=== PATIENT | male | born 1960 | race Caucasian/White ===

== ENCOUNTER 2024-12-17 08:08 | Emergency (ER) | payer BC, SELFPAY ==
--- OUTSIDE RECORDS SUMMARY | 2024-12-17 08:11 | XMS_ITS | Encounter Summary ---
Author Organization [place] Address [address] [place] [address]. [place] [address] Care Team Providers Care Employee Relations Consultant Name Role Phone Gamal Vásquez MD Primary Care Provider [phone] Isabelle Gleason MD Unavailable Unavailable Gamal Vásquez MD Unavailable [phone] Richa Carmona MD Unavailable + Juve Portillo MD Unavailable Gamal Vásquez MD Unavailable [phone] Guilherme Sprague MD Unavailable Parish Hammer MD Unavailable Un available Shay Dunlap PA-C Unavailable [phone] Guilherme Sprague MD Unavailable [phone] Shay Dunlap PA-C Unavailable [phone] Soco Magana PA-C Unavailable [phone] Gamal Vásquez MD Unavailable [facility] Unavailable Encounter Details Date Type Department Care Team (Late st Contact Info) Description 01/21/[address] 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 Not on file Not on file Not on fi le documented as of this encounter Plan of Treatment Not on file documented as of this encounter Visit Diagnoses Not on filedocumented in this encounter Care Teams Employee Relations Consultant Relationship Specialty Start Date End Date Gamal Vásquez MD [address] [place] [address] PCP - General Internal Medicine 04/14/15 Isabelle Gleason MD [address] [place] [address] BMT Physician Hematology 03/21/18 Gamal Vásquez MD [address] [place] [address] Assigned PCP 04/06/15 08/23/20 Richa Carmona MD [address] [facility] [address] [place] [address] Assigned Heart and Vascular Provider 07/18/20 09/27/20 Juve Portillo MD [address] [place] [address] Assigned PCP 08/24/20 09/20/20 Gamal Vásquez MD [address] [place] [address] Assigned PCP 09/21/20 09/10/22 Guilherme Sprague MD [address] [place] [address] Urology 09/22/20 Parish Hammer MD Assigned Heart and Vascular Provider 10/05/20 11/14/21 Shay Dunlap PA-C [address] [place], [place] [address] Assigned Surgical Provider 12/10/20 12/27/20 Guilherme Sprague MD [address] [place] [address] Assigned Surgical Provider 12/28/20 Shay Dunlap PA-C [address] [place] [address] Assigned Musculoskeletal Provider 03/15/21 04/16/22 Soco Magana PA-C [address] [place] [address] Assigned Heart and Vascular Provider 11/15/21 06/17/24 Gamal Vásquez MD [address] [facility] 160 [place] [address] Assigned PCP 11/20/22 09/16/23 [facility] 303 [place] [address] Assigned PCP 10/20/23 documented as of this encounter
--- OUTSIDE RECORDS SUMMARY | 2024-12-17 08:11 | XMS_ITS | Encounter Summary ---
Author Organization [place] Address [address] [place] [address]. [place] [address] Care Team Providers Care Cellular Biologist Name Role Phone Gamal Vásquez MD Primary Care Provider Isabelle Gleason MD Unavailable Unavailable Gamal Vásquez MD Unavailable [phone] Gamal Vásquez MD Unavailable [phone] Richa Carmona MD Unavailable + Juve Portillo MD Unavailable [phone] Gamal Vásquez MD Unavailable [phone] Guilherme Sprague MD Unavailable [phone] Parish Hammer MD Unavailable Un available Shay Dunlap PA-C Unavailable [phone] Guilherme Sprague MD Unavailable [phone] Shay Dunlap PA-C Unavailable [phone] Soco Magana PA-C Unavailable [phone] Gamal Vásquez MD Unavailable [phone] [facility] Unavailable Encounter Details Date Type Department Care Team (Late st Contact Info) Description 11/19/2018 [facility] [address] [place] [address] Gamal Vásquez MD [address] [place] [address] Social History Tobacco Use Types Packs/Day Years Used Date Smoking Tobacco: Never Smokeless Tobacco: Never Alcohol Use Standard Drinks/Week Comments Yes 0 (1 standard drink = 0.6 oz pur e alcohol) 2 drinks week PHQ-2 Answer Date Recorded PHQ-2 Score 0 10/04/2018 Sex and Gender Information Value Date Recorded Sex Assigned at Not on file Legal Sex Male 4:23 AM VP INFORMATICS Gender Identity Not on file Sexual Orientation Not on file 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 file Not on file Not on fi le documented as of this encounter Plan of Treatment Not on file documented as of this encounter Visit Diagnoses Not on filedocumented in this encounter Care Teams Cellular Biologist Relationship Specialty Start Date End Date Gamal Vásquez MD [address] [place] [address] PCP - General Internal Medicine 04/14/15 Gamal Vásquez MD [address] [place] [address] PCP - Assigned PCP 04/06/15 11/28/18 Isabelle Gleason MD [address] [place] [address] BMT Physician Hematology 03/21/18 Gamal Vásquez MD [address] [place] [address] Assigned PCP 04/06/15 08/23/20 Richa Carmona MD [address] [facility] [address] [place] [address] Assigned Heart and Vascular Provider 07/18/20 09/27/20 Juve Portillo MD [address] [place] [address] Assigned PCP 08/24/20 09/20/20 Gamal Vásquez MD [address] [place] [address] Assigned PCP 09/21/20 09/10/22 Guilherme Sprague MD [address] [place] [address] Urology 09/22/20 Parish Hammer MD Assigned Heart and Vascular Provider 10/05/20 11/14/21 Shay Dunlap PA-C [address] [place] [address] Assigned Surgical Provider 12/10/20 12/27/20 Guilherme Sprague MD [address] [place] [address] Assigned Surgical Provider 12/28/20 Shay Dunlap PA-C [address] [place] [address] Assigned Musculoskeletal Provider 03/15/21 04/16/22 Soco Magana PA-C [address] [place] [address] Assigned Heart and Vascular Provider 11/15/21 06/17/24 Gamal Vásquez MD [address] [place] [address] Assigned PCP 11/20/22 09/16/[address] [address] Assigned PCP 10/20/23 documented as of this encounter
--- OUTSIDE RECORDS SUMMARY | 2024-12-17 08:12 | XMS_ITS | Encounter Summary ---
Author Organization [place] Address [address] [place] [address]. [place] [address] Care Team Providers Care Air Deodorizer Servicer Name Role Phone Gamal Vásquez MD Primary Care Provider [phone] Isabelle Gleason MD Unavailable Unavailable Gamal Vásquez MD Unavailable [phone] Guilherme Sprague MD Unavailable [phone] Guilherme Sprague MD Unavailable [phone] Soco Magana PA-C Unavailable [phone] Gamal Vásquez MD Unavailable [phone] [facility] Unavailable Reason for Visit * Reason Comments Medication Refill Encounter Details Date Type Department Care Team (Late st Contact Info) Description 08/04/2022 [facility] [address] [place] [address] Gamal Vásquez MD [address] [place] [address] Medication Refill Social History Tobacco Use Types Packs/Day Years Used Date Smoking Tobacco: Former Smokeless Tobacco: Never Comments:SMOKED IN HIGH SCHO OL Alcohol Use Standard Drinks/Week Comments Yes 0 (1 standard drink = 0.6 oz pur e alcohol) 2 drinks week Humiliation, Afraid, Rape, and Kick questionnair e Answer Date Recorded Within the last year, have y ou been afraid of your partner or ex-partner? No 09/10/2020 Within the last year, have y ou been humiliated or emotionally abused in other ways by your partner or ex-partner? No Within the last year, have y ou been kicked, hit, slapped, or otherwise physically hurt by your partner or ex-partner? No 09/10/2020 Within the last year, have y ou been raped or forced to have any kind of sexual activity by your partner or ex-partner? No 09/10/2020 Social Connection and Isolation Panel [NHANES] A nswer Date Recorded In a typical week, how many times do you talk on the phone with family, friends, or neighbors? Not asked 09/10/2020 How often do you get together with friends or re latives? Not asked 09/10/2020 How often do you attend confucianist or sabianism serv ices? Not asked 09/10/2020 Do you belong to any clubs o r organizations such as confucianist groups, unions, fraternal or athletic groups, or school groups? Not asked 09/10/2020 How often do you attend meet ings of the clubs or organizations you belong to? Not asked 09/10/2020 Are you , , di vorced, , never , or living with a partner? 09/10/2020 AUDIT-C Answer Date Recorded Q1: How often do you have a drink containing alc ohol? 2-3 times a week 09/10/2020 Q2: How many drinks containi ng alcohol do you have on a typical day when you are drinking? 1 or 2 09/10/2020 Q3: How often do you have si x or more drinks on one occasion? Not asked 09/10/2020 Overall Financial Resource Strain (CARDIA) Answe r Date Recorded How hard is it for you to pa y for the very basics like food, housing, medical care, and heating? Not hard at all 09/10/2020 PHQ-2 Answer Date Recorded PHQ-2 Score 0 03/13/2021 Exercise Vital Sign Answer Date Recorde d On average, how many days pe r week do you engage in moderate to strenuous exercise (like a brisk walk)? 0 days 09/10/2020 On average, how many minutes do you engage in exercise at this level? Not asked 09/10/2020 Hunger Vital Sign Answer Date Recorded Within the past 12 months, y ou worried that your food would run out before you got the money to buy more. Never true 09/10/20 20 Within the past 12 months, t he food you bought just didn't last and you didn't have money to get more. Never true 09/10/2020 PRAPARE - Transportation Answer Date Re corded In the past 12 months, has l ack of transportation kept you from medical appointments or from getting medications? No 08/26 In the past 12 months, has l ack of transportation kept you from meetings, work, or from getting things needed for daily living? No 09/10/2020 Education Answer Date Recorded What is the highest level of school you have completed or the highest degree you have received? 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 No / Unsure 07/05/2022 9:33 AM CDT documented as of this encounter Miscellaneous Notes * Telephone Encounter - Samia eWbber RN - 08/05/2022 5:26 PM HEATER MECHANIC Sildenafil 100 mg Routing refill request to provider for review/approval because: A break in medication Patient needs to be seen because it has been more than 1 year since last office visit. Patient seen by Dr. Eller for Pre-op 01/2022 ASHLEY with PCP- 08/2020 ER MECHANIC documented in this encounter Plan of Treatment Not on file documented as of this encounter Visit Diagnoses Diagnosis Other male erectile dysfunction documented in this encounter Care Teams Air Deodorizer Servicer Relationship Specialty Start Date End Date Gamal Vásquez MD [address] [address] PCP - General Internal Medicine 04/14/15 Isabelle Gleason MD [address] [place] [address] BMT Physician Hematology 03/21/18 Gamal Vásquez MD [address] [address] Assigned PCP 09/21/20 09/10/22 Guilherme Sprague MD [address] [place] [address] Urology 09/22/20 Guilherme Sprague MD [address] [place] [address] Assigned Surgical Provider 12/28/20 Soco Magana PA-C [address] [place] [address] Assigned Heart and Vascular Provider 11/15/21 06/17/24 Gamal Vásquez MD [address] [address] Assigned PCP 11/20/22 09/16/23 [facility] [address] [place] [address] Assigned PCP 10/20/23 documented as of this encounter
--- OUTSIDE RECORDS SUMMARY | 2024-12-17 08:12 | XMS_ITS | Encounter Summary ---
Author Organization [facility] Address [address] [place] [address]. [place] [address] Care Team Providers Care Food Service Lead Name Role Phone Gamal Vásquez MD Primary Care Provider [phone] Isabelle Gleason MD Unavailable Unavailable Gamal Vásquez MD Unavailable [phone] Guilherme Sprague MD Unavailable [phone] Guilherme Sprague MD Unavailable [phone] Shay Dunlap PA-C Unavailable [phone] Soco Magana PA-C Unavailable [phone] Gamal Vásquez MD Unavailable [phone] [facility] Unavailable Encounter Details Date Type Department Care Team (Late st Contact Info) Description 01/22/2022 [facility] Centralized Scheduling [facility] [place] [address] [place] Social History Tobacco Use Types Packs/Day Years [...] asked 09/10/2020 How often do you attend zoroastrian or buddhism serv ices? 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 No / Unsure 12/24/2021 9:10 AM CDT documented as of this encounter Plan of Treatment Not on file documented as of this encounter Visit Diagnoses Not on filedocumented in this encounter Care Teams Food Service Lead Relationship Specialty Start Date End Date Gamal Vásquez MD [address] [place] [address] PCP - General Internal Medicine 04/14/15 Isabelle Gleason MD [address] [place] [address] BMT Physician Hematology 03/21/18 Gamal Vásquez MD [address] [place] [address] Assigned PCP 09/21/20 09/10/22 Guilherme Sprague MD [address] [place] [address] Urology 09/22/20 Guilherme Sprague MD [address] [place], [place] [address] Assigned Surgical Provider 12/28/20 Shay Dunlap PA-C [address] [place], [place] [address] Assigned Musculoskeletal Provider 03/15/21 04/16/22 Soco Magana PA-C [address] [place], [place] [address] Assigned Heart and Vascular Provider 11/15/21 06/17/24 Gamal Vásquez MD [address] [facility] [address] [place] [address] Assigned PCP 11/20/22 09/16/23 [facility] [address] [place], [place] [address] Assigned PCP 10/20/23 documented as of this encounter
--- OUTSIDE RECORDS SUMMARY | 2024-12-17 08:12 | XMS_ITS | Clinical Summary ---
Author Organization [facility] Address [address] [place] [address] Phone Care Team Providers Care Automotive Assembler Name Role Phone Gamal Vásquez MD Primary Care Provider [phone] Medications Medication Sig Dispensed Refills Start Date End Date Status sildenafil (VIAGRA) 100 MG tablet Take as dir 06/03/2015 Active tadalafil (CIALIS) 5 MG tablet Take as dir 06/03/2015 Active Active Problems Problem Noted Date Diagnosed Date Other abnormal blood chemistry 06/05/2015 Overview (08/04/2019): Converted unresolved ICD9, potential mismatch. Other malignant lymphomas, u nspecified site, extranodal and solid organ sites 06/03/2015 Overview (08/04/2019): Converted unresolved ICD9, potential mismatch. Mixed hyperlipidemia 06/03/2015 Tachycardia 06/03/2015 Impotence of organic origin 06/03/2015 Overview (08/04/2019): Converted unresolved ICD9, potential mismatch. Social History Tobacco Use Types Packs/Day Years Used Date Smoking Tobacco: Never Assessed Sex and Gender Information Value Date Recorded Sex Assigned at Not on file Gender Identity Not on file Sexual Orientation Not on file Last Filed Vital Signs Vital Sign Reading Time Taken Comments Blood Pressure 132/80 06/05/2015 12:02 AM CDT Ri ght Pulse - - Temperature - - Respiratory Rate - - Oxygen Saturation - - Inhaled Oxygen Concentration - - Weight 109 kg (240 lb) 06/05/2015 12:01 AM CDT Height 180.3 cm (5' 11) 06/05/2015 12:01 AM CDT Body Mass Index 33.47 06/05/2015 12:01 AM CDT Plan of Treatment Not on file Care Teams Automotive Assembler Relationship Specialty Start Date End Date Gamal Vásquez MD [address] [facility] [address] [place] [address] PCP - General 08/06/19
--- OUTSIDE RECORDS SUMMARY | 2024-12-17 08:12 | XMS_ITS | Encounter Summary ---
Author Organization [facility] Address [address] [place] [address]. [place] [address] Care Team Providers Care Healthcare Administrator Name Role Phone Gamal Vásquez MD Primary Care Provider [phone] Isabelle Gleason MD Unavailable Unavailable Gamal Vásquez MD Unavailable [phone] Gamal Vásquez MD Unavailable [phone] Richa Carmona MD Unavailable + Juve Portillo MD Unavailable [phone] Gamal Vásquez MD Unavailable [phone] Guilherme Sprague MD Unavailable [phone] Parish Hammer MD Unavailable Un available Shay Dunlap PA-C Unavailable [phone] Guilherme Sprague MD Unavailable [phone] Shay Dunlap PA-C Unavailable [phone] Soco Magana PA-C Unavailable [phone] Gamal Vásquez MD Unavailable [phone] [facility] Unavailable Encounter Details Date Type Department Care Team (Late st Contact Info) Description 04/18/2017 [facility] [address] [place] [address] Gamal Vásquez MD [address] [place] [address] Social History Tobacco Use Types Packs/Day Years Used Date Smoking Tobacco: Never Smokeless Tobacco: Never Alcohol Use Standard Drinks/Week Comments Yes 0 (1 standard drink = 0.6 oz pur e alcohol) 2 drinks week Sex and Gender Information Value Date Recorded Sex Assigned at Not on file 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 Gender Identity Not on file Sexual Orientation Not on file 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 Not on file Not on fi le documented as of this encounter Plan of Treatment Not on file documented as of this encounter Visit Diagnoses Not on filedocumented in this encounter Care Teams Healthcare Administrator Relationship Specialty Start Date End Date Gamal Vásquez MD [address] [place] [address] PCP - General Internal Medicine 04/14/15 Gamal Vásquez MD [address] [place] [address] PCP - Assigned PCP 04/06/15 11/28/18 Isabelle Gleason MD [address] [place] [address] BMT Physician Hematology 03/21/18 Gamal Vásquez MD [address] [place] [address] Assigned PCP 04/06/15 08/23/20 Richa Carmona MD [address] [place] [address] Assigned Heart and Vascular Provider 07/18/20 09/27/20 Juve Portillo MD [address] [place] [address] Assigned PCP 08/24/20 09/20/20 Gamal Vásquez MD [address] [address] Assigned PCP 09/21/20 09/10/22 Guilherme Sprague MD [address] [place] [address] Urology 09/22/20 Parish Hammer MD Assigned Heart and Vascular Provider 10/05/20 11/14/21 Shay Dunlap PA-C [address] [place] [address] Assigned Surgical Provider 12/10/20 12/27/20 Guilherme Sprague MD [address] [place], [place] [address] Assigned Surgical Provider 12/28/20 Shay Dunlap PA-C [address] [place] [address] Assigned Musculoskeletal Provider 03/15/21 04/16/22 Soco Magana PA-C [address] [place] [place], [place] [address] Assigned Heart and Vascular Provider 11/15/21 06/17/24 Gamal Vásquez MD [address] [address] Assigned PCP 11/20/22 09/16/[address] [address] Assigned PCP 10/20/23 documented as of this encounter
--- OUTSIDE RECORDS SUMMARY | 2024-12-17 08:12 | XMS_ITS | Encounter Summary ---
Author Organization [facility] Address [address] [place] [address]. [place] [address] Care Team Providers Care Air Defense Specialist Name Role Phone Gamal Vásquez MD Primary Care Provider [phone] Isabelle Gleason MD Unavailable Unavailable Guilherme Sprague MD Unavailable [phone] Guilherme Sprague MD Unavailable [phone] Soco Magana PA-C Unavailable [phone] Gamal Vásquez MD Unavailable [phone] [facility] Unavailable Reason for Visit * Reason Comments Medication Refill Encounter Details Date Type Department Care Team (Late st Contact Info) Description 08/28/2023 [facility] [address] [place] [address] Gamal Vásquez MD [address] [facility] [address] [place] [address] Medication Refill Social History Tobacco Use Types Packs/Day Years Used Date Smoking Tobacco: Former Smokeless Tobacco: Never Comments:SMOKED IN HIGH SCHO OL Alcohol Use Standard Drinks/Week Comments Yes 0 (1 standard drink = 0.6 oz pur e alcohol) 2 drinks monthly Humiliation, Afraid, Rape, and Kick questionnair e [...] asked 09/10/2020 How often do you attend mu-ism or lutheran serv ices? Not asked 09/10/2020 Do you belong to any clubs o r organizations such as mu-ism groups, unions, fraternal or athletic groups, or [...] things needed for daily living? No 09/10/2020 Adolescent Education Answer Date Record ed Getting School Help Needed Not on file 06/29 Education Answer Date Recorded What is the highest level of school you have completed or the highest degree you have received? 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 Not on file Not on file Not on fi le documented as of this encounter Plan of Treatment Not on file documented as of this encounter Visit Diagnoses Diagnosis Other male erectile dysfunction documented in this encounter Care Teams Air Defense Specialist Relationship Specialty Start Date End Date Gamal Vásquez MD [address] [place] [address] PCP - General Internal Medicine 04/14/15 Isabelle Gleason MD [address] [place] [address] BMT Physician Hematology 03/21/18 Guilherme Sprague MD [address] [place] [address] Urology 09/22/20 Guilherme Sprague MD [address] [place] [address] Assigned Surgical Provider 12/28/20 Soco Magana PA-C [address] [place] [address] Assigned Heart and Vascular Provider 11/15/21 06/17/24 Gamal Vásquez MD [address] [facility] [address] [place], [place] [address] Assigned PCP 11/20/22 09/16/23 [facility] [address] [place], [place] [address] Assigned PCP 10/20/23 documented as of this encounter
--- OUTSIDE RECORDS SUMMARY | 2024-12-17 08:12 | XMS_ITS | Clinical Summary ---
Author Organization [facility] Address [address] [place] [address] Care Team Providers Care Hat And Cap Sewer Name Role Phone Gamal Vásquez MD Primary Care Provider [phone] Allergies No known active allergies Medications acetaminophen (TYLENOL EXTRA STRGTH) 500 mg tablet Take 1,000 mg by mouth. Active anastrozole (ARIMIDEX) 1 mg tablet TAKE 1/2 TABLET BY MOUTH TWICE WEEKLY 4 Active cetirizine (ZYRTEC) 10 mg tablet Take 10 mg by mouth once daily. 3 Active cholecalciferol (VITAMIN D3) 2,000 unit capsule Take 50 mcg by mouth. Active fluticasone (50 mcg per actuation) nasal solution (FLONASE) SHAKE LIQUID AND USE 2 SPRAYS IN EACH NOSTRIL DAILY 4 Active ibuprofen (ADVIL; MOTRIN) 200 mg tablet Take 800 mg by mouth every 6 hours. Active lenalidomide (REVLIMID) 10 mg capsule Take 10 mg by mouth. Active LORazepam (ATIVAN) 0.5 mg tab Take 0.5 mg by mouth. Active naproxen (ALEVE) 220 mg tablet Take 440 mg by mouth. Active Doris Disp [place] 18Gx1 18 gauge x 1 ndle USE WITH INJECTIONS 4 Active ondansetron (ZOFRAN) 8 mg tablet Take 8 mg by mouth every 8 hours if needed. 4 03/26/20 25 Active prochlorperazin e (COMPAZINE) 10 mg tablet Take 10 mg by mouth every 6 hours if needed. 4 03/26/20 25 Active pregabalin (LYRICA) 50 mg capsuleIndicati ons:Lumbar pain Take 1 Capsule (50 mg) by mouth two times daily. 180 Capsule 1 Active Social History Tobacco Use Types Packs/Day Years Used Date Smoking Tobacco: Never Smokeless Tobacco: Never Tobacco Cessation:Counseling Given: Not Answered Sex and Gender Information Value Date Recorded Sex Assigned at Not on file Legal Sex Male 4:04 PM CDT Gender Identity Not on file Sexual Orientation Not on file Obstetrics History Last Filed Vital Signs Vital Sign Reading Time Taken Comments Blood Pressure - - Pulse - - Temperature - - Respiratory Rate - - Oxygen Saturation - - Inhaled Oxygen Concentration - - Weight 107 kg (236 lb) 04/05/2024 2:03 PM CDT Height 180.3 cm (5' 11) 04/05/2024 2:03 PM CDT Body Mass Index 32.92 04/05/2024 2:03 PM CDT Plan of Treatment Health Maintenance Due Date Last Done Comments COVID-19 vaccine series (#1) 1966 Tdap 1972 Depression screening for age 12+ 1973 HIV for age 15-65 1976 Zoster (shingles) series for age 50+ (1 of 2) 11/14/18 81 Tetanus booster 1981 Colonoscopy through age 75 2006 Lipids for age 45-75 2006 Pneumococcal series for age 50+ (1 of 1 - PCV) 012 RSV vaccine for adults or pr egnancy (1 - Risk 60-74 years 1-dose series) 2021 Influenza Vaccine (#1) 2024 BMI (ht and wt on same day) for age 18+ 04/05/2025 0 04/05/2024 Hepatitis C screening for age 18-79 Completed 07/18 Procedures Procedure Name Priority Date/Time Associated Diagnosis Comments ANTI HCV Routine 07/18/2018 2:13 PM CDT 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 Blood BLOOD SPECIMEN / Unknown 07/18/2018 2:13 PM CDT 07/18/2018 6:58 PM CDT us Gilberto Baker MD SEND OUTS Final Res ult [facility] [address] [place] [address], from Last 3 Months or Most Recently Relevant to Health Maintenance Insurance [facility] NON-VT-ITS Care Teams Hat And Cap Sewer Relationship Specialty Start Date End Date Gamal Vásquez MD [address] [facility] [address] [place] [address] PCP - General Internal Medicine 04/02/24
--- OUTSIDE RECORDS SUMMARY | 2024-12-17 08:12 | XMS_ITS | Encounter Summary ---
Author Organization [facility] Address [address] [place] [address]. [place] [address] Care Team Providers Care Supervisor Pipeline Maintenance Name Role Phone Gamal Vásquez MD Primary Care Provider Isabelle Gleaosn MD Unavailable Unavailable Gamal Vásquez MD Unavailable [phone] Richa Carmona MD Unavailable + Juve Portillo MD Unavailable Gamal Vásquez MD Unavailable [phone] Guilherme Sprague MD Unavailable [phone] Parish Hammer MD Unavailable Un available Shay Dunlap PA-C Unavailable [phone] Guilherme Sprague MD Unavailable Shay Dunlap PA-C Unavailable [phone] Soco Magana PA-C Unavailable [phone] Gamal Vásquez MD Unavailable [phone] [facility] Unavailable Reason for Visit * Reason Comments Medication Refill Encounter Details Date Type Department Care Team (Late st Contact Info) Description 03/10/2020 [facility] [address] [place] [address] Liya Ruiz MD [address] [place] [address] Medication Refill Social History Tobacco Use Types Packs/Day Years Used Date Smoking Tobacco: Never Smokeless Tobacco: Never Alcohol Use Standard Drinks/Week Comments Yes 0 (1 standard drink = 0.6 oz pur e alcohol) 2 drinks week PHQ-2 Answer Date Recorded PHQ-2 Score 0 10/04/2018 Sex and Gender Information Value Date Recorded Sex Assigned at Not on file Legal Sex Male 4:23 AM BUYERS' AGENT Gender Identity Not on file Sexual Orientation Not on file 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 TAKE 30 MINUTES TO 4 HOURS BEFORE INTERCOURSE Routing refill request to provider for review/approval because: Patient needs to be seen because it has been more than 1 year since last office visit. documented in this encounter Plan of Treatment Not on file documented as of this encounter Visit Diagnoses Diagnosis Other male erectile dysfunction documented in this encounter Care Teams Supervisor Pipeline Maintenance Relationship Specialty Start Date End Date Gamal Vásquez MD [address] [place] [address] PCP - General Internal Medicine 04/14/15 Isabelle Gleason MD [address] [place] [address] BMT Physician Hematology 03/21/18 Gamal Vásquez MD [address] [place] [address] Assigned PCP 04/06/15 08/23/20 Richa Carmona MD [address] [place] [address] Assigned Heart and Vascular Provider 07/18/20 09/27/20 Juve Portillo MD [address] [place] [address] Assigned PCP 08/24/20 09/20/20 Gamal Vásquez MD [address] [place], [place] [address] Assigned PCP 09/21/20 09/10/22 Guilherme Sprague MD [address] [place], [place] [address] Urology 09/22/20 Parish Hammer MD Assigned Heart and Vascular Provider 10/05/20 11/14/21 Shay Dunlap PA-C [address] [place] [address] Assigned Surgical Provider 12/10/20 12/27/20 Guilherme Sprague MD [address] [place] [address] Assigned Surgical Provider 12/28/20 Shay Dunlap PA-C [address] [place] [address] Assigned Musculoskeletal Provider 03/15/21 04/16/22 Soco Magana PA-C [address] [place] [address] Assigned Heart and Vascular Provider 11/15/21 06/17/24 Gamal Vásquez MD [address] [facility] [address] [place] [address] Assigned PCP 11/20/22 09/16/23 [facility] [address] [place] [address] Assigned PCP 10/20/23 documented as of this encounter
--- OUTSIDE RECORDS SUMMARY | 2024-12-17 08:12 | XMS_ITS | Encounter Summary ---
Author Organization [facility] Address [address] [place] [address] Care Team Providers Care Behavioral Sciences Department Chair Name Role Phone Gilberto Baker MD Primary Care Provider [phone] Gamal Vásquez MD Primary Care Provider [phone] Isabelle Gleason MD Unavailable Unavailable Gamal Vásquez MD Unavailable [phone] Gamal Vásquez MD Unavailable [phone] Richa Carmona MD Unavailable + Juve Portillo MD Unavailable [phone] Gamal Vásquez MD Unavailable [phone] Guilherme Sprague MD Unavailable [phone] Parish Hammer MD Unavailable Un available Shay Dunlap PA-C Unavailable [phone] Guilherme Sprague MD Unavailable [phone] Shay Dunlap PA-C Unavailable [phone] Soco Magana PA-C Unavailable [phone] Gamal Vásquez MD Unavailable [phone] [facility] Unavailable Encounter Details Date Type Department Care Team (Late st Contact Info) Description 04/11/2015 [facility] [place] [address] [facility] [address] [place] [id number] Gamal Vásquez MD [address] [place], [place] [address] Social History Tobacco Use Types Packs/Day Years Used Date Smoking Tobacco: Never Smokeless Tobacco: Never Alcohol Use Standard Drinks/Week Comments Yes 0 (1 standard drink = 0.6 oz pure alcohol) About one beer daily on average Sex and Gender Information Value Date Recorded Sex Assigned at Not on file Legal Sex Male 4:23 AM SENIOR APPLICATIONS 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 Gender Identity Not on file Sexual Orientation Not on file 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 on file Not on file Not on fi le documented as of this encounter Plan of Treatment Not on file documented as of this encounter Visit Diagnoses Not on filedocumented in this encounter Care Teams Behavioral Sciences Department Chair Relationship Specialty Start Date End Date Gilberto Baker MD [place] [facility] [address] [facility] [address] [place], [place] [address] PCP - General Oncology 01/16/14 04/13/15 Gamal Vásquez MD [address] [place] [address] PCP - General Internal Medicine 04/14/15 Gamal Vásquez MD [address] [place] [address] PCP - Assigned PCP 04/06/15 11/28/18 Isabelle Gleason MD [address] [place] [address] BMT Physician Hematology 03/21/18 Gamal Vásquez MD [address] [place] [address] Assigned PCP 04/06/15 08/23/20 IsRicha ku MD [address] [place] [address] Assigned Heart and Vascular Provider 07/18/20 09/27/20 Juve Portillo MD [address] [place] [address] Assigned PCP 08/24/20 09/20/20 Gamal Vásquez MD [address] [place], [place] [address] Assigned PCP 09/21/20 09/10/22 Guilherme Sprague MD [address] [place] [address] Urology 09/22/20 Parish Hammer MD Assigned Heart and Vascular Provider 10/05/20 11/14/21 Shay Dunlap PA-C [address] [place] [address] Assigned Surgical Provider 12/10/20 12/27/20 Guilherme Sprague MD [address] [place] [address] Assigned Surgical Provider 12/28/20 Shay Dunlap PA-C [address] [place] [address] Assigned Musculoskeletal Provider 03/15/21 04/16/22 Soco Magana PA-C [address] [place] [address] Assigned Heart and Vascular Provider 11/15/21 06/17/24 Gamal Vásquez MD [address] [facility] 160 [place] [address] Assigned PCP 11/20/22 09/16/23 [facility] 303 [place] [address] Assigned PCP 10/20/23 documented as of this encounter
--- OUTSIDE RECORDS SUMMARY | 2024-12-17 08:12 | XMS_ITS | Encounter Summary ---
Author Organization [facility] Address [address] [place] [address]. [place] [address] Care Team Providers Care Irrigation Flume Layer Name Role Phone Gamal Vásquez MD Primary Care Provider [phone] Isabelle Gleason MD Unavailable Unavailable Gamal Vásquez MD Unavailable [phone] Guilherme Sprague MD Unavailable [phone] Parish Hammer MD Unavailable Un available Guilherme Sprague MD Unavailable [phone] Shay Dunlap PA-C Unavailable + [phone] Soco Magana-Kavin Unavailable [phone] Gamal Vásquez MD Unavailable [phone] [facility] Unavailable Encounter Details Date Type Department Care Team (Late st Contact Info) Description 06/30/2021 [facility] [address] [place] [phone] Myranda Castillo, EXPEDITER CLERK Social History Tobacco Use Types Packs/Day Years [...] asked 09/10/2020 How often do you attend sikhism or synagogue serv ices? 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 Not on file Not on fi le documented as of this encounter Plan of Treatment Not on file documented as of this encounter Visit Diagnoses Not on filedocumented in this encounter Care Teams Irrigation Flume Layer Relationship Specialty Start Date End Date Gamal Vásquez MD [address] [place] [address] PCP - General Internal Medicine 04/14/15 Isabelle Gleason MD [address] [place] [address] BMT Physician Hematology 03/21/18 Gamal Vásquez MD [address] [place] [address] Assigned PCP 09/21/20 09/10/22 Guilherme Sprague MD [address] [address] Urology 09/22/20 Parish Hammer MD Assigned Heart and Vascular Provider 10/05/20 11/14/21 Guilherme Sprague MD [address] [place] [address] Assigned Surgical Provider 12/28/20 Shay Dunlap PA-C [address] [place] [address] Assigned Musculoskeletal Provider 03/15/21 04/16/22 Soco Magana PA-C [address] [place] [place], [place] [address] Assigned Heart and Vascular Provider 11/15/21 06/17/24 Gamal Vásquez MD [address] [facility] 160 [place], [place] [address] Assigned PCP 11/20/22 09/16/23 [facility] 303 [place], [place] [address] Assigned PCP 10/20/23 documented as of this encounter
--- OUTSIDE RECORDS SUMMARY | 2024-12-17 08:12 | XMS_ITS | Encounter Summary ---
Author Organization [facility] Address [address] [place] [address]. [place] [address] Care Team Providers Care Director Of Property Management Name Role Phone Gamal Vásquez MD Primary Care Provider [phone] Isabelle Gleason MD Unavailable Unavailable Gamal Vásquez MD Unavailable [phone] Guilherme Sprague MD Unavailable [phone] Guilherme Sprague MD Unavailable [phone] Shay Dunlap PA-C Unavailable [phone] Soco Magana PA-C Unavailable [phone] Gamal Vásquez MD Unavailable [phone] [facility] Unavailable Encounter Details Date Type Department Care Team (Late st Contact Info) Description 02/05/2022 [facility] [address] [place] [address] Tere Page Social History Tobacco Use Types Packs/Day Years [...] asked 09/10/2020 How often do you attend confucianism or gnosticism serv ices? 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 No / Unsure 02/04/2022 9:35 AM CDT documented as of this encounter Plan of Treatment Not on file documented as of this encounter Visit Diagnoses Not on filedocumented in this encounter Care Teams Director Of Property Management Relationship Specialty Start Date End Date Gamal Vásquez MD [address] [place] [address] PCP - General Internal Medicine 04/14/15 Isabelle Gleason MD [address] [place] [address] BMT Physician Hematology 03/21/18 Gamal Vásquez MD [address] [place] [address] Assigned PCP 09/21/20 09/10/22 Guilherme Sprague MD [address] [address] Urology 09/22/20 Guilherme Sprague MD [address] [place] [address] Assigned Surgical Provider 12/28/20 Shay Dunlap PA-C [address] [place] [address] Assigned Musculoskeletal Provider 03/15/21 04/16/22 Soco Magana PA-C [address] [facility] [place] [place] [address] Assigned Heart and Vascular Provider 11/15/21 06/17/24 Gamal Vásquez MD 303 [facility] 160 [place] [address] Assigned PCP 11/20/22 09/16/23 [facility] 303 [place] [address] Assigned PCP 10/20/23 documented as of this encounter
--- OUTSIDE RECORDS SUMMARY | 2024-12-17 08:12 | XMS_ITS | Clinical Summary ---
Author Organization [facility] Address [address] [place] [address] Care Team Providers Care Mounter Flutes And Piccolos Name Role Phone No Primary/Referring, Phy Primary Care Provider Unavailable Source Comments You are receiving this document as you are listed as the primary care provider,follow-up provider, or the patient has been referred to you for consultation.This is in compliance with the Medicare and[facility] EHR Incentive Program,which states Providers who transition their patient to another setting of careor provider of care or refers their patient to another provider of care shouldprovide summary care record for each transition of care or referral. [facility] Allergies No known active allergies Medications atorvastatin (AKA LIPITOR) 10 MG tablet Take by mouth daily (every 24 hours). LW Addl Instr:Indicated for: High Cholesterol 90 3 7 Active ibuprofen (MOTRIN) 600 MG tablet Take 1 Tablet by mouth every 6 hours as needed for Pain. 30 Tablet 0 Active oxyCODONE-aceta minophen (PERCOCET) 5-325 MG tablet Take 1 Tablet by mouth every 6 hours as needed for Pain. 6 Tablet 0 Active Immunizations Immunization Administration Dates Next Due Tdap 01/12/2020 Social History Tobacco Use Types Packs/Day Years Used Date Smoking Tobacco: Never Assessed Sex and Gender Information Value Date Recorded Sex Assigned at Not on file Legal Sex Male 11:01 PM CDT Gender Identity Not on file Sexual Orientation Not on file Last Filed Vital Signs Vital Sign Reading Time Taken Comments Blood Pressure 174/83 01/12/2020 12:50 PM CDT Pulse 86 01/12/2020 12:50 PM CDT Temperature 36.9 C (98.4 F) 01/12/2020 12:50 PM CDT Respiratory Rate 16 01/12/2020 12:50 PM CDT Oxygen Saturation 100% 01/12/2020 12:50 PM CDT Inhaled Oxygen Concentration - - Weight - - Height - - Body Mass Index - - Plan of Treatment Health Maintenance Due Date Last Done Comments Colon Cancer Screening Plan Due 1961 Hep C Screening (Preventive Services) 1961 PSA Screening Discussion 1961 HIV Screening (Preventive Services) 1977 Adult Preventive Visit 1979 Cholesterol 1996 Pneumococcal 50+ Yrs (1 of 1 - PCV) 2011 Zoster/Shingles (1 of 2) 2011 COVID-19 Vaccine (2023-2 5 season) 2024 Influenza (#1) 2024 09/10/2020, 07/17/2019, 07/25/2017 DTaP/Tdap/Td (3 - Tdap) 01/11/2030 01/12/20 20, 02/15/2007 RSV (1 - 1-dose 75+ series) 2036 HepA Aged Out No longer eligi ble based on patient's age to complete this topic HepB Aged Out No longer eligi ble based on patient's age to complete this topic Hib Aged Out No longer eligi ble based on patient's age to complete this topic IPV (Polio) Aged Out No longer eligi ble based on patient's age to complete this topic MCV4 Aged Out No longer eligi ble based on patient's age to complete this topic Meningococcal B Aged Out No longer el igible based on patient's age to complete this topic Insurance [facility] Care Teams Mounter Flutes And Piccolos Relationship Specialty Start Date End Date No Primary/Referring, y PCP - General 01/12/20
--- OUTSIDE RECORDS SUMMARY | 2024-12-17 08:12 | XMS_ITS | Encounter Summary ---
Author Organization [facility] Address [address] [place] [address]. [place] [address] Care Team Providers Care Plastic Fabricator Name Role Phone Gamal Vásquez MD Primary Care Provider [phone] Isabelle Gleason MD Unavailable Unavailable Gamal Vásquez MD Unavailable [phone] Guilherme Sprague MD Unavailable [phone] Guilherme Sprague MD Unavailable [phone] Soco Magana PA-C Unavailable [phone] Gamal Vásquez MD Unavailable [phone] [facility] Unavailable Encounter Details Date Type Department Care Team (Late st Contact Info) Description 05/07/2022 [facility] Advice [facility] [address] [place] [address] Guilherme Sprague MD [address] [address] Social History Tobacco Use Types Packs/Day Years [...] asked 09/10/2020 How often do you attend orthodoxy or methodist serv ices? 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 No / Unsure 05/07/2022 7:05 AM CDT documented as of this encounter Plan of Treatment Not on file documented as of this encounter Visit Diagnoses Not on filedocumented in this encounter Care Teams Plastic Fabricator Relationship Specialty Start Date End Date Gamal Vásquez MD [address] [place] [address] PCP - General Internal Medicine 04/14/15 Isabelle Gleason MD [address] [place] [address] BMT Physician Hematology 03/21/18 Gamal Vásquez MD [address] [place] [address] Assigned PCP 09/21/20 09/10/22 Guilherme Sprague MD [address] [place] [address] Urology 09/22/20 Guilherme Sprague MD [address] [place] [address] Assigned Surgical Provider 12/28/20 Soco Magana, PARadhaC [address] [place] [address] Assigned Heart and Vascular Provider 11/15/21 06/17/24 Gamal Vásquez MD 303 [facility] 160 [place] [address] Assigned PCP 11/20/22 09/16/23 [facility] [address] [place] [address] Assigned PCP 10/20/23 documented as of this encounter
--- OUTSIDE RECORDS SUMMARY | 2024-12-17 08:12 | XMS_ITS | Encounter Summary ---
Author Organization [place] Address [address] [place] [address] Care Team Providers Care Hadoop Application Developer Name Role Phone Maynor Barragan MD Primary Care Provider Unavailable [facility] Primary Care Provider Gilberto Baker MD Primary Care Provider [phone] Gamal Vásquez MD Primary Care Provider Isabelle Gleason MD Unavailable Unavailable Gamal Vásquez MD Unavailable [phone] Gamal Vásquez MD Unavailable [phone] Richa Carmona MD Unavailable + Juve Portillo MD Unavailable Gamal Vásquez MD Unavailable [phone] Guilherme Sprague MD Unavailable [phone] Parish Hammer MD Unavailable Un available Shay Dunlap PA-C Unavailable [phone] Guilherme Sprague MD Unavailable [phone] Shay Dunlap PA-C Unavailable [phone] Soco Magana PA-C Unavailable [phone] Gamal Vásquez MD Unavailable [phone] [facility] Unavailable Reason for Visit * Reason Onset Date Comments Pt. Information/instruction 02/28/2008 Encounter Details Date Type Department Care Team (Late st Contact Info) Description 02/28/2008 MyC Medical Advice [address] [phone] Maynor Barragan MD XXX HOSPITALIST/ED DOCTOR XXX Pt. 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 Not on file Not on file Not on fi le documented as of this encounter Plan of Treatment Not on file documented as of this encounter Visit Diagnoses Not on filedocumented in this encounter Care Teams Hadoop Application Developer Relationship Specialty Start Date End Date Maynor Barragan MD XXX HOSPITALIST/ED DOCTOR XXX PCP - General 04/07/02 07/26/10 [facility] XXX HOSPITALIST/ED DOCTOR XXX PCP - General 02/16/12 01/15/14 Gilberto Baker MD [place] [facility] [address] [facility] [address] [place] [address] PCP - General Oncology 01/16/14 04/13/15 Gamal Vásquez MD [address] [place] [address] PCP - General Internal Medicine 04/14/15 Gamal Vásquez MD [address] [place] [address] PCP - Assigned PCP 04/06/15 11/28/18 Isabelle Gleason MD [address] [place] [address] BMT Physician Hematology 03/21/18 Gamal Vásquez MD [address] [place] [address] Assigned PCP 04/06/15 08/23/20 Richa Carmona MD [address] [place] [address] Assigned Heart and Vascular Provider 07/18/20 09/27/20 Juve Portillo MD [address] [place] [address] Assigned PCP 08/24/20 09/20/20 Gamla Vásquez MD [address] [place] [address] Assigned PCP 09/21/20 09/10/22 Guilherme Sprague MD [address] [place] [address] Urology 09/22/20 Parish Hammer MD Assigned Heart and Vascular Provider 10/05/20 11/14/21 Shay Dunlap PA-C [address] [place] [address] Assigned Surgical Provider 12/10/20 12/27/20 Guilherme Sprague MD [address] [place] [address] Assigned Surgical Provider 12/28/20 Shay Dunlap PA-C [address] [address] Assigned Musculoskeletal Provider 03/15/21 04/16/22 Soco Magana PA-C [address] [facility] [place] [address] Assigned Heart and Vascular Provider 11/15/21 06/17/24 Gamal Vásquez MD [address] [place] [address] 160 [place] [address] Assigned PCP 11/20/22 09/16/23 [facility] [address] [place] [address] Assigned PCP 10/20/23 documented as of this encounter
--- OUTSIDE RECORDS SUMMARY | 2024-12-17 08:12 | XMS_ITS | Encounter Summary ---
Author Organization [place] Address [address] [place] [address]. [place] [address] Care Team Providers Care Form Grader Operator Name Role Phone Gamal Vásquez MD Primary Care Provider [phone] Isabelle Gleason MD Unavailable Unavailable Gamal Vásquez MD Unavailable [phone] Guilherme Sprague MD Unavailable [phone] Guilherme Sprague MD Unavailable [phone] Soco Magana PA-C Unavailable [phone] Gamal Vásquez MD Unavailable [phone] [facility] Unavailable Encounter Details Date Type Department Care Team (Late st Contact Info) Description 08/09/2022 MyC Medical Advice [facility] Insurance Verification Marion Das Social History Tobacco Use Types Packs/Day Years [...] asked 09/10/2020 How often do you attend nondenominational or yarsani serv ices? 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 Not on file Not on file Not on fi le documented as of this encounter Plan of Treatment Not on file documented as of this encounter Visit Diagnoses Not on filedocumented in this encounter Care Teams Form Grader Operator Relationship Specialty Start Date End Date Gamal Vásquez MD [address] [place] [address] PCP - General Internal Medicine 04/14/15 Isabelle Gleason MD [address] [place] [address] BMT Physician Hematology 03/21/18 Gamal Vásquez MD [address] [place] [address] Assigned PCP 09/21/20 09/10/22 Guilherme Sprague MD [address] [place] [address] Urology 09/22/20 Guilherme Sprague MD [address] [place] [address] Assigned Surgical Provider 12/28/20 Soco Magana PA-C [address] [place] [address] Assigned Heart and Vascular Provider 11/15/21 06/17/24 Gamal Vásquez MD [address] [facility] [address] [place] [address] Assigned PCP 11/20/22 09/16/23 [facility] [address] [place] [address] Assigned PCP 10/20/23 documented as of this encounter
--- OUTSIDE RECORDS SUMMARY | 2024-12-17 08:12 | XMS_ITS | Clinical Summary ---
Author Organization [place] Address [address] [place] [address]. [place] [address] Care Team Providers Care Radio Disc Jockey Name Role Phone Gamal Vásquez MD Primary Care Provider [phone] Isabelle Gleason MD Unavailable Unavailable Guilherme Sprague MD Unavailable [phone] Guilherme Sprague MD Unavailable [phone] [facility] Unavailable Allergies Active Allergy Reactions Criticality Noted Date Comments No Known Allergies 10/06/2004 Medications Multiple Vitamins-Mineral s (MULTIVITAMIN ADULT PO) Take by mouth daily Active Cholecalciferol (VITAMIN D3 PO) Take by mouth daily Active Multiple Vitamins-Mineral s (ZINC PO) Active aspirin (ASA) 81 MG chewable tabletIndication s:Coronary artery calcification,Dy slipidemia Take 1 tablet (81 mg) by mouth daily with food 2 Active tamsulosin (FLOMAX) 0.4 MG capsuleIndicatio ns:Calculus of kidney Take 1 capsule (0.4 mg) by mouth daily 7 capsule 1 2 Active Additional Information Patient not taking.Reported on 12/16/2022 allopurinol (ZYLOPRIM) 300 MG tablet Take 300 mg by mouth daily Active LENalidomide (REVLIMID) 10 MG CAPS capsule Take 10 mg by mouth daily Active LORazepam (ATIVAN) 0.5 MG tablet Take 0.5 mg by mouth every 6 hours as needed for nausea Active riTUXimab (RITUXAN IV) As directed Activ e rosuvastatin (CRESTOR) 10 MG tabletIndication s:Coronary artery calcification,Dy slipidemia Take 1 tablet (10 mg) by mouth daily 90 tablet 3 3 Active sildenafil (VIAGRA) 100 MG tabletIndication s:Other male erectile dysfunction TAKE ONE-HALF TO ONE TABLET BY MOUTH DAILY NEEDED 30 MINUTES TO 4 HOURS BEFORE INTERCOURSE 6 tablet 3 3 Active Active Problems Problem Noted Date Diagnosed Date Neuropathy, peripheral 11/27/2019 Anemia 07/04/2018 High aspartate aminotransferase level 07/04/2018 Bilateral hearing loss 04/20/2018 Malignant lymphoma, small cleaved cell, 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 Iabfc-Qbpgqqlua-Cvatp pattern 04/20/2018 Chest wall pain 12/03/2016 Chest pain, unspecified type 12/03/2016 Hyperlipidemia LDL goal <130 06/10/2011 Impotence of organic origin 12/08/2005 Mixed hyperlipidemia 12/08/2005 Non Hodgkin's lymphoma Overview (03/25/2014): in remission Heart palpitations Resolved Problems Problem Noted Date Diagnosed Date Resolved Date Cervicalgia 10/28/2020 02/12/2021 Health [facility] 05/04/2011 03/12/2024 Overview (01/01/2013): x DX V65.8 REPLACED WITH 41932 HEALTH [facility]PC (01/01/2013) Hyperlipidemia LDL goal <100 07/26/2010 06/10/2011 Tachycardia 02/02/2022 Overview (09/03/2014): SVT Immunizations Name Administration Dates Next Due DTaP, Unspecified 01/12/2020 Flu, Unspecified 07/25/2017 Influenza Vaccine 18-64 (Flublok) 09/10/2020 Influenza Vaccine >6 months,quad, PF 07/17/2019 TDAP Vaccine (Adacel) 02/15/2007 Family History Medical History Relation Comments Family History Negative Brother 4 brothe rs Cancer Father age 66, [place] Lipids Father Family History Negative Mother Born ~[birth year] Family History Negative Sister 3 sister s Relation Status Comments Brother Alive x4 Father (Age 66) Maternal Grandfather Maternal Grandmother Mother Alive Paternal Grandfather Paternal Grandmother Sister Alive x3 Son Alive Wallace Social History Tobacco Use Types Packs/Day Years Used Date Smoking Tobacco: Former Smokeless Tobacco: Never Tobacco Cessation:Counseling Given: Not Answered Comments:SMOKED IN HIGH SCHOOL Alcohol Use Standard Drinks/Week Comments Yes 0 [...] asked 09/10/2020 How often do you attend anabaptist or holiness serv ices? 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 Not on file Not on file Not on fi le Last Filed Vital Signs Vital Sign Reading Time Taken Comments Blood Pressure 149/92 06/08/2023 10:10 AM CDT Pulse 66 06/08/2023 10:10 AM CDT Temperature 35.9 C (96.7 F) 02/04/2022 2:15 PM CDT Respiratory Rate 16 02/04/2022 2:40 PM CDT Oxygen Saturation 95% 02/04/2022 2:40 PM CDT Inhaled Oxygen Concentration - - Weight 113.4 kg (250 lb) 06/08/2023 10:10 AM CDT Height 180.3 cm (5' 11) 06/08/2023 10:10 AM CDT Body Mass Index 34.87 06/08/2023 10:10 AM CDT Plan of Treatment Health Maintenance Due Date Last Done Comments ANNUAL REVIEW OF HM ORDERS 1961 CT COLONOGRAPHY 1961 FIT 1961 FLEX SIG 1961 URIC ACID 1961 sDNA (Cologuard) 1961 COVID-19 Vaccine (#1) 1966 HEPATITIS C SCREENING 1979 YEARLY PREVENTIVE VISIT 09/10/2021 09/10/20 20, 03/25/2017, 04/02/2015, Additional history exists RSV VACCINE (1 - Risk 60-74 years 1-dose series) 2021 LIPID 02/16/2024 02/15/2023, 11/24, 11/10/2021, Additional history exists PHQ-2 (once per calendar year) 2024 03/13/2021, 12/22/2020, 09/10/2020, Additional history exists ZOSTER IMMUNIZATION (2 of 2) 12/18/2024 10/23/2024 DIABETES SCREENING 02/02/2025 02/02/2022, 0 11/15/2018, 03/25/2017, Additional history exists LUNG CANCER SCREENING 10/23/2025 10/23/2024 , 04/12/2024, 08/24/2023, Additional history exists ADVANCE CARE PLANNING 02/02/2027 02/02/2022 , 09/09/2020 (Declined) COLONOSCOPY 07/21/2028 07/21/2023, 06/27, 06/23/2018, Additional history exists COLORECTAL CANCER SCREENING 07/21/2028 DTAP/TDAP/TD IMMUNIZATION (3 - Td or Tdap) 01/11/2030 01/12/2020, 01/12/2020, 02/15/2007 HIV SCREENING Completed 03/05/2024 INFLUENZA VACCINE Completed 07/20/2024, , 07/17/2019, Additional history exists Pneumococcal Vaccine: 50+ Years Completed 10/23/2024 HPV IMMUNIZATION Aged Out No longer e ligible based on patient's age to complete this topic MENINGITIS IMMUNIZATION Aged Out No l onger eligible based on patient's age to complete this topic Medical Devices Explanted Type Area Copyright Clerk Device Identifier Shelf Expiration Date Model / Serial / Lot Port Explanted:2016 by Lorenzo Brooks MD (Quantity not on file) Port Procedures Procedure Name Priority Date/Time Associated Diagnosis Comments CT CHEST/ABDOMEN/PELVIS W CONTRAST Routine 08/24/2023 10:25 AM BYPRODUCTS OPERATOR 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) COLONOSCOPY - HIM SCAN 07/21/2023 12:00 AM CDT LIPID REFLEX TO DIRECT LDL PANEL Routine 02/15/2023 8:19 AM CDT Coronary artery calcification Dyslipidemia Mild ascending aorta dilatation BASIC METABOLIC PANEL STAT 02/02/2022 10:32 AM CDT Pre-op exam from Last 3 Months or Most Recently Relevant to Health Maintenance Results * COLONOSCOPY - HIM SCAN (07/21/2023 12:00 AM CDT) 07/21/2023 us Provider Outside PROCEDURES Final Result * (ABNORMAL) Lipid panel reflex to direct LDL Fasting (02/15/2023 8:19 AM CDT) Cholesterol 119 <200 mg/dL 02/15/2023 11:42 AM CDT [facility] Triglycerides 103 <150 mg/dL 02/15/2023 11:42 AM CDT [facility] Direct Measure HDL 39(L) >=40 mg/dL 2022 11:42 AM CDT [facility] LDL Cholesterol Calculated 59 <=100 mg/dL 02/15/2023 11:42 AM CDT [facility] Non HDL Cholesterol 80 <130 mg/dL 02/15/2023 11:42 AM CDT [facility] Blood STRUCTURE OF LEFT UPPER LIMB / Unknown Venipuncture / Unknown 02/15/2023 8:19 AM CDT 02/15/2023 8:22 AM CDT Narrative [facility] - 02/15/2023 11:42 AM CDT Cholesterol Desirable: <200 mg/dL Triglycerides Normal: Less than 150 mg/dL Borderline High: 150-199 mg/dL High: 200-499 mg/dL Very High: Greater than or equal to 500 mg/dL Direct Measure HDL Female: Greater than or equal to 50 mg/dL Male: Greater than or equal to 40 mg/dL LDL Cholesterol Desirable: <100mg/dL Above Desirable: 100-129 mg/dL Borderline High: 130-159 mg/dL High: 160-189 mg/dL Very High: >= 190 mg/dL Non HDL Cholesterol Desirable: 130 mg/dL Above Desirable: 130-159 mg/dL Borderline High: 160-189 mg/dL High: 190-219 mg/dL Very High: Greater than or equal to 220 mg/dL us Soco Magana PA-C LAB - BLOOD ORDERABLES Final Result [facility] [place] [facility] [address] [facility], Room [address] [id number], [facility] [phone] * (ABNORMAL) Basic metabolic panel (Ca, Cl, CO2, Creat, Gluc, K, Na, BUN) (02/02/2022 10:32 AM CDT) Sodium 137 133 - 144 mmol/L 02/02/2022 11:51 AM CDT LABORATORY Potassium 4.1 3.4 - 5.3 mmol/L 02/02/2022 11:51 AM CDT LABORATORY Chloride 106 94 - 109 mmol/L 02/02/2022 11:51 AM CDT LABORATORY Carbon Dioxide (CO2) 25 20 - 32 mmol/L 02/02/2022 11:51 AM CDT LABORATORY Anion Gap 6 3 - 14 mmol/L 02/02/2022 11:51 AM CDT LABORATORY Urea Nitrogen 18 7 - 30 mg/dL 02/02/2022 11:51 AM CDT LABORATORY Creatinine 1.12 0.66 - 1.25 mg/dL 02/02/2022 11:51 AM CDT LABORATORY Calcium 9.5 8.5 - 10.1 mg/dL 02/02/2022 11:51 AM CDT LABORATORY Glucose 115(H) 70 - 99 mg/dL 02/02/2022 11:51 AM CDT [facility] GFR Estimate 75 >60 mL/min/1.7 3m2 02/02/2022 11:51 AM CDT LABORATORY Comment:Effective August 272020 eGFRcr in adults is calculated using the 2020 CKD-EPI creatinine equation which includes age and gender (Manuela et al., NEJ, DOI: 10.1056/ZNZBgm1406354) Blood STRUCTURE OF LEFT HAND / Unknown Venipuncture / Unknown 02/02/2022 10:32 AM CDT 02/02/2022 10:32 AM CDT us Bong Eller MD LAB - BLOOD ORDERABLES Final Result LABORATORY [facility] [address] Lab (1st floor, no room number) [place] [address], [facility] [phone] from Last 3 Months or Most Recently Relevant to Health Maintenance [place] [address] Care Teams Radio Disc Jockey Relationship Specialty Start Date End Date Gamal Vásquez MD [address] [address] PCP - General Internal Medicine 04/14/15 Isabelle Gleason MD [address] [address] BMT Physician Hematology 03/21/18 Guilherme Sprague MD [address] [place] [address] Urology 09/22/20 Guilherme Sprague MD [address] [place] [address] Assigned Surgical Provider 12/28/20 [facility] [address] [place] [address] Assigned PCP 10/20/23
[2024-12-17 08:16] VITALS: BP 174/78; PULSE 101; RESP 18; TEMP 36.7; O2SAT 95; BMI 31.8
--- NOTE | 2024-12-17 08:46 | ED.GENADULT ---
HPI - General Adult General Date Seen: 12/17/24 Chief complaint: Eye Problems Stated complaint: left eye infection Time Seen by Provider: 12/17/24 08:15 History of Present Illness HPI narrative: 64-year-old male with a history of non-Hodgkin's lymphoma. He had previously been on immunosuppressive therapy with Rituxan. Last year he went through car T therapy at [facility] and currently follows with Oncology through [facility]. 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 His doctors at [facility] are in the process of getting him approved for IgG infusion. He has been struggling with upper shins since last year. Last year apparently had a chronic URI and sinus infection but did not go better until his ENT doctor put him on a course of doxycycline. He is currently had symptoms for about 5 or 6 weeks. They started with sore throat several weeks ago after he had been exposed to strep by his granddaughter. He was able to get through that without any antibiotics. However he since then he has had chronic nasal congestion, cough, and sinus symptoms. A few weeks ago he also developed left eye redness, purulent drainage, and irritation. He was seen in urgent care and was put on Polytrim eyedrops and cephalexin pills. He says while taking those meds he did get somewhat better but did not completely resolved. He finished up the cephalexin pills few days ago and has had resultant recurrence of left eye itching and irritation, some pain on the upper inner eyelid, increased purulent mattering of his eyes. He is concerned that he has an ongoing infection so came here to the ER today. He is not having any retro-orbital pain. No pain with extraocular movements. His vision is blurry when the eye is clouded by discharge in matter but his vision is normal and symmetric after he rinses the material out of his left eye. Is no left eye trauma. He wears glasses but not contacts. He is on prophylactic Bactrim and acyclovir. Related Data Home Medications ?Medication ?Instructions ?Recorded ?Confirmed multivitamin 1 tab PO QAM 12/05/24 12/05/24 acyclovir 400 mg tablet 400 mg PO BID 12/17/24 12/17/24 sulfamethoxazole 400 1 tab PO DAILY 12/17/24 12/17/24 mg-trimethoprim 80 mg tablet Previous Rx's ?Medication ?Instructions ?Recorded amoxicillin 875 mg-potassium 1 tab PO BID 7 days #14 tabs 12/17/24 clavulanate 125 mg tablet ofloxacin 0.3 % eye drops 1 drp ophthalmic (eye-left) Q6H 5 12/17/24 days #5 mL Allergies Allergy/AdvReac Type Severity Reaction Status Date / Time No Known Drug Allergies Allergy Verified 12/17/24 08:25 [facility] Social History Smoking Status: Never smoker Do you use any of these nicotine containing products: None Second hand tobacco smoke exposure: No How often do you have a drink containing alcohol: monthly or less How many standard drinks containing alcohol do you have on a typical day: 1 or 2 How often do you have six or more drinks on one occasion: Never AUDIT-C Alcohol total score: 1 Non-prescribed substance use: denies use service: No Exam Narrative: Exam Narrative: Constitutional: Appears well-developed and well-nourished. Alert. Conversant. Non toxic. HENT: Head: Atraumatic. Nose: Nose normal. Small amount of nonpurulent rhinorrhea. Mouth/Throat: Oral mucosa is clear and moist. no trismus. Pharynx normal. Tonsils symmetric. No tonsillar enlargement, erythema, or exudate. Eyes: Right eye: Conjunctiva, lids, are normal. Left eye: There is injection of the bulbar and lid conjunctiva. Currently no purulent debris but the patient reports that he wash that out prior to coming in. Subtle erythema of the upper inner left eyelid. With slit-lamp exam I do not see any foreign body under the lids are in the cornea. No corneal abrasion. No fluorescein uptake to indicate herpetic dendrites. No cell or flare or hyphema noted in the anterior chamber. Visual acuity is symmetric and 20/25 bilaterally Neck: Normal range of motion. Neck supple. No tracheal deviation present. Cardiovascular: Normal rate, regular rhythm. No gallop. No friction rub. No murmur heard. Pulmonary/Chest: Effort normal. No stridor. No respiratory distress. No wheezes. No rales. No rhonchi . Musculoskeletal: RUE: Normal range of motion. No tenderness. No deformity LUE: Normal range of motion. No tenderness. No deformity RLE: Normal range of motion. No edema. No tenderness. No deformity LLE: Normal range of motion. No edema. No tenderness. No deformity Neurological: Alert and oriented to person, place, and time. Normal strength. CN II-VII intact. No sensory deficit. GCS eye subscore is 4. GCS verbal subscore is 5. GCS motor subscore is 6. Normal coordination Skin: Skin is warm and dry. No rash noted. No pallor. Normal capillary refill. Psychiatric: Normal mood. Normal affect. Const: Vital Signs, click to edit/add: Vital Signs - 24 hr 12/17/24 08:16 Temperature 98.0 F Pulse Rate [Right Pulse Oximeter] 101 H Respiratory Rate 18 Blood Pressure [Ri ght Upper Arm] 174/78 H Pulse Oximetry 95 Oxygen Delivery Me thod Room Air Course Vital Signs Vital signs: Initial Vital Signs Temperature 98.0 F 12/17/24 08:16 Temperature Source Temporal Artery Scan 12/17/24 08:16 Pulse Rate 101 H 12/17/24 08:16 Pulse Rhythm Regular 12/17/24 08:16 Pulse Strength 3+ Normal 12/17/24 08:16 Respiratory Rate 18 12/17/24 08:16 Blood Pressure 174/78 H 12/17/24 08:16 Blood Pressure Mean 110 H 12/17/24 08:16 Blood Pressure Position Sitting 12/17/24 08:16 Pulse Oximetry 95 12/17/24 08:16 Oxygen Delivery Method Room Air 12/17/24 08:16 Vital Signs Temperature 98.0 F 12/17/24 08:16 Pulse Rate 101 H 12/17/24 08:16 Respiratory Rate 18 12/17/24 08:16 Blood Pressure 174/78 H 12/17/24 08:16 Pulse Oximetry 95 12/17/24 08:16 Oxygen Delivery Method Room Air 12/17/24 08:16 Temperature 98.0 F 12/17/24 08:16 Pulse Rate 101 H 12/17/24 08:16 Respiratory Rate 18 12/17/24 08:16 Blood Pressure 174/78 H 12/17/24 08:16 Pulse Oximetry 95 12/17/24 08:16 Oxygen Delivery Method Room Air 12/17/24 08:16 Medical Decision Making MDM Narrative Medical decision making narrative: This patient presents for evaluation of redness, itching, pain and purulent discharge from his left eye. He does have a history of non-Hodgkin's lymphoma status post car T therapy and chronic immunodeficiency with low T4 and low IgG levels. He also suffers from chronic upper respiratory infections because of his immune deficiency. He has had about a 5 her 6 week history of URI symptoms and a few week history of left eye conjunctivitis. He has already been on outpatient topical drops and oral antibiotics (Polytrim and cephalexin) but is not really improving. In fact he got a little bit worse over the past few days after finishing his cephalexin.. A broad differential diagnosis was considered including bacterial conjunctivitis, viral conjunctivitis, foreign body, corneal abrasion, chemical vs allergic conjunctivitis, corneal ulcer, HSV, herpes zoster opthalmicus, endopthalmitis, orbital cellulitis, etc. Signs and symptoms consistent with a conjunctivitis, likely bacterial. Also consider possible preseptal cellulitis. At this point I do not see any evidence for orbital septal itis and I do not think he needs a CT scan or admission for IV antibiotics. Will start topical antibiotics (ofloxacin) for probable conjunctivitis and systemic or antibiotics (Augmentin) possible mild preseptal cellulitis and have close follow-up of eye physician. No red flag symptoms to suggest any of the above worrisome etiologies. Discharge Plan Discharge Clinical Impression: Conjunctivitis, Periorbital cellulitis of left eye Patient Disposition: Home, Self-Care Condition: Stable Instructions: Periorbital Cellulitis (ED), Conjunctivitis (ED) Additional Instructions: As we discussed, please start on the new antibiotic drops and oral antibiotic pills. This should help your eye infection start to get better within the next 48-72 hours. Please return to the ER or see your oncologist right away if you have increasing redness around your eye, high fever over 101, worsening vision, or increasing pain. If you are not improving within 72 hours, please recheck with your doctor, your oncologist, or come back to the ER for recheck. Prescriptions: New amoxicillin-pot clavulanate 875-125 mg tablet 1 tab PO BID 7 Days Qty: 14 0RF ofloxacin 0.3 % drops 1 drp ophthalmic (eye-left) Q6H 5 Days Qty: 5 0RF Rx Instructions: start on day 3 of therapy No Action multivitamin Tablet 1 tab PO QAM sulfamethoxazole-trimethoprim 400-80 mg tablet 1 tab PO DAILY acyclovir 400 mg tablet 400 mg PO BID Follow Up/Referrals: Lilian Tsang MD [Referring] - Stand Alone Forms: INCIDE Info Instructions
--- OUTSIDE RECORDS SUMMARY | 2024-12-17 09:41 | XMS_ITS | Encounter Summary ---
Author Organization [facility] Address [address] [place] [address]. [place] [address] Care Team Providers Care Freezer Worker Name Role Phone Gamal Vásquez MD Primary Care Provider Isabelle Gleason MD Unavailable Unavailable Gamal Vásquez MD Unavailable [phone] Gamal Vásquez MD Unavailable Richa Carmona MD Unavailable + Juve Portillo MD Unavailable [phone] Gamal Vásquez MD Unavailable [phone] Guilherme Sprague MD Unavailable [phone] Parish Hammer MD Unavailable Un available Shay Dunlap PA-C Unavailable [phone] Guilherme Sprague MD Unavailable [phone] Shay Dunlap PA-C Unavailable [phone] Soco Magana PA-C Unavailable [phone] Gamal Vásquez MD Unavailable [phone] [facility] Unavailable Encounter Details Date Type Department Care Team (Late st Contact Info) Description 04/18/2017 [facility] [address] [place] [address] Gamal Vásquez MD [address] [place] [address] Social History Tobacco Use Types Packs/Day Years Used Date Smoking Tobacco: Never Smokeless Tobacco: Never Alcohol Use Standard Drinks/Week Comments Yes 0 (1 standard drink = 0.6 oz pur e alcohol) 2 drinks week Sex and Gender Information Value Date Recorded Sex Assigned at Not on file Legal Sex Male 4:23 AM [employer] Gender Identity Not on file Sexual Orientation Not on file 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 Not on file Not on file Not on fi le documented as of this encounter Plan of Treatment Not on file documented as of this encounter Visit Diagnoses Not on filedocumented in this encounter Care Teams Freezer Worker Relationship Specialty Start Date End Date Gamal Vásquez MD [address] [place] [address] PCP - General Internal Medicine 04/14/15 Gamal Vásquez MD [address] [place] [address] PCP - Assigned PCP 04/06/15 11/28/18 Isabelle Gleason MD [address] [place] [address] BMT Physician Hematology 03/21/18 Gamal Vásquez MD [address] [place] [address] Assigned PCP 04/06/15 08/23/20 Richa Carmona MD [address] [place] [address] Assigned Heart and Vascular Provider 07/18/20 09/27/20 Juve Portillo MD [address] [place] [address] Assigned PCP 08/24/20 09/20/20 Gamal Vásquez MD [address] [address] Assigned PCP 09/21/20 09/10/22 Guilherme Sprague MD [address] [place] [address] Urology 09/22/20 Parish Hammer MD Assigned Heart and Vascular Provider 10/05/20 11/14/21 Shay Dunlap PA-C [address] [place] [address] Assigned Surgical Provider 12/10/20 12/27/20 Guilherme Sprague MD [address] [place], [place] [address] Assigned Surgical Provider 12/28/20 Shay Dunlap PA-C [address] [place] [address] Assigned Musculoskeletal Provider 03/15/21 04/16/22 Soco Magana PA-C [address] [place], [place] [address] Assigned Heart and Vascular Provider 11/15/21 06/17/24 Gamal Vásquez MD [address] [address] Assigned PCP 11/20/22 09/16/[address] [address] Assigned PCP 10/20/23 documented as of this encounter
--- OUTSIDE RECORDS SUMMARY | 2024-12-17 09:41 | XMS_ITS | Clinical Summary ---
Author Organization [facility] Address [address] [place] [address] Phone Care Team Providers Care Visualizer Name Role Phone Gamal Vásquez MD Primary Care Provider [phone] Medications Medication Sig Dispensed Refills Start Date [...] of Treatment Not on file Care Teams Visualizer Relationship Specialty Start Date End Date Gamal Vásquez MD [address] [facility] [address] [place] [address] PCP - General 08/06/19
--- OUTSIDE RECORDS SUMMARY | 2024-12-17 09:42 | XMS_ITS | Encounter Summary ---
Author Organization [facility] Address [address] [place] [address] Care Team Providers Care Dressing Room Attendant Name Role Phone Elsewhere, Pcp Primary Care Provider Unavailabl e Encounter Details Date Type Department Care Team (Latest Contact Info) Description 12/10/2024 2:14 PM CDT - 12/10/2024 11:59 PM CDT Hospital Encounter Department of Laboratory Medicine in [address] [phone] Ha Nolasco M.D. 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 No 10/26/2024 Humiliation, Afraid, Rape, and Kick questionnair e Answer Date Recorded Within the last year, have y ou been afraid of your partner or ex-partner? No 10/26/2024 Within the last year, have y ou been humiliated or emotionally abused in other ways by your partner or ex-partner? No Within the last year, have y ou been kicked, hit, slapped, or otherwise physically hurt by your partner or ex-partner? No 10/26/2024 Within the last year, have y ou been raped or forced to have any kind of sexual activity by your partner or ex-partner? No 10/26/2024 Social Connection and Isolat ion Panel [NHANES] Answer Date Recorded Frequency of Communication w ith Friends and Family More than three times a week 05/04/2019 Frequency of Social Gatherin gs with Friends and Family Once a week 05/04/2019 Attends Nondenominational Services 1 to 4 times per year 05/04/2019 Active Member of Clubs or Organizations No 05/04/2019 Attends Club or Organization Meetings Never 05/04/2019 Marital Status 05/04/2019 AUDIT-C Answer Date Recorded Frequency of Alcohol Consumption 2-4 times a mon 03/13/2019 Average Number of Drinks 1 or 2 019 Frequency of Binge Drinking Never 02/24 Overall Financial Resource Strain (CARDIA) Answe r Date Recorded How hard is it for you to pa y for the very basics like food, housing, medical care, and heating? Not hard at all 05/27/2023 PHQ-2 Answer Date Recorded PHQ-2 Score 0 04/12/2024 [facility] - Occupational Stress Questionnaire Answer Date Recorded Feeling of Stress Only a little 03/13/2019 Exercise Vital Sign Answer Date Recorde d On average, how many days pe r week do you engage in moderate to strenuous exercise (like a brisk walk)? 3 days 07/16/2024 On average, how many minutes do you engage in exercise at this level? 30 min 07/16/2024 Hunger Vital Sign Answer Date Recorded Within the past 12 months, y ou worried that your food would run out before you got the money to buy more. Never true 10/26/19 25 Within the past 12 months, t he food you bought just didn't last and you didn't have money to get more. Never true 10/26/2024 PRAPARE - Transportation Answer Date Re corded In the past 12 months, has l ack of transportation kept you from medical appointments or from getting medications? No 09/28 In the past 12 months, has l ack of transportation kept you from meetings, work, or from getting things needed for daily living? No 10/26/2024 Depression Answer Date Recor ded PHQ-9 Total Score (max 27) 1 04/12 Nutrition Answer Date Recorded On average, how many serving s of fruits and vegetables do you eat per day (serving size is equal to 1 cup or approximately the size of a tennis ball)? 3-5 07/16/2024 Dental Answer Date Recorded Dental: Regular Dentist Yes 05/27/20 23 Employment Answer Date Recorded Employment status Employed and actively working without restrictions 07/16/2024 Housing Stability Answer Date Recorded What is your living situation today? I have a [facility] place to live 10/26/2024 Education Answer Date Recorded What is the highest level of school you have completed or the highest degree you have received? 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 Continue until instructed by provider to stop 60 tablet 3 4 anastrozole (Arimidex) 1 mg tablet Take 0.5 mg by mouth 2 (two) times a week. Swallow whole with a drink of water. Takes 0.5 mg twice a week (on Tuesday and Tuesday) cholecalciferol (VITAMIN D3) 50 mcg (2,000 Unit) capsule Take 50 mcg by mouth every morning. lidocaine (Lidoderm) 5 % adhesive patch,medicatedIndi cations:Mass Spine Lumbar (HCC) Place 1 patch on the skin daily. Apply to area with pain. Remove patch after 12 h. Leave patch off for 12 h before applying a new one. 5 patch 5 methocarbamoL (Robaxin) 750 mg tablet Take 1 tablet (750 mg total) by mouth 4 (four) times a day as needed for muscle spasms. 50 tablet 5 multivitamin tablet Take 1 tablet by mouth daily. oxyCODONE (Roxicodone) 5 mg immediate release tabletIndications:A cute Pain Exception Take 1 tablet (5 mg total) by mouth every 3 (three) hours as needed for moderate pain or score 4-6 of 10 Indication: Acute Pain Exception. 30 tablet 5 polyethylene glycol (Miralax) 17 gram powder packetIndications:c onstipation Take 1 packet (17 g total) by mouth daily Indications: constipation. Dissolve each 17 g dose in 240 mLs (8 ounces) of beverage. 5 pregabalin (Lyrica) 100 mg capsuleIndications: Sciatica Right,Radiculopathy Lumbar Fourth Take 1 capsule (100 mg total) by mouth 4 (four) times a day. 360 capsule 3 5 sennosides-docusate sodium (Senokot-S) 8.6-50 mg per tablet Take 2 tablets by mouth 2 (two) times a day. 5 sodium chloride-sodium bicarbonate nasal rinse Administer 1 Application into each nostril daily. Use water that is either sterile, distilled, or previously boiled for preparations; do not use tap water. 4 sulfamethoxazole-tr imethoprim (Bactrim) 400-80 mg per tabletIndications:F ollicular Lymphoma Grade I Intra Abdominal Lymph Nodes (HCC),CAR-T Recipient Encounter For Antineoplastic Immunotherapy Take 1 tablet by mouth daily. Continue until instructed by provider to stop 30 tablet 3 4 testosterone cypionate (Depo-Testosterone) 200 mg/mL injection Inject 0.4 mL intramuscularly 2 (two) times a week. On Tuesday and Tuesday 4 UNABLE TO FIND Take 1 tablet by mouth daily as needed. Med Name: Rapid dissolve tablet compound of sildenafil 80 mg, tadalafil 22 mg, and apo 3 mg documented as of this encounter Plan of Treatment Upcoming Encounters Date Type Department Care Team (Late st Contact Info) Description 12/17/2024 5:45 PM CDT Appointment Department of Radiology, [facility] in [place], [place] [address] [place] [address] Tamiko Huffman M.D. [address] [place] [phone] 01/21/2025 8:00 AM CDT Nurse Only Section of Infectious Diseases in [place], [place] [address] [place] [phone] Ha Nolasco M.D. [address] [place] [phone] 01/21/2025 9:45 AM CDT Appointment Department of Radiology, [facility] in [place], [place] [address] [place] [address] Helga Raymundo APRN, C.N.P., D.N.P., M.S.N. [address] [place] [phone] 01/21/2025 2:30 PM CDT Office Visit Department of Neurologic Surgery in [place], [place] [address] [place] [phone] Gwendolyn Lombardo APRN, CORE SUCKER, D.N.P., M.S.N. [address] [place] [phone] 01/29/2025 8:20 AM CDT Appointment Department of Laboratory Medicine and Pathology, [facility], in [place], [place] [address] [place] [phone] Tamiko Huffman M.D. [address] [place] [phone] 01/29/2025 10:45 AM CDT Office Visit Division of Hematology in [place], [place] [address] [place] [address] Tamiko Huffman M.D. 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) IMMUNOGLOBULIN G (IGG), S Routine 12/10/2024 2:20 PM CDT CAR-T Recipient Encounter For Antineoplastic Immunotherapy 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) documented in this encounter Results * (ABNORMAL) Quantitative Lymphocyte Subsets: T, B, and Natural Killer (NK) (12/10/2024 2:20 PM CDT) CD45 Total Lymph Count 0.44(L) 0.82 - 2.84 thou/mcL 12/11/2024 3:22 PM CDT [facility] % CD3 (T Cells) 72 58 - 86 % 5 3:22 PM CDT [facility] CD3 (T Cells) 317(L) 550 - 2202 cells/mcL 12/11/2024 3:22 PM CDT [facility] % CD4 (T Cells) 36 32 - 64 % 5 3:22 PM CDT [facility] CD4 (T Cells) 157(L) 365 - 1437 cells/mcL 12/11/2024 3:22 PM CDT [facility] % CD8 (T Cells) 36 8 - 40 % 5 3:22 PM CDT [facility] CD8 T Cells 157 80 - 846 cells/mcL 12/11/2024 3:22 PM CDT [facility] % CD19 (B Cells) 0(L) 3 - 24 % 12/12/19 25 3:22 PM CDT [facility] CD19 (B Cells) 0(L) 45 - 409 cells/mcL 12/11/2024 3:22 PM CDT [facility] % CD16+CD56 (NK cells) 26 5 - 28 % 12/11/2024 3:22 PM CDT [facility] CD16+CD56 (NK cells) 115 59 - 513 cells/mcL 12/11/2024 3:22 PM CDT [facility] 4/8 Ratio 1.0 >=0.9 12/11/2024 3:22 PM CDT [facility] Comment: ----ADDITIONAL INFORMATION---- This test was developed using an analyte specific reagent. Its performance characteristics were determined by [facility] in a manner consistent with CLIA requirements. This test has not been cleared or approved by the U.S. Food and Drug Administration. Blood (Blood, Venous) 12/10/2024 2:20 PM CDT 12/11/2024 8:05 AM CDT us Ha Mars M.D. LAB BLOOD ADD-ON Final Result Performing Organization Address City/[facility] Co de Phone Number [facility] [address] [place] [address] [facility] [address] [place] [address] [place] [address] * CMV DNA Detect / Quant, Plasma (12/10/2024 2:20 PM CDT) [facility] CMV DNA Detect/Quant, P Undetected Undetected IU/mL 12/11/2024 11:16 AM CDT [facility] Comment: Result in log IU/mL is Undetected. ----ADDITIONAL INFORMATION---- The quantification range of this assay is 35 to 10,000,000 IU/mL (1.54 log to 7.00 log IU/mL). Testing was performed using the dirk CMV test ([employer] Blood (Blood, Venous) 12/10/2024 2:20 PM CDT 12/11/2024 7:10 AM CDT us Ha Mars M.D. LAB MICROBIOLOGY - BLOOD ORDERABLES Final Result Performing Organization Address City/[facility] Co de Phone Number [facility] [place] [address] [place] [address] [facility] [address] [place] [address] [place] [address] * (ABNORMAL) Immunoglobulin G (IgG) (12/10/2024 2:20 PM CDT) Immunoglobulin G (IgG), S 421(L) 767 - 1590 mg/dL 12/11/2024 8:21 AM CDT ECL[facility] Blood (Blood, Venous) 12/10/2024 2:20 PM CDT 12/10/2024 9:02 PM CDT Ha Mars M.D. 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
--- OUTSIDE RECORDS SUMMARY | 2024-12-17 09:42 | XMS_ITS | Encounter Summary ---
Author Organization [facility] Address [address] [place] [address]. [place] [address] Care Team Providers Care Incident Handler Name Role Phone Gamal Vásquez MD Primary Care Provider Isabelle Gleason MD Unavailable Unavailable Gamal Vásquez MD Unavailable [phone] Guilherme Sprague MD Unavailable [phone] Guilherme Sprague MD Unavailable [phone] Shay Dunlap PA-C Unavailable [phone] Soco Magana PA-C Unavailable [phone] Gamal Vásquez MD Unavailable [phone] [facility] Unavailable Encounter Details Date Type Department Care Team (Late st Contact Info) Description 01/22/2022 [facility] Advice [facility] Centralized Scheduling Formerly [facility] [place] [address] Nikia Dasview Social History Tobacco [...] How often do you attend orthodoxy or zoroastrian serv ices? 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 Not on file Not on file Not [...] on filedocumented in this encounter Care Teams Incident Handler Relationship Specialty Start Date End Date Gamal Vásquez MD [address] [place] [address] PCP - General Internal Medicine 04/14/15 Isabelle Gleason MD [address] [place] [address] BMT Physician Hematology 03/21/18 Gamal Vásquez MD [address] [place] [address] Assigned PCP 09/21/20 09/10/22 Guilherme Sprague MD [address] [place] [address] Urology 09/22/20 Guilherme Sprague MD [address] [place], [place] [address] Assigned Surgical Provider 12/28/20 Shay Dunlap PA-C [address] [place], [place] [address] Assigned Musculoskeletal Provider 03/15/21 04/16/22 Soco Magana PA-C [address] [place], [place] [address] Assigned Heart and Vascular Provider 11/15/21 06/17/24 Gamal Vásquez MD [address] [facility] [address] [place] [address] Assigned PCP 11/20/22 09/16/23 [facility] [address] [place], [place] [address] Assigned PCP 10/20/23 documented as of this encounter
--- OUTSIDE RECORDS SUMMARY | 2024-12-17 09:42 | XMS_ITS | Encounter Summary ---
Author Organization [facility] Address [address] [place] [address] Care Team Providers Care Geological Specialist Name Role Phone Elsewhere, Pcp Primary Care Provider Unavailabl e Encounter Details Date Type Department Care Team (Late st Contact Info) Description 12/14/[address] [facility], Ninth Floor [address] [place] [address] Tamiko Huffman M.D. [address] [place] [phone] Social History Tobacco Use Types Packs/Day Years Used Date Smoking Tobacco: Former Cigarettes Passive Smoke Exposure: Past Smokeless Tobacco: Never Comments:High School Quit 18 Alcohol Use Standard Drinks/Week Comments Not Currently 0 (1 standard drink = 0.6 oz pur e alcohol) [facility] Utilities Answer Date Recorded In the past 12 months has [facility] [employer], oil, or water [employer] threatened to shut off services in your [...] and Family Once a week 05/04/2019 Attends Mandaeism Services 1 to 4 times per year [...] Answer Date Recorded PHQ-2 Score 0 04/12/2024 [facility] Questionnaire Answer Date [...] Date Recorded Dental: Regular Dentist Yes 05/27/20 Employment Answer Date Recorded Employment status Employed and actively working without restrictions 07/16/2024 Housing Stability Answer Date Recorded What is your living situation today? I have a [facility] place to live 10/26/2024 Education Answer Date Recorded What is the highest level of school you have completed or the highest degree you have received? 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 [address] [place] [phone] 01/21/2025 8:00 AM CDT Nurse Only Section of Infectious Diseases in [place], [place] [address] [place] [phone] Ha Nolasco M.D. [address] [place] [phone] 01/21/2025 9:45 AM CDT [facility] [place] [place] [address] [place] [phone] Helga Raymundo APRN, C.N.P., D.N.P., M.S.N. [address] [place] [phone] 01/21/2025 2:30 PM CDT Office Visit Department of Neurologic Surgery in [place], [place] [address] [place] [phone] Gwendolyn Lombardo APRN, EYEGLASS ASSEMBLER, D.N.P., M.S.N. [address] [place] [phone] 01/29/2025 8:20 AM CDT Appointment Department of Laboratory Medicine and Pathology, [facility] in [place], [place] [address] [place] [phone] Tamiko Huffman M.D. [address] [place] [phone] 01/29/2025 10:45 AM CDT Office Visit Division of Hematology in [place], [place] [address] [place] [phone] Tamiko Huffman M.D. [address] [place] [phone] documented as of this encounter Visit Diagnoses Not on filedocumented in this encounter Additional Health Concerns Assessment Noted Time PHQ-9 Depression Total Score: 1 04/12/20 6:50 AM CDT documented as of this encounter Care Teams Geological Specialist Relationship Specialty Start Date End Date Elsewhere, Pcp PCP - General Internal Medicine 08/09/24 documented as of this encounter
--- OUTSIDE RECORDS SUMMARY | 2024-12-17 09:42 | XMS_ITS | Encounter Summary ---
Author Organization [facility] Address [address] [place] [address]. [place] [address] Care Team Providers Care Try On Baster Name Role Phone Gamal Vásquez MD Primary Care Provider [phone] Isabelle Gleason MD Unavailable Unavailable Guilherme Sprague MD Unavailable [phone] Guilherme Sprague MD Unavailable [phone] Soco Magana PA-C Unavailable [phone] Gamal Vásquez MD Unavailable [phone] [facility] Unavailable Reason for Visit * Reason Comments Medication Refill Encounter Details Date Type Department Care Team (Late st Contact Info) Description 08/28/2023 [facility] [address] [place] [address] Gamal Vásquez MD [address] [place] [address] Medication Refill Social History Tobacco Use Types [...] asked 09/10/2020 How often do you attend muslim or quaker serv ices? 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 Not on file Not on file Not on fi le documented as of this encounter Plan of Treatment Not on file documented as of this encounter Visit Diagnoses Diagnosis Other male erectile dysfunction documented in this encounter Care Teams Try On Baster Relationship Specialty Start Date End Date Gamal Vásquez MD [address] [place] [address] PCP - General Internal Medicine 04/14/15 Isabelle Gleason MD [address] [place] [address] BMT Physician Hematology 03/21/18 Guilherme Sprague MD [address] [place] [address] Urology 09/22/20 Guilherme Sprague MD [address] [place] [address] Assigned Surgical Provider 12/28/20 Soco Magana PA-C [address] [place] [address] Assigned Heart and Vascular Provider 11/15/21 06/17/24 Gamal Vásquez MD [address] [facility] [address] [place], [place] [address] Assigned PCP 11/20/22 09/16/23 [facility] [address] [place], [place] [address] Assigned PCP 10/20/23 documented as of this encounter
--- OUTSIDE RECORDS SUMMARY | 2024-12-17 09:42 | XMS_ITS | Clinical Summary ---
Author Organization [facility] Address [address] [place] [address] Care Team Providers Care Calender Operator Name Role Phone No Primary/Referring, Phy Primary Care Provider Unavailable Source Comments You are receiving this document as you are listed as the primary care provider,follow-up provider, or the patient has been referred to you for consultation.This is in compliance with the Medicare and[facility] Hospital[facility] EHR Incentive Program,which states Providers who transition their patient to another setting of careor provider of care or refers their patient to another provider of care shouldprovide summary care record for each transition of care or referral. [facility] Allergies No known active allergies Medications atorvastatin [...] patient's age to complete this topic Insurance [facility] Care Teams Calender Operator Relationship Specialty Start Date End Date No Primary/Referring, y PCP - General 01/12/20
--- OUTSIDE RECORDS SUMMARY | 2024-12-17 09:42 | XMS_ITS | Encounter Summary ---
Author Organization [facility] Address [address] [place] [address] Care Team Providers Care Graphite Disk Assembler Name Role Phone Gilberto Baker MD Primary Care Provider [phone] Gamal Vásquez MD Primary Care Provider [phone] Isabelle Gleason MD Unavailable Unavailable Gamal Vásquez MD Unavailable [phone] Gamal Vásquez MD Unavailable [phone] Richa Carmona MD Unavailable + Juve Portillo MD Unavailable [phone] Gamal Vásquez MD Unavailable [phone] Guilherme Sprague MD Unavailable [phone] Parish Hammer MD Unavailable Un available Shay Dunlap PA-C Unavailable [phone] Guilherme Sprague MD Unavailable [phone] Shay Dunlap PA-C Unavailable [phone] Soco Magana PA-C Unavailable [phone] Gamal Vásquez MD Unavailable [phone] [facility] Unavailable Encounter Details Date Type Department Care Team (Late st Contact Info) Description 04/11/2015 [facility] [address] [place] [phone] Gamal Vásquez MD [address] [place], [place] [phone] Social History Tobacco Use Types Packs/Day Years Used Date Smoking Tobacco: Never Smokeless Tobacco: Never Alcohol Use Standard Drinks/Week Comments Yes 0 (1 standard drink = 0.6 oz pure alcohol) About one beer daily on average Sex and Gender Information Value Date Recorded Sex Assigned at Not on file 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 Gender Identity Not on file Sexual Orientation Not on file 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 file Not on file Not on fi le documented as of this encounter Plan of Treatment Not on file documented as of this encounter Visit Diagnoses Not on filedocumented in this encounter Care Teams Graphite Disk Assembler Relationship Specialty Start Date End Date Gilberto Baker MD [facility] [address] [facility] [address] [place], [place] [address] PCP - General Oncology 01/16/14 04/13/15 Gamal Vásuqez MD [address] [place] [address] PCP - General Internal Medicine 04/14/15 Gamal Vásquez MD [address] [place] [address] PCP - Assigned PCP 04/06/15 11/28/18 Isabelle Gleason MD [address] [place] [address] BMT Physician Hematology 03/21/18 Gamal Vásquez MD [address] [place] [address] Assigned PCP 04/06/15 08/23/20 IsRicha ku MD [address] [place] [address] Assigned Heart and Vascular Provider 07/18/20 09/27/20 Juve Portillo MD [address] [place] [address] Assigned PCP 08/24/20 09/20/20 Gamal Vásquez MD [address] [place], [place] [address] Assigned PCP 09/21/20 09/10/22 Guilherme Sprague MD [address] [place] [address] Urology 09/22/20 Parish Hammer MD Assigned Heart and Vascular Provider 10/05/20 11/14/21 Shay Dunlap PA-C [address] [place] [address] Assigned Surgical Provider 12/10/20 12/27/20 Guilherme Sprague MD [address] [place] [address] Assigned Surgical Provider 12/28/20 Shay Dunlap PA-C [address] [place] [address] Assigned Musculoskeletal Provider 03/15/21 04/16/22 Soco Magana PA-C [address] [place] [address] Assigned Heart and Vascular Provider 11/15/21 06/17/24 Gamal Vásquez MD [address] [facility] 160 [place] [address] Assigned PCP 11/20/22 09/16/23 [facility] 303 [place] [address] Assigned PCP 10/20/23 documented as of this encounter
--- OUTSIDE RECORDS SUMMARY | 2024-12-17 09:42 | XMS_ITS | Encounter Summary ---
Author Organization [facility] Address [address] [place] [address] Care Team Providers Care Creative Arts Music Therapist Name Role Phone Elsewhere, Pcp Primary Care Provider Unavailabl e Reason for Visit * Reason Onset Date Comments Rx Prior Authorization 12/12/2024 BS does not have prior auth rqst for IVIG Encounter Details Date Type Department Care Team (Latest Contact Info) Description 12/12/2024 Clinical Communication Division of Hematology in [place], [place] [address] [place] [address] Tamiko Huffman M.D. [address] [place] [phone] Rx Prior Authorization ([facility] does not have prior auth rqst for IVIG) Social History Tobacco Use Types Packs/Day Years Used Date Smoking Tobacco: Former Cigarettes Passive Smoke Exposure: Past Smokeless Tobacco: Never Comments:High School Quit 18 Alcohol Use Standard Drinks/Week Comments Not Currently 0 (1 standard drink = 0.6 oz pur e alcohol) [facility] Utilities Answer Date Recorded In the past [...] and Family Once a week 05/04/2019 Attends [employer] 1 to 4 times per year [...] Answer Date Recorded PHQ-2 Score 0 04/12/2024 [facility] - Occupational Stress [...] your living situation today? I have a [facility] place to live 10/26/2024 Education Answer Date Recorded What is the highest level of school you have completed or the highest degree you have received? Associate degree: occupational, technical, or vocational program 05/13/2020 Sex and Gender Information Value Date Recorded Sex Assigned at Male 04/20/2018 9:42 AM CDT Legal Sex Male 6:56 AM SPACE PHYSICIST Gender Identity Male 04/20/2018 9:42 AM CDT Sexual Orientation Straight 04/20/2018 9: 42 AM CDT documented as of this encounter Plan of Treatment Upcoming Encounters Date Type Department Care Team (Late st Contact Info) Description 12/17/2024 5:45 PM CDT Appointment Department of Radiology, [facility] in [place], [place] [address] [place] [address] Tamiko Huffman M.D. [address] [place] [phone] 01/21/2025 8:00 AM CDT Nurse Only Section of Infectious Diseases in [place], [place] [address] [place] [address] Ha Nolasco M.D. [address] [place] [phone] 01/21/2025 9:45 AM CDT Appointment Department of Radiology, [facility] in [place], [place] [address] [place] [address] Helga Raymundo APRN, C.N.P., D.N.P., M.S.N. [address] [place] [phone] 01/21/2025 2:30 PM CDT Office Visit Department of Neurologic Surgery in [place], [place] [address] [place] [phone] Gwendolyn Lombardo APRN, STAMP REDEMPTION CLERK, D.N.P., M.S.N. [address] [place] [phone] 01/29/2025 8:20 AM CDT Appointment Department of Laboratory Medicine and Pathology, [facility] in [place], [place] [address] [place] [phone] Tamiko Huffman M.D. [address] [place] [phone] 01/29/2025 10:45 AM CDT Office Visit Division of Hematology in [address] [phone] Tamiko Huffman M.D. [address] [place] [phone] documented as of this encounter Visit Diagnoses Not on filedocumented in this encounter Additional Health Concerns Assessment Noted Time PHQ-9 Depression Total Score: 1 04/12/20 24 6:50 AM CDT documented as of this encounter Care Teams Creative Arts Music Therapist Relationship Specialty Start Date End Date Elsewhere, Pcp PCP - General Internal Medicine 08/09/24 documented as of this encounter
--- OUTSIDE RECORDS SUMMARY | 2024-12-17 09:42 | XMS_ITS | Clinical Summary ---
Author Organization [facility] Address [address] [place] [address]. 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 Zqlht-Uvljrfyxk-Pyadx pattern 04/20/2018 Chest wall pain 12/03/2016 Chest pain, unspecified type 12/03/2016 Hyperlipidemia LDL goal <130 06/10/2011 Impotence of organic origin 12/08/2005 Mixed hyperlipidemia 12/08/2005 Non Hodgkin's lymphoma Overview (03/25/2014): in remission Heart palpitations Resolved Problems Problem Noted Date Diagnosed Date Resolved Date Cervicalgia 10/28/2020 02/12/2021 Health Half-Way 05/04/2011 03/12/2024 Overview (01/01/2013): x DX V65.8 REPLACED WITH 00279 HEALTH SHELTER (01/01/2013) Hyperlipidemia LDL goal <100 07/26/2010 06/10/2011 [...] asked 09/10/2020 How often do you attend restoration or orthodoxy serv ices? 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 Not on file Not on [...] this topic Medical Devices Explanted Type Area Machine Feeder Floorperson Device Identifier Shelf Expiration Date Model / Serial / Lot Port Explanted:2016 by Lorenzo Brooks MD (Quantity not on file) Port Procedures Procedure Name Priority Date/Time Associated Diagnosis Comments CT CHEST/ABDOMEN/PELVIS W CONTRAST Routine 08/24/2023 10:25 AM OFFICE RN 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 [...] - BLOOD ORDERABLES Final Result [facility] [place] Core Lab [address] [facility], [address] [phone], [facility] [phone] * (ABNORMAL) Basic metabolic panel (Ca, Cl, [...] and gender (Manuela et al., NEJ, DOI: 10.1056/XHUMhi4453314) Blood STRUCTURE OF LEFT HAND / Unknown Venipuncture / Unknown 02/02/2022 10:32 AM CDT 02/02/2022 10:32 AM CDT us Bong Eller MD LAB - BLOOD ORDERABLES Final Result LABORATORY [facility] Acute Care Lab [address] Lab (1st floor, no room number) [place] [address], [facility] [phone] from Last 3 Months or Most Recently Relevant to Health Maintenance [place] [address] Care Teams Constitutional Law Professor Relationship Specialty Start Date End Date Gamal Vásquez MD [address] [address] PCP - General Internal Medicine 04/14/15 Isabelle Gleason MD [address] [address] BMT Physician Hematology 03/21/18 Guilherme Sprague MD [address] [place] [address] Urology 09/22/20 Guilherme Sprague MD [address] [place] [address] Assigned Surgical Provider 12/28/20 [facility] 303 [place] [address] Assigned PCP 10/20/23
--- OUTSIDE RECORDS SUMMARY | 2024-12-17 09:42 | XMS_ITS | Encounter Summary ---
Author Organization [facility] Address [address] [place] [address] Care Team Providers Care Electrician Marine Name Role Phone Elsewhere, Pcp Primary Care Provider Unavailabl e Encounter Details Date Type Department Care Team (Late st Contact Info) Description 10/29/2024 Clinical Communication Department of Neurologic Surgery in [place], [place] [address] [place] [phone] Brittany Mcdowell M.D. [address] [place] [phone] Social History Tobacco Use Types Packs/Day Years Used Date Smoking Tobacco: Former Cigarettes Passive Smoke Exposure: Past Smokeless Tobacco: Never Comments:High School Quit 18 Alcohol Use Standard Drinks/Week Comments Not Currently 0 (1 standard drink = 0.6 oz pur e alcohol) [facility] Utilities Answer Date Recorded In the past 12 months has [facility] [employer], [employer], oil, or water [employer] threatened to shut off services in your [...] and Family Once a week 05/04/2019 Attends [employer] 1 to 4 times per year [...] Answer Date Recorded PHQ-2 Score 0 04/12/2024 [facility] Questionnaire Answer Date Recorded [...] your living situation today? I have a [facility] place to live 10/26/2024 Education Answer Date Recorded What is the highest level of school you have completed or the highest degree you have received? 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 [address] [place] [phone] 01/21/2025 8:00 AM CDT Nurse Only Section of Infectious Diseases in [place], [place] [address] [place] [phone] Ha Nolasco M.D. [address] [place] [phone] 01/21/2025 9:45 AM CDT [facility] [place] [place] [address] [place] [phone] Helga Raymundo APRN, C.N.P., D.N.P., M.S.N. [address] [place] [phone] 01/21/2025 2:30 PM CDT Office Visit Department of Neurologic Surgery in [place], [place] [address] [place] [phone] Gwendolyn Lombardo APRN, FASHION SHOW DIRECTOR, D.N.P., M.S.N. [address] [place] [phone] 01/29/2025 8:20 AM CDT Appointment Department of Laboratory Medicine and Pathology, [facility] in [place], [place] [address] [place] [address] Tamiko Huffman M.D. [address] [place] [phone] 01/29/2025 10:45 AM CDT Office Visit Division of Hematology in [place], [place] [address] [place] [phone] Tamiko Huffman M.D. [address] [place] [phone] documented as of this encounter Visit Diagnoses Not on filedocumented in this encounter Additional Health Concerns Assessment Noted Time PHQ-9 Depression Total Score: 1 04/12/20 24 6:50 AM CDT documented as of this encounter Care Teams Electrician Marine Relationship Specialty Start Date End Date Elsewhere, Pcp PCP - General Internal Medicine 08/09/24 documented as of this encounter
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
--- OUTSIDE RECORDS SUMMARY | 2024-12-17 09:42 | XMS_ITS | Encounter Summary ---
Author Organization [facility] Address [address] [place] [address] Care Team Providers Care After School Program Director Name Role Phone Elsewhere, Pcp Primary Care Provider Unavailabl e Encounter Details Date Type Department Care Team (Late st Contact Info) Description 10/11/2024 Clinical Communication Department of Neurologic Surgery in [place], [place] [address] [place] [phone] Brittany Mcdowell M.D. [address] [place] [phone] Social History Tobacco Use Types Packs/Day Years Used Date Smoking Tobacco: Former Cigarettes Smokeless Tobacco: Never Comments:High School Quit 18 Alcohol Use Standard Drinks/Week Comments Yes 1 (1 standard drink = 0.6 oz pur e alcohol) [facility] Utilities Answer Date Recorded In the past 12 months has [facility] [employer], gas, oil, or water [employer] threatened to shut off services in your [...] and Family Once a week 05/04/2019 Attends Orthodox Services 1 to 4 times per year [...] Answer Date Recorded PHQ-2 Score 0 04/12/2024 [facility] - Occupational Stress Questionnaire Answer Date [...] your living situation today? I have a [facility] place to live 10/26/2024 Education Answer Date Recorded What is the highest level of school you have completed or the highest degree you have received? Associate degree: occupational, technical, or vocational program 05/13/2020 Sex and Gender Information Value Date Recorded Sex Assigned at Male 04/20/2018 9:42 AM CDT Legal Sex Male 6:56 AM SLEEP SCIENTIST Gender Identity Male 04/20/2018 9:42 AM CDT Sexual Orientation Straight 04/20/2018 9: 42 AM CDT documented as of this encounter Functional Status * Intimate Partner Violence Question Answer Date of Assessment Author Within the last year, have you been humiliated or emotionally abused in other ways by your partner or ex-partner? No 10/26/2024 10:19 PM SLEEP SCIENTIST Nico Stewart RSusanN. Within the last year, have you been afraid of your partner or ex-partner? No 10/26/2024 10:19 PM SLEEP SCIENTIST Phil Stewart R.N. Within the last year, have you been raped or forced to have any kind of sexual activity by your partner or ex-partner? No 10/26/2024 10:19 PM Nico Martinez RSusanN. Within the last year, have you been kicked, hit, slapped, or otherwise physically hurt by your partner or ex-partner? No 10/26/2024 10:19 PM Phil Martinez R.N. documented as of this encounter Miscellaneous Notes * Telephone Encounter - Amy Esparza R.N. - 10/11/2024 3:14 PM SLEEP SCIENTIST SUBJECTIVE CHIEF COMPLAINT / REASON FOR CALL Schedule Surgery Maynor Bruno Gini is a patient of Dr. Henderson. There was availability for a sooner surgical date. Mr. Rubalcava will move his surgery up to Saturday, October 26, 2024. Patient is requesting the following information: preoperative teaching PLAN The following information was provided: Pre-surgical information will be sent through the online portal No orders of the defined types were placed in this encounter. Recommendations were made for the patient to stop all Aspirin, Aspirin containing products, anti-inflammatories, and fish oil pills starting 1 week prior to surgery. Education: patient/caller able to teach back The following references were used: nursing clinical judgement, patient education resources: title Checklist for Surgical Patients, and previous plan of care: date 10/03/2024. P SCIENTIST documented in this encounter Plan of Treatment Upcoming Encounters Date Type Department Care Team (Late st Contact Info) Description 12/17/2024 5:45 PM CDT Appointment Department of Radiology, [place], [place] [address] [place] [phone] Tamiko Huffman M.D. [address] [place] [phone] 01/21/2025 8:00 AM CDT Nurse Only Section of Infectious Diseases in [address] [phone] Ha Nolasco M.D. [address] [place] [phone] 01/21/2025 9:45 AM CDT Appointment Department of Radiology, [facility] in [place], [place] [address] [place] [phone] Helga Raymundo APRN, C.N.P., D.N.P., M.S.N. [address] [place] [phone] 01/21/2025 2:30 PM CDT Office Visit Department of Neurologic Surgery in [place], [place] [address] [place] [address] Gwendolyn Lombardo APRN, RN PERITONEAL DIALYSIS, D.N.P., M.S.N. [address] [place] [phone] 01/29/2025 8:20 AM CDT Appointment Department of Laboratory Medicine and Pathology, [facility] in [place], [place] [address] [place] [address] Tamiko Huffman M.D. [address] [place] [phone] 01/29/2025 10:45 AM CDT Office Visit Division of Hematology in [place], [place] [address] [place] [phone] Tamiko Huffman M.D. [address] [place] [phone] documented as of this encounter Visit Diagnoses Not on filedocumented in this encounter Additional Health Concerns Infection Onset Date Last Indicated Resolved Time Protective Environment 08/04/2023 08/04/202310/26 8:35 PM SLEEP SCIENTIST Assessment Noted Time PHQ-9 Depression Total Score: 1 04/12/20 6:50 AM CDT documented as of this encounter Care Teams After School Program Director Relationship Specialty Start Date End Date Elsewhere, Pcp PCP - General Internal Medicine 08/09/24 documented as of this encounter
--- OUTSIDE RECORDS SUMMARY | 2024-12-17 09:42 | XMS_ITS | Clinical Summary ---
Author Organization [employer] [facility] Address [address] [place] [address] Care Team Providers Care Latex Dipper Name Role Phone Gamal Vásquez MD Primary Care Provider [phone] Allergies No known active allergies Medications acetaminophen [...] 440 mg by mouth. Active [employer] 18Gx1 18 gauge x 1 ndle USE [...] ben Non-React ben 07/18/2018 9:42 PM CDT [facility] Comment:Antibodies to HCV no t detected; does not exclude the possibility of exposure to HCV. Blood BLOOD SPECIMEN / Unknown 07/18/2018 2:13 PM CDT 07/18/2018 6:58 PM CDT us Gilberto Baker MD SEND OUTS Final Res ult [facility] [address] [place] [address], from Last 3 Months or Most Recently Relevant to Health Maintenance Insurance [facility] [place] [address] Care Teams Latex Dipper Relationship Specialty Start Date End Date Gamal Vásquez MD [address] [facility] [address] [place] [address] PCP - General Internal Medicine 04/02/24
--- OUTSIDE RECORDS SUMMARY | 2024-12-17 09:42 | XMS_ITS | Encounter Summary ---
Author Organization [facility] Address [address] [place] [address] Care Team Providers Care Marine Structural Welder Name Role Phone Elsewhere, Pcp Primary Care Provider Unavailabl e Encounter Details Date Type Department Care Team (Latest Contact Info) Description 11/12/2024 12:20 PM PLATE CUTTER - 11/12/2024 11:59 PM PLATE CUTTER Hospital Encounter Department of Laboratory Medicine in [address] [phone] Ha Nolasco M.D. 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) Discharge Disposition: Home or Self Care Social History Tobacco Use Types Packs/Day Years Used Date Smoking Tobacco: Former Cigarettes Passive Smoke Exposure: Past Smokeless Tobacco: Never Comments:High School Quit 18 Alcohol Use Standard Drinks/Week Comments Not Currently 0 (1 standard drink = 0.6 oz pur e alcohol) [facility] Utilities Answer Date Recorded In the past 12 months has e [employer], gas, oil, or water [employer] threatened to shut off services in your [...] and Family Once a week 05/04/2019 Attends Jain Services 1 to 4 times per year [...] Answer Date Recorded PHQ-2 Score 0 04/12/2024 [facility] - Occupational Stress [...] medical appointments or from getting medications? No 01/3 09/2024 In the past 12 months, has l [...] your living situation today? I have a [facility] place to live 10/26/2024 Education Answer Date Recorded What is the highest level of school you have completed or the highest degree you have received? Associate degree: occupational, technical, or vocational program 05/13/2020 Sex and Gender Information Value Date Recorded Sex Assigned at Male 04/20/2018 9:42 AM CDT Legal Sex Male 6:56 AM PLATE CUTTER Gender Identity Male 04/20/2018 9:42 AM CDT [...] 5:45 PM CDT Appointment Department of Radiology, [facility] in [place], [place] [address] [place] [address] Tamiko Huffman M.D. [address] [place] [phone] 01/21/2025 8:00 AM CDT Nurse Only Section of Infectious Diseases in [place], [place] [address] [place] [phone] Ha Nolasco M.D. [address] [place] [phone] 01/21/2025 9:45 AM CDT [facility] [place], [place] [address] [place] [address] Helga Raymundo APRN, C.N.P., D.N.P., M.S.N. [address] [place] [phone] 01/21/2025 2:30 PM CDT Office Visit Department of Neurologic Surgery in [place], [place] [address] [place] [phone] Gwendolyn Lombardo APRN, SCRAP CUTTER, D.N.P., M.S.N. [address] [place] [phone] 01/29/2025 8:20 AM CDT Appointment Department of Laboratory Medicine and Pathology, [facility] in [place], [place] [address] [place] [phone] Tamiko Huffman M.D. [address] [place] [phone] 01/29/2025 10:45 AM CDT Office Visit Division of Hematology in [place], [place] [address] [place] [phone] Tamiko Huffman M.D. 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) IMMUNOGLOBULIN G (IGG), S Routine 11/12/2024 1:07 PM PLATE CUTTER CAR-T Recipient Encounter For Antineoplastic Immunotherapy 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) documented in this encounter Results * (ABNORMAL) Quantitative Lymphocyte Subsets: T, B, and Natural Killer (NK) (11/12/2024 1:07 PM PLATE CUTTER) CD45 Total Lymph Count 0.56(L) 0.82 - 2.84 thou/mcL 11/13/2024 2:52 PM PLATE CUTTER SDSC % CD3 (T Cells) 74 58 - 86 % 2:52 PM PLATE CUTTER SDSC CD3 (T Cells) 414(L) 550 - 2202 cells/mcL 11/13/2024 2:52 PM PLATE CUTTER SDSC % CD4 (T Cells) 30(L) 32 - 64 % 5 2:52 PM PLATE CUTTER SDSC CD4 (T Cells) 168(L) 365 - 1437 cells/mcL 11/13/2024 2:52 PM PLATE CUTTER SDSC % CD8 (T Cells) 43(H) 8 - 40 % 5 2:52 PM PLATE CUTTER SDSC CD8 T Cells 242 80 - 846 cells/mcL 11/13/2024 2:52 PM PLATE CUTTER SDSC % CD19 (B Cells) 0(L) 3 - 24 % 11/13/19 25 2:52 PM PLATE CUTTER SDSC CD19 (B Cells) 0(L) 45 - 409 cells/mcL 11/13/2024 2:52 PM PLATE CUTTER SDSC % CD16+CD56 (NK cells) 25 5 - 28 % 11/13/2024 2:52 PM PLATE CUTTER SDSC CD16+CD56 (NK cells) 138 59 - 513 cells/mcL 11/13/2024 2:52 PM PLATE CUTTER SDSC 4/8 Ratio 0.7(L) >=0.9 11/13/2024 2:52 PM PLATE CUTTER SDSC Comment: ----ADDITIONAL INFORMATION---- This test was developed using an analyte specific reagent. Its performance characteristics were determined by [facility] in a manner consistent with CLIA requirements. This test has not been cleared or approved by the U.S. Food and Drug Administration. Blood (Blood, Venous) 11/12/2024 1:07 PM PLATE CUTTER 11/13/2024 8:29 AM PLATE CUTTER Ha Mars M.D. LAB BLOOD ADD-ON Final Result Performing Organization Address [facility] Co de Phone Number [facility] [address] [place] [address] [facility] [address] [place] [address] [place] [address] * CMV DNA Detect / Quant, Plasma (11/12/2024 1:07 PM PLATE CUTTER) [facility] CMV DNA Detect/Quant, P Undetected Undetected IU/mL 11/13/2024 1:18 PM PLATE CUTTER SDS Comment: Result in log IU/mL is Undetected. ----ADDITIONAL INFORMATION---- The quantification range of this assay is 35 to 10,000,000 IU/mL (1.54 log to 7.00 log IU/mL). Testing was performed using the dirk CMV test ([employer] Blood (Blood, Venous) 11/12/2024 1:07 PM PLATE CUTTER 11/12/2024 8:56 PM PLATE CUTTER us Ha Mars M.D. LAB MICROBIOLOGY - BLOOD ORDERABLES Final Result Performing Organization Address [facility] Co de Phone Number [facility] [address] [place] [address] [facility] [address] [place] [address] [place] [address] * (ABNORMAL) Immunoglobulin G (IgG) (11/12/2024 1:07 PM PLATE CUTTER) Immunoglobulin G (IgG), S 425(L) 767 - 1590 mg/dL 11/13/2024 10:30 AM PLATE CUTTER ECLR Blood (Blood, Venous) 11/12/2024 1:07 PM PLATE CUTTER 11/12/2024 8:48 PM PLATE CUTTER Ha Mars M.D. 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
--- OUTSIDE RECORDS SUMMARY | 2024-12-17 09:42 | XMS_ITS | Encounter Summary ---
Author Organization [facility] Address [address] [place] [address] Care Team Providers Care Perioperative Manager Name Role Phone Elsewhere, Pcp Primary Care Provider Unavailabl e Reason for Referral * Outpatient (Routine) - Authorized Specialty Diagnoses / Procedures Referred By Contac t Referred To Contact Neurological Surgery Diagnoses Lesion Spine Lumbar Radiculopathy Lumbar Helga Raymundo APRN, C.N.P., D.N.P., M.S.N. [address] [place] [phone] Phone: tel: fax: Ruthy Mckinnon P.A.-C. [address] [place] [phone] Phone: tel: fax: Referral ID Status Reason Start Date Expiration Date V isits Requested Visits Authorized [id number] Authorized 10/26/2024 04/27/2026 1 1 ELAIN FINISH SPRAYER * MRI/CAT/PET Scan (Routine) - Authorized Specialty Diagnoses / Procedures Referred By Contac t Referred To Contact Radiology Diagnoses Lesion Spine Lumbar Radiculopathy Lumbar Procedures MR Lumbar Spine without IV Contrast Helga Raymundo APRN, C.N.P., D.N.P., M.S.N. [address] [place] [phone] Phone: tel: fax: [facility] Referral ID Status Reason Start Date Expiration Date V isits Requested Visits Authorized [id number] Authorized 10/26/2024 01/26/2026 1 1 ELAIN FINISH SPRAYER Reason for Visit * Reason Onset Date Comments Post Hospital Follow-up 10/26/2024 Encounter Details Date Type Department Care Team (Latest Contact Info) Description 10/26/2024 Clinical Communication Department of Neurologic Surgery in [place], [place] [address] [place] [phone] Brittany Mcdowell M.D. [address] [place] [phone] Post Hospital Follow-up Social History Tobacco Use Types Packs/Day Years Used Date Smoking Tobacco: Former Cigarettes Passive Smoke Exposure: Past Smokeless Tobacco: Never Comments:High School Quit 18 Alcohol Use Standard Drinks/Week Comments Not Currently 0 (1 standard drink = 0.6 oz pur e alcohol) [facility] Utilities Answer Date Recorded In the past 12 months has [facility] [employer], gas, oil, or water [employer] threatened to shut off services in your [...] and Family Once a week 05/04/2019 Attends Sikhism Services 1 to 4 times per year 05/04/2019 Active Member of Clubs or Organizations No 05/04/2019 Attends Club or Organization Meetings Never 05/04/2019 Marital Status 05/04/2019 AUDIT-C Answer Date Recorded Frequency of Alcohol Consumption 2-4 times a mon th 03/13/2019 Average Number of Drinks 1 or 2 019 Frequency of Binge Drinking Never 02/24 Overall Financial Resource Strain (CARDIA) Answe r Date Recorded How hard is it for you to pa y for the very basics like food, housing, medical care, and heating? Not hard at all 05/27/2023 PHQ-2 Answer Date Recorded PHQ-2 Score 0 04/12/2024 [facility] - Occupational Stress Questionnaire Answer Date Recorded [...] your living situation today? I have a [facility] place to live 10/26/2024 Education Answer Date Recorded What is the highest level of school you have completed or the highest degree you have received? Associate degree: occupational, technical, or vocational program 05/13/2020 Sex and Gender Information Value Date Recorded Sex Assigned at Male 04/20/2018 9:42 AM CDT Legal Sex Male 6:56 AM PORCELAIN FINISH SPRAYER Gender Identity Male 04/20/2018 9:42 AM CDT Sexual Orientation Straight 04/20/2018 9: 42 AM CDT documented as of this encounter Functional Status * Intimate Partner Violence Question Answer Date of Assessment Author Within the last year, have you been humiliated or emotionally abused in other ways by your partner or ex-partner? No 10/26/2024 10:19 PM Nico Martinez RValery. Within the last year, have you been afraid of your partner or ex-partner? No 10/26/2024 10:19 PM Phil Martinez R.N. Within the last year, have you been raped or forced to have any kind of sexual activity by your partner or ex-partner? No 10/26/2024 10:19 PM Nico Martinez RSusanN. Within the last year, have you been kicked, hit, slapped, or otherwise physically hurt by your partner or ex-partner? No 10/26/2024 10:19 PM Phil Martinez R.N. documented as of this encounter Plan of Treatment Upcoming Encounters Date Type Department Care Team (Late st Contact Info) Description 12/17/2024 5:45 PM CDT Appointment Department of Radiology, [facility], in [place], [place] 200 [place] [address] Tamiko Huffman M.D. 200 [place] [address] 01/21/2025 8:00 AM CDT Nurse Only Section of Infectious Diseases in [place], [place] [address] [place] [phone] Ha Nolasco M.D. [address] [place] [phone] 01/21/2025 9:45 AM CDT [facility] [place] [place] [address] [place] [phone] Helga Raymundo APRN, C.N.P., D.N.P., M.S.N. [address] [place] [phone] 01/21/2025 2:30 PM CDT Office Visit Department of Neurologic Surgery in [place], [place] [address] [place] [phone] Gwendolyn Lombardo APRN, MAJOR ASSEMBLER, D.N.P., M.S.N. [address] [place] [phone] 01/29/2025 8:20 AM CDT Appointment Department of Laboratory Medicine and Pathology, [facility] in [place], [place] [address] [place] [phone] Tamiko Huffman M.D. [address] [place] [phone] 01/29/2025 10:45 AM CDT Office Visit Division of Hematology in [address] [phone] Tamiko Huffman M.D. [address] [place] [phone] Scheduled Orders Name Type Priority Associated Diagnoses Orde r Schedule MR Lumbar Spine without IV Contrast Imaging RAD - Routine (most inpatients and all outpatients) Lesion Spine Lumbar Radiculopathy Lumbar Expected: 01/21/2025 (Approximate), Expires: 10/26/2025 Scheduled Referrals Name Type Priority Associated Diagnoses Order Schedule Neurological Surgery Post Op (clinic) Outpatient Referral Routine Lesion Spine Lumbar Radiculopathy Lumbar Expected: 01/23/2025, Expires: 01/23/2026 documented as of this encounter Visit Diagnoses Diagnosis Lesion Spine Lumbar- Primary Radiculopathy Lumbar documented in this encounter Additional Health Concerns Infection Onset Date Last Indicated Resolved Time Protective Environment 08/04/2023 08/04/202310/26 8:35 PM PORCELAIN FINISH SPRAYER Assessment Noted Time PHQ-9 Depression Total Score: 1 04/12/20 24 6:50 AM CDT documented as of this encounter Care Teams Perioperative Manager Relationship Specialty Start Date End Date Elsewhere, Pcp PCP - General Internal Medicine 08/09/24 documented as of this encounter
--- OUTSIDE RECORDS SUMMARY | 2024-12-17 09:42 | XMS_ITS | Encounter Summary ---
Author Organization [place] Address [address] [place] [address]. [place] [address] Care Team Providers Care Client Service Supervisor Name Role Phone Gamal Vásquez MD Primary Care Provider [phone] Isabelle Gleason MD Unavailable Unavailable Gamal Vásquez MD Unavailable [phone] Guilherme Sprague MD Unavailable [phone] Guilherme Sprague MD Unavailable [phone] Soco Magana PA-C Unavailable [phone] Gamal Vásquez MD Unavailable [phone] [facility] Unavailable Encounter Details Date Type Department Care Team (Late st Contact Info) Description 08/09/2022 MyC Medical Advice [facility] Insurance Verification Marion Das Social History Tobacco [...] asked 09/10/2020 How often do you attend restorationism or congregation serv ices? 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 Not on file Not on file Not on fi le documented as of this encounter Plan of Treatment Not on file documented as of this encounter Visit Diagnoses Not on filedocumented in this encounter Care Teams Client Service Supervisor Relationship Specialty Start Date End Date Gamal Vásquez MD [address] [place] [address] PCP - General Internal Medicine 04/14/15 Isabelle Gleason MD [address] [place] [address] BMT Physician Hematology 03/21/18 Gamal Vásquez MD [address] [place] [address] Assigned PCP 09/21/20 09/10/22 Guilherme Sprague MD [address] [place] [address] Urology 09/22/20 Guilherme Sprague MD [address] [place] [address] Assigned Surgical Provider 12/28/20 Soco Magana PA-C [address] [place] [address] Assigned Heart and Vascular Provider 11/15/21 06/17/24 Gamal Vásquez MD [address] [facility] [address] [place] [address] Assigned PCP 11/20/22 09/16/23 [facility] [address] [place] [address] Assigned PCP 10/20/23 documented as of this encounter
--- OUTSIDE RECORDS SUMMARY | 2024-12-17 09:43 | XMS_ITS | Encounter Summary ---
Author Organization [place] Address [address] [place] [address]. [place] [address] Care Team Providers Care Rn Wellness Name Role Phone Gamal Vásquez MD Primary Care Provider Isabelle Gleason MD Unavailable Unavailable Gamal Vásquez MD Unavailable [phone] Guilherme Sprague MD Unavailable [phone] Guilherme Sprague MD Unavailable [phone] Shay Dunlap PA-C Unavailable + [phone] Soco Magana PA-C Unavailable [phone] Gamal Vásquez MD Unavailable [phone] [facility] Unavailable Encounter Details Date Type Department Care Team (Late st Contact Info) Description 02/05/2022 [facility] Medical Advice [facility] [address] [place] [address] Tere Page Social History Tobacco [...] asked 09/10/2020 How often do you attend mandaeism or spiritism serv ices? 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 Not on file Not on file Not [...] on filedocumented in this encounter Care Teams Rn Wellness Relationship Specialty Start Date End Date Gamal Vásquez MD [address] [place] [address] PCP - General Internal Medicine 04/14/15 Isabelle Gleason MD [address] [place] [address] BMT Physician Hematology 03/21/18 Gamal Vásquez MD [address] [place] [address] Assigned PCP 09/21/20 09/10/22 Guilherme Sprague MD [address] [place] [address] Urology 09/22/20 Guilherme Sprague MD [address] [place] [address] Assigned Surgical Provider 12/28/20 Shay Dunlap PA-C [address] [place] [address] Assigned Musculoskeletal Provider 03/15/21 04/16/22 Soco Magana PA-C [address] [facility] [place] [address] Assigned Heart and Vascular Provider 11/15/21 06/17/24 Gamal Vásquez MD [address] [facility] 160 [place] [address] Assigned PCP 11/20/22 09/16/23 [facility] 303 [place] [address] Assigned PCP 10/20/23 documented as of this encounter
--- OUTSIDE RECORDS SUMMARY | 2024-12-17 09:43 | XMS_ITS | Encounter Summary ---
Author Organization [facility] Address [address] [place] [address] Care Team Providers Care Male Impersonator Name Role Phone Elsewhere, Pcp Primary Care Provider Unavailabl e Encounter Details Date Type Department Care Team (Late st Contact Info) Description 04/11/2018 [facility] [place] 65[address] [facility] 210 [place] [phone] Gilberto Baker M.D. 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) (Primary Dx) Social History Tobacco Use Types Packs/Day Years Used Date Smoking Tobacco: Never Assessed Sex and Gender Information Value Date Recorded Sex Assigned at Male 04/20/2018 9:42 AM CDT Legal Sex Male 6:56 AM CARDIOLOGY ASSOCIATE Gender Identity Male 04/20/2018 9:42 AM CDT Sexual Orientation Straight 04/20/2018 9: 42 AM CDT documented as of this encounter Plan of Treatment Upcoming Encounters Date Type Department Care Team (Late st Contact Info) Description 12/17/2024 5:45 PM CDT Appointment Department of Radiology, [facility], in [place], [place] [address] [place] [address] Tamiko Huffman M.D. [address] [place] [address] 01/21/2025 8:00 AM CDT Nurse Only Section of Infectious Diseases in [place], [place] [address] [place] [address] Ha Nolasco M.D. [address] [place] [phone] 01/21/2025 9:45 AM CDT [facility] [place] [place] [address] [place] [address] Helga Raymundo APRN, C.N.P., D.N.P., M.S.N. [address] [place] [address] 01/21/2025 2:30 PM CDT Office Visit Department of Neurologic Surgery in [place], [place] [address] [place] [phone] Gwendolyn Lombardo APRN, MARKETING PROJECT COORDINATOR, D.N.P., M.S.N. [address] [place] [phone] 01/29/2025 8:20 AM CDT Appointment Department of Laboratory Medicine and Pathology, [facility] in [place], [place] [address] [place] [address] Tamiko Huffman M.D. [address] [place] [address] 01/29/2025 10:45 AM CDT Office Visit Division of Hematology in [place], [place] [address] [place] [address] Tamiko Huffman M.D. [address] [place] [phone] documented as of this encounter Visit Diagnoses Diagnosis 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)- Primary documented in this encounter Additional Health Concerns Infection Onset Date Last Indicated Resolved Time Protective Environment 08/04/2023 08/04/202310/26 8:35 PM CARDIOLOGY ASSOCIATE documented as of this encounter Care Teams Male Impersonator Relationship Specialty Start Date End Date Elsewhere, Pcp PCP - General Internal Medicine 08/09/24 documented as of this encounter
--- OUTSIDE RECORDS SUMMARY | 2024-12-17 09:43 | XMS_ITS | Encounter Summary ---
Author Organization [place] Address [address] [place] [address]. [place] [address] Care Team Providers Care Carbon Accountant Name Role Phone Gamal Vásquez MD Primary Care Provider Isabelle Gleason MD Unavailable Unavailable Gamal Vásquez MD Unavailable [phone] Gamal Vásquez MD Unavailable [phone] Richa Carmona MD Unavailable + Juve Portillo MD Unavailable [phone] Gamal Vásquez MD Unavailable [phone] Guilherme Sprague MD Unavailable [phone] Parish Hammer MD Unavailable Un available Shay Dunlap PA-C Unavailable [phone] Guilherme Sprague MD Unavailable [phone] Shay Dunlap PA-C Unavailable [phone] Soco Magana PA-C Unavailable [phone] Gamal Vásquez MD Unavailable [phone] [facility] Unavailable Encounter Details Date Type Department Care Team (Late st Contact Info) Description 11/19/2018 [facility] [address] [place] [address] Gamal Vásquez MD [address] [place] [address] Social History Tobacco Use Types Packs/Day Years Used Date Smoking Tobacco: Never Smokeless Tobacco: Never Alcohol Use Standard Drinks/Week Comments Yes 0 (1 standard drink = 0.6 oz pur e alcohol) 2 drinks week PHQ-2 Answer Date Recorded PHQ-2 Score 0 10/04/2018 Sex and Gender Information Value Date Recorded Sex Assigned at Not on file Legal Sex Male 4:23 AM GOLF RANGE ATTENDANT Gender Identity Not on file Sexual Orientation Not on file 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 Not on file Not on fi le documented as of this encounter Plan of Treatment Not on file documented as of this encounter Visit Diagnoses Not on filedocumented in this encounter Care Teams Carbon Accountant Relationship Specialty Start Date End Date Gamal Vásquez MD [address] [place] [address] PCP - General Internal Medicine 04/14/15 Gamal Vásquez MD [address] [place] [address] PCP - Assigned PCP 04/06/15 11/28/18 Isabelle Gleason MD [address] [place] [address] BMT Physician Hematology 03/21/18 Gamal Vásquez MD [address] [place] [address] Assigned PCP 04/06/15 08/23/20 Richa Carmona MD [address] [facility] [address] [place] [address] Assigned Heart and Vascular Provider 07/18/20 09/27/20 Juve Portillo MD [address] [place] [address] Assigned PCP 08/24/20 09/20/20 Gamal Vásquez MD [address] [place] [address] Assigned PCP 09/21/20 09/10/22 Guilherme Sprague MD [address] [place] [address] Urology 09/22/20 Parish Hammer MD Assigned Heart and Vascular Provider 10/05/20 11/14/21 Shay Dunlap PA-C [address] [place] [address] Assigned Surgical Provider 12/10/20 12/27/20 Guilherme Sprague MD [address] [place] [address] Assigned Surgical Provider 12/28/20 Shay Dunlap PA-C [address] [place] [address] Assigned Musculoskeletal Provider 03/15/21 04/16/22 Soco Magana PA-C [address] [place] [address] Assigned Heart and Vascular Provider 11/15/21 06/17/24 Gamal Vásquez MD [address] [place] [address] Assigned PCP 11/20/22 09/16/[address] [address] Assigned PCP 10/20/23 documented as of this encounter
--- OUTSIDE RECORDS SUMMARY | 2024-12-17 09:43 | XMS_ITS | Encounter Summary ---
Author Organization [place] Address [address] [place] [address] Care Team Providers Care Facility Designer Name Role Phone Maynor Barragan MD Primary Care Provider Unavailable [facility] Primary Care Provider Gilberto Baker MD Primary Care Provider [phone] Gamal Vásquez MD Primary Care Provider Isabelle Gleason MD Unavailable Unavailable Gamal Vásquez MD Unavailable [phone] Gamal Vásquez MD Unavailable [phone] Richa Carmona MD Unavailable + Juve Portillo MD Unavailable [phone] Gamal Vásquez MD Unavailable [phone] Guilherme Sprague MD Unavailable [phone] Parish Hammer MD Unavailable Un available Shay Dunlap PA-C Unavailable [phone] Guilherme Sprague MD Unavailable [phone] Shay Dunlap PA-C Unavailable [phone] Soco aMgana PA-C Unavailable [phone] Gamal Vásquez MD Unavailable [phone] [facility] Unavailable Reason for Visit * Reason Onset Date Comments Pt. Information/instruction 02/28/2008 Encounter Details Date Type Department Care Team (Late st Contact Info) Description 02/28/2008 [facility] Medical Advice [address] [phone] Maynor Barragan MD XXX HOSPITALIST/ED DOCTOR XXX Pt. 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 210 [place] [address] PCP - General Oncology 01/16/14 04/13/15 Gamal Vásquez MD [address] [place] [address] PCP - General Internal Medicine 04/14/15 Gamal Vásquez MD [address] [place] [address] PCP - Assigned PCP 04/06/15 11/28/18 Isabelle Gleason MD [address] [place] [address] BMT Physician Hematology 03/21/18 Gamal Vásquez MD [address] [place] [address] Assigned PCP 04/06/15 08/23/20 Richa Carmona MD [address] [place] [address] Assigned Heart and Vascular Provider 07/18/20 09/27/20 Juve Portillo MD [address] [place] [address] Assigned PCP 08/24/20 09/20/20 Gamal Vásquez MD [address] [place] [address] Assigned PCP 09/21/20 09/10/22 Guilherme Sprague MD [address] [place] [address] Urology 09/22/20 Parish Hammer MD Assigned Heart and Vascular Provider 10/05/20 11/14/21 Shay Dunlap PA-C [address] [place] [address] Assigned Surgical Provider 12/10/20 12/27/20 Guilherme Sprague MD [address] [place] [address] Assigned Surgical Provider 12/28/20 Shay Dunlap PA-C [address] [address] Assigned Musculoskeletal Provider 03/15/21 04/16/22 Soco Magana PA-C [address] [facility] [place] [address] Assigned Heart and Vascular Provider 11/15/21 06/17/24 Gamal Vásquez MD [address] [place] [address] 160 [place] [address] Assigned PCP 11/20/22 09/16/23 [facility] 303 [place] [address] Assigned PCP 10/20/23 documented as of this encounter
--- OUTSIDE RECORDS SUMMARY | 2024-12-17 09:43 | XMS_ITS | Encounter Summary ---
Author Organization [place] Address [address] [place] [address]. [place] [address] Care Team Providers Care Cash Accountant Name Role Phone Gamal Vásquez MD Primary Care Provider Isabelle Gleason MD Unavailable Unavailable Gamal Vásquez MD Unavailable [phone] Guilherme Sprague MD Unavailable [phone] Guilherme Sprague MD Unavailable [phone] Soco Magana PA-C Unavailable [phone] Gamal Vásquez MD Unavailable [phone] [facility] Unavailable Reason for Visit * Reason Comments Medication Refill Encounter Details Date Type Department Care Team (Late st Contact Info) Description 08/04/2022 [facility] [address] [place] [address] Gamal Vásquez MD [address] [place] [address] Medication Refill Social History Tobacco [...] asked 09/10/2020 How often do you attend yazdanism or hoahaoism serv ices? 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 No / Unsure 07/05/2022 9:33 AM CDT documented as of this encounter Miscellaneous Notes * Telephone Encounter - Samia Webber RN - 08/05/2022 5:26 PM ELECTROLYSIST Sildenafil 100 mg Routing refill request to provider for review/approval because: A break in medication Patient needs to be seen because it has been more than 1 year since last office visit. Patient seen by Dr. Eller for Pre-op 01/2022 ASHLEY with PCP- 08/2020 TROLYSIST documented in this encounter Plan of Treatment Not on file documented as of this encounter Visit Diagnoses Diagnosis Other male erectile dysfunction documented in this encounter Care Teams Cash Accountant Relationship Specialty Start Date End Date Gamal Vásquez MD [address] [address] PCP - General Internal Medicine 04/14/15 Isabelle Gleason MD [address] [place] [address] BMT Physician Hematology 03/21/18 Gamal Vásquez MD [address] [address] Assigned PCP 09/21/20 09/10/22 Guilherme Sprague MD [address] [place] [address] Urology 09/22/20 Guilherme Sprague MD [address] [place] [address] Assigned Surgical Provider 12/28/20 Soco Magana PA-C [address] [place] [address] Assigned Heart and Vascular Provider 11/15/21 06/17/24 Gamal Vásquez MD [address] [address] Assigned PCP 11/20/22 09/16/23 [facility] [address] [place] [address] Assigned PCP 10/20/23 documented as of this encounter
--- OUTSIDE RECORDS SUMMARY | 2024-12-17 09:43 | XMS_ITS | Encounter Summary ---
Author Organization [place] Address [address] [place] [address]. [place] [address] Care Team Providers Care Labeling Associate Name Role Phone Gamal Vásquez MD Primary Care Provider Isabelle Gleason MD Unavailable Unavailable Gamal Vásquez MD Unavailable [phone] Richa Carmona MD Unavailable + Juve Portillo MD Unavailable Gamal Vásquez MD Unavailable [phone] Guilherme Sprague MD Unavailable [phone] Parish Hammer MD Unavailable Un available Shay Dunlap PA-C Unavailable [phone] Guilherme Sprague MD Unavailable Shay Dunlap PA-C Unavailable [phone] Soco Magana PA-C Unavailable [phone] Gamal Vásquez MD Unavailable [phone] [facility] Unavailable Encounter Details Date Type Department Care Team (Late st Contact Info) Description 01/21/2019 [facility] [address] [place] [address] Gamal Vásquez MD [address] [place], [place] [address] Social History Tobacco Use Types Packs/Day Years Used Date Smoking Tobacco: Never Smokeless Tobacco: Never Alcohol Use Standard Drinks/Week Comments Yes 0 (1 standard drink = 0.6 oz pur e alcohol) 2 drinks week PHQ-2 Answer Date Recorded PHQ-2 Score 0 10/04/2018 Sex and Gender Information Value Date Recorded Sex Assigned at Not on file 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 Gender Identity Not on file Sexual Orientation Not on file 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 file Not on file Not on fi le documented as of this encounter Plan of Treatment Not on file documented as of this encounter Visit Diagnoses Not on filedocumented in this encounter Care Teams Labeling Associate Relationship Specialty Start Date End Date Gamal Vásquez MD [address] [place] [address] PCP - General Internal Medicine 04/14/15 Isabelle Gleason MD [address] [place] [address] BMT Physician Hematology 03/21/18 Gamal Vásquez MD [address] [place] [address] Assigned PCP 04/06/15 08/23/20 Richa Carmona MD [address] [facility] [address] [place] [address] Assigned Heart and Vascular Provider 07/18/20 09/27/20 Juve Portillo MD [address] [place] [address] Assigned PCP 08/24/20 09/20/20 Gamal Vásquez MD [address] [place] [address] Assigned PCP 09/21/20 09/10/22 Guilherme Sprague MD [address] [place] [address] Urology 09/22/20 Parish Hammer MD Assigned Heart and Vascular Provider 10/05/20 11/14/21 Shay Dunlap PA-C [address] [place], [place] [address] Assigned Surgical Provider 12/10/20 12/27/20 Guilherme Sprague MD [address] [place] [address] Assigned Surgical Provider 12/28/20 Shay Dunlap PA-C [address] [place] [address] Assigned Musculoskeletal Provider 03/15/21 04/16/22 Soco Magana PA-C [address] [place] [address] Assigned Heart and Vascular Provider 11/15/21 06/17/24 Gamal Vásquez MD [address] [facility] 160 [place] [address] Assigned PCP 11/20/22 09/16/23 [facility] 303 [place] [address] Assigned PCP 10/20/23 documented as of this encounter
--- OUTSIDE RECORDS SUMMARY | 2024-12-17 09:43 | XMS_ITS | Clinical Summary ---
Author Organization [facility] Address [address] [place] [address] Care Team Providers Care Filing Writer Name Role Phone Elsewhere, Pcp Primary Care Provider Unavailabl e Source Comments Patient records contain information from all sites at [facility]. For routine questions regarding patient records, call [phone] during business hours, M-F 8:00 AM - 5:00 PM Central Time. Record requests for emergency care only can be directed to [phone] at any time.[facility] Allergies No known active allergies Medications * This document contains information received from the source organization and may not represent a complete record from that organization. cholecalciferol (VITAMIN D3) 50 mcg (2,000 Unit) capsule Take 50 mcg by mouth every morning. Active UNABLE TO FIND Take 1 tablet by mouth daily as needed. Med Name: Rapid dissolve tablet compound of sildenafil 80 mg, tadalafil 22 mg, and apo 3 mg Active sodium chloride-sodium bicarbonate nasal rinse Administer 1 Application into each nostril daily. Use water that is either sterile, distilled, or previously boiled for preparations; do not use tap water. 04/29/20 24 Active testosterone cypionate (Depo-Testosteron e) 200 mg/mL injection Inject 0.4 mL intramuscularly 2 (two) times a week. On Tuesday and Tuesday07/31/20 24 Active multivitamin tablet Take 1 tablet by mouth daily. Active acyclovir (Zovirax) 400 mg tabletIndications :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),CAR-T Recipient Encounter For Antineoplastic Immunotherapy Take 1 tablet (400 mg total) by mouth 2 (two) times a day. Continue until instructed by provider to stop 60 tablet 3 08/20/20 24 Active sulfamethoxazole- trimethoprim (Bactrim) 400-80 mg per tabletIndications :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),CAR-T Recipient Encounter For Antineoplastic Immunotherapy Take 1 tablet by mouth daily. Continue until instructed by provider to stop 30 tablet 3 08/20/20 24 Active pregabalin (Lyrica) 100 mg capsuleIndication s:Sciatica Right,Radiculopat hy Lumbar Fourth Take 1 capsule (100 mg total) by mouth 4 (four) times a day. 360 capsule 3 10/05/19 25 Active anastrozole (Arimidex) 1 mg tablet Take 0.5 mg by mouth 2 (two) times a week. Swallow whole with a drink of water. Takes 0.5 mg twice a week (on Tuesday and Tuesday) Active acetaminophen (TylenoL) 500 mg tablet Take 2 tablets (1,000 mg total) by mouth every 6 (six) hours for 7 doses. 100 tablet 10/27/19 25 Active lidocaine (Lidoderm) 5 % adhesive patch,medicatedIn dications:Mass Spine Lumbar (HCC) Place 1 patch on the skin daily. Apply to area with pain. Remove patch after 12 h. Leave patch off for 12 h before applying a new one. 5 patch 10/27/19 25 Active polyethylene glycol (Miralax) 17 gram powder packetIndications :constipation Take 1 packet (17 g total) by mouth daily Indications: constipation. Dissolve each 17 g dose in 240 mLs (8 ounces) of beverage. 10/27/19 25 Active sennosides-docusa te sodium (Senokot-S) 8.6-50 mg per tablet Take 2 tablets by mouth 2 (two) times a day. 10/27/19 25 Active enoxaparin (Lovenox) 40 mg/0.4 mL injection Inject 0.4 mL (40 mg total) under the skin daily for 10 days. 4 mL 5 1:16 PM SEWING MACHINE ATTACHMENT TESTER 10/27/19 25 Active oxyCODONE (Roxicodone) 5 mg immediate release tabletIndications :Acute Pain Exception Take 1 tablet (5 mg total) by mouth every 3 (three) hours as needed for moderate pain or score 4-6 of 10 Indication: Acute Pain Exception. 30 tablet 10/29/19 25 Active methocarbamoL (Robaxin) 750 mg tablet Take 1 tablet (750 mg total) by mouth 4 (four) times a day as needed for muscle spasms. 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, [facility], Ninth Floor [address] [place] [address] Tamiko Huffman M.D. 12/12/2024 Clinical Communication Division of Hematology in [place], [place] [address] [place] [address] Tamiko Huffman M.D. Rx Prior Authorization ([facility] does not have prior auth rqst for IVIG) 12/10/2024 2:14 PM CDT - 12/10/2024 11:59 PM CDT Hospital Encounter Department of Laboratory Medicine in [address] [phone] Ha Nolasco M.D. CAR-T Recipient Encounter For Antineoplastic Immunotherapy; 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) Discharge Disposition: Home or Self Care 11/12/2024 12:20 PM SEWING MACHINE ATTACHMENT TESTER - 11/12/2024 11:59 PM SEWING MACHINE ATTACHMENT TESTER Hospital Encounter Department of Laboratory Medicine in [address] [phone] Ha Nolasco M.D. CAR-T Recipient Encounter For Antineoplastic Immunotherapy; 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) Discharge Disposition: Home or Self Care 10/30/2024 8:45 AM SEWING MACHINE ATTACHMENT TESTER Telemedicine Division of Hematology in [place], [place] [address] [place] [phone] Tamiko Huffman M.D. CAR-T Recipient Encounter For Antineoplastic Immunotherapy; 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) 10/29/2024 Clinical Communication Department of Neurologic Surgery in [place], [place] [address] [place] [phone] Brittany Mcdowell M.D. 10/26/2024 3:04 PM SEWING MACHINE ATTACHMENT TESTER Anesthesia Event [facility] [address] [place] [phone] Corrie Burgess M.D. Eskuri, Scott, M.D. 10/26/2024 12:54 PM SEWING MACHINE ATTACHMENT TESTER - 10/26/2024 6:19 PM SEWING MACHINE ATTACHMENT TESTER Surgery [facility] [address] [place] [phone] Brittany Mcdowell M.D. 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 10/26/2024 10:24 AM SEWING MACHINE ATTACHMENT TESTER - 10/27/2024 12:12 PM SEWING MACHINE ATTACHMENT TESTER Hospital Encounter [facility], [facility], Ninth Floor [address] [place] [address] Brittany Mcdowell M.D. Mass Spine Lumbar (HCC) (Primary Dx); Lesion Spine Lumbar; Radiculopathy Lumbar Discharge Disposition: Home or Self Care 10/26/2024 Clinical Communication Department of Neurologic Surgery in [place], [place] [address] [place] [phone] Brittany Mcdowell M.D. Post Hospital Follow-up 10/23/2024 2:00 PM SEWING MACHINE ATTACHMENT TESTER Comprehensive Visit Preoperative Evaluation Center in [place], [place] [address] [place] [phone] Brittany Mcdowell M.D. Katzka, Abigail A, APRN C.N.P. Sal Parkinson White Syndrome (Primary Dx); Preoperative Exam; Radiculopathy Lumbar; Catheter Ablation For Conduction Pathway Status Post; 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); Hypogammaglobulinemia (HCC); CAR-T Recipient Encounter For Antineoplastic Immunotherapy; Loss Hearing Bilateral; Elevated Creatinine 10/23/2024 11:00 AM SEWING MACHINE ATTACHMENT TESTER Nurse Only Section of Infectious Diseases in [place], [place] [address] [place] [phone] Ha Nolasco M.D. McIntyre, Sierra M RSusanN. Immunizations 10/23/2024 6:44 AM SEWING MACHINE ATTACHMENT TESTER - 10/23/2024 11:59 PM SEWING MACHINE ATTACHMENT TESTER Hospital Encounter Department of Radiology, [facility], in [place], [place] [address] [place] [phone] Tamiko Huffman M.D. CAR-T Recipient Encounter For Antineoplastic Immunotherapy; 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) Discharge Disposition: Home or Self Care 10/19/2024 3:15 PM SEWING MACHINE ATTACHMENT TESTER Clinical Communication Virtual Review in [place], [place] [address] [place] [address] Pre-visit Intake 10/19/2024 Orders Only Division of Hematology in [place], [place] [address] [place] [phone] Tere Foote Clinical Research Exam (Primary Dx) 10/11/2024 Clinical Communication Department of Neurologic Surgery in [place], [place] [address] [place] [address] Brittany Mcdowell M.D. 10/08/2024 1:00 PM SEWING MACHINE ATTACHMENT TESTER - 10/08/2024 11:59 PM SEWING MACHINE ATTACHMENT TESTER Hospital Encounter Department of Laboratory Medicine in [address] [phone] Ha Nolasco M.D. CAR-T Recipient Encounter For Antineoplastic Immunotherapy; 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) Discharge Disposition: Home or Self Care 10/05/2024 Refill Department of Neurology in [place], [place] [address] [place] [address] Bro Pradhan M.D. Med Refill 10/03/2024 2:30 PM SEWING MACHINE ATTACHMENT TESTER Comprehensive Visit Department of Neurologic Surgery in [place], [place] [address] [place] [phone] Brittany Mcdowell M.D. Schwannoma Benign (Primary Dx); Lesion Spine Lumbar; Preoperative Exam 10/01/2024 2:15 PM SEWING MACHINE ATTACHMENT TESTER Clinical Communication Virtual Review in [place], [place] [address] [place] [address] 09/25/2024 Orders Only [facility], [facility], [facility] [address] [place] [address] Ginger Diaz P.A.-C. 09/20/2024 10:15 AM SEWING MACHINE ATTACHMENT TESTER - 09/20/2024 11:59 PM SEWING MACHINE ATTACHMENT TESTER Hospital Encounter Department of Laboratory Medicine in [address] [phone] Ha Nolasco M.D. CAR-T Recipient Encounter For Antineoplastic Immunotherapy; 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) Discharge Disposition: Home or Self Care from Last 3 Months Immunizations Immunization Administration Dates Next Due HepB Adult (HEPLISAV-B) 10/23/2024 PCV20 10/23/2024 RSV: respiratory syncytial v irus (ABRYSVO) bivalent vaccine 07/20/2024 RZV (SHINGRIX) 10/23/2024 Tdap 01/12/2020,02/15/2007 influenza trivalent vaccine (6 months and older) (PF) 07/20/2024 influenza vaccine quad (FLUZ ONE/FLUARIX) (6 months and older)(PF) 07/17/2019 Family History Medical History Relation Name Comments Alcohol abuse Brother 1 Polo Rubalcava Drug abuse Brother 1 Polo Rubalcava Colon polyps Brother 2 Antoine Rubalcava Colon polyps Brother 3 Mohsen Rubalcava Other cancer Father Loida Rubalcava Liver cancer Blood clot Mother sE Rubalcava intestinal Hypertension Mother Es Rubalcava Relation Name Status Comments Brother 1 Polo EdwardsBeain Alive Brother 2 Antoine EdwardsBeburak Alive Brother 3 Mohsen Rubalcava Alive Father Loida Rubalcava Alive Mother Es Rubalcava Social History Tobacco Use Types Packs/Day Years Used Date Smoking Tobacco: Former Cigarettes Passive Smoke Exposure: Past Smokeless Tobacco: Never Tobacco Cessation:Counseling Given: Not Answered Comments:High School Quit 18 Alcohol Use Standard Drinks/Week Comments Not Currently 0 (1 standard drink = 0.6 oz pur e alcohol) [facility] Utilities Answer Date Recorded In the past 12 months has e Single Digits, oil, or water [employer] threatened to shut off services in your [...] and Family Once a week 05/04/2019 Attends [employer] 1 to 4 times per year [...] Answer Date Recorded PHQ-2 Score 0 04/12/2024 [facility] Answer Date Recorded [...] your living situation today? I have a [facility] place to live 10/26/2024 Education Answer Date Recorded What is the highest level of school you have completed or the highest degree you have received? Associate degree: occupational, technical, or vocational program 05/13/2020 Sex and Gender Information Value Date Recorded Sex Assigned at Male 04/20/2018 9:42 AM CDT Legal Sex Male 6:56 AM SEWING MACHINE ATTACHMENT TESTER Gender Identity Male 04/20/2018 9:42 AM CDT Sexual Orientation Straight 04/20/2018 9: 42 AM CDT Last Filed Vital Signs Vital Sign Reading Time Taken Comments Blood Pressure 135/85 10/27/2024 11:00 AM SEWING MACHINE ATTACHMENT TESTER Pulse 66 10/27/2024 11:00 AM SEWING MACHINE ATTACHMENT TESTER Temperature 36.4 C (97.5 F) 10/27/2024 11:00 AM SEWING MACHINE ATTACHMENT TESTER Respiratory Rate 15 10/27/2024 11:00 AM SEWING MACHINE ATTACHMENT TESTER Oxygen Saturation 99% 10/27/2024 11:00 AM SEWING MACHINE ATTACHMENT TESTER Inhaled Oxygen Concentration - - Weight 106 kg (233 lb 0.4 oz) 10/26/2024 8:36 PM SEWING MACHINE ATTACHMENT TESTER Height 180 cm (5' 10.87) 10/26/2024 10:44 AM CS T Body Mass Index 32.62 10/26/2024 10:44 AM SEWING MACHINE ATTACHMENT TESTER Plan of Treatment Upcoming Encounters Date Type Department Care Team (Late st Contact Info) Description 12/17/2024 5:45 PM CDT Appointment Department of Radiology, [facility], in [place], [place] [address] [place] [phone] Tamiko Huffman M.D. [address] [place] [phone] 01/21/2025 8:00 AM CDT Nurse Only Section of Infectious Diseases in [place], [place] [address] [place] [address] Ha Nolasco M.D. [address] [place] [phone] 01/21/2025 9:45 AM CDT Appointment Department of Radiology, [facility] in [place], [place] [address] [place] [address] Helga Raymundo APRN, C.N.P., D.N.P., M.S.N. [address] [place] [phone] 01/21/2025 2:30 PM CDT Office Visit Department of Neurologic Surgery in [place], [place] [address] [place] [address] Gwendolyn Lombardo APRN, CIVIL ENGINEERING DRAFTSPERSON, D.N.P., M.S.N. [address] [place] [phone] 01/29/2025 8:20 AM CDT Appointment Department of Laboratory Medicine and Pathology, [facility] in [place], [place] [address] [place] [address] Tamiko Huffman M.D. [address] [place] [phone] 01/29/2025 10:45 AM CDT Office Visit Division of Hematology in [place], [place] [address] [place] [address] Tamiko Huffman M.D. [address] [place] [phone] Health Maintenance Due Date Last Done Comments CT Colonography 1961 Cologuard 1961 Colonoscopy 1961 Colorectal Cancer Surveillance 1961 HIV Screening 1961 COVID-19 Vaccine (#1) 1966 Depression Screening (Annual PHQ-2) 09/26/2024 Zoster Vaccines (2 of 2) 12/18/2024 10/23/2024 Fasting Glucose for Diabetes Screening 10/27/2027 10/27/2024, 05/11/2024, 05/08/2024, Additional history exists Lipid (Cholesterol) Screening 02/16/2028 02/15/2023, 12/06/2022, 11/10/2021, Additional history exists DTaP,Tdap,and Td Vaccines (3 - Td or Tdap) 01/11/2030 01/12/2020, 02/15/2007 Hepatitis B Screening Discontinued 07/18/2018, 018 Hepatitis C Screening Completed 03/05/2024 Influenza Vaccine Completed 07/20/2024, 07/17/2019 RSV vaccine - (32-36 weeks) or 60+ years Completed 07/20/2024 Pneumococcal vaccine (50+ years) Completed 10/23/2024 HPV Vaccines Aged Out No longer eligi ble based on patient's age to complete this topic IPV Vaccines Aged Out No longer eligi ble based on patient's age to complete this topic Medical Devices Implanted Type Area Barber Apprentice Device Identifier Shelf Expiration Date Model / Serial / Lot Hardware E.G. Pins/Screws/R ods Hardware e.g. pins/screws/ rods Left: Shoulder Description:Clavicle/shoulde r, screws Procedures Procedure Name Priority Date/Time Associated Diagnosis Comments QN LYMPHOCYTE SUBSETS: T, B, AND NK, B Routine 12/10/2024 2:20 PM CDT CAR-T Recipient Encounter For Antineoplastic Immunotherapy 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) IMMUNOGLOBULIN G (IGG), S Routine 12/10/2024 2:20 PM CDT CAR-T Recipient Encounter For Antineoplastic Immunotherapy 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) CMV DNA DETECT/QUANT, P Routine 12/10/2024 2:20 PM CDT CAR-T Recipient Encounter For Antineoplastic Immunotherapy 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) QN LYMPHOCYTE SUBSETS: T, B, AND NK, B Routine 11/12/2024 1:07 PM SEWING MACHINE ATTACHMENT TESTER CAR-T Recipient Encounter For Antineoplastic Immunotherapy 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) IMMUNOGLOBULIN G (IGG), S Routine 11/12/2024 1:07 PM SEWING MACHINE ATTACHMENT TESTER CAR-T Recipient Encounter For Antineoplastic Immunotherapy 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) CMV DNA DETECT/QUANT, P Routine 11/12/2024 1:07 PM SEWING MACHINE ATTACHMENT TESTER CAR-T Recipient Encounter For Antineoplastic Immunotherapy 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) BASIC METABOLIC PANEL, S/P Routine 10/27/2024 4:24 AM SEWING MACHINE ATTACHMENT TESTER CBC WITH DIFFERENTIAL, B Routine 10/27/2024 4:24 AM SEWING MACHINE ATTACHMENT TESTER SURGICAL PATHOLOGY, [facility] Routine 10/26/2024 5:45 PM SEWING MACHINE ATTACHMENT TESTER Lesion Spine Lumbar Radiculopathy Lumbar DX SPINE 1 VIEW RAD - Routine (most inpatients and all outpatients) 10/26/2024 4:22 PM SEWING MACHINE ATTACHMENT TESTER AIRWAY MANAGEMENT Routine 10/26/2024 3:12 PM SEWING MACHINE ATTACHMENT TESTER LAMINECTOMY LUMBAR WITH TUMOR RESECTION 10/26/2024 2:44 PM SEWING MACHINE ATTACHMENT TESTER Lesion Spine Lumbar Radiculopathy Lumbar Case Notes GLASS RIBBON MACHINE OPERATOR 1028 IONM - EMG Routine 10/26/2024 10:25 AM SEWING MACHINE ATTACHMENT TESTER MISC RESEARCH ORDER, B Routine 9:21 AM SEWING MACHINE ATTACHMENT TESTER Clinical Research Exam QN LYMPHOCYTE SUBSETS: T, B, AND NK, B Routine 10/23/2024 9:21 AM SEWING MACHINE ATTACHMENT TESTER CAR-T Recipient Encounter For Antineoplastic Immunotherapy 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) LACTATE DEHYDROGENASE (LD), S Routine 10/23/2024 9:21 AM SEWING MACHINE ATTACHMENT TESTER CAR-T Recipient Encounter For Antineoplastic Immunotherapy 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) CBC WITH DIFFERENTIAL, B Routine 10/23/2024 9:21 AM SEWING MACHINE ATTACHMENT TESTER CAR-T Recipient Encounter For Antineoplastic Immunotherapy 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) BILIRUBIN, TOT, S/P Routine 10/23/2024 9:21 AM SEWING MACHINE ATTACHMENT TESTER CAR-T Recipient Encounter For Antineoplastic Immunotherapy 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) ASPARTATE AMINOTRANSFERASE (AST), S/P Routine 10/23/2024 9:21 AM SEWING MACHINE ATTACHMENT TESTER CAR-T Recipient Encounter For Antineoplastic Immunotherapy 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) CMV DNA DETECT/QUANT, P Routine 10/23/2024 9:21 AM SEWING MACHINE ATTACHMENT TESTER CAR-T Recipient Encounter For Antineoplastic Immunotherapy 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) URIC ACID, S/P Routine 10/23/2024 9:20 AM SEWING MACHINE ATTACHMENT TESTER CAR-T Recipient Encounter For Antineoplastic Immunotherapy 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) SODIUM, S/P Routine 10/23/2024 9:20 AM SEWING MACHINE ATTACHMENT TESTER CAR-T Recipient Encounter For Antineoplastic Immunotherapy 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) STREPTOCOCCUS PNEUMONIAE, IGG, ABS, 23 SEROTYPES, S Routine 10/23/2024 9:20 AM SEWING MACHINE ATTACHMENT TESTER CAR-T Recipient Encounter For Antineoplastic Immunotherapy 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) POTASSIUM, S/P Routine 10/23/2024 9:20 AM SEWING MACHINE ATTACHMENT TESTER CAR-T Recipient Encounter For Antineoplastic Immunotherapy 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) IMMUNOGLOBULIN G (IGG), S Routine 10/23/2024 9:20 AM SEWING MACHINE ATTACHMENT TESTER CAR-T Recipient Encounter For Antineoplastic Immunotherapy 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) FERRITIN, S Routine 10/23/2024 9:20 AM SEWING MACHINE ATTACHMENT TESTER CAR-T Recipient Encounter For Antineoplastic Immunotherapy 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) CREATININE WITH EGFR, S/P Routine 10/23/2024 9:20 AM SEWING MACHINE ATTACHMENT TESTER CAR-T Recipient Encounter For Antineoplastic Immunotherapy 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) C-REACTIVE PROTEIN (CRP), S/P Routine 10/23/2024 9:20 AM SEWING MACHINE ATTACHMENT TESTER CAR-T Recipient Encounter For Antineoplastic Immunotherapy 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) CALCIUM, TOT, S/P Routine 10/23/2024 9:20 AM SEWING MACHINE ATTACHMENT TESTER CAR-T Recipient Encounter For Antineoplastic Immunotherapy 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) ALANINE AMINOTRANSFERASE (ALT), S/P Routine 10/23/2024 9:20 AM SEWING MACHINE ATTACHMENT TESTER CAR-T Recipient Encounter For Antineoplastic Immunotherapy 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) ALKALINE PHOSPHATASE, S/P Routine 10/23/2024 9:20 AM SEWING MACHINE ATTACHMENT TESTER CAR-T Recipient Encounter For Antineoplastic Immunotherapy 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) TETANUS TOXOID IGG AB Routine 10/23/2024 9:20 AM SEWING MACHINE ATTACHMENT TESTER CAR-T Recipient Encounter For Antineoplastic Immunotherapy 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) MMRV IMMUNE STATUS PROFILE Routine 10/23/2024 9:20 AM SEWING MACHINE ATTACHMENT TESTER CAR-T Recipient Encounter For Antineoplastic Immunotherapy 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) HEPATITIS A VIRUS TOTAL AB, S Routine 10/23/2024 9:20 AM SEWING MACHINE ATTACHMENT TESTER CAR-T Recipient Encounter For Antineoplastic Immunotherapy 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) HBS ANTIBODY, SERUM Routine 10/23/2024 9:20 AM SEWING MACHINE ATTACHMENT TESTER CAR-T Recipient Encounter For Antineoplastic Immunotherapy 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) PET CT SKULL TO THIGH RAD - Routine (most inpatients and all outpatients) 10/23/2024 8:41 AM SEWING MACHINE ATTACHMENT TESTER CAR-T Recipient Encounter For Antineoplastic Immunotherapy 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) QN LYMPHOCYTE SUBSETS: T, B, AND NK, B Routine 10/08/2024 1:24 PM SEWING MACHINE ATTACHMENT TESTER CAR-T Recipient Encounter For Antineoplastic Immunotherapy 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) IMMUNOGLOBULIN G (IGG), S Routine 10/08/2024 1:24 PM SEWING MACHINE ATTACHMENT TESTER CAR-T Recipient Encounter For Antineoplastic Immunotherapy 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) CMV DNA DETECT/QUANT, P Routine 10/08/2024 1:24 PM SEWING MACHINE ATTACHMENT TESTER CAR-T Recipient Encounter For Antineoplastic Immunotherapy 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) IMMUNOGLOBULIN G (IGG), S Routine 09/20/2024 10:24 AM SEWING MACHINE ATTACHMENT TESTER CAR-T Recipient Encounter For Antineoplastic Immunotherapy 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) CMV DNA DETECT/QUANT, P Routine 09/20/2024 10:24 AM SEWING MACHINE ATTACHMENT TESTER CAR-T Recipient Encounter For Antineoplastic Immunotherapy 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) [facility] SCREEN TEST SET Routine 03/05/2024 8:36 AM CDT CAR-T Recipient Encounter For Antineoplastic Immunotherapy 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) HEPATITIS B SURFACE ANTIGEN Routine 04/28/2018 9:42 AM CDT 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) from Last 3 Months or Most Recently Relevant to Health Maintenance Results * CMV DNA Detect / Quant, Plasma (12/10/2024 2:20 PM CDT) Only the most recent of5 resultswithin the time period is included. [facility] CMV DNA Detect/Quant, P Undetected Undetected IU/mL 12/11/2024 11:16 AM CDT [facility] Comment: Result in log IU/mL is Undetected. ----ADDITIONAL INFORMATION---- The quantification range of this assay is 35 to 10,000,000 IU/mL (1.54 log to 7.00 log IU/mL). Testing was performed using the dirk CMV test ([employer] Blood (Blood, Venous) 12/10/2024 2:20 PM CDT 12/11/2024 7:10 AM CDT Ha Mars M.D. LAB MICROBIOLOGY - BLOOD ORDERABLES Final Result [facility] [address] [place] [address] [facility] [address] [place] [address] [place] [id number] * (ABNORMAL) Quantitative Lymphocyte Subsets: T, B, and Natural Killer (NK) (12/10/2024 2:20 PM CDT) Only the most recent of4 resultswithin the time period is included. CD45 Total Lymph Count 0.44(L) 0.82 - 2.84 thou/mcL 12/11/2024 3:22 PM CDT SDSC % CD3 (T Cells) 72 58 - 86 % 3:22 PM CDT SDSC CD3 (T Cells) [...] Ratio 1.0 >=0.9 12/11/2024 3:22 PM CDT [facility] Comment: ----ADDITIONAL INFORMATION---- This test was developed using an analyte specific reagent. Its performance characteristics were determined by [facility] in a manner consistent with CLIA requirements. This test has not been cleared or approved by the U.S. Food and Drug Administration. Blood (Blood, Venous) 12/10/2024 2:20 PM CDT 12/11/2024 8:05 AM CDT Ha Mars M.D. LAB BLOOD ADD-ON Final Result [facility] [address] [place] [address] [facility] [address] [place] [address] [place] [address] * (ABNORMAL) Immunoglobulin G (IgG) (12/10/2024 2:20 PM CDT) Only the most recent of5 resultswithin the time period is included. Pathologist [facility] Immunoglobulin G (IgG), S 421(L) 767 - 1590 mg/dL 12/11/2024 8:21 AM CDT ECLR Blood (Blood, Venous) 12/10/2024 2:20 PM CDT 12/10/2024 9:02 PM CDT Ha Mars M.D. LAB BLOOD ADD-ON Final Result [facility] [address] [place] [address], [facility] ECLR [facility] in [address] [address] * (ABNORMAL) CBC with Differential, Blood (10/27/2024 4:24 AM SEWING MACHINE ATTACHMENT TESTER) Only the most recent of2 resultswithin the time period is included. Pathologist [facility] Hemoglobin 15.9 13.2 - 16.6 g/dL 10/27/2024 5:39 AM SEWING MACHINE ATTACHMENT TESTER DTL Hematocrit 45.4 38.3 - 48.6 % 10/27/2024 5:39 AM SEWING MACHINE ATTACHMENT TESTER DTL Erythrocytes 5.12 4.35 - 5.65 x10(12)/L 10/27/2024 5:39 AM SEWING MACHINE ATTACHMENT TESTER DTL MCV 88.7 78.2 - 97.9 fL 10/27/2024 5:39 AM SEWING MACHINE ATTACHMENT TESTER DTL RBC Distrib Width 11.2(L) 11.8 - 14.5 % 10/27/2024 5:39 AM SEWING MACHINE ATTACHMENT TESTER DTL Platelet Count 307 135 - 317 x10(9)/L 10/27/2024 5:39 AM SEWING MACHINE ATTACHMENT TESTER DTL Leukocytes 9.0 3.4 - 9.6 x10(9)/L 10/27/2024 5:39 AM SEWING MACHINE ATTACHMENT TESTER DTL Neutrophils 8.51(H) 1.56 - 6.45 x10(9)/L 10/27/2024 5:39 AM SEWING MACHINE ATTACHMENT TESTER PM Lymphocytes 0.24(L) 0.95 - 3.07 x10(9)/L 10/27/2024 5:39 AM SEWING MACHINE ATTACHMENT TESTER DTL Monocytes 0.24(L) 0.26 - 0.81 x10(9)/L 10/27/2024 5:39 AM SEWING MACHINE ATTACHMENT TESTER DTL Eosinophils <0.03 0.03 - 0.48 x10(9)/L 10/27/2024 5:39 AM SEWING MACHINE ATTACHMENT TESTER DTL Basophils <0.03 0.01 - 0.08 x10(9)/L 10/27/2024 5:39 AM SEWING MACHINE ATTACHMENT TESTER DTL Blood (Blood, Venous) 10/27/2024 4:24 AM SEWING MACHINE ATTACHMENT TESTER 10/27/2024 5:28 AM SEWING MACHINE ATTACHMENT TESTER us Karlos Montana M.D., Ph.D. LAB BLOOD ADD-ON Final Result [facility] [address] [place] [address], [facility] DTL [facility] [address] [place] [address] [facility] [address] [place] [address] * (ABNORMAL) Basic Metabolic Panel (10/27/2024 4:24 AM SEWING MACHINE ATTACHMENT TESTER) Potassium, S 4.5 3.6 - 5.2 mmol/L 10/27/2024 6:13 AM SEWING MACHINE ATTACHMENT TESTER DTL Sodium, S 140 135 - 145 mmol/L 10/27/2024 6:13 AM SEWING MACHINE ATTACHMENT TESTER DTL Chloride, S 104 98 - 107 mmol/L 10/27/2024 6:13 AM SEWING MACHINE ATTACHMENT TESTER DTL Bicarbonate, S 23 22 - 29 mmol/L 10/27/2024 6:13 AM SEWING MACHINE ATTACHMENT TESTER DTL Anion Gap 13 7 - 15 10/27/2024 6:13 AM SEWING MACHINE ATTACHMENT TESTER DTL BUN (Blood Urea Nitrogen), S 13 8 - 24 mg/dL 10/27/2024 6:13 AM SEWING MACHINE ATTACHMENT TESTER DTL Creatinine 1.34 0.74 - 1.35 mg/dL 10/27/2024 6:13 AM SEWING MACHINE ATTACHMENT TESTER DTL Estimated GFR (eGFR) 60 >=60 mL/min/BSA 10/27/2024 6:13 AM SEWING MACHINE ATTACHMENT TESTER DTL Comment: Estimated GFR calculated using the 2020 CKD_EPI creatinine equation. Calcium, Total, S 8.7(L) 8.8 - 10.2 mg/dL 10/27/2024 6:13 AM SEWING MACHINE ATTACHMENT TESTER DTL Glucose, S 136 70 - 140 mg/dL 10/27/2024 6:13 AM SEWING MACHINE ATTACHMENT TESTER DTL Blood (Blood, Venous) 10/27/2024 4:24 AM SEWING MACHINE ATTACHMENT TESTER 10/27/2024 5:45 AM SEWING MACHINE ATTACHMENT TESTER Karlos Montana M.D., Ph.D. LAB BLOOD ADD-ON Final Result [facility] [address] [place] [address], [facility] [address] [place] [address] * Surgical Pathology, Frozen Lab (10/26/2024 5:45 PM SEWING MACHINE ATTACHMENT TESTER) 10/29/2024 2:26 PM SEWING MACHINE ATTACHMENT TESTER STMA Report electronically signed by Bong Pickard M.D. I verify that I have examined all relevant slides/material s for the specimen(s) and rendered or confirmed the diagnosis. 10/29/2024 2:26 PM SEWING MACHINE ATTACHMENT TESTER STMA Frozen Intraoperative Report A. Soft tissue, nerve sheath mass right L4, resection: Schwannoma. Signed by Bong Pickard M.D. 10/29/2024 8:24 AM 10/29/2024 2:26 PM SEWING MACHINE ATTACHMENT TESTER STMA Gross Description A. Received fresh labeled nerve sheath tumor right L4 is a 1.8 x 0.8 x 0.7 cm portion of gustafson thinly encapsulated mass with a gustafson, hemorrhagic cut surface. All submitted for frozen and permanent sections. Grossed by Jayashree Roque, BETITO([facility]). 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 Soft tissue, nerve sheath mass right L4, resection: Schwannoma (1.8 x 0.8 x 0.7 cm). Digital imaging was used in the diagnostic assessment of this case. 10/29/2024 2:26 PM SEWING MACHINE ATTACHMENT TESTER STMA Tissue (Spine, Lumbar) 10/26/2024 5:45 PM SEWING MACHINE ATTACHMENT TESTER Brittany Mcdowell M.D. LAB SURG PATH ORDERABLES Luciana l Result [facility] [address] [place] [address], [facility] 200 [facility] [address] [place] [address] * Dx Spine 1 View (10/26/2024 4:22 PM SEWING MACHINE ATTACHMENT TESTER) Anatomical Region Laterality Modality Spine, Musculoskeletal RST L OS, Neuroradiology ARZ LOS, Muskuloskeletal FLA LOS N/A Digital Radiography Impressions 10/26/2024 5:17 PM SEWING MACHINE ATTACHMENT TESTER Single lateral intraoperative radiograph of the spine obtained for surgical localization purposes. Narrative 10/26/2024 5:17 PM SEWING MACHINE ATTACHMENT TESTER EXAM: DX SPINE 1 VIEW Procedure Note Florentino Parikh D.O. - 10/26/2024 EXAM: DX SPINE 1 VIEW IMPRESSION: Single lateral intraoperative radiograph of the spine obtained forsurgical localization purposes. Karlos Montana M.D., Ph.D. IMG DIAGNOSTIC IMAGING PROCEDURES Final Result * Airway (10/26/2024 3:12 PM SEWING MACHINE ATTACHMENT TESTER) Narrative Nabeel Nix M.D. - 10/26/2024 3:12 PM SEWING MACHINE ATTACHMENT TESTER Nabeel Nix M.D. 10/26/2024 3:29 PM Airway Date/Time: 10/26/2024 3:12 PM Performed by: Nabeel Nix M.D. Authorized by: Guy Rosario M.D. Patient location during procedure: OR / Procedure Area PROCEDURE DETAILS: Mask difficulty assessment: easy mask Final airway type: video laryngoscope Laryngeal Manipulation: no Final best view of glottic structures - Cormack/Lehane Score: grade 1 ETT location: oral VL device: glide scope [place] scope blade size: 4 Tube size: 7.5 ETT distance at teeth/gum: 25 Oral tube type: standard ETT Cuffed: yes Number of attempt to successful placement: 1 Airway confirmation: bilateral breath sounds, positive ETCO2 and bilateral chest rise Other previous techniques attempted: none PRE PROCEDURE DETAILS: Pre evaluation for airway management: procedure Urgency: elective Preop assessment of probable difficulty: no difficulty anticipated Preoxygenation: bag valve mask SEDATION / ANESTHESIA Anesthesia method: anesthesia POST PROCEDURE DETAILS: Procedure outcome: successful Notable Events: no complications Guy Rosario M.D. ANESTHESIA ORDERABLES Final Re sult * IONM - EMG (10/26/2024 10:25 AM SEWING MACHINE ATTACHMENT TESTER) 10/26/2024 1:00 PM SEWING MACHINE ATTACHMENT TESTER Narrative EMG - 10/27/2024 5:35 AM SEWING MACHINE ATTACHMENT TESTER Table formatting from the original result was not included. 26-Oct-2024 Intraoperative Monitoring Amended Report Study Number: 3 EMG Wellness Coach: Scott Chao or [phone] Referred by: BRITTANY MCDOWELL ([phone] or [phone]) Referred for: Referral Code: 1958 RX: 8 SUMMARY: Somatosensory evoked potentials (SEPs), transcranial electric motor evoked potentials (MEPs), and free running needle electromyography (EMG) were monitored during right L4-L5 hemilaminectomy for nerve sheath tumor resection. All stimulation and recording was performed with needle electrodes. Ulnar and tibial nerves were stimulated for SEPs. MEPs were recorded from the following muscles bilaterally: abductor digiti minimi, vastus lateralis, tibialis anterior, peroneus longus, and abductor hallucis. Free running EMG was recorded from all lower limb muscles mentioned above. Four twitches were present on train of four (TOF) from all four limbs during baseline MEP recordings and after exposure was completed prior to resumption of MEP and EMG monitoring. SEP Reliable cortical SEPs were recorded at baseline from all four limbs in the supine position; the surgeon was informed prior to exposure. There were no significant changes in cortical SEP amplitudes during surgery. MEP Reliable MEPs were recorded at baseline from all muscles in the supine position; the surgeon was informed prior to exposure. There were no significant changes in MEPs during surgery. EMG No neurotonic discharges were noted. Triggered EMG [Pedicle screw stimulation resulted in triggered EMG activity at the following thresholds (pulse duration = 200 sec):] Left L2 = [ ] mA Left L3 = [ ] mA Left L4 = [ ] mA Left L5 = [ ] mA Left S1 =[ ] mA Right L2 = [ ] mA Right L3 = [ ] mA Right L4 = [ ] mA Right L5 = [ ] mA Right S1 =[ ] mA I personally provided professional oversight for this surgery. Real-time neurophysiologic data was available for me to view and interrogate contemporaneously. Throughout monitoring, there were provisions for continuous and immediate communication directly with the operating room team in the surgical suite. Ivy Chao (127 or [phone])/[facility] Staff Minutes Start-DateTime End-DateTime Remote Simultaneous Supervision 133 10/26/2024 15:31 PM SEWING MACHINE ATTACHMENT TESTER 10/26/2024 17:44 PM SEWING MACHINE ATTACHMENT TESTER Total Monitoring Time: 133 This interpretation has been electronically signed: Scott Chao M.D. at 10/29/2024 8:04:26 AM SEWING MACHINE ATTACHMENT TESTER Procedure Note Scott Chao M.D. - 10/29/2024 26-Oct-2024 Intraoperative Monitoring AmendedReport Study Number: 3 EMG Wellness Coach: Scott Chao. [phone] or [phone] Referred by: BRITTANY MCDOWELL ([phone] or [phone]) Referred for: Referral Code: 1957 RX: 8 SUMMARY: Somatosensory evoked potentials (SEPs), transcranial electricmotor evoked potentials (MEPs), and free running needle electromyography(EMG) were monitored during right L4-L5 hemilaminectomy for nerve sheathtumor resection. All stimulation and recording was performed with needleelectrodes. Ulnar and tibial nerves were stimulated for SEPs. MEPs wererecorded from the following muscles bilaterally: abductor digiti minimi,vastus lateralis, tibialis anterior, peroneus longus, and abductorhallucis. Free running EMG was recorded from all lower limb musclesmentioned above. Four twitches were present on train of four (TOF) fromall four limbs during baseline MEP recordings and after exposure wascompleted prior to resumption of MEP and EMG monitoring. SEP Reliable cortical SEPs were recorded at baseline from all four limbs inthe supine position; the surgeon was informed prior to exposure. Therewere no significant changes in cortical SEP amplitudes during surgery. MEP Reliable MEPs were recorded at baseline from all muscles in the supineposition; the surgeon was informed prior to exposure. There were nosignificant changes in MEPs during surgery. EMG No neurotonic discharges were noted. Triggered EMG [Pedicle screw stimulation resulted in triggered EMG activity at thefollowing thresholds (pulse duration = 200 sec):] Left L2 = [ ] mA Left L3 = [ ] mA Left L4 = [ ] mA Left L5 = [ ] mA Left S1 =[ ] mA Right L2 = [ ] mA Right L3 = [ ] mA Right L4 = [ ] mA Right L5 = [ ] mA Right S1 =[ ] mA I personally provided professional oversight for this surgery. Real-timeneurophysiologic data was available for me to view and interrogatecontemporaneously. Throughout monitoring, there were provisions forcontinuous and immediate communication directly with the operating roomteam in the surgical suite. Ivy Chao (127 or [phone])/[facility] Staff Minutes Start-DateTime End-DateTime Remote Simultaneous Supervision 133 10/26/2024 15:31 PM SEWING MACHINE ATTACHMENT TESTER 7:44 PM SEWING MACHINE ATTACHMENT TESTER Total Monitoring Time: 133 This interpretation has been electronically signed: Scott Chao M.D. at 10/29/2024 8:04:26 AM SEWING MACHINE ATTACHMENT TESTER us Brittany Mcdowell M.D. NEUROLOGY ORDERABLES Edited R esult - Final Performing Organization Address [facility] Co de Phone Number EMG * Misc Research, Blood (10/23/2024 9:21 AM SEWING MACHINE ATTACHMENT TESTER) Number of Specimens 10 10/23/2024 9:21 AM SEWING MACHINE ATTACHMENT TESTER HSS Blood (Blood, Venous) 10/23/2024 9:21 AM SEWING MACHINE ATTACHMENT TESTER 10/23/2024 9:21 AM SEWING MACHINE ATTACHMENT TESTER us Marcelina Hansen M.D., Ph.D. LAB RESEARCH NO RESULT ROUTIN G Final Result Performing Organization Address [facility] de Phone Number [facility] [address] HSS [facility] [address] [place] [address] * AST (Aspartate Aminotransferase) (10/23/2024 9:21 AM SEWING MACHINE ATTACHMENT TESTER) Aspartate Aminotransferase (AST), P 27 8 - 48 U/L 10/23/2024 10:08 AM SEWING MACHINE ATTACHMENT TESTER METH Blood (Blood, Venous) 10/23/2024 9:21 AM SEWING MACHINE ATTACHMENT TESTER 10/23/2024 9:46 AM SEWING MACHINE ATTACHMENT TESTER us Tamiko Huffman M.D. LAB BLOOD ADD-ON Final Res ult Performing Organization Address [facility] Co de Phone Number [facility] [address] METH [facility] [address] [place] [address] * LD (Lactate Dehydrogenase) (10/23/2024 9:21 AM SEWING MACHINE ATTACHMENT TESTER) [facility] [place] LD 180 122 - 222 U/L 10/23/2024 10:59 AM SEWING MACHINE ATTACHMENT TESTER DTL Blood (Blood, Venous) 10/23/2024 9:21 AM SEWING MACHINE ATTACHMENT TESTER 10/23/2024 10:07 AM SEWING MACHINE ATTACHMENT TESTER Tamiko Huffman M.D. LAB BLOOD NON ADD-ON Final Result [facility] [address] [place] [address], [facility] DTL [facility] [address] [place] [address] * Bilirubin, Total (10/23/2024 9:21 AM SEWING MACHINE ATTACHMENT TESTER) [facility] Bilirubin, Total, P 0.5 0.0 - 1.2 mg/dL 10/23/2024 10:08 AM SEWING MACHINE ATTACHMENT TESTER METH Blood (Blood, Venous) 10/23/2024 9:21 AM SEWING MACHINE ATTACHMENT TESTER 10/23/2024 9:46 AM SEWING MACHINE ATTACHMENT TESTER Tamiko Huffman M.D. LAB BLOOD ADD-ON Final Res ult Performing Organization Address [facility] Co de Phone Number [facility] [address] [place] [address], [facility] METH [facility] [address] [place] [address] * Hepatitis A Virus Total Antibodies (10/23/2024 9:20 AM SEWING MACHINE ATTACHMENT TESTER) [facility] Hepatitis A Virus Total Ab, S Negative 10/23/2024 12:26 PM SEWING MACHINE ATTACHMENT TESTER [facility] Comment: Result indicates no past exposure or immunity to hepatitis A infection. ----REFERENCE VALUE---- Unvaccinated: Negative Vaccinated: Positive Blood (Blood, Venous) 10/23/2024 9:20 AM SEWING MACHINE ATTACHMENT TESTER 10/23/2024 11:33 AM SEWING MACHINE ATTACHMENT TESTER us Tamiko Huffman M.D. LAB MICROBIOLOGY - BLOOD O RDERABLES Final Result [facility] [address] [place] [address] [facility] [address] [place] [address] * Streptococcus pneumoniae IgG Antibodies, 23 Serotypes (10/23/2024 9:20 AM SEWING MACHINE ATTACHMENT TESTER) Serotype 1 (1) <0.1 >=1.0 mcg/mL 10/26/2024 2:55 PM SEWING MACHINE ATTACHMENT TESTER [facility] Serotype 2 (2) 0.3 >=1.0 mcg/mL 10/26/2024 2:55 PM SEWING MACHINE ATTACHMENT TESTER [facility]SC Serotype 3 (3) <0.1 >=1.0 mcg/mL 10/26/2024 2:55 PM SEWING MACHINE ATTACHMENT TESTER SDSC Serotype 4 (4) <0.1 >=1.0 mcg/mL 10/26/2024 2:55 PM SEWING MACHINE ATTACHMENT TESTER [facility] Serotype 5 (5) <0.1 >=1.0 mcg/mL 10/26/2024 2:55 PM SEWING MACHINE ATTACHMENT TESTER [facility] Serotype 8 (8) 0.2 >=1.0 mcg/mL 10/26/2024 2:55 PM SEWING MACHINE ATTACHMENT TESTER [facility] Serotype 9N (9) 0.1 >=1.0 mcg/mL 10/26/2024 2:55 PM SEWING MACHINE ATTACHMENT TESTER [facility]SC Serotype 12F (12) 0.1 >=1.0 mcg/mL 10/26/2024 2:55 PM SEWING MACHINE ATTACHMENT TESTER [facility] Serotype 14 (14) 0.2 >=1.0 mcg/mL 10/26/2024 2:55 PM SEWING MACHINE ATTACHMENT TESTER [facility] Serotype 17F (17) 0.1 >=1.0 mcg/mL 10/26/2024 2:55 PM SEWING MACHINE ATTACHMENT TESTER SDSC Serotype 19F (19) 0.9 >=1.0 mcg/mL 10/26/2024 2:55 PM SEWING MACHINE ATTACHMENT TESTER [facility] Serotype 20 (20) 0.3 >=1.0 mcg/mL 10/26/2024 2:55 PM SEWING MACHINE ATTACHMENT TESTER [facility] Serotype 22F (22) 0.2 >=1.0 mcg/mL 10/26/2024 2:55 PM SEWING MACHINE ATTACHMENT TESTER [facility] Serotype 23F (23) 2.1 >=1.0 mcg/mL 10/26/2024 2:55 PM SEWING MACHINE ATTACHMENT TESTER [facility] Serotype 6B (26) 0.5 >=1.0 mcg/mL 10/26/2024 2:55 PM SEWING MACHINE ATTACHMENT TESTER [facility] Serotype 10A (34) 0.2 >=1.0 mcg/mL 10/26/2024 2:55 PM SEWING MACHINE ATTACHMENT TESTER [facility] Serotype 11A (43) 0.1 >=1.0 mcg/mL 10/26/2024 2:55 PM SEWING MACHINE ATTACHMENT TESTER [facility] Serotype 7F (51) 0.2 >=1.0 mcg/mL 10/26/2024 2:55 PM SEWING MACHINE ATTACHMENT TESTER [facility] Serotype 15B (54) 2.5 >=1.0 mcg/mL 10/26/2024 2:55 PM SEWING MACHINE ATTACHMENT TESTER [facility] Serotype 18C (56) 0.2 >=1.0 mcg/mL 10/26/2024 2:55 PM SEWING MACHINE ATTACHMENT TESTER [facility] Serotype 19A (57) see below >=1.0 mcg/mL 10/26/2024 2:55 PM SEWING MACHINE ATTACHMENT TESTER [facility] Comment:Unable to perform te st due to a reagent issue. Serotype 9V (68) 0.1 >=1.0 mcg/mL 10/26/2024 2:55 PM SEWING MACHINE ATTACHMENT TESTER [facility] Serotype 33F (70) 1.2 >=1.0 mcg/mL 10/26/2024 2:55 PM SEWING MACHINE ATTACHMENT TESTER [facility] Interpretation Overall interpretation of pneumococcal antibody serology panel can be based on the reported 22 serotypes. Evaluation of the immune response following pneumococcal vaccination can be assessed by measuring serotype-specific Streptococcus pneumonia IgG antibodies. Either of the following conditions is consistent with a normal response to Streptococcus pneumonia vaccination: 1. When comparing pre and post-vaccination samples, antibody concentrations increased by at least 2-fold for either >50% of serotypes in children <6 years of age or >70% of serotypes for individuals >6 years of age. 2. In either a pre- or post-vaccination sample, antibody concentrations >=1.0 mcg/mL for either >50% of serotypes for children <6 years of age or >70% of serotypes for individuals >6 years of age. Results >=1.0 mcg/mL or those showing a >=2-fold change are consistent with an immune response, but are not necessarily sufficient to provide protection against infection. 10/26/2024 2:55 PM SEWING MACHINE ATTACHMENT TESTER [facility] Comment: ----ADDITIONAL INFORMATION---- This test was developed and its performance characteristics determined by [facility] in a manner consistent with CLIA requirements. This test has not been cleared or approved by the U.S. Food and Drug Administration. Blood (Blood, Venous) 10/23/2024 9:20 AM SEWING MACHINE ATTACHMENT TESTER 10/23/2024 11:48 AM SEWING MACHINE ATTACHMENT TESTER us Tamiko Huffman M.D. LAB BLOOD ADD-ON Final Res ult [facility] [address] [place] [address] [facility] [address] [place] [address] [place] [address] * MMRV Immune Status Profile (10/23/2024 9:20 AM SEWING MACHINE ATTACHMENT TESTER) [facility] Measles (Rubeola) Ab, IgG, S Positive 10/23/2024 1:19 PM SEWING MACHINE ATTACHMENT TESTER [facility] Comment: Results suggest response to immunization or prior exposure to the virus. ----REFERENCE VALUE---- Vaccinated: Positive (>=1.1 AI) Unvaccinated: Negative (<=0.8 AI) Measles IgG Antibody Index >8.0 10/23/2024 1:19 PM SEWING MACHINE ATTACHMENT TESTER [facility] Mumps Ab, IgG, S Positive 10/23/19 1:19 PM SEWING MACHINE ATTACHMENT TESTER [facility] Comment: Results suggest response to immunization or prior exposure to the virus. ----REFERENCE VALUE---- Vaccinated: Positive (>=1.1 AI) Unvaccinated: Negative (<=0.8 AI) Mumps IgG Antibody Index 4.6 10/23/2024 1:19 PM SEWING MACHINE ATTACHMENT TESTER [facility] Rubella Ab, IgG, S Positive 10/23/2024 1:19 PM SEWING MACHINE ATTACHMENT TESTER [facility] Comment: Results suggest response to immunization or prior exposure to the virus. ----REFERENCE VALUE---- Vaccinated: Positive (>=1.0 AI) Unvaccinated: Negative (<=0.7 AI) Rubella IgG Antibody Index 7.1 10/23/2024 1:19 PM SEWING MACHINE ATTACHMENT TESTER [facility] Varicella-Zoster Ab, IgG, S Positive 10/23/2024 1:19 PM SEWING MACHINE ATTACHMENT TESTER [facility] Comment: Results suggest response to immunization or prior exposure to the virus. ----REFERENCE VALUE---- Vaccinated: Positive (>=1.1 AI) Unvaccinated: Negative (<=0.8 AI) Varicella IgG Antibody Index 1.8 10/23/2024 1:19 PM SEWING MACHINE ATTACHMENT TESTER [facility] Blood (Blood, Venous) 10/23/2024 9:20 AM SEWING MACHINE ATTACHMENT TESTER 10/23/2024 11:38 AM SEWING MACHINE ATTACHMENT TESTER Tamiko Huffman M.D. LAB MICROBIOLOGY - BLOOD O RDERABLES Final Result [facility] [address] [place] [address] [facility] [address] [place] [address] * Tetanus Toxoid IgG Ab (10/23/2024 9:20 AM SEWING MACHINE ATTACHMENT TESTER) Tetanus IgG Ab Positive 10/24/2024 11:24 AM SEWING MACHINE ATTACHMENT TESTER [facility] Comment: ----REFERENCE VALUE---- Vaccinated: Positive (>= 0.01 IU/mL) Unvaccinated: Negative (< 0.01 IU/mL) Tetanus IgG Value 1.16 IU/mL 025 11:24 AM SEWING MACHINE ATTACHMENT TESTER [facility] Comment: ----ADDITIONAL INFORMATION---- This test was developed and its performance characteristics determined by [facility] in a manner consistent with CLIA requirements. This test has not been cleared or approved by the U.S. Food and Drug Administration. Blood (Blood, Venous) 10/23/2024 9:20 AM SEWING MACHINE ATTACHMENT TESTER 10/23/2024 11:49 AM SEWING MACHINE ATTACHMENT TESTER Tamiko Huffman M.D. LAB MICROBIOLOGY - BLOOD O RDERABLES Final Result Performing Organization Address City/[facility]/ZIP Co de Phone Number [facility] [address] [place] [address] [facility] [address] [place] [address] * HBs Antibody, Serum (10/23/2024 9:20 AM SEWING MACHINE ATTACHMENT TESTER) HBs Antibody, S Negative 12:26 PM SEWING MACHINE ATTACHMENT TESTER [facility] Comment: Patient is NOT immune to HBV infection. Consumption of high-dose biotin supplement within 12 hours of blood collection for this test can cause false-negative results. ----REFERENCE VALUE---- Unvaccinated: Negative Vaccinated: Positive HBs Antibody, Quantitative, S <3.5 mIU/mL 10/23/2024 12:26 PM SEWING MACHINE ATTACHMENT TESTER [facility] Comment: ----REFERENCE VALUE---- Unvaccinated: <8.5 mIU/mL Vaccinated: >=11.5 mIU/mL Blood (Blood, Venous) 10/23/2024 9:20 AM SEWING MACHINE ATTACHMENT TESTER 10/23/2024 11:33 AM SEWING MACHINE ATTACHMENT TESTER Tamiko Huffman M.D. LAB MICROBIOLOGY - BLOOD O RDERABLES Final Result [facility] [address] [place] [address] [facility] [address] [place] [address] * CRP (C-Reactive Protein) (10/23/2024 9:20 AM SEWING MACHINE ATTACHMENT TESTER) C-Reactive Protein (CRP), S 3.7 <5.0 mg/L 10/23/2024 10:10 AM SEWING MACHINE ATTACHMENT TESTER DT Blood (Blood, Venous) 10/23/2024 9:20 AM SEWING MACHINE ATTACHMENT TESTER 10/23/2024 9:45 AM SEWING MACHINE ATTACHMENT TESTER Tamiko Huffman M.D. LAB BLOOD ADD-ON Final Res ult [facility] [address] [place] [address], [place] DTL [facility] [address] [place] [address] * Uric Acid (10/23/2024 9:20 AM SEWING MACHINE ATTACHMENT TESTER) Uric Acid, S 5.4 3.7 - 8.0 mg/dL 10/23/2024 10:10 AM SEWING MACHINE ATTACHMENT TESTER DTL Blood (Blood, Venous) 10/23/2024 9:20 AM SEWING MACHINE ATTACHMENT TESTER 10/23/2024 9:45 AM SEWING MACHINE ATTACHMENT TESTER us Tamiko Huffman M.D. LAB BLOOD ADD-ON Final Res ult [facility] [address] [place] [address], [facility]3] [address] [place] [address] * ALT (Alanine Aminotransferase) (10/23/2024 9:20 AM SEWING MACHINE ATTACHMENT TESTER) Alanine Aminotransferase (ALT), S 42 7 - 55 U/L 10/23/2024 10:10 AM SEWING MACHINE ATTACHMENT TESTER DTL Blood (Blood, Venous) 10/23/2024 9:20 AM SEWING MACHINE ATTACHMENT TESTER 10/23/2024 9:45 AM SEWING MACHINE ATTACHMENT TESTER us Tamiko Huffman M.D. LAB BLOOD ADD-ON Final Res ult Performing Organization Address City/[facility]/ZIP Co de Phone Number [facility] [address] [place] [address], [facility]3] [address] [place] [address] * Sodium (10/23/2024 9:20 AM SEWING MACHINE ATTACHMENT TESTER) Sodium, S 141 135 - 145 mmol/L 10/23/2024 10:10 AM SEWING MACHINE ATTACHMENT TESTER DT Blood (Blood, Venous) 10/23/2024 9:20 AM SEWING MACHINE ATTACHMENT TESTER 10/23/2024 9:45 AM SEWING MACHINE ATTACHMENT TESTER us Tamiko Huffman M.D. LAB BLOOD ADD-ON Final Res ult [facility] [address] [place] [address], [facility]3] [address] [place] [address] * Potassium (10/23/2024 9:20 AM SEWING MACHINE ATTACHMENT TESTER) Potassium, S 4.6 3.6 - 5.2 mmol/L 10/23/2024 10:10 AM SEWING MACHINE ATTACHMENT TESTER DTL Blood (Blood, Venous) 10/23/2024 9:20 AM SEWING MACHINE ATTACHMENT TESTER 10/23/2024 9:45 AM SEWING MACHINE ATTACHMENT TESTER us Tamiko Huffman M.D. LAB BLOOD ADD-ON Final Res ult [facility] [address] [place] [address] * Alkaline Phosphatase (10/23/2024 9:20 AM SEWING MACHINE ATTACHMENT TESTER) Alkaline Phosphatase, S 58 40 - 129 U/L 10/23/2024 10:10 AM SEWING MACHINE ATTACHMENT TESTER DT Blood (Blood, Venous) 10/23/2024 9:20 AM SEWING MACHINE ATTACHMENT TESTER 10/23/2024 9:45 AM SEWING MACHINE ATTACHMENT TESTER Tamiko Huffman M.D. LAB BLOOD ADD-ON Final Res ult Performing Organization Address City/[facility]/ZIP Co de Phone Number [facility] [address] [place], [place] [address] [place] [address] 200 [place] [address] * Ferritin (10/23/2024 9:20 AM SEWING MACHINE ATTACHMENT TESTER) Ferritin, S 121 31 - 409 mcg/L 10/23/2024 10:10 AM SEWING MACHINE ATTACHMENT TESTER DT Blood (Blood, Venous) 10/23/2024 9:20 AM SEWING MACHINE ATTACHMENT TESTER 10/23/2024 9:45 AM SEWING MACHINE ATTACHMENT TESTER Tamiko Huffman M.D. LAB BLOOD ADD-ON Final Res ult [facility] [address] [place] [address] * (ABNORMAL) Creatinine with Estimated GFR (10/23/2024 9:20 AM SEWING MACHINE ATTACHMENT TESTER) Creatinine 1.51(H) 0.74 - 1.35 mg/dL 10/23/2024 10:10 AM SEWING MACHINE ATTACHMENT TESTER DTL Estimated GFR (eGFR) 52(L) >=60 mL/min/BSA 10/23/2024 10:10 AM SEWING MACHINE ATTACHMENT TESTER DTL Comment: Estimated GFR calculated using the 2020 CKD_EPI creatinine equation. Blood (Blood, Venous) 10/23/2024 9:20 AM SEWING MACHINE ATTACHMENT TESTER 10/23/2024 9:45 AM SEWING MACHINE ATTACHMENT TESTER us Tamiko Huffman M.D. LAB BLOOD ADD-ON Final Res ult [facility] [address] [place] [address] * Calcium, Total (10/23/2024 9:20 AM SEWING MACHINE ATTACHMENT TESTER) Calcium, Total, S 9.5 8.8 - 10.2 mg/dL 10/23/2024 10:10 AM SEWING MACHINE ATTACHMENT TESTER DTL Blood (Blood, Venous) 10/23/2024 9:20 AM SEWING MACHINE ATTACHMENT TESTER 10/23/2024 9:45 AM SEWING MACHINE ATTACHMENT TESTER us Tamiko Huffman M.D. LAB BLOOD ADD-ON Final Res ult [facility] [address] [place] [address] * PET CT Skull to Thigh FDG (10/23/2024 8:41 AM SEWING MACHINE ATTACHMENT TESTER) Anatomical Region Laterality Modality Body, Nuclear Medicine PET R ST LOS, PET ARZ LOS, Nuclear Medicine PET FLA LOS, Nuclear Medicine N/A Positron Emission Tomography (PET), Positron Emission Tomography (PET) Impressions 10/23/2024 9:48 AM SEWING MACHINE ATTACHMENT TESTER Very subtle increase in size and number of few mesenteric lymph nodes with uptake below blood pool, which are nonspecific. No definitive hypermetabolic lymphadenopathy. Deauville score 2. Narrative 10/23/2024 9:48 AM SEWING MACHINE ATTACHMENT TESTER EXAM: PET CT SKULL TO THIGH FDG Serum glucose at time of F-18 FDG injection was 94 mg/dL. Patient followed standard dietary/fasting requirements for this exam. RADIOPHARMACEUTICAL/MEDS: Route: intravenous fludeoxyglucose F 18 injection FDC (FDG F-18),9.81 millicurie TECHNIQUE: F-18 FDG PET/CT scan was performed from the orbits through the thighs with low dose, non-contrast, free-breathing CT images for attenuation correction and anatomic localization (AC/AL), with imaging beginning at approximately 60 minutes after radiotracer injection. COMPARISON: PET/CT 07/20/2024. INDICATION: Restaging lymphoma. Intra-abdominal follicular lymphoma, status post CAR-T therapy. Subsequent treatment strategy. The patient reports no recent vaccinations. FINDINGS: Slight increase in size and number of few mesenteric lymph nodes with uptake below blood pool. For example, lymph nodes in the left lower abdomen measuring up to 11 x 10 mm with uptake below blood pool with SUV max of 1.4 (image 203) and 1.2 (image 209). A 9 mm mesenteric node adjacent to the mesenteric vessels in the mid abdomen now has SUV max of 1.5 (image 190). No FDG-avid lymphadenopathy above the diaphragm. The spleen is normal in size and uptake. Slight bone marrow uptake without distinct hypermetabolic focal osseous lesions. The previous increased uptake in the bilateral testicles have normalized, now with SUV max of 2.9 compared to prior SUV max of 3.8. No significant change of the focal uptake at the L4 right nerve root with SUV max of 2.6 (image 224) which could represent schwannoma. Low-level uptake in the right gluteal subcutaneous nodules (images 268 and 275) could be related to injection medications. No significant change on the low-dose unenhanced CT fused images. Procedure Note Polina Jordan M.D. - 10/23/2024 EXAM: PET CT SKULL TO THIGH FDG Serum glucose at time of F-18 FDG injection was 94 mg/dL. Patient followedstandard dietary/fasting requirements for this exam. RADIOPHARMACEUTICAL/MEDS: Route: intravenous fludeoxyglucose F 18 injection FDC (FDG F-18),9.81 millicurie TECHNIQUE: F-18 FDG PET/CT scan was performed from the orbits through thethighs with low dose, non-contrast, free-breathing CT images forattenuation correction and anatomic localization (AC/AL), with imagingbeginning at approximately 60 minutes after radiotracer injection. COMPARISON: PET/CT 07/20/2024. INDICATION: Restaging lymphoma. Intra-abdominal follicular lymphoma,status post CAR-T therapy. Subsequent treatment strategy. The patient reports no recent vaccinations. FINDINGS: Slight increase in size and number of few mesenteric lymphnodes with uptake below blood pool. For example, lymph nodes in the leftlower abdomen measuring up to 11 x 10 mm with uptake below blood pool withSUV max of 1.4 (image 203) and 1.2 (image 209). A 9 mm mesenteric node adjacent to the mesenteric vessels inthe mid abdomen now has SUV max of 1.5 (image 190). No FDG-avid lymphadenopathy above the diaphragm. The spleen is normal in size and uptake. Slight bone marrow uptake withoutdistinct hypermetabolic focal osseous lesions. The previous increased uptake in the bilateral testicles have normalized,now with SUV max of 2.9 compared to prior SUV max of 3.8. No significant change of the focal uptake at the L4 right nerve root withSUV max of 2.6 (image 224) which could represent schwannoma. Low-level uptake in the right gluteal subcutaneous nodules (images 268 [id number]) could be related to injection medications. No significant change on the low-dose unenhanced CT fused images. IMPRESSION: Very subtle increase in size and number of few mesenteric lymph nodes withuptake below blood pool, which are nonspecific. No definitivehypermetabolic lymphadenopathy. Deauville score 2. us Tamiko CHA NM PROCEDURES Final Re sult * MBC Tissue Donor Screen Test (03/05/2024 8:36 AM CDT) HBsAg Screen Donor Non-reactiv e 03/06/2024 1:12 PM CDT MBC HBc Total Ab Donor Non-reactiv e 03/06/2024 1:12 PM CDT MBC HBV JANELL Individual Donor Non-reactiv e 03/06/2024 1:12 PM CDT MBC HCV JANELL Individual Donor Non-reactiv e 03/06/2024 1:12 PM CDT MBC HIV-1 JANELL Individual Donor Non-reactiv e 03/06/2024 1:12 PM CDT MBC HIV-1/-2 Plus O Ab Screen Donor Non-reactiv e 03/06/2024 1:12 PM CDT MBC HCV Ab Screen Donor Non-reactiv e 03/06/2024 1:12 PM CDT MBC HTLV-I/-II Ab Screen Donor Non-reactiv e 03/06/2024 1:12 PM CDT MBC T. cruzi Total Ab Donor Non-reactiv e 03/06/2024 1:12 PM CDT MBC Syphilis Ab Screen Donor Non-reactiv e 03/06/2024 1:12 PM CDT MBC Comment: This test is done by the Microhemagglutination assay- Treponema pallidum (MHA-TP) method. CMV Total Ab Donor Positive 2023 1:12 PM CDT MBC West Nile Virus JANELL Donor Non-reactiv e 03/06/2024 1:12 PM CDT MBC Comment: Failure to detect WNV RNA does not rule out the possibility of West Nile virus infection. This result should be evaluated in the context of the individual's risk factors and clinical findings. Blood (Blood, Venous) 03/05/2024 8:36 AM CDT 03/05/2024 8:45 AM CDT [facility] DON[facility] TESTING [facility] - 03/06/2024 1:12 PM CDT Specimen Information: Specimen ID: [id number] Specimen Type: Blood Specimen Collection Start Date: 03/05/2024 8:36 AM Specimen Received Date: 03/05/2024 8:45 AM Specimen ID: [id number] Specimen Type: Blood Specimen Collection Start Date: 03/05/2024 8:36 AM Specimen Received Date: 03/05/2024 8:45 AM Specimen ID: [id number] Specimen Type: Blood Specimen Collection Start Date: 03/05/2024 8:36 AM Specimen Received Date: 03/05/2024 8:45 AM Specimen ID: [id number] Specimen Type: Blood Specimen Collection Start Date: 03/05/2024 8:36 AM Specimen Received Date: 03/05/2024 8:45 AM us Marcelina Hansen M.D., Ph.D. LAB BLOOD NON ADD-ON Final Re sult [facility] [address], Donor Testing [facility] Lab [address] [place] [address] * Hepatitis B Surface Antigen (04/28/2018 9:42 AM CDT) HBs Antigen, S Negative Negative 04/28/2018 1:25 PM CDT [facility] Blood (Blood, Venous) 04/28/2018 9:42 AM CDT 04/28/2018 12:28 PM CDT us Tamiko Huffman M.D. LAB MICROBIOLOGY - BLOOD O RDERABLES Final Result Performing Organization Address City/[facility] Co de Phone Number [facility] [address] [place] [address] from Last 3 Months or Most Recently Relevant to Health Maintenance Insurance [facility] Advance Directives For more information, please contact: [phone] * Full Code (Latest Code Status on File) Date Activated Date Inactivated Comments 10/26/2024 8:35 PM 10/27/2024 2:18 PM Question Answer Comments Full Code: Not Discussed Due to: Patient not available * Full Code Date Activated Date Inactivated Comments 10/26/2024 2:14 PM 10/26/2024 8:35 PM Question Answer Comments Full Code: Not Discussed Due to: Patient not available * Full Code Date Activated Date Inactivated Comments 04/30/2024 4:09 PM 05/03/2024 1:33 PM Question Answer Comments Full Code: Discussed * Full Code Date Activated Date Inactivated Comments 04/26/2024 8:11 PM 04/29/2024 1:52 PM Question Answer Comments Full Code: Discussed Care Teams Filing Writer Relationship Specialty Start Date End Date Elsewhere, Pcp PCP - General Internal Medicine 08/09/24
--- OUTSIDE RECORDS SUMMARY | 2024-12-17 09:43 | XMS_ITS | Encounter Summary ---
Author Organization [place] Address [address] [place] [address]. [place] [address] Care Team Providers Care Road Inspector Name Role Phone Gamal Vásquez MD Primary Care Provider [phone] Isabelle Gleason MD Unavailable Unavailable Gamal Vásquez MD Unavailable [phone] Richa Carmona MD Unavailable + Juve Portillo MD Unavailable [phone] Gamal Vásquez MD Unavailable [phone] Guilherme Sprague MD Unavailable Parish Hammer MD Unavailable Un available Shay Dunlap PA-C Unavailable [phone] Guilherme Sprague MD Unavailable [phone] Shay Dunlap PA-C Unavailable [phone] Soco Magana PA-C Unavailable [phone] Gamal Vásquez MD Unavailable [phone] [facility] Unavailable Reason for Visit * Reason Comments Medication Refill Encounter Details Date Type Department Care Team (Late st Contact Info) Description 03/10/2020 [facility] [address] [place] [id number] Liya Ruiz MD [address] [place] [address] Medication Refill Social History Tobacco Use Types Packs/Day Years Used Date Smoking Tobacco: Never Smokeless Tobacco: Never Alcohol Use Standard Drinks/Week Comments Yes 0 (1 standard drink = 0.6 oz pur e alcohol) 2 drinks week PHQ-2 Answer Date Recorded PHQ-2 Score 0 10/04/2018 Sex and Gender Information Value Date Recorded Sex Assigned at Not on file 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 Gender Identity Not on file Sexual Orientation Not on file 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 Not on file Not on file [...] dysfunction documented in this encounter Care Teams Road Inspector Relationship Specialty Start Date End Date Gamal Vásquez MD [address] [place] [address] PCP - General Internal Medicine 04/14/15 Isabelle Gleason MD [address] [place] [address] BMT Physician Hematology 03/21/18 Gamal Vásquez MD [address] [place] [address] Assigned PCP 04/06/15 08/23/20 Richa Carmona MD [address] [place] [address] Assigned Heart and Vascular Provider 07/18/20 09/27/20 Juve Portillo MD [address] [place] [address] Assigned PCP 08/24/20 09/20/20 Gamal Vásquez MD [address] [place], [place] [address] Assigned PCP 09/21/20 09/10/22 Guilherme Sprague MD [address] [place], [place] [address] Urology 09/22/20 Parish Hammer MD Assigned Heart and Vascular Provider 10/05/20 11/14/21 Shay Dunlap PA-C [address] [place] [address] Assigned Surgical Provider 12/10/20 12/27/20 Guilherme Sprague MD [address] [place] [address] Assigned Surgical Provider 12/28/20 Shay Dunlap PA-C [address] [place] [address] Assigned Musculoskeletal Provider 03/15/21 04/16/22 Soco Magana PA-C [address] [place] [address] Assigned Heart and Vascular Provider 11/15/21 06/17/24 Gmaal Vásquez MD [address] [facility] [address] [place] [address] Assigned PCP 11/20/22 09/16/23 [facility] [address] [place] [address] Assigned PCP 10/20/23 documented as of this encounter
--- OUTSIDE RECORDS SUMMARY | 2024-12-17 09:43 | XMS_ITS | Encounter Summary ---
Author Organization [place] Address [address] [place] [address]. [place] [address] Care Team Providers Care Tenter Name Role Phone Gamal Vásquez MD Primary Care Provider Isabelle Gleason MD Unavailable Unavailable Gamal Vásquez MD Unavailable [phone] Guilherme Sprague MD Unavailable [phone] Parish Hammer MD Unavailable Un available Guilherme Sprague MD Unavailable [phone] Shay Dunlap PA-C Unavailable [phone] Soco Magana-Kavin Unavailable [phone] Gamal Vásquez MD Unavailable [phone] [facility] Unavailable Encounter Details Date Type Department Care Team (Late st Contact Info) Description 06/30/2021 [facility] Medical Advice [facility] [address] [place] [id number] Myranda Castillo, PUBLIC WORKS COMMISSIONER Social History Tobacco Use Types Packs/Day Years [...] asked 09/10/2020 How often do you attend holiness or sikhism serv ices? 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 file Not on file Not on fi le documented as of this encounter Plan of Treatment Not on file documented as of this encounter Visit Diagnoses Not on filedocumented in this encounter Care Teams Tenter Relationship Specialty Start Date End Date Gamal Vásquez MD [address] [place] [address] PCP - General Internal Medicine 04/14/15 Isabelle Gleason MD [address] [place] [address] BMT Physician Hematology 03/21/18 Gamal Vásquez MD [address] [place] [address] Assigned PCP 09/21/20 09/10/22 Guilherme Sprague MD [address] [address] Urology 09/22/20 Parish Hammer MD Assigned Heart and Vascular Provider 10/05/20 11/14/21 Guilherme Sprague MD [address] [place] [address] Assigned Surgical Provider 12/28/20 Shay Dunlap PA-C [address] [place] [address] Assigned Musculoskeletal Provider 03/15/21 04/16/22 Soco Magana PA-C [address] [place], [place] [address] Assigned Heart and Vascular Provider 11/15/21 06/17/24 Gamal Vásquez MD [address] [facility] [address] [place], [place] [address] Assigned PCP 11/20/22 09/16/23 [facility] [address] [place], [place] [address] Assigned PCP 10/20/23 documented as of this encounter
--- OUTSIDE RECORDS SUMMARY | 2024-12-17 09:43 | XMS_ITS | Encounter Summary ---
Author Organization [place] Address [address] [place] [address]. [place] [address] Care Team Providers Care Supervisor In Circuit Testing Name Role Phone Gamal Vásquez MD Primary Care Provider Isabelle Gleason MD Unavailable Unavailable Gamal Vásquez MD Unavailable [phone] Guilherme Sprague MD Unavailable [phone] Guilherme Sprague MD Unavailable Soco Magana PA-C Unavailable [phone] Gamal Vásquez MD Unavailable [phone] [facility] Unavailable Encounter Details Date Type Department Care Team (Late st Contact Info) Description 05/07/2022 [facility] Medical Advice [facility] [address] [place] [address] Guilherme Sprague MD [address] [address] Social History Tobacco Use Types Packs/Day Years [...] asked 09/10/2020 How often do you attend worship or denominational serv ices? 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 file Not on file [...] on filedocumented in this encounter Care Teams Supervisor In Circuit Testing Relationship Specialty Start Date End Date Gamal Vásquez MD [address] [place] [address] PCP - General Internal Medicine 04/14/15 Isabelle Gleason MD [address] [place] [address] BMT Physician Hematology 03/21/18 Gamal Vásquez MD [address] [place] [address] Assigned PCP 09/21/20 09/10/22 Guilherme Sprague MD [address] [place] [address] Urology 09/22/20 Guilherme Sprague MD [address] [place] [address] Assigned Surgical Provider 12/28/20 Soco Magana, PARadhaC [address] [place] [address] Assigned Heart and Vascular Provider 11/15/21 06/17/24 Gamal Vásquez MD 303 [facility] 160 [place] [address] Assigned PCP 11/20/22 09/16/23 [facility] [address] [place] [address] Assigned PCP 10/20/23 documented as of this encounter
--- OUTSIDE RECORDS SUMMARY | 2024-12-17 09:43 | XMS_ITS | Encounter Summary ---
Author Organization [facility] Address [address] [place] [address] Care Team Providers Care Senior Product Manager Name Role Phone Elsewhere, Pcp Primary Care Provider Unavailabl e Reason for Referral * Outpatient (Routine) - Closed Specialty Diagnoses / Procedures Referred By Contdaniel t Referred To Contact Hematology Diagnoses 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) Gilberto Baker M.D. Phone: tel: fax: [facility] Referral ID Status Reason Start Date Expiration Date Visits Re quested Visits Authorized [id number] Closed 04/13/2018 04/13/2019 2 1 Encounter Details Date Type Department Care Team (Late st Contact Info) Description 04/13/2018 [facility]Y [place] [address] [facility] 210 [place] [phone] Gilberto Baker M.D. 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 [address] [place] [phone] 01/21/2025 8:00 AM CDT Nurse Only Section of Infectious Diseases in [place], [place] [address] [place] [phone] Ha Nolasco M.D. [address] [place] [phone] 01/21/2025 9:45 AM CDT Appointment Department of Radiology, [facility] in [place], [place] [address] [place] [phone] Helga Raymundo APRN, C.N.P., D.N.P., M.S.N. [address] [place] [phone] 01/21/2025 2:30 PM CDT Office Visit Department of Neurologic Surgery in [place], [place] [address] [place] [phone] Gwendolyn Lombardo APRN, PAPER GLUING OPERATOR, D.N.P., M.S.N. [address] [place] [phone] 01/29/2025 8:20 AM CDT Appointment Department of Laboratory Medicine and Pathology, [facility] in [place], [place] [address] [place] [phone] Tamiko Huffman M.D. [address] [place] [phone] 01/29/2025 10:45 AM CDT Office Visit Division of Hematology in [place], [place] [address] [place] [address] Tamiko Huffman M.D. [address] [place] [address] Scheduled Referrals Name Type Priority Associated Diagnoses Order Schedule Transplant Center Referral Outpatient Referral Routine 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) Expected: 04/13/2018 (Approximate), Expires: 04/13/2021 documented as of this encounter Visit Diagnoses Diagnosis 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)- Primary documented in this encounter Additional Health Concerns Infection Onset Date Last Indicated Resolved Time Protective Environment 08/04/2023 08/04/202310/26 8:35 PM CONSTRUCTION ENGINEERING MANAGER documented as of this encounter Care Teams Senior Product Manager Relationship Specialty Start Date End Date Elsewhere, Pcp PCP - General Internal Medicine 08/09/24 documented as of this encounter
== END 2024-12-17 09:46 | disposition home or self-care (01) ==
LOC: ED 09:40
PROVIDERS: Emergency Provider Emergency Medicine; PCP Internal Medicine
DX: H10.9 Unspecified conjunctivitis (principal); H05.012 Cellulitis of left orbit
CPT/HCPCS: 99282; 99283

== ENCOUNTER 2025-01-01 16:47 | Emergency (ER) | payer BC, SELFPAY ==
--- OUTSIDE RECORDS SUMMARY | 2025-01-01 17:01 | XMS_ITS | Encounter Summary ---
Author Organization [facility] Address [address] [place] [address] Care Team Providers Care Home Staging Specialist Name Role Phone Gilberto Baker MD Primary Care Provider [phone] Gamal Vásquez MD Primary Care Provider [phone] Isabelle Gleason MD Unavailable Unavailable Gamal Vásquez MD Unavailable [phone] Gamal Vásquez MD Unavailable [phone] Richa Carmona MD Unavailable + Juve Portillo MD Unavailable [phone] Gamal Vásquez MD Unavailable [phone] Guilherme Sprague MD Unavailable [phone] Parish Hammer MD Unavailable Un available Shay Dunlap PA-C Unavailable [phone] Guilherme Sprague MD Unavailable [phone] Shay Dunlap PA-C Unavailable [phone] Soco Magana PA-C Unavailable [phone] Gamal Vásquez MD Unavailable [phone] [facility] Unavailable Encounter Details Date Type Department Care Team (Late st Contact Info) Description 04/11/2015 [facility] [place] [address] [place] [address] [place] [phone] Gamal Vásquez MD [address] [place], [place] [address] Social History Tobacco Use Types Packs/Day Years Used Date Smoking Tobacco: Never Smokeless Tobacco: Never Alcohol Use Standard Drinks/Week Comments Yes 0 (1 standard drink = 0.6 oz pure alcohol) About one beer daily on average Sex and Gender Information Value Date Recorded Sex Assigned at Not on file Legal Sex Male 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 Gender Identity Not on file Sexual Orientation Not on file 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 Not on file Not on file Not on fi le documented as of this encounter Plan of Treatment Not on file documented as of this encounter Visit Diagnoses Not on filedocumented in this encounter Care Teams Home Staging Specialist Relationship Specialty Start Date End Date Gilberto Baker MD [place] [facility] [address] [facility] 210 [place], [place] [phone] PCP - General Oncology 01/16/14 04/13/15 Gamal Vásquez MD [address] [place] [address] PCP - General Internal Medicine 04/14/15 Gamal Vásquez MD [address] [place] [address] PCP - Assigned PCP 04/06/15 11/28/18 Isabelle Gleason MD [address] [place] [address] BMT Physician Hematology 03/21/18 Gamal Vásquez MD [address] [place] [address] Assigned PCP 04/06/15 08/23/20 IsRicha ku MD [address] [place] [address] Assigned Heart and Vascular Provider 07/18/20 09/27/20 Juve Portillo MD [address] [place] [address] Assigned PCP 08/24/20 09/20/20 Gamal Vásquez MD [address] [place] [address] Assigned PCP 09/21/20 09/10/22 Guilherme Sprague MD [address] [place] [address] Urology 09/22/20 Parish Hammer MD Assigned Heart and Vascular Provider 10/05/20 11/14/21 Shay Dunlap PA-C [address] [place] [address] Assigned Surgical Provider 12/10/20 12/27/20 Guilherme Sprague MD [address] [place] [address] Assigned Surgical Provider 12/28/20 12/15/24 Shay Dunlap PA-C [address] [place] [address] Assigned Musculoskeletal Provider 03/15/21 04/16/22 Soco Magana PA-C [address] [place] [address] Assigned Heart and Vascular Provider 11/15/21 06/17/24 Gamal Vásquez MD 303 [facility] 160 [place] [address] Assigned PCP 11/20/22 09/16/23 [facility] 303 [place] [address] Assigned PCP 10/20/23 documented as of this encounter
--- OUTSIDE RECORDS SUMMARY | 2025-01-01 17:01 | XMS_ITS | Clinical Summary ---
Author Organization [facility] Address [address] [place] [address]. 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 Ufccw-Ccrkadcbx-Nitlv pattern 04/20/2018 Chest wall pain 12/03/2016 Chest pain, unspecified type 12/03/2016 Hyperlipidemia LDL goal <130 06/10/2011 Impotence of organic origin 12/08/2005 Mixed hyperlipidemia 12/08/2005 Non Hodgkin's lymphoma Overview (03/25/2014): in remission Heart palpitations Resolved Problems Problem Noted Date Diagnosed Date Resolved Date Cervicalgia 10/28/2020 02/12/2021 [facility] 05/04/2011 03/12/2024 Overview (01/01/2013): x DX V65.8 REPLACED WITH [facility] (01/01/2013) Hyperlipidemia LDL goal <100 07/26/2010 06/10/2011 [...] asked 09/10/2020 How often do you attend sabianist or episcopalian serv ices? 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 on file Not on file [...] this topic Medical Devices Explanted Type Area Private Branch Exchange Service Advisor Device Identifier Shelf Expiration Date Model / Serial / Lot Port Explanted:2016 by Lorenzo Brooks MD (Quantity not on file) Port Procedures Procedure Name Priority Date/Time Associated Diagnosis Comments CT CHEST/ABDOMEN/PELVIS W CONTRAST Routine 08/24/2023 10:25 AM WIRELESS CONSULTANT 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 [...] PA-C LAB - BLOOD ORDERABLES Final Result LABORATORY [facility] [address] [facility], Room 3-580 [place] [address], [facility] [phone] * (ABNORMAL) Basic metabolic panel (Ca, Cl, CO2, Creat, Gluc, K, Na, BUN) (02/02/2022 10:32 AM CDT) [facility] Sodium 137 133 - 144 mmol/L 02/02/2022 [...] - 99 mg/dL 02/02/2022 11:51 AM CDT LABORATORY GFR Estimate 75 >60 mL/min/1.7 3m2 02/02/2022 11:51 AM CDT LABORATORY Comment:Effective August 272020 eGFRcr in adults is calculated using the 2020 CKD-EPI creatinine equation which includes age and gender (Manuela et al., NEJM, DOI: 10.1056/SHAIbf3223113) Blood STRUCTURE OF LEFT HAND / Unknown Venipuncture / Unknown 02/02/2022 10:32 AM CDT 02/02/2022 10:32 AM CDT us Bong Eller MD LAB - BLOOD ORDERABLES Final Result LABORATORY [facility] [address] [facility] Lab (1st floor, no room number) [place] [address], [facility] [phone] from Last 3 Months or Most Recently Relevant to Health [place] Care Teams Risk Analyst Relationship Specialty Start Date End Date Gamal Vásquez MD [address] [address] PCP - General Internal Medicine 04/14/15 Isabelle Gleason MD [address] [address] BMT Physician Hematology 03/21/18 Guilherme Sprague MD [address] [address] Urology 09/22/20 [facility] 303 [place] [address] Assigned PCP 10/20/23
--- OUTSIDE RECORDS SUMMARY | 2025-01-01 17:01 | XMS_ITS | Encounter Summary ---
Author Organization [facility] Address [address] [place] [address]. [place] [address] Care Team Providers Care Platform Inspector Name Role Phone Gamal Vásquez MD Primary Care Provider Isabelle Gleason MD Unavailable Unavailable Guilherme Sprague MD Unavailable [phone] Guilherme Sprague MD Unavailable [phone] Soco Magana PA-C Unavailable [phone] Gamal Vásquez MD Unavailable [phone] [facility] Unavailable Reason for Visit * Reason Comments Medication Refill Encounter Details Date Type Department Care Team (Late st Contact Info) Description 08/28/2023 [facility] [address] [place] [address] [place] [address] Gamal Vásquez MD [address] [facility] [address] [place] [address] Medication Refill Social History Tobacco Use Types [...] asked 09/10/2020 How often do you attend caodaism or hinduism serv ices? 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 Not on file Not on fi le documented as of this encounter Plan of Treatment Not on file documented as of this encounter Visit Diagnoses Diagnosis Other male erectile dysfunction documented in this encounter Care Teams Platform Inspector Relationship Specialty Start Date End Date Gamal Vásquez MD [address] [place] [address] PCP - General Internal Medicine 04/14/15 Isabelle Gleason MD [address] [place] [address] BMT Physician Hematology 03/21/18 Guilherme Sprague MD [address] [place] [address] Urology 09/22/20 Guilherme Sprague MD [address] [place] [address] Assigned Surgical Provider 12/28/20 12/15/24 Soco Magana PA-C [address] [place] [address] Assigned Heart and Vascular Provider 11/15/21 06/17/24 Gamal Vásquez MD 303 [facility] 160 [place] [address] Assigned PCP 11/20/22 09/16/23 [facility] 303 [place], [place] [address] Assigned PCP 10/20/23 documented as of this encounter
--- OUTSIDE RECORDS SUMMARY | 2025-01-01 17:01 | XMS_ITS | Encounter Summary ---
Author Organization [facility] Address [address] [place] [address] Care Team Providers Care Home Appliances Mechanic Name Role Phone Elsewhere, Pcp Primary Care Provider Unavailabl e Encounter Details Date Type Department Care Team (Late st Contact Info) Description 12/14/2024 Orders Only [facility], Ninth Floor [address] [place] [address] Tamiko Huffman M.D. [address] [place] [phone] Social History Tobacco Use Types Packs/Day Years Used Date Smoking Tobacco: Former Cigarettes Passive Smoke Exposure: Past Smokeless Tobacco: Never Comments:High School Quit 18 Alcohol Use Standard Drinks/Week Comments Not Currently 0 (1 standard drink = 0.6 oz pur e alcohol) [facility] Utilities Answer Date Recorded In the past 12 months has [facility] [employer], oil, or water [employer] threatened to shut off services in your [...] Answer Date Recorded PHQ-2 Score 0 04/12/2024 [facility] - Occupational Stress Questionnaire Answer Date [...] your living situation today? I have a [facility] place to live 10/26/2024 Education Answer Date Recorded What is the highest level of school you have completed or the highest degree you have received? 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 [address] [place] [phone] 01/21/2025 9:45 AM CDT Appointment Department of Radiology, [facility] in [place], [place] [address] [place] [address] Helga Raymundo APRN, C.N.P., D.N.P., M.S.N. [address] [place] [phone] 01/21/2025 2:30 PM CDT Office Visit Department of Neurologic Surgery in [place], [place] [address] [place] [phone] Gwendolyn Lombardo APRN, SHORT GOODS DRIER, D.N.P., M.S.N. [address] [place] [phone] 01/29/2025 8:20 AM CDT Appointment Department of Laboratory Medicine and Pathology, [facility] in [place], [place] [address] [place] [address] Tamiko Huffman M.D. [address] [place] [phone] 01/29/2025 10:45 AM CDT Office Visit Division of Hematology in [place], [place] [address] [place] [phone] Tamiko Huffman M.D. [address] [place] [phone] documented as of this encounter Visit Diagnoses Not on filedocumented in this encounter Additional Health Concerns Assessment Noted Time PHQ-9 Depression Total Score: 1 04/12/20 24 6:50 AM CDT documented as of this encounter Care Teams Home Appliances Mechanic Relationship Specialty Start Date End Date Elsewhere, Pcp PCP - General Internal Medicine 08/09/24 documented as of this encounter
--- OUTSIDE RECORDS SUMMARY | 2025-01-01 17:01 | XMS_ITS | Clinical Summary ---
Author Organization [facility] Address [address] [place] [address] Phone Care Team Providers Care Turn Operator Name Role Phone Gamal Vásquez MD Primary Care Provider [phone] Medications Medication Sig Dispensed Refills Start Date [...] of Treatment Not on file Care Teams Turn Operator Relationship Specialty Start Date End Date Gamal Vásquez MD [address] [facility] 160 [place] [address] PCP - General 08/06/19
--- OUTSIDE RECORDS SUMMARY | 2025-01-01 17:01 | XMS_ITS | Encounter Summary ---
Author Organization [facility] Address [address] [place] [address]. [place] [address] Care Team Providers Care Pot Tender Name Role Phone Gamal Vásquez MD Primary Care Provider Isbaelle Gleason MD Unavailable Unavailable Gamal Vásquez MD Unavailable [phone] Gamal Vásquez MD Unavailable [phone] Richa Carmona MD Unavailable + Juve Portillo MD Unavailable [phone] Gamal Vásquez MD Unavailable [phone] Guilherme Sprague MD Unavailable [phone] Parish Hammer MD Unavailable Un available Shay Dunlap PA-C Unavailable [phone] Guilherme Sprague MD Unavailable [phone] Shay Dunlap PA-C Unavailable [phone] Soco Magana PA-C Unavailable [phone] Gamal Vásquez MD Unavailable [phone] [facility] Unavailable Encounter Details Date Type Department Care Team (Late st Contact Info) Description 04/18/2017 [facility] [address] [place] [address] Gamal Vásquez MD [address] [place] [address] Social History Tobacco Use Types Packs/Day Years Used Date Smoking Tobacco: Never Smokeless Tobacco: Never Alcohol Use Standard Drinks/Week Comments Yes 0 (1 standard drink = 0.6 oz pur e alcohol) 2 drinks week Sex and Gender Information Value Date Recorded Sex Assigned at Not on file 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 Gender Identity Not on file Sexual Orientation Not on file 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 Not on file Not on fi le documented as of this encounter Plan of Treatment Not on file documented as of this encounter Visit Diagnoses Not on filedocumented in this encounter Care Teams Pot Tender Relationship Specialty Start Date End Date Gamal Vásquez MD [address] [place] [address] PCP - General Internal Medicine 04/14/15 Gamal Vásquez MD [address] [place] [address] PCP - Assigned PCP 04/06/15 11/28/18 Isabelle Gleason MD [address] [place] [address] BMT Physician Hematology 03/21/18 Gamal Vásquez MD [address] [place] [address] Assigned PCP 04/06/15 08/23/20 Richa Carmona MD [address] [place] [address] Assigned Heart and Vascular Provider 07/18/20 09/27/20 Juve Portillo MD [address] [place] [address] Assigned PCP 08/24/20 09/20/20 Gamal Vásquez MD [address] [address] Assigned PCP 09/21/20 09/10/22 Guilherme Sprague MD [address] [place] [address] Urology 09/22/20 Parish Hammer MD Assigned Heart and Vascular Provider 10/05/20 11/14/21 Shay Dunlap PA-C [address] [place] [address] Assigned Surgical Provider 12/10/20 12/27/20 Guilherme Sprague MD [address] [place], [place] [address] Assigned Surgical Provider 12/28/20 12/15/24 Shay Dunlap PA-C [address] [place] [address] Assigned Musculoskeletal Provider 03/15/21 04/16/22 Soco Magana PA-C [address] [place] [place], [place] [address] Assigned Heart and Vascular Provider 11/15/21 06/17/24 Gamal Vásquez MD [address] [address] Assigned PCP 11/20/22 09/16/[address] [address] Assigned PCP 10/20/23 documented as of this encounter
--- OUTSIDE RECORDS SUMMARY | 2025-01-01 17:02 | XMS_ITS | Clinical Summary ---
Author Organization [facility] Address [address] [place] [address] Care Team Providers Care Marketing Intelligence Manager Name Role Phone No Primary/Referring, Phy Primary Care Provider Unavailable Source Comments You are receiving this document as you are listed as the primary care provider,follow-up provider, or the patient has been referred to you for consultation.This is in compliance with the Medicare and[facility] EHR Incentive Program,which states Providers who transition their patient to another setting of careor provider of care or refers their patient to another provider of care shouldprovide summary care record for each transition of care or referral. [facility] Allergies No known active [...] patient's age to complete this topic Insurance [facility] Care Teams Marketing Intelligence Manager Relationship Specialty Start Date End Date No Primary/Referring, y PCP - General 01/12/20
--- OUTSIDE RECORDS SUMMARY | 2025-01-01 17:02 | XMS_ITS | Encounter Summary ---
Author Organization [facility] Address [address] [place] [address] Care Team Providers Care Software Test Developer Name Role Phone Elsewhere, Pcp Primary Care Provider Unavailabl e Reason for Visit * Reason Onset Date Comments Rx Prior Authorization 12/12/2024 BS does not have prior auth rqst for IVIG Encounter Details Date Type Department Care Team (Latest Contact Info) Description 12/12/2024 Clinical Communication Division of Hematology in [place], [place] [address] [place] [address] Tamiko Huffman M.D. [address] [place] [phone] Rx Prior Authorization ([facility] does not have prior auth rqst for IVIG) Social History Tobacco Use Types Packs/Day Years Used Date Smoking Tobacco: Former Cigarettes Passive Smoke Exposure: Past Smokeless Tobacco: Never Comments:High School Quit 18 Alcohol Use Standard Drinks/Week Comments Not Currently 0 (1 standard drink = 0.6 oz pur e alcohol) [facility] Utilities Answer Date Recorded In the [...] and Family Once a week 05/04/2019 Attends Yarsanism Services 1 to 4 times per year [...] your living situation today? I have a [facility] place to live 10/26/2024 Education Answer Date Recorded What is the highest level of school you have completed or the highest degree you have received? Associate degree: occupational, technical, or vocational program 05/13/2020 Sex and Gender Information Value Date Recorded Sex Assigned at Male 04/20/2018 9:42 AM CDT Legal Sex Male 6:56 AM DIRECTOR BANKING Gender Identity Male 04/20/2018 9:42 AM CDT Sexual Orientation Straight 04/20/2018 9: 42 AM CDT documented as of this encounter Plan of Treatment Upcoming Encounters Date Type Department Care Team (Late st Contact Info) Description 01/21/2025 8:00 AM CDT Nurse Only Section of Infectious Diseases in [place], [place] 200 [place] [address] Ha Nolasco M.D. [address] [place] [phone] 01/21/2025 9:45 AM CDT Appointment Department of Radiology, [facility] in [place], [place] [address] [place] [address] Helga Raymundo, GERSON, C.N.P., D.N.P., M.S.N. [address] [place] [phone] 01/21/2025 2:30 PM CDT Office Visit Department of Neurologic Surgery in [place], [place] [address] [place] [phone] Gwendolyn Lombardo APRN, HOME HEALTH MANAGER, D.N.P., M.S.N. [address] [place] [phone] 01/29/2025 8:20 AM CDT Appointment Department of Laboratory Medicine and Pathology, [facility] in [place], [place] [address] [place] [phone] Tamiko Huffman M.D. [address] [place] [phone] 01/29/2025 10:45 AM CDT Office Visit Division of Hematology in [place], [place] [address] [place] [phone] Tamiko Huffman M.D. [address] [place] [phone] documented as of this encounter Visit Diagnoses Not on filedocumented in this encounter Additional Health Concerns Assessment Noted Time PHQ-9 Depression Total Score: 1 04/12/20 24 6:50 AM CDT documented as of this encounter Care Teams Software Test Developer Relationship Specialty Start Date End Date Elsewhere, Pcp PCP - General Internal Medicine 08/09/24 documented as of this encounter
--- OUTSIDE RECORDS SUMMARY | 2025-01-01 17:02 | XMS_ITS | Encounter Summary ---
Author Organization [facility] Address [address] [place] [address] Care Team Providers Care Chief Wheelage Clerk Name Role Phone Elsewhere, Pcp Primary Care Provider Unavailabl e Reason for Referral * Outpatient (Routine) - Authorized Specialty Diagnoses / Procedures Referred By Contac t Referred To Contact Neurological Surgery Diagnoses Lesion Spine Lumbar Radiculopathy Lumbar Helga Raymundo APRN, C.N.P., D.N.P., M.S.N. [address] [place] [phone] Phone: tel: fax: Ruthy Mckinnon P.A.-C. [address] [place] [phone] Phone: tel: fax: Referral ID Status Reason Start Date Expiration Date V isits Requested Visits Authorized [id number] Authorized 10/26/2024 04/27/2026 1 1 HEN BATH DESIGNER * MRI/CAT/PET Scan (Routine) - Authorized Specialty Diagnoses / Procedures Referred By Contac t Referred To Contact Radiology Diagnoses Lesion Spine Lumbar Radiculopathy Lumbar Procedures MR Lumbar Spine without IV Contrast Helga Raymundo APRN, C.N.P., D.N.P., M.S.N. [address] [place] [phone] Phone: tel: fax: [facility] Referral ID Status Reason Start Date Expiration Date V isits Requested Visits Authorized [id number] Authorized 10/26/2024 01/26/2026 1 1 HEN BATH DESIGNER Reason for Visit * Reason Onset Date Comments Post Hospital Follow-up 10/26/2024 Encounter Details Date Type Department Care Team (Latest Contact Info) Description 10/26/2024 Clinical Communication Department of Neurologic Surgery in [place], [place] [address] [place] [phone] Brittany Mcdowell M.D. [address] [place] [phone] Post Hospital Follow-up Social History Tobacco Use Types Packs/Day Years Used Date Smoking Tobacco: Former Cigarettes Passive Smoke Exposure: Past Smokeless Tobacco: Never Comments:High School Quit 18 Alcohol Use Standard Drinks/Week Comments Not Currently 0 (1 standard drink = 0.6 oz pur e alcohol) [facility] Utilities Answer Date Recorded In the past 12 months has [facility] [employer], gas, oil, or water [employer] threatened to shut off services in your [...] and Family Once a week 05/04/2019 Attends Buddhism Services 1 to 4 times per year [...] Answer Date Recorded PHQ-2 Score 0 04/12/2024 [facility] - Occupational Stress Questionnaire Answer [...] your living situation today? I have a [facility] place to live 10/26/2024 Education Answer Date Recorded What is the highest level of school you have completed or the highest degree you have received? 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 200 [place] [phone] 01/21/2025 9:45 AM CDT Appointment Department of Radiology, [facility] in [place], [place] [address] [place] [phone] Helga Raymundo APRN, C.N.P., D.N.P., M.S.N. [address] [place] [phone] 01/21/2025 2:30 PM CDT Office Visit Department of Neurologic Surgery in [place], [place] [address] [place] [phone] wGendolyn Lombardo APRN, COSMETICIAN, D.N.P., M.S.N. [address] [place] [phone] 01/29/2025 8:20 AM CDT Appointment Department of Laboratory Medicine and Pathology, [facility] in [place], [place] [address] [place] [phone] Tamiko Huffman M.D. [address] [place] [phone] 01/29/2025 10:45 AM CDT Office Visit Division of Hematology in [place], [place] [address] [place] [phone] Tamiko Huffman M.D. [address] [place] [phone] Scheduled Orders Name Type Priority Associated Diagnoses [...] Time Protective Environment 08/04/2023 08/04/202310/26 8:35 PM KITCHEN BATH DESIGNER Assessment Noted Time PHQ-9 Depression Total Score: 1 04/12/20 24 6:50 AM CDT documented as of this encounter Care Teams Chief Wheelage Clerk Relationship Specialty Start Date End Date Elsewhere, Pcp PCP - General Internal Medicine 08/09/24 documented as of this encounter
--- OUTSIDE RECORDS SUMMARY | 2025-01-01 17:02 | XMS_ITS | Encounter Summary ---
Author Organization [facility] Address [address] [place] [address] Care Team Providers Care Legal Internship Name Role Phone Elsewhere, Pcp Primary Care Provider Unavailabl e Encounter Details Date Type Department Care Team (Latest Contact Info) Description 12/10/2024 2:14 PM CDT - 12/10/2024 11:59 PM CDT Hospital Encounter Department of Laboratory Medicine in [address] [phone] Ha Nolasco M.D. 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) Discharge Disposition: Home or Self Care Social History Tobacco Use Types Packs/Day Years Used Date Smoking Tobacco: Former Cigarettes Passive Smoke Exposure: Past Smokeless Tobacco: Never Comments:High School Quit 18 Alcohol Use Standard Drinks/Week Comments Not Currently 0 (1 standard drink = 0.6 oz pur e alcohol) [facility] Utilities Answer Date Recorded In the [...] and Family Once a week 05/04/2019 Attends Islam Services 1 to 4 times per year [...] Answer Date Recorded PHQ-2 Score 0 04/12/2024 [facility] - Occupational [...] your living situation today? I have a [facility] place to live 10/26/2024 Education Answer Date Recorded What is the highest level of school you have completed or the highest degree you have received? 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 4 testosterone cypionate (Depo-Testosterone) 200 mg/mL injection Inject 0.4 mL intramuscularly 2 (two) times a week. On Tuesday and Tuesday 4 UNABLE TO FIND Take 1 tablet by mouth daily as needed. Med Name: Rapid dissolve tablet compound of sildenafil 80 mg, tadalafil 22 mg, and apo 3 mg sulfamethoxazole-tr imethoprim (Bactrim) 400-80 mg per tabletIndications:F ollicular Lymphoma Grade I Intra Abdominal Lymph Nodes (HCC),CAR-T Recipient Encounter For Antineoplastic Immunotherapy Take 1 tablet by mouth daily. Continue until instructed by provider to stop 30 tablet 3 4 12/25/19 25 documented as of this encounter Plan of Treatment Upcoming Encounters Date Type Department Care Team (Late st Contact Info) Description 01/21/2025 8:00 AM CDT Nurse Only Section of Infectious Diseases in [place], [place] [address] [place] [phone] Ha Nolasco M.D. [address] [place] [phone] 01/21/2025 9:45 AM CDT Appointment Department of Radiology, [facility] in [place], [place] [address] [place] [phone] Helga Raymundo APRN, C.N.P., D.N.P., M.S.N. [address] [place] [phone] 01/21/2025 2:30 PM CDT Office Visit Department of Neurologic Surgery in [place], [place] [address] [place] [phone] Gwendolyn Lombardo APRN, MARKETING SUPPORT MANAGER, D.N.P., M.S.N. [address] [place] [phone] 01/29/2025 8:20 AM CDT Appointment Department of Laboratory Medicine and Pathology, [facility] in [place], [place] [address] [place] [phone] Tamiko Huffman M.D. [address] [place] [phone] 01/29/2025 10:45 AM CDT Office Visit Division of Hematology in [place], [place] [address] [place] [phone] Tamiko Huffman M.D. [address] [place] [phone] documented as of this encounter Procedures Procedure [...] (T Cells) 36 32 - 64 % 3:22 PM CDT SDSC CD4 (T Cells) 157(L) 365 - 1437 cells/mcL 12/11/2024 3:22 PM CDT SDSC % CD8 (T Cells) 36 8 - 40 % 3:22 PM CDT SDSC CD8 T Cells [...] Ratio 1.0 >=0.9 12/11/2024 3:22 PM CDT [facility] Comment: ----ADDITIONAL INFORMATION---- This test was developed using an analyte specific reagent. Its performance characteristics were determined by [facility] in a manner consistent with CLIA requirements. This test has not been cleared or approved by the U.S. Food and Drug Administration. Blood (Blood, Venous) 12/10/2024 2:20 PM CDT 12/11/2024 8:05 AM CDT Ha Mars M.D. LAB BLOOD ADD-ON Final Result Performing Organization Address City/[facility]/ZIP Co de Phone Number [facility] [address] [place] [address] [facility] [address] [place] [address] [place] Blood [id number] * CMV DNA Detect / Quant, Plasma (12/10/2024 2:20 PM CDT) [facility] CMV DNA Detect/Quant, P Undetected Undetected IU/mL 12/11/2024 11:16 AM CDT [facility] Comment: Result in log IU/mL is Undetected. ----ADDITIONAL INFORMATION---- The quantification range of this assay is 35 to 10,000,000 IU/mL (1.54 log to 7.00 log IU/mL). Testing was performed using the dirk CMV test ([employer] Blood (Blood, Venous) 12/10/2024 2:20 PM CDT 12/11/2024 7:10 AM CDT Ha Mars M.D. LAB MICROBIOLOGY - BLOOD ORDERABLES Final Result Performing Organization Address City/[facility]/ZIP Co de Phone Number [facility] [address] [place] [address] [facility] [address] [place] [address] [place] [address] * (ABNORMAL) Immunoglobulin G (IgG) (12/10/2024 2:20 PM CDT) [facility] Immunoglobulin G (IgG), S 421(L) 767 - 1590 mg/dL 12/11/2024 8:21 AM CDT ECLR Blood (Blood, Venous) 12/10/2024 2:20 PM CDT 12/10/2024 9:02 PM CDT us Ha Mars M.D. 

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
--- OUTSIDE RECORDS SUMMARY | 2025-01-01 17:02 | XMS_ITS | Clinical Summary ---
Author Organization [facility] Address [address] [place] [address] Care Team Providers Care Care Rep Name Role Phone Gamal Vásquez MD Primary Care Provider [phone] Allergies No known active allergies Medications acetaminophen [...] tablet Take 440 mg by mouth. Active [place] [facility] [place] 18Gx1 18 gauge x 1 ndle USE [...] - Risk 60-74 years 1-dose series) 2021 BMI (ht and wt on same day) for age 18+ 04/05/2025 0 04/05/2024 Influenza Vaccine (Season Ended) 2025 Hepatitis C screening for age 18-79 Completed [...] ben Non-React ben 07/18/2018 9:42 PM CDT [facility] Comment:Antibodies to HCV no t detected; does not exclude the possibility of exposure to HCV. Blood BLOOD SPECIMEN / Unknown 07/18/2018 2:13 PM CDT 07/18/2018 6:58 PM CDT us Gilberto Baker MD SEND OUTS Final Res ult [facility] [address] [place] [address], from Last 3 Months or Most Recently Relevant to Health Maintenance Insurance [facility] NON-DC-ITS Care Teams Care Rep Relationship Specialty Start Date End Date Gamal Vásquez MD [address] [facility] [address] [place] [address] PCP - General Internal Medicine 04/02/24
--- OUTSIDE RECORDS SUMMARY | 2025-01-01 17:02 | XMS_ITS | Encounter Summary ---
Author Organization [facility] Address [address] [place] [address] Care Team Providers Care Poker Manager Name Role Phone Elsewhere, Pcp Primary Care Provider Unavailabl e Encounter Details Date Type Department Care Team (Late st Contact Info) Description 12/19/2024 Orders Only Division of Hematology in [place], [place] [address] [place] [phone] Tamiko Huffman M.D. 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); Hypogammaglobulinemia (HCC); CAR-T Recipient Encounter For Antineoplastic Immunotherapy Social History Tobacco Use Types Packs/Day Years Used Date Smoking Tobacco: Former Cigarettes Passive Smoke Exposure: Past Smokeless Tobacco: Never Comments:High School Quit 18 Alcohol Use Standard Drinks/Week Comments Not Currently 0 (1 standard drink = 0.6 oz pur e alcohol) [facility] Utilities Answer Date Recorded In the past 12 months has e [employer], gas, oil, or water [employer] threatened to shut off services in your [...] and Family Once a week 05/04/2019 Attends Yazidi Services 1 to 4 times per year [...] Answer Date Recorded PHQ-2 Score 0 04/12/2024 [facility] - Occupational Stress Questionnaire Answer Date [...] your living situation today? I have a [facility] place to live 10/26/2024 Education Answer Date Recorded What is the highest level of school you have completed or the highest degree you have received? 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 [address] [place] [phone] 01/21/2025 9:45 AM CDT Appointment Department of Radiology, [facility] in [place], [place] [address] [place] [phone] Helga Raymundo, SUSTAINABLE DESIGN COORDINATOR, C.N.P., D.N.P., M.S.N. [address] [place] [phone] 01/21/2025 2:30 PM CDT Office Visit Department of Neurologic Surgery in [place], [place] [address] [place] [phone] Gwendolyn Lombardo APRN, LMFT, D.N.P., M.S.N. [address] [place] [phone] 01/29/2025 8:20 AM CDT Appointment Department of Laboratory Medicine and Pathology, [facility] in [place], [place] [address] [place] [phone] Tamiko Huffman M.D. [address] [place] [phone] 01/29/2025 10:45 AM CDT Office Visit Division of Hematology in [place], [place] [address] [place] [phone] Tamiko Huffman M.D. [address] [place] [phone] documented as of this encounter Results * (ABNORMAL) Creatinine with Estimated GFR (12/19/2024 4:20 PM CDT) Creatinine 1.62(H) 0.74 - 1.35 mg/dL 12/20/2024 11:13 AM CDT [facility] Estimated GFR (eGFR) 47(L) >=60 mL/min/BSA 12/20/2024 11:13 AM CDT [facility] Comment: Estimated GFR calculated using the 2020 CKD_EPI creatinine equation. Blood (Blood, Venous) 12/19/2024 4:20 PM CDT 12/20/2024 10:58 AM CDT us Tamiko Huffman M.D. LAB BLOOD ADD-ON Final Res ult [facility] [address] [place] [address], [place] CNFL [facility] in [address] [phone] documented in this encounter Visit Diagnoses Diagnosis Sal Parkinson White Syndrome- Primary 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) Hypogammaglobulinemia (HCC) CAR-T Recipient Encounter For Antineoplastic Immunotherapy documented in this encounter Additional Health Concerns Assessment Noted Time PHQ-9 Depression Total Score: 1 04/12/20 24 6:50 AM CDT documented as of this encounter Care Teams Poker Manager Relationship Specialty Start Date End Date Elsewhere, Pcp PCP - General Internal Medicine 08/09/24 documented as of this encounter
--- OUTSIDE RECORDS SUMMARY | 2025-01-01 17:02 | XMS_ITS | Encounter Summary ---
Author Organization [facility] Address [address] [place] [address]. [place] [address] Care Team Providers Care Res Counselor Name Role Phone Gamal Vásquez MD Primary Care Provider [phone] Isabelle Gleason MD Unavailable Unavailable Gamal Vásquez MD Unavailable [phone] Guilherme Sprague MD Unavailable [phone] Guilherme Sprague MD Unavailable [phone] Shay Dunlap PA-C Unavailable [phone] Soco Magana PA-C Unavailable [phone] Gamal Vásquez MD Unavailable [phone] [facility] Unavailable Encounter Details Date Type Department Care Team (Late st Contact Info) Description 01/22/2022 [facility] Medical Advice [facility] Centralized Scheduling [facility] [place] [address] Nikia Dasview Social History Tobacco [...] asked 09/10/2020 How often do you attend episcopal or restoration serv ices? 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 Not on file Not on file Not [...] on filedocumented in this encounter Care Teams Res Counselor Relationship Specialty Start Date End Date Gamal Vásquez MD [address] [place] [address] PCP - General Internal Medicine 04/14/15 Isabelle Gleason MD [address] [place] [address] BMT Physician Hematology 03/21/18 Gamal Vásquez MD [address] [place] [address] Assigned PCP 09/21/20 09/10/22 Guilherme Sprague MD [address] [place] [address] Urology 09/22/20 Guilherme Sprague MD [address] [place] [address] Assigned Surgical Provider 12/28/20 Shay Dunlap PA-C [address] [place] [address] Assigned Musculoskeletal Provider 03/15/21 04/16/22 Soco Magana PA-C [address] [place] [address] Assigned Heart and Vascular Provider 11/15/21 06/17/24 Gamal Vásquez MD [address] [address] Assigned PCP 11/20/22 09/16/23 [facility] [address] [place] [address] Assigned PCP 10/20/23 documented as of this encounter
--- OUTSIDE RECORDS SUMMARY | 2025-01-01 17:02 | XMS_ITS | Encounter Summary ---
Author Organization [facility] Address [address] [place] [address] Care Team Providers Care Director Of Housing And Energy Services Name Role Phone Elsewhere, Pcp Primary Care Provider Unavailabl e Encounter Details Date Type Department Care Team (Late st Contact Info) Description 12/18/2024 Clinical Communication Division of Hematology in [place], [place] [address] [place] [phone] Tamiko Huffman M.D. [address] [place] [address] Social History Tobacco Use Types Packs/Day Years Used Date Smoking Tobacco: Former Cigarettes Passive Smoke Exposure: Past Smokeless Tobacco: Never Comments:High School Quit 18 Alcohol Use Standard Drinks/Week Comments Not Currently 0 (1 standard drink = 0.6 oz pur e alcohol) [facility] Utilities Answer Date Recorded In the past 12 months has [facility] [employer], oil, or water [employer] threatened to shut off services in your [...] and Family Once a week 05/04/2019 Attends Christian Services 1 to 4 times per year [...] Answer Date Recorded PHQ-2 Score 0 04/12/2024 [facility] Answer Date [...] your living situation today? I have a [facility] place to live 10/26/2024 Education Answer Date Recorded What is the highest level of school you have completed or the highest degree you have received? 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 [address] [place] [phone] 01/21/2025 9:45 AM CDT Appointment Department of Radiology, [facility] in [place], [place] [address] [place] [address] Helga Raymundo APRN, C.N.P., D.N.P., M.S.N. [address] [place] [phone] 01/21/2025 2:30 PM CDT Office Visit Department of Neurologic Surgery in [place], [place] [address] [place] [address] Gwendolyn Lombardo APRN, STAFF SONOGRAPHER, D.N.P., M.S.N. [address] [place] [phone] 01/29/2025 8:20 AM CDT Appointment Department of Laboratory Medicine and Pathology, [facility] in [place], [place] [address] [place] [address] Tmaiko Huffman M.D. [address] [place] [phone] 01/29/2025 10:45 AM CDT Office Visit Division of Hematology in [place], [place] [address] [place] [phone] Tamiko Huffman M.D. [address] [place] [phone] documented as of this encounter Results * BUN (Blood Urea Nitrogen) (12/19/2024 3:02 PM CDT) BUN (Blood Urea Nitrogen), P 19 8 - 24 mg/dL 12/19/2024 3:16 PM CDT CNFL Blood (Blood, Venous) 12/19/2024 3:02 PM CDT 12/19/2024 3:03 PM CDT us Tamiko Huffman M.D. LAB BLOOD ADD-ON Final Res ult [facility] [address] [place] [address], [facility] CNFL [facility] in [address] [address] documented in this encounter Visit Diagnoses Diagnosis Sal Parkinson White Syndrome- Primary 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) Hypogammaglobulinemia (HCC) CAR-T Recipient Encounter For Antineoplastic Immunotherapy documented in this encounter Additional Health Concerns Assessment Noted Time PHQ-9 Depression Total Score: 1 04/12/20 24 6:50 AM CDT documented as of this encounter Care Teams Director Of Housing And Energy Services Relationship Specialty Start Date End Date Elsewhere, Pcp PCP - General Internal Medicine 11/14/24 documented as of this encounter
--- OUTSIDE RECORDS SUMMARY | 2025-01-01 17:02 | XMS_ITS | Encounter Summary ---
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 200 [place] [address] Phone: tel: fax: [facility] Referral ID Status Reason Start Date Expiration Date Visits Re quested Visits Authorized [id number] Closed 10/30/2024 01/30/2026 1 1 Reason for Visit * MRI/CAT/PET Scan (Routine) - Closed Specialty Diagnoses / Procedures Referred By Contac nicky Referred To Contact Diagnoses CAR-T Recipient Encounter For Antineoplastic Immunotherapy 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) Procedures PET CT Skull to Thigh FDG Tamiko Huffman M.D. 200 [place] [address] Phone: tel: fax: [facility] Referral ID Status Reason Start Date Expiration Date Visits Re quested Visits Authorized [id number] Closed 10/30/2024 01/30/2026 1 1 Encounter Details Date Type Department Care Team (Latest Contact Info) Description 12/17/2024 3:55 PM CDT - 12/17/2024 11:59 PM CDT Hospital Encounter Department of Radiology, [facility], in [place], [place] [address] [place] [address] Tamiko Huffman M.D. [address] [place] [address] CAR-T Recipient Encounter For Antineoplastic Immunotherapy; 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) Discharge Disposition: Home or Self Care Social History Tobacco Use Types Packs/Day Years Used Date Smoking Tobacco: Former Cigarettes Passive Smoke Exposure: Past Smokeless Tobacco: Never Comments:High School Quit 18 Alcohol Use Standard Drinks/Week Comments Not Currently 0 (1 standard drink = 0.6 oz pur e alcohol) [facility] Utilities Answer Date Recorded In the past 12 months has e [employer], gas, oil, or water [employer] threatened to shut off services in your [...] and Family Once a week 05/04/2019 Attends Church Services 1 to 4 times per year [...] Answer Date Recorded PHQ-2 Score 0 04/12/2024 [facility] - Occupational Stress [...] your living situation today? I have a [facility] place to live 10/26/2024 Education Answer Date Recorded What is the highest level of school you have completed or the highest degree you have received? 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 [address] [place] [phone] 01/21/2025 9:45 AM CDT Appointment Department of Radiology, [facility] in [place], [place] [address] [place] [address] Helga Raymundo, PROOFREADER, C.N.P., D.N.P., M.S.N. [address] [place] [phone] 01/21/2025 2:30 PM CDT Office Visit Department of Neurologic Surgery in [place], [place] [address] [place] [address] Gwendolyn Lombardo APRN, SEMICONDUCTOR PROCESSOR, D.N.P., M.S.N. [address] [place] [phone] 01/29/2025 8:20 AM CDT Appointment Department of Laboratory Medicine and Pathology, [facility] in [place], [place] [address] [place] [address] Tamiko Huffman M.D. [address] [place] [phone] 01/29/2025 10:45 AM CDT Office Visit Division of Hematology in [place], [place] [address] [place] [phone] Tamiko Huffman M.D. 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 No PET findings suspicious for FDG avid recurrent lymphoma. Stable mildly prominent mesenteric nodes with low-grade activity likely reactive. Deauville score 2. 2. Peripherally FDG avid fluid collection at the right L4 hemilaminectomy/L4-5 facetectomy resection site could represent an abscess. Can correlate clinically. Narrative 12/18/2024 11:01 AM CDT EXAM: PET CT SKULL TO THIGH FDG Serum glucose at time of F-18 FDG injection was 91 mg/dL. Patient followed standard dietary/fasting requirements for this exam. RADIOPHARMACEUTICAL/MEDS: Route: intravenous fludeoxyglucose F 18 injection LONGTERM (FDG F-18),10.02 millicurie TECHNIQUE: F-18 FDG PET/CT scan was performed from the orbits through the thighs with low dose, non-contrast, free-breathing CT images for attenuation correction and anatomic localization (AC/AL), with imaging beginning at approximately 60 minutes after radiotracer injection. COMPARISON: PET/CT 10/23/2024 INDICATION: Follicular non-Hodgkin lymphoma. Multimodality chemotherapy. CAR-T therapy. Restaging. Subsequent treatment strategy. FINDINGS: No new suspicious FDG avid adenopathy. Stable scattered mildly prominent mesenteric nodes with low-grade activity likely reactive. Normal size spleen with normal activity. Normal-appearing marrow activity. No other suspicious foci of activity. Reactive activity in the soft tissues of lumbar back related to recent lumbar spine surgery on 10/26/2024. There is a peripherally FDG avid roughly 3.2 x 2.8 x 1.9 cm fluid collection at the right L4 hemilaminectomy/L4-5 facetectomy resection site. Significant incidental findings on the low-dose unenhanced CT fusion images: Stable tiny cyst or hemangioma left hepatic lobe. Stable mucosal thickening or mucous retention cyst right maxillary sinus. Mild vascular calcifications including coronary arteries. Scattered colonic diverticula. Mild prostate enlargement. Procedure Note Bro Abdi M.D. - 12/18/2024 EXAM: PET CT SKULL TO THIGH FDG Serum glucose at time of F-18 FDG injection was 91 mg/dL. Patient followedstandard dietary/fasting requirements for this exam. RADIOPHARMACEUTICAL/MEDS: Route: intravenous fludeoxyglucose F 18 injection LONGTERM (FDG F-18),10.02 millicurie TECHNIQUE: F-18 FDG PET/CT scan was performed from the orbits through thethighs with low dose, non-contrast, free-breathing CT images forattenuation correction and anatomic localization (AC/AL), with imagingbeginning at approximately 60 minutes after radiotracer injection. COMPARISON: PET/CT 10/23/2024 INDICATION: Follicular non-Hodgkin lymphoma. Multimodality chemotherapy.CAR-T therapy. Restaging. Subsequent treatment strategy. FINDINGS: No new suspicious FDG avid adenopathy. Stable scattered mildlyprominent mesenteric nodes with low-grade activity likely reactive. Normal size spleen with normal activity. Normal-appearing marrow activity.No other suspicious foci of activity. Reactive activity in the soft tissues of lumbar back related to recentlumbar spine surgery on 10/26/2024. There is a peripherally FDG avidroughly 3.2 x 2.8 x 1.9 cm fluid collection at the right A3ketinybdfgsdgfm/L4-5 facetectomy resection site. Significant incidental findings on the low-dose unenhanced CT fusionimages: Stable tiny cyst or hemangioma left hepatic lobe. Stable mucosalthickening or mucous retention cyst right maxillary sinus. Mild vascularcalcifications including coronary arteries. Scattered colonic diverticula. Mild prostate enlargement. IMPRESSION: 1. No PET findings suspicious for FDG avid recurrent lymphoma. Stablemildly prominent mesenteric nodes with low-grade activity likely reactive.Deauville score 2. 2. Peripherally FDG avid fluid collection at the right D1qqmvputwjhxkhdq/L4-5 facetectomy resection site could represent anabscess. Can correlate clinically. 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) documented in this encounter Administered Medications Inactive Administered Medications - up to 3 most recent administrations Medication Order MAR Action Action Date Dose Rate Site fludeoxyglucose F 18 injection LONGTERM (FDG F-18) 4.5-16.5 millicurie, intravenous, Once, On 12/17/24 at 1715, For 1 dose, Imaging Protocol Orders Given 12/17/2024 4:50 PM CDT 10.02 millicuries documented in this encounter Additional Health Concerns Assessment Noted Time PHQ-9 Depression Total Score: 1 04/12/20 6:50 AM CDT documented as of this encounter Care Teams Anesthesiologist Relationship Specialty Start Date End Date Elsewhere, Pcp PCP - General Internal Medicine 08/09/24 documented as of this encounter
--- OUTSIDE RECORDS SUMMARY | 2025-01-01 17:02 | XMS_ITS | Encounter Summary ---
Author Organization [facility] Address [address] [place] [address] Care Team Providers Care Terra Cotta Mason Name Role Phone Elsewhere, Pcp Primary Care Provider Unavailabl e Encounter Details Date Type Department Care Team (Latest Contact Info) Description 12/19/2024 8:50 AM CDT - 12/19/2024 11:59 PM CDT Hospital Encounter Department of Laboratory Medicine in [address] [phone] Tamiko Huffman M.D. 200 [place] [address] Sal Parkinson White Syndrome; 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); Hypogammaglobulinemia (HCC); CAR-T Recipient Encounter For Antineoplastic Immunotherapy Discharge Disposition: Home or Self Care Social History Tobacco Use Types Packs/Day Years Used Date Smoking Tobacco: Former Cigarettes Passive Smoke Exposure: Past Smokeless Tobacco: Never Comments:High School Quit 18 Alcohol Use Standard Drinks/Week Comments Not Currently 0 (1 standard drink = 0.6 oz pur e alcohol) [facility] Utilities Answer Date Recorded In the past 12 months has e [employer], gas, oil, or water company threatened to [...] and Family Once a week 05/04/2019 Attends Hinduism Services 1 to 4 times per year [...] Answer Date Recorded PHQ-2 Score 0 04/12/2024 [facility] - Occupational Stress Questionnaire Answer Date [...] your living situation today? I have a [facility] place to live 10/26/2024 Education Answer Date Recorded What is the highest level of school you have completed or the highest degree you have received? 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 [address] [place] [phone] 01/21/2025 9:45 AM CDT [facility] [place] [place] [address] [place] [address] Helga Raymundo APRN, C.N.P., D.N.P., M.S.N. [address] [place] [phone] 01/21/2025 2:30 PM CDT Office Visit Department of Neurologic Surgery in [place], [place] [address] [place] [phone] Gwendolyn Lombardo APRN, RESEARCH CHIEF ENGINEER, D.N.P., M.S.N. [address] [place] [phone] 01/29/2025 8:20 AM CDT Appointment Department of Laboratory Medicine and Pathology, [facility] in [place], [place] [address] [place] [phone] Tamiko Huffman M.D. [address] [place] [phone] 01/29/2025 10:45 AM CDT Office Visit Division of Hematology in [place], [place] [address] [place] [phone] Tamiko Huffman M.D. 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 LAB BLOOD ADD-ON Final Res ult Performing Organization Address City/State/[facility] Co de Phone Number [facility] [address] [place] [address], [facility] CNFL [facility] [place] [facility] in [address] [address] documented in this encounter Visit Diagnoses Diagnosis Sal Parkinson White Syndrome 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) Hypogammaglobulinemia (HCC) CAR-T Recipient Encounter For Antineoplastic Immunotherapy documented in this encounter Additional Health Concerns Assessment Noted Time PHQ-9 Depression Total Score: 1 04/12/20 24 6:50 AM CDT documented as of this encounter Care Teams Terra Cotta Mason Relationship Specialty Start Date End Date Elsewhere, Pcp PCP - General Internal Medicine 08/09/24 documented as of this encounter
--- OUTSIDE RECORDS SUMMARY | 2025-01-01 17:02 | XMS_ITS | Encounter Summary ---
Author Organization [facility] Address [address] [place] [address] Care Team Providers Care Scrap Preparer Name Role Phone Elsewhere, Pcp Primary Care Provider Unavailabl e Reason for Visit * Reason Comments Outpatient Infusion * Episode Based Medications (Routine) - Authorized Specialty Diagnoses / Procedures Referred By Contac t Referred To Contact Diagnoses 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) Procedures UT GAMMAGARD LIQUID INJ Tamiko Huffman M.D. [address] [place] [phone] Phone: tel: fax: Division of Hematology in [place], [place] [address] [place] [phone] Phone: tel: Referral ID Status Reason Start Date Expiration Date V isits Requested Visits Authorized [id number] Authorized 12/14/2024 06/11/2025 12 7 Encounter Details Date Type Department Care Team (Late st Contact Info) Description 12/25/2024 11:00 AM CDT Infusion Department of Infusion Therapy in [place], [place] [address] [place] [address] Tamiko Huffman M.D. [address] [place] [phone] 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) (Primary Dx) Discharge Disposition: Home or Self Care Social History Tobacco Use Types Packs/Day Years Used Date Smoking Tobacco: Former Cigarettes Passive Smoke Exposure: Past Smokeless Tobacco: Never Comments:High School Quit 18 Alcohol Use Standard Drinks/Week Comments Not Currently 0 (1 standard drink = 0.6 oz pur e alcohol) [facility] Utilities Answer Date Recorded In the [...] and Family Once a week 05/04/2019 Attends Mormonism Services 1 to 4 times per year [...] Answer Date Recorded PHQ-2 Score 0 04/12/2024 [facility] - Occupational Stress [...] your living situation today? I have a [facility] place to live 10/26/2024 Education Answer Date Recorded What is the highest level of school you have completed or the highest degree you have received? 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 Gender Identity Male 04/20/2018 9:42 AM CDT Sexual Orientation Straight 04/20/2018 9: 42 AM CDT documented as of this encounter Last Filed Vital Signs Vital Sign Reading Time Taken Comments Blood Pressure 134/86 12/25/2024 1:00 PM CDT Pulse 84 12/25/2024 1:00 PM CDT Temperature 36.8 C (98.2 F) 12/25/2024 1:00 PM CDT Respiratory Rate 18 12/25/2024 1:00 PM CDT Oxygen Saturation - - Inhaled Oxygen Concentration - - Weight 108 kg (237 lb 10.5 oz) 12/25/2024 11:26 AM CDT Height - - Body Mass Index 33.27 10/26/2024 10:44 AM EQUIPMENT TECH documented in this encounter Plan of Treatment Upcoming Encounters Date Type Department Care Team (Late st Contact Info) Description 01/21/2025 8:00 AM CDT Nurse Only Section of Infectious Diseases in [place], [place] [address] [place] [phone] Ha Nolsaco M.D. [address] [place] [phone] 01/21/2025 9:45 AM CDT [facility] [place] [place] [address] [place] [phone] Helga Raymundo APRN, C.N.P., D.N.P., M.S.N. [address] [place] [phone] 01/21/2025 2:30 PM CDT Office Visit Department of Neurologic Surgery in [place], [place] [address] [place] [phone] Gwendolyn Lombardo APRN, EXTRUDING DEPARTMENT SUPERVISOR, D.N.P., M.S.N. [address] [place] [phone] 01/29/2025 8:20 AM CDT Appointment Department of Laboratory Medicine and Pathology, [facility] in [place], [place] [address] [place] [phone] Tamiko Huffman M.D. [address] [place] [phone] 01/29/2025 10:45 AM CDT Office Visit Division of Hematology in [place], [place] [address] [place] [phone] Tamiko Huffman M.D. 200 [place] [phone] documented as of this encounter Visit Diagnoses Diagnosis 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)- Primary documented in this encounter Administered Medications Inactive Administered Medications - up to 3 most recent administrations Medication Order MAR Action Action Date Dose Rate Site immune globulin (human) 10 % infusion 30 g (Gammagard) 30 g (0.4 g/kg 75 kg Norman weight), intravenous, Once, On Tue12/25/24 at 1145, For 1 dose, Pump programming: Use same weight used in dosing calculation- See Ordered Dose weight above. If no weight indicated: Calculate dose based on Norman Body Weight (IBW). If Actual Body Weight (ABW) < IBW, use ABW. Start infusion at 0.5 mL/kg/hour for 30 minutes. Then increase to 1 mL/kg/hour for 30 minutes. Then increase to 2 mL/kg/hour for 30 minutes. Then increase to 4 mL/kg/hour for 30 minutes. Then may increase to maximum rate of 8 mL/kg/hour as tolerated until infusion complete. Do NOT shake or filter. Hand deliver., Restriction Criteria (Pharmacy will review and approve if criteria met): Meets IVIG administration criteriaIndications:Follicul ar Lymphoma Grade I Intra Abdominal Lymph Nodes (HCC) Rate/Dose Change 12/25/2024 1:32 PM CDT 300 mL/hr Rate/Dose Change 12/25/2024 12:59 PM CDT 150 mL /hr Rate/Dose Change 12/25/2024 12:22 PM CDT 75 mL/ hr sodium chloride 0.9 % injection 3 mL 3 mL, intravenous, As needed, line care, Starting on Tue12/25/24 at 1138, When no infusion to maintain patency. Flush every 24 hoursIndications: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) Given 12/25/2024 2:06 PM CDT 3 mL Given 12/25/2024 11:38 AM CDT 3 mL documented in this encounter Additional Health Concerns Assessment Noted Time PHQ-9 Depression Total Score: 1 04/12/20 24 6:50 AM CDT documented as of this encounter Care Teams Scrap Preparer Relationship Specialty Start Date End Date Elsewhere, Pcp PCP - General Internal Medicine 08/09/24 documented as of this encounter
--- OUTSIDE RECORDS SUMMARY | 2025-01-01 17:02 | XMS_ITS | Encounter Summary ---
Author Organization [facility] Address [address] [place] [address]. [place] [address] Care Team Providers Care School Superintendent Name Role Phone Gamal Vásquez MD Primary Care Provider [phone] Isabelle Gleason MD Unavailable Unavailable Gamal Vásquez MD Unavailable [phone] Guilherme Sprague MD Unavailable [phone] Guilherme Sprague MD Unavailable [phone] Soco Magana PA-C Unavailable [phone] Gamal Vásquez MD Unavailable [phone] [facility] Unavailable Encounter Details Date Type Department Care Team (Late st Contact Info) Description 08/09/2022 MyC Medical Advice [facility] Insurance Verification Marion Das Social History [...] asked 09/10/2020 How often do you attend rastafarian or hoahaoism serv ices? 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 Not on file Not on file Not on fi le documented as of this encounter Plan of Treatment Not on file documented as of this encounter Visit Diagnoses Not on filedocumented in this encounter Care Teams School Superintendent Relationship Specialty Start Date End Date Gamal Vásquez MD [address] [place] [address] PCP - General Internal Medicine 04/14/15 Isabelle Gleason MD [address] [place] [address] BMT Physician Hematology 03/21/18 Gamal Vásquez MD [address] [place] [address] Assigned PCP 09/21/20 09/10/22 Guilherme Sprague MD [address] [place] [address] Urology 09/22/20 Guilherme Sprague MD [address] [place] [address] Assigned Surgical Provider 12/28/20 12/15/24 Soco Magana PA-C [address] [place] [address] Assigned Heart and Vascular Provider 11/15/21 06/17/24 Gamal Vásquez MD [address] [facility] [address] [place] [address] Assigned PCP 11/20/22 09/16/23 [facility] [address] [place], [place] [id number] Assigned PCP 10/20/23 documented as of this encounter
--- OUTSIDE RECORDS SUMMARY | 2025-01-01 17:02 | XMS_ITS | Encounter Summary ---
Author Organization [facility] Address [address] [place] [address] Care Team Providers Care Banking Representative Name Role Phone Elsewhere, Pcp Primary Care Provider Unavailabl e Encounter Details Date Type Department Care Team (Late st Contact Info) Description 10/29/2024 Clinical Communication Department of Neurologic Surgery in [place], [place] [address] [place] [phone] Brittany Mcdowell M.D. [address] [place] [phone] Social History Tobacco Use Types Packs/Day Years Used Date Smoking Tobacco: Former Cigarettes Passive Smoke Exposure: Past Smokeless Tobacco: Never Comments:High School Quit 18 Alcohol Use Standard Drinks/Week Comments Not Currently 0 (1 standard drink = 0.6 oz pur e alcohol) [facility] Utilities Answer Date Recorded In the past 12 months has [facility] [employer], [employer], oil, or water [employer] threatened to shut off services in your [...] and Family Once a week 05/04/2019 Attends [employer]ianism Services 1 to 4 times per year [...] Answer Date Recorded PHQ-2 Score 0 04/12/2024 [facility] Answer Date [...] your living situation today? I have a [facility] place to live 10/26/2024 Education Answer Date Recorded What is the highest level of school you have completed or the highest degree you have received? 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 [address] [place] [phone] 01/21/2025 9:45 AM CDT Appointment Department of Radiology, [facility] in [place], [place] [address] [place] [phone] Helga Raymundo APRN, C.N.P., D.N.P., M.S.N. [address] [place] [phone] 01/21/2025 2:30 PM CDT Office Visit Department of Neurologic Surgery in [place], [place] [address] [place] [phone] Gwendolyn Lombardo APRN, CAR CLEANING SUPERVISOR, D.N.P., M.S.N. [address] [place] [phone] 01/29/2025 8:20 AM CDT Appointment Department of Laboratory Medicine and Pathology, [facility] in [place], [place] [address] [place] [phone] Tamiko Huffman M.D. [address] [place] [phone] 01/29/2025 10:45 AM CDT Office Visit Division of Hematology in [place], [place] [address] [place] [phone] Tamiko Huffman M.D. [address] [place] [phone] documented as of this encounter Visit Diagnoses Not on filedocumented in this encounter Additional Health Concerns Assessment Noted Time PHQ-9 Depression Total Score: 1 04/12/20 24 6:50 AM CDT documented as of this encounter Care Teams Banking Representative Relationship Specialty Start Date End Date Elsewhere, Pcp PCP - General Internal Medicine 08/09/24 documented as of this encounter
--- OUTSIDE RECORDS SUMMARY | 2025-01-01 17:02 | XMS_ITS | Encounter Summary ---
Author Organization [facility] Address [address] [place] [address] Care Team Providers Care Naturopathic Oncology Provider Name Role Phone Elsewhere, Pcp Primary Care Provider Unavailabl e Reason for Visit * Reason Comments Med Refill Encounter Details Date Type Department Care Team (Late st Contact Info) Description 12/24/2024 Refill Division of Hematology in [place], [place] [address] [place] [phone] Que Olivares M.D. [address] [place] [phone] Med Refill Social History Tobacco Use Types Packs/Day Years Used Date Smoking Tobacco: Former Cigarettes Passive Smoke Exposure: Past Smokeless Tobacco: Never Comments:High School Quit 18 Alcohol Use Standard Drinks/Week Comments Not Currently 0 (1 standard drink = 0.6 oz pur e alcohol) [facility] Utilities Answer Date Recorded In the past 12 months has [facility] [employer], oil, or water [employer] threatened to shut off services in your [...] Answer Date Recorded PHQ-2 Score 0 04/12/2024 [facility] - Occupational [...] your living situation today? I have a [facility] place to live 10/26/2024 Education Answer Date Recorded What is the highest level of school you have completed or the highest degree you have received? 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 [address] [place] [phone] 01/21/2025 9:45 AM CDT Appointment Department of Radiology, [facility] in [place], [place] [address] [place] [phone] Helga Raymundo APRN, C.N.P., D.N.P., M.S.N. [address] [place] [phone] 01/21/2025 2:30 PM CDT Office Visit Department of Neurologic Surgery in [place], [place] [address] [place] [phone] Gwendolyn Lombardo APRN, MC KAY STITCHER, D.N.P., M.S.N. [address] [place] [phone] 01/29/2025 8:20 AM CDT Appointment Department of Laboratory Medicine and Pathology, [place] [facility] in [place], [place] [address] [place] [phone] Tamiko Huffman M.D. [address] [place] [phone] 01/29/2025 10:45 AM CDT Office Visit Division of Hematology in [place], [place] [address] [place] [phone] Tamiko Huffman M.D. 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
--- OUTSIDE RECORDS SUMMARY | 2025-01-01 17:03 | XMS_ITS | Clinical Summary ---
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 For routine questions regarding patient records, call [phone] during business hours, M-F 8:00 AM - 5:00 PM Central Time. Record requests for emergency care only can be directed to [phone] at any time.[facility] Allergies No known active allergies Medications * [...] for preparations; do not use tap water. Active testosterone cypionate (Depo-Testostero ne) 200 mg/mL injection Inject 0.4 mL intramuscularly 2 (two) times a week. On Tuesday and Tuesday Active multivitamin tablet Take 1 tablet by mouth daily. Active acyclovir (Zovirax) 400 mg tabletIndication s: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),CAR-T Recipient Encounter For Antineoplastic Immunotherapy Take 1 tablet (400 mg total) by mouth 2 (two) times a day. Continue until instructed by provider to stop 60 tablet 3 024 Active pregabalin (Lyrica) 100 mg capsuleIndicatio ns:Sciatica Right,Radiculopa thy Lumbar Fourth Take 1 capsule (100 mg total) by mouth 4 (four) times a day. 360 capsule 3 025 Active anastrozole (Arimidex) 1 mg tablet Take 0.5 mg by mouth 2 (two) times a week. Swallow whole with a drink of water. Takes 0.5 mg twice a week (on Tuesday and Tuesday) Active acetaminophen (TylenoL) 500 mg tablet Take 2 tablets (1,000 mg total) by mouth every 6 (six) hours for 7 doses. 100 tablet 025 Active lidocaine (Lidoderm) 5 % adhesive patch,medicatedI ndications:Mass Spine Lumbar (HCC) Place 1 patch on the skin daily. Apply to area with pain. Remove patch after 12 h. Leave patch off for 12 h before applying a new one. 5 patch 025 Active polyethylene glycol (Miralax) 17 gram powder packetIndication s:constipation Take 1 packet (17 g total) by mouth daily Indications: constipation. Dissolve each 17 g dose in 240 mLs (8 ounces) of beverage. 025 Active sennosides-docus ate sodium (Senokot-S) 8.6-50 mg per tablet Take 2 tablets by mouth 2 (two) times a day. 025 Active enoxaparin (Lovenox) 40 mg/0.4 mL injection Inject 0.4 mL (40 mg total) under the skin daily for 10 days. 4 mL 10/27/19 25 1:16 PM SPOOL CARRIER 025 Active oxyCODONE (Roxicodone) 5 mg immediate release tabletIndication s:Acute Pain Exception Take 1 tablet (5 mg total) by mouth every 3 (three) hours as needed for moderate pain or score 4-6 of 10 Indication: Acute Pain Exception. 30 tablet 025 Active methocarbamoL (Robaxin) 750 mg tablet Take 1 tablet (750 mg total) by mouth 4 (four) times a day as needed for muscle spasms. 50 tablet 025 Active sulfamethoxazole -trimethoprim (Bactrim) 400-80 mg per tabletIndication s: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),CAR-T Recipient Encounter For Antineoplastic Immunotherapy TAKE 1 TABLET BY MOUTH DAILY. CONTINUE UNTIL INSTRUCTED BY PROVIDER TO. STOP 30 tablet 3 025 Active sulfamethoxazole -trimethoprim (Bactrim) 400-80 mg per tabletIndication s: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),CAR-T Recipient Encounter For Antineoplastic Immunotherapy Take 1 tablet by mouth daily. Continue until instructed by provider to stop 30 tablet 3 024 2024 Discontinued Active Problems Problem Noted Date Diagnosed Date [...] Encounters Date Type Department Care Team Description 12/25/2024 11:00 AM CDT Infusion Department of Infusion Therapy in [place], [place] [address] [place] [address] Tamiko Huffman M.D. 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) (Primary Dx) Discharge Disposition: Home or Self Care 12/24/2024 Refill Division of Hematology in [place], [place] [address] [place] [address] Que Olivares M.D. Med Refill 12/19/2024 8:50 AM CDT - 12/19/2024 11:59 PM CDT Hospital Encounter Department of Laboratory Medicine in [address] [phone] Tamiko Huffman M.D. Sal Parkinson White Syndrome; 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); Hypogammaglobulinemia (HCC); CAR-T Recipient Encounter For Antineoplastic Immunotherapy Discharge Disposition: Home or Self Care 12/19/2024 Orders Only Division of Hematology in [place], [place] [address] [place] [address] Tamiko Huffman M.D. Sal Parkinson White Syndrome (Primary Dx); 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); Hypogammaglobulinemia (HCC); CAR-T Recipient Encounter For Antineoplastic Immunotherapy 12/18/2024 Clinical Communication Division of Hematology in [place], [place] [address] [place] [address] Tamiko Huffman M.D. 12/17/2024 3:55 PM CDT - 12/17/2024 11:59 PM CDT Hospital Encounter Department of Radiology, [facility], in [place], [place] [address] [place] [address] Tamiko Huffman M.D. CAR-T Recipient Encounter For Antineoplastic Immunotherapy; 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) Discharge Disposition: Home or Self Care 12/14/2024 Orders Only [facility], Ninth Floor [address] [place] [address] Tamiko Huffman M.D. 12/12/2024 Clinical Communication Division of Hematology in [place], [place] [address] [place] [phone] Tamiko Huffman M.D. Rx Prior Authorization ([facility] does not have prior auth rqst for IVIG) 12/10/2024 2:14 PM CDT - 12/10/2024 11:59 PM CDT Hospital Encounter Department of Laboratory Medicine in [address] [phone] Ha Nolasco M.D. CAR-T Recipient Encounter For Antineoplastic Immunotherapy; 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) Discharge Disposition: Home or Self Care 11/12/2024 12:20 PM SPOOL CARRIER - 11/12/2024 11:59 PM SPOOL CARRIER Hospital Encounter Department of Laboratory Medicine in [address] [phone] Ha Nolasco M.D. CAR-T Recipient Encounter For Antineoplastic Immunotherapy; 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) Discharge Disposition: Home or Self Care 10/30/2024 8:45 AM SPOOL CARRIER Telemedicine Division of Hematology in [place], [place] [address] [place] [phone] Tamiko Huffman M.D. CAR-T Recipient Encounter For Antineoplastic Immunotherapy; 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) 10/29/2024 Clinical Communication Department of Neurologic Surgery in [place], [place] [address] [place] [address] Brittany Mcdowell M.D. 10/26/2024 3:04 PM SPOOL CARRIER Anesthesia Event [facility] [address] [place] [address] Corrie Burgess M.D. Eskuri, Scott, M.D. 10/26/2024 12:54 PM SPOOL CARRIER - 10/26/2024 6:19 PM SPOOL CARRIER Surgery [facility] OR [address] [place] [phone] Brittany Mcdowell M.D. 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 10/26/2024 10:24 AM SPOOL CARRIER - 10/27/2024 12:12 PM SPOOL CARRIER Hospital Encounter [facility], [facility], Ninth Floor [address] [place] [phone] Brittany Mcdowell M.D. Mass Spine Lumbar (HCC) (Primary Dx); Lesion Spine Lumbar; Radiculopathy Lumbar Discharge Disposition: Home or Self Care 10/26/2024 Clinical Communication Department of Neurologic Surgery in [place], [place] [address] [place] [phone] Brittany Mcdowell M.D. Post Hospital Follow-up 10/23/2024 2:00 PM SPOOL CARRIER Comprehensive Visit Preoperative Evaluation Center in [place], [place] [address] [place] [phone] Brittany Mcdowell M.D. Katzka, Abigail A, APRN, C.N.P. Sal Parkinson White Syndrome (Primary Dx); Preoperative Exam; Radiculopathy Lumbar; Catheter Ablation For Conduction Pathway Status Post; 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); Hypogammaglobulinemia (HCC); CAR-T Recipient Encounter For Antineoplastic Immunotherapy; Loss Hearing Bilateral; Elevated Creatinine 10/23/2024 11:00 AM SPOOL CARRIER Nurse Only Section of Infectious Diseases in [place], [place] [address] [place] [phone] Ha Nolasco M.D. McIntyre, Sierra M, R.N. Immunizations 10/23/2024 6:44 AM SPOOL CARRIER - 10/23/2024 11:59 PM SPOOL CARRIER Hospital Encounter Department of Radiology, [facility], in [place], [place] [address] [place] [address] Tamiko Huffman M.D. CAR-T Recipient Encounter For Antineoplastic Immunotherapy; 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) Discharge Disposition: Home or Self Care 10/19/2024 3:15 PM SPOOL CARRIER Clinical Communication Virtual Review in [place], [place] [address] [place] [address] Pre-visit Intake 10/19/2024 Orders Only Division of Hematology in [place], [place] [address] [place] [phone] Tere Foote Clinical Research Exam (Primary Dx) 10/11/2024 Clinical Communication Department of Neurologic Surgery in [place], [place] [address] [place] [phone] Brittany Mcdowell M.D. 10/08/2024 1:00 PM SPOOL CARRIER - 10/08/2024 11:59 PM SPOOL CARRIER Hospital Encounter Department of Laboratory Medicine in [address] [phone] Ha Nolasco M.D. CAR-T Recipient Encounter For Antineoplastic Immunotherapy; 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) Discharge Disposition: Home or Self Care 10/05/2024 Refill Department of Neurology in [place], [place] [address] [place] [phone] Bro Pradhan M.D. Med Refill 10/03/2024 2:30 PM SPOOL CARRIER Comprehensive Visit Department of Neurologic Surgery in [address] [phone] Brittany Mcdowell M.D. Schwannoma Benign (Primary Dx); Lesion Spine Lumbar; Preoperative Exam from Last 3 Months Immunizations Immunization Administration [...] 2 Antoine Rubalcava Colon polyps Brother 3 Mohesn Rubalcava Other cancer Father Loida Rubalcava Liver cancer Blood clot Mother Es Rubalcava intestinal Hypertension Mother Es Rubalcava Relation Name Status Comments Brother 1 Polo Rubalcava Alive Brother 2 Antoine Rubalcava Alive Brother 3 Mohsen Rubalcava Alive Father Loida Rubalcava Alive Mother Es Rubalcava Social History Tobacco Use Types Packs/Day Years Used Date Smoking Tobacco: Former Cigarettes Passive Smoke Exposure: Past Smokeless Tobacco: Never Tobacco Cessation:Counseling Given: Not Answered Comments:High School Quit 18 Alcohol Use Standard Drinks/Week Comments Not Currently 0 (1 standard drink = 0.6 oz pur e alcohol) [facility] Utilities Answer Date Recorded In the past 12 months has [facility] electric, gas, oil, or water [employer] threatened to shut off services in your [...] and Family Once a week 05/04/2019 Attends Synagogue Services 1 to 4 times per year [...] Answer Date Recorded PHQ-2 Score 0 04/12/2024 [facility] - Occupational Stress Questionnaire Answer Date [...] living situation today? I have a [facility] place to live 10/26/2024 Education Answer Date Recorded What is the highest level of school you have completed or the highest degree you have received? Associate degree: occupational, technical, or vocational program 05/13/2020 Sex and Gender Information Value Date Recorded Sex Assigned at Male 04/20/2018 9:42 AM CDT Legal Sex Male 6:56 AM SPOOL CARRIER Gender Identity Male 04/20/2018 9:42 AM CDT Sexual Orientation Straight 04/20/2018 9 :42 AM CDT Last Filed Vital Signs Vital Sign Reading Time Taken Comments Blood Pressure 134/86 12/25/2024 1:00 PM CDT Pulse 84 12/25/2024 1:00 PM CDT Temperature 36.8 C (98.2 F) 12/25/2024 1:00 PM CDT Respiratory Rate 18 12/25/2024 1:00 PM CDT Oxygen Saturation 99% 10/27/2024 11:00 AM SPOOL CARRIER Inhaled Oxygen Concentration - - Weight 108 kg (237 lb 10.5 oz) 12/25/2024 11:26 AM CDT Height 180 cm (5' 10.87) 10/26/2024 10:44 AM CS T Body Mass Index 33.27 10/26/2024 10:44 AM SPOOL CARRIER Plan of Treatment Upcoming Encounters Date Type Department Care Team (Late st Contact Info) Description 01/21/2025 8:00 AM CDT Nurse Only Section of Infectious Diseases in [place], [place] [address] [place] [phone] Ha Nolasco M.D. [address] [place] [phone] 01/21/2025 9:45 AM CDT Appointment Department of Radiology, [facility] in [place], [place] [address] [place] [phone] Helga Raymundo APRN, C.N.P., D.N.P., M.S.N. [address] [place] [phone] 01/21/2025 2:30 PM CDT Office Visit Department of Neurologic Surgery in [place], [place] [address] [place] [phone] Gwendolyn Lombardo APRN, BUNCH MAKER, D.N.P., M.S.N. [address] [place] [address] 01/29/2025 8:20 AM CDT Appointment Department of Laboratory Medicine and Pathology, [facility], in [place], [place] [address] [place] [phone] Tamiko Huffman M.D. [address] [place] [phone] 01/29/2025 10:45 AM CDT Office Visit Division of Hematology in [place], [place] [address] [place] [phone] Tamiko Huffman M.D. [address] [place] [phone] Health Maintenance Due Date Last Done Comments [...] this topic Medical Devices Implanted Type Area [place] Device Identifier Shelf Expiration Date Model / Serial / Lot Hardware E.G. Pins/Screws/R ods Hardware e.g. pins/screws/ rods Left: Shoulder Description:Clavicle/shoulde r, screws Procedures Procedure Name Priority Date/Time Associated Diagnosis Comments CREATININE WITH EGFR, S/P Routine 12/19/2024 4:20 PM CDT Sal Parkinson White Syndrome 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) Hypogammaglobulinem ia (HCC) CAR-T Recipient Encounter For Antineoplastic Immunotherapy BUN (BLOOD UREA NITROGEN), S/P Routine 12/19/2024 3:02 PM CDT Sal Parkinson White Syndrome 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) Hypogammaglobulinem ia (HCC) CAR-T Recipient Encounter For Antineoplastic Immunotherapy PET CT SKULL TO THIGH RAD - [...] AND NK, B Routine 11/12/2024 1:07 PM SPOOL CARRIER CAR-T Recipient Encounter For Antineoplastic Immunotherapy 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) IMMUNOGLOBULIN G (IGG), S Routine 11/12/2024 1:07 PM SPOOL CARRIER CAR-T Recipient Encounter For Antineoplastic Immunotherapy 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) CMV DNA DETECT/QUANT, P Routine 11/12/2024 1:07 PM SPOOL CARRIER CAR-T Recipient Encounter For Antineoplastic Immunotherapy 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) BASIC METABOLIC PANEL, S/P Routine 10/27/2024 4:24 AM SPOOL CARRIER CBC WITH DIFFERENTIAL, B Routine 10/27/2024 4:24 AM SPOOL CARRIER SURGICAL PATHOLOGY, [facility] Routine 10/26/2024 5:45 PM SPOOL CARRIER Lesion Spine Lumbar Radiculopathy Lumbar DX SPINE 1 VIEW RAD - Routine (most inpatients and all outpatients) 10/26/2024 4:22 PM SPOOL CARRIER AIRWAY MANAGEMENT Routine 10/26/2024 3:12 PM SPOOL CARRIER LAMINECTOMY LUMBAR WITH TUMOR RESECTION 10/26/2024 2:44 PM SPOOL CARRIER Lesion Spine Lumbar Radiculopathy Lumbar Case Notes SAND MILL OPERATOR CORE SAND 1028 IONM - EMG Routine 10/26/2024 10:25 AM SPOOL CARRIER MISC RESEARCH ORDER, B Routine 9:21 AM SPOOL CARRIER Clinical Research Exam QN LYMPHOCYTE SUBSETS: T, B, AND NK, B Routine 10/23/2024 9:21 AM SPOOL CARRIER CAR-T Recipient Encounter For Antineoplastic Immunotherapy 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) LACTATE DEHYDROGENASE (LD), S Routine 10/23/2024 9:21 AM SPOOL CARRIER CAR-T Recipient Encounter For Antineoplastic Immunotherapy 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) CBC WITH DIFFERENTIAL, B Routine 10/23/2024 9:21 AM SPOOL CARRIER CAR-T Recipient Encounter For Antineoplastic Immunotherapy 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) BILIRUBIN, TOT, S/P Routine 10/23/2024 9:21 AM SPOOL CARRIER CAR-T Recipient Encounter For Antineoplastic Immunotherapy 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) ASPARTATE AMINOTRANSFERASE (AST), S/P Routine 10/23/2024 9:21 AM SPOOL CARRIER CAR-T Recipient Encounter For Antineoplastic Immunotherapy 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) CMV DNA DETECT/QUANT, P Routine 10/23/2024 9:21 AM SPOOL CARRIER CAR-T Recipient Encounter For Antineoplastic Immunotherapy 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) URIC ACID, S/P Routine 10/23/2024 9:20 AM SPOOL CARRIER CAR-T Recipient Encounter For Antineoplastic Immunotherapy 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) SODIUM, S/P Routine 10/23/2024 9:20 AM SPOOL CARRIER CAR-T Recipient Encounter For Antineoplastic Immunotherapy 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) STREPTOCOCCUS PNEUMONIAE, IGG, ABS, 23 SEROTYPES, S Routine 10/23/2024 9:20 AM SPOOL CARRIER CAR-T Recipient Encounter For Antineoplastic Immunotherapy 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) POTASSIUM, S/P Routine 10/23/2024 9:20 AM SPOOL CARRIER CAR-T Recipient Encounter For Antineoplastic Immunotherapy 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) IMMUNOGLOBULIN G (IGG), S Routine 10/23/2024 9:20 AM SPOOL CARRIER CAR-T Recipient Encounter For Antineoplastic Immunotherapy 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) FERRITIN, S Routine 10/23/2024 9:20 AM SPOOL CARRIER CAR-T Recipient Encounter For Antineoplastic Immunotherapy 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) CREATININE WITH EGFR, S/P Routine 10/23/2024 9:20 AM SPOOL CARRIER CAR-T Recipient Encounter For Antineoplastic Immunotherapy 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) C-REACTIVE PROTEIN (CRP), S/P Routine 10/23/2024 9:20 AM SPOOL CARRIER CAR-T Recipient Encounter For Antineoplastic Immunotherapy 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) CALCIUM, TOT, S/P Routine 10/23/2024 9:20 AM SPOOL CARRIER CAR-T Recipient Encounter For Antineoplastic Immunotherapy 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) ALANINE AMINOTRANSFERASE (ALT), S/P Routine 10/23/2024 9:20 AM SPOOL CARRIER CAR-T Recipient Encounter For Antineoplastic Immunotherapy 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) ALKALINE PHOSPHATASE, S/P Routine 10/23/2024 9:20 AM SPOOL CARRIER CAR-T Recipient Encounter For Antineoplastic Immunotherapy 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) TETANUS TOXOID IGG AB Routine 10/23/2024 9:20 AM SPOOL CARRIER CAR-T Recipient Encounter For Antineoplastic Immunotherapy 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) MMRV IMMUNE STATUS PROFILE Routine 10/23/2024 9:20 AM SPOOL CARRIER CAR-T Recipient Encounter For Antineoplastic Immunotherapy 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) HEPATITIS A VIRUS TOTAL AB, S Routine 10/23/2024 9:20 AM SPOOL CARRIER CAR-T Recipient Encounter For Antineoplastic Immunotherapy 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) HBS ANTIBODY, SERUM Routine 10/23/2024 9:20 AM SPOOL CARRIER CAR-T Recipient Encounter For Antineoplastic Immunotherapy 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) PET CT SKULL TO THIGH RAD - Routine (most inpatients and all outpatients) 10/23/2024 8:41 AM SPOOL CARRIER CAR-T Recipient Encounter For Antineoplastic Immunotherapy 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) QN LYMPHOCYTE SUBSETS: T, B, AND NK, B Routine 10/08/2024 1:24 PM SPOOL CARRIER CAR-T Recipient Encounter For Antineoplastic Immunotherapy 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) IMMUNOGLOBULIN G (IGG), S Routine 10/08/2024 1:24 PM SPOOL CARRIER CAR-T Recipient Encounter For Antineoplastic Immunotherapy 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) CMV DNA DETECT/QUANT, P Routine 10/08/2024 1:24 PM SPOOL CARRIER CAR-T Recipient Encounter For Antineoplastic Immunotherapy 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) MBC TISSUE DONOR SCREEN TEST SET Routine 03/05/2024 8:36 AM CDT CAR-T Recipient Encounter For Antineoplastic Immunotherapy 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) HEPATITIS B SURFACE ANTIGEN Routine 04/28/2018 9:42 AM CDT 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) from Last 3 Months or Most Recently Relevant to Health Maintenance Results * (ABNORMAL) Creatinine with Estimated GFR (12/19/2024 4:20 PM CDT) Only the most recent of2 resultswithin the time period is included. Creatinine 1.62(H) 0.74 - 1.35 mg/dL 12/20/2024 11:13 AM CDT [facility] Estimated GFR (eGFR) 47(L) >=60 mL/min/BSA 12/20/2024 11:13 AM CDT [facility] Comment: Estimated GFR calculated using the 2020 CKD_EPI creatinine equation. Blood (Blood, Venous) 12/19/2024 4:20 PM CDT 12/20/2024 10:58 AM CDT us Tamiko Huffman M.D. LAB BLOOD ADD-ON Final Res ult [facility] [address] [place] [phone], [facility] CNFL [facility] in [address] [address] * BUN (Blood Urea Nitrogen) (12/19/2024 3:02 PM CDT) BUN (Blood Urea Nitrogen), P 19 8 - 24 mg/dL 12/19/2024 3:16 PM CDT CNFL Blood (Blood, Venous) 12/19/2024 3:02 PM CDT 12/19/2024 3:03 PM CDT us Tamiko Huffman M.D. LAB BLOOD ADD-ON Final Res ult [facility] [address] [place] [phone], [facility] CNFL [facility] in [address] [address] * PET CT Skull to Thigh FDG (12/17/2024 6:14 PM CDT) Only the most recent of2 resultswithin the time period is included. Anatomical Region Laterality Modality Body, Nuclear Medicine [...] RADIOPHARMACEUTICAL/MEDS: Route: intravenous fludeoxyglucose F 18 injection NURSING HOME (FDG F-18),10.02 millicurie TECHNIQUE: F-18 FDG PET/CT [...] RADIOPHARMACEUTICAL/MEDS: Route: intravenous fludeoxyglucose F 18 injection [facility]UR[facility] HOME (FDG F-18),10.02 millicurie TECHNIQUE: F-18 FDG PET/CT [...] 1.9 cm fluid collection at the right [id number]/L4-5 facetectomy resection site. Significant incidental findings on [...] FDG avid fluid collection at the right B6ttlhwtypymtkmeu/L4-5 facetectomy resection site could represent anabscess. Can correlate clinically. Tamiko Huffman M.D. IMG NM PROCEDURES Final Re sult * CMV DNA Detect / Quant, Plasma (12/10/2024 2:20 PM CDT) Only the most recent of4 resultswithin the time period is included. CMV DNA Detect/Quant, P Undetected Undetected IU/mL 12/11/2024 11:16 AM CDT [facility] Comment: Result in log IU/mL is Undetected. ----ADDITIONAL INFORMATION---- The quantification range of this assay is 35 to 10,000,000 IU/mL (1.54 log to 7.00 log IU/mL). Testing was performed using the dirk CMV test ([employer] Blood (Blood, Venous) 12/10/2024 2:20 PM CDT 12/11/2024 7:10 AM CDT Ha Mars M.D. LAB MICROBIOLOGY - BLOOD ORDERABLES Final Result [facility] [address] [place] [address] [facility] [address] [place] [address] [place] [address] * (ABNORMAL) Quantitative Lymphocyte Subsets: T, B, [...] performance characteristics were determined by [facility] in a manner consistent with CLIA requirements. This test has not been cleared or approved by the U.S. Food and Drug Administration. Blood (Blood, Venous) 12/10/2024 2:20 PM CDT 12/11/2024 8:05 AM CDT Ha Mars M.D. LAB BLOOD ADD-ON Final Result [facility] [address] [place] [address] [facility] [address] [place] [address] [place] Blood [id number] * (ABNORMAL) Immunoglobulin G (IgG) (12/10/2024 2:20 PM CDT) Only the most recent of4 resultswithin the time period is included. Pathologist [facility] Immunoglobulin G (IgG), S 421(L) 767 - 1590 mg/dL 12/11/2024 8:21 AM CDT ECLR Blood (Blood, Venous) 12/10/2024 2:20 PM CDT 12/10/2024 9:02 PM CDT Ha Mars M.D. LAB BLOOD ADD-ON Final Result [facility] [address] [place] [address], [facility] ECLR [facility] [address] * (ABNORMAL) CBC with Differential, Blood (10/27/2024 4:24 AM SPOOL CARRIER) Only the most recent of2 resultswithin the time period is included. [facility] Hemoglobin 15.9 13.2 - 16.6 g/dL 10/27/2024 5:39 AM SPOOL CARRIER DTL Hematocrit 45.4 38.3 - 48.6 % 10/27/2024 5:39 AM SPOOL CARRIER DTL Erythrocytes 5.12 4.35 - 5.65 x10(12)/L 10/27/2024 5:39 AM SPOOL CARRIER DTL MCV 88.7 78.2 - 97.9 fL 10/27/2024 5:39 AM SPOOL CARRIER DTL RBC Distrib Width 11.2(L) 11.8 - 14.5 % 10/27/2024 5:39 AM SPOOL CARRIER DTL Platelet Count 307 135 - 317 x10(9)/L 10/27/2024 5:39 AM SPOOL CARRIER DTL Leukocytes 9.0 3.4 - 9.6 x10(9)/L 10/27/2024 5:39 AM SPOOL CARRIER DTL Neutrophils 8.51(H) 1.56 - 6.45 x10(9)/L 10/27/2024 5:39 AM SPOOL CARRIER PM Lymphocytes 0.24(L) 0.95 - 3.07 x10(9)/L 10/27/2024 5:39 AM SPOOL CARRIER DTL Monocytes 0.24(L) 0.26 - 0.81 x10(9)/L 10/27/2024 5:39 AM SPOOL CARRIER DTL Eosinophils <0.03 0.03 - 0.48 x10(9)/L 10/27/2024 5:39 AM SPOOL CARRIER DTL Basophils <0.03 0.01 - 0.08 x10(9)/L 10/27/2024 5:39 AM SPOOL CARRIER DTL Blood (Blood, Venous) 10/27/2024 4:24 AM SPOOL CARRIER 10/27/2024 5:28 AM SPOOL CARRIER Karlos Montana M.D., Ph.D. LAB BLOOD ADD-ON Final Result [facility] 200 [place] [address], [facility] DTL [facility] [address] [place] [address] * (ABNORMAL) Basic Metabolic Panel (10/27/2024 4:24 AM SPOOL CARRIER) [facility] Potassium, S 4.5 3.6 - 5.2 mmol/L 10/27/2024 6:13 AM SPOOL CARRIER DTL Sodium, S 140 135 - 145 mmol/L 10/27/2024 6:13 AM SPOOL CARRIER DTL Chloride, S 104 98 - 107 mmol/L 10/27/2024 6:13 AM SPOOL CARRIER DTL Bicarbonate, S 23 22 - 29 mmol/L 10/27/2024 6:13 AM SPOOL CARRIER DTL Anion Gap 13 7 - 15 10/27/2024 6:13 AM SPOOL CARRIER DTL BUN (Blood Urea Nitrogen), S 13 8 - 24 mg/dL 10/27/2024 6:13 AM SPOOL CARRIER DTL Creatinine 1.34 0.74 - 1.35 mg/dL 10/27/2024 6:13 AM SPOOL CARRIER DTL Estimated GFR (eGFR) 60 >=60 mL/min/BSA 10/27/2024 6:13 AM SPOOL CARRIER DTL Comment: Estimated GFR calculated using the 2020 CKD_EPI creatinine equation. Calcium, Total, S 8.7(L) 8.8 - 10.2 mg/dL 10/27/2024 6:13 AM SPOOL CARRIER DTL Glucose, S 136 70 - 140 mg/dL 10/27/2024 6:13 AM SPOOL CARRIER DTL Blood (Blood, Venous) 10/27/2024 4:24 AM SPOOL CARRIER 10/27/2024 5:45 AM SPOOL CARRIER Karlos Montana M.D., Ph.D. LAB BLOOD ADD-ON Final Result [facility] [address] [place] [address], [facility] [address] [place] [address] * Surgical Pathology, Frozen Lab (10/26/2024 5:45 PM SPOOL CARRIER) 10/29/2024 2:26 PM SPOOL CARRIER STMA Report electronically signed by Bong Pickard M.D. I verify that I have examined all relevant slides/material s for the specimen(s) and rendered or confirmed the diagnosis. 10/29/2024 2:26 PM SPOOL CARRIER STMA Frozen Intraoperative Report A. Soft tissue, nerve sheath mass right L4, resection: Schwannoma. Signed by Bong Pickard M.D. 10/29/2024 8:24 AM 10/29/2024 2:26 PM SPOOL CARRIER STMA Gross Description A. Received fresh labeled nerve sheath tumor right L4 is a 1.8 x 0.8 x 0.7 cm portion of gustafson thinly encapsulated mass with a gustafson, hemorrhagic cut surface. All submitted for frozen and permanent sections. Grossed by Jayashree Roque, PA([facility]). 10/29/2024 2:26 PM SPOOL CARRIER STMA Block Summary A Nerve sheath tumor right L4 A1 Nerve sheath tumor - frozen A2 Nerve sheath tumor 2 10/29/2024 2:26 PM SPOOL CARRIER STMA Interpretation FINAL DIAGNOSIS A. Soft tissue, nerve sheath mass right L4, resection: Schwannoma (1.8 x 0.8 x 0.7 cm). Digital imaging was used in the diagnostic assessment of this case. 10/29/2024 2:26 PM SPOOL CARRIER STMA Tissue (Spine, Lumbar) 10/26/2024 5:45 PM SPOOL CARRIER Brittany Mcdowell M.D. LAB SURG PATH ORDERABLES Luciana l Result [facility] [address] [place] [address], [facility] [address] [place] [address] * Dx Spine 1 View (10/26/2024 4:22 PM SPOOL CARRIER) Anatomical Region Laterality Modality Spine, Musculoskeletal RST L OS, Neuroradiology ARZ LOS, Muskuloskeletal FLA LOS N/A Digital Radiography Impressions 10/26/2024 5:17 PM SPOOL CARRIER Single lateral intraoperative radiograph of the spine obtained for surgical localization purposes. Narrative 10/26/2024 5:17 PM SPOOL CARRIER EXAM: DX SPINE 1 VIEW Procedure Note Florentino Parikh D.O. - 10/26/2024 EXAM: DX SPINE 1 VIEW IMPRESSION: Single lateral intraoperative radiograph of the spine obtained forsurgical localization purposes. Karlos Montana M.D., Ph.D. IMG DIAGNOSTIC IMAGING PROCEDURES Final Result * Airway (10/26/2024 3:12 PM SPOOL CARRIER) Narrative Nabeel Nix M.D. - 10/26/2024 3:12 PM SPOOL CARRIER Nabeel Nix M.D. 10/26/2024 3:29 PM Airway Date/Time: 10/26/2024 3:12 PM Performed by: Nabeel Nix M.D. Authorized by: Guy Rosario M.D. Patient location during procedure: OR / Procedure Area PROCEDURE DETAILS: Mask difficulty assessment: easy mask Final airway type: video laryngoscope Laryngeal Manipulation: no Final best view of glottic structures - Cormack/Lehane Score: grade 1 ETT location: oral VL device: glide scope [place] scope blade size: 4 Tube size: 7.5 [...] * IONM - EMG (10/26/2024 10:25 AM SPOOL CARRIER) 10/26/2024 1:00 PM SPOOL CARRIER Narrative [facility] EMG - 10/27/2024 5:35 AM SPOOL CARRIER Table formatting from the original result was not included. 26-Oct-2024 Intraoperative Monitoring Amended Report Study Number: 3 EMG Logistics Lead: Scott Chao [phone] or [phone] Referred by: BRITTANY MCDOWELL ([phone] or [phone]) Referred for: Referral Code: 1958 RX: 1958 SUMMARY: Somatosensory evoked potentials (SEPs), transcranial electric [...] operating room team in the surgical suite. B. Zhanna (127 or [phone])/[facility] Surgery Staff Minutes Start-DateTime End-DateTime Remote Simultaneous Supervision 133 10/26/2024 15:31 PM SPOOL CARRIER 10/26/2024 17:44 PM SPOOL CARRIER Total Monitoring Time: 133 This interpretation has been electronically signed: Scott Chao M.D. at 10/29/2024 8:04:26 AM SPOOL CARRIER Procedure Note Scott Chao M.D. - 10/29/2024 26-Oct-2024 Intraoperative Monitoring AmendedReport Study Number: 3 EMG Logistics Lead: Scott Chao [phone] or [phone] Referred by: BRITTANY MCDOWELL ([phone] or [phone]) Referred for: Referral Code: 1958 RX: 1958 SUMMARY: Somatosensory evoked potentials (SEPs), transcranial electricmotor [...] the surgical suite. Ivy Chao (127 or [phone])/[facility] Surgery Staff Minutes Start-DateTime End-DateTime Remote Simultaneous Supervision 133 10/26/2024 15:31 PM SPOOL CARRIER 7:44 PM SPOOL CARRIER Total Monitoring Time: 133 This interpretation has been electronically signed: Scott Chao M.D. at 10/29/2024 8:04:26 AM SPOOL CARRIER Brittany Mcdowell M.D. NEUROLOGY ORDERABLES Edited R esult - Final EMG * [facility], Blood (10/23/2024 9:21 AM SPOOL CARRIER) Number of Specimens 10 10/23/2024 9:21 AM SPOOL CARRIER HSS Blood (Blood, Venous) 10/23/2024 9:21 AM SPOOL CARRIER 10/23/2024 9:21 AM SPOOL CARRIER us Marcelina Hansen M.D., Ph.D. LAB RESEARCH NO RESULT ROUTIN G Final Result Performing Organization Address [facility]/ZIP Co de Phone Number [facility] [address] HSS [facility] 200 [place] [address] * AST (Aspartate Aminotransferase) (10/23/2024 9:21 AM SPOOL CARRIER) [facility] Aspartate Aminotransferase (AST), P 27 8 - 48 U/L 10/23/2024 10:08 AM SPOOL CARRIER METH Blood (Blood, Venous) 10/23/2024 9:21 AM SPOOL CARRIER 10/23/2024 9:46 AM SPOOL CARRIER us Tamiko Huffman M.D. LAB BLOOD ADD-ON Final Res ult Performing Organization Address City/[facility]/ZIP Co de Phone Number [facility] [address] METH [facility] 200 [place] [address] * LD (Lactate Dehydrogenase) (10/23/2024 9:21 AM SPOOL CARRIER) [facility] LD 180 122 - 222 U/L 10/23/2024 10:59 AM SPOOL CARRIER DTL Blood (Blood, Venous) 10/23/2024 9:21 AM SPOOL CARRIER 10/23/2024 10:07 AM SPOOL CARRIER us Tamiko Huffman M.D. LAB BLOOD NON ADD-ON Final Result Performing Organization Address City/[facility] Co de Phone Number [facility] [address] DTL [facility] 200 [place] [address] * Bilirubin, Total (10/23/2024 9:21 AM SPOOL CARRIER) [facility] Bilirubin, Total, P 0.5 0.0 - 1.2 mg/dL 10/23/2024 10:08 AM SPOOL CARRIER METH Blood (Blood, Venous) 10/23/2024 9:21 AM SPOOL CARRIER 10/23/2024 9:46 AM SPOOL CARRIER Tamiko Huffman M.D. LAB BLOOD ADD-ON Final Res ult [facility] [address] [place] [address], [place] METH [facility] [address] [place] [address] * Hepatitis A Virus Total Antibodies (10/23/2024 9:20 AM SPOOL CARRIER) [facility] Hepatitis A Virus Total Ab, S Negative 10/23/2024 12:26 PM SPOOL CARRIER SDS Comment: Result indicates no past exposure or immunity to hepatitis A infection. ----REFERENCE VALUE---- Unvaccinated: Negative Vaccinated: Positive Blood (Blood, Venous) 10/23/2024 9:20 AM SPOOL CARRIER 10/23/2024 11:33 AM SPOOL CARRIER Tamiko Huffman M.D. LAB MICROBIOLOGY - BLOOD O RDERABLES Final Result Performing Organization Address City/[facility]/ZIP Co de Phone Number [facility] [address] [place] [address] [facility] [address] [place] [address] * Streptococcus pneumoniae IgG Antibodies, 23 Serotypes (10/23/2024 9:20 AM SPOOL CARRIER) Pathologist [facility] Serotype 1 (1) <0.1 >=1.0 mcg/mL 10/26/2024 2:55 PM SPOOL CARRIER SDSC Serotype 2 (2) 0.3 >=1.0 mcg/mL 10/26/2024 2:55 PM SPOOL CARRIER SDSC Serotype 3 (3) <0.1 >=1.0 mcg/mL 10/26/2024 2:55 PM SPOOL CARRIER SDSC Serotype 4 (4) <0.1 >=1.0 mcg/mL 10/26/2024 2:55 PM SPOOL CARRIER SDSC Serotype 5 (5) <0.1 >=1.0 mcg/mL 10/26/2024 2:55 PM SPOOL CARRIER SDSC Serotype 8 (8) 0.2 >=1.0 mcg/mL 10/26/2024 2:55 PM SPOOL CARRIER SDSC Serotype 9N (9) 0.1 >=1.0 mcg/mL 10/26/2024 2:55 PM SPOOL CARRIER SDSC Serotype 12F (12) 0.1 >=1.0 mcg/mL 10/26/2024 2:55 PM SPOOL CARRIER SDSC Serotype 14 (14) 0.2 >=1.0 mcg/mL 10/26/2024 2:55 PM SPOOL CARRIER SDSC Serotype 17F (17) 0.1 >=1.0 mcg/mL 10/26/2024 2:55 PM SPOOL CARRIER SDSC Serotype 19F (19) 0.9 >=1.0 mcg/mL 10/26/2024 2:55 PM SPOOL CARRIER SDSC Serotype 20 (20) 0.3 >=1.0 mcg/mL 10/26/2024 2:55 PM SPOOL CARRIER SDSC Serotype 22F (22) 0.2 >=1.0 mcg/mL 10/26/2024 2:55 PM SPOOL CARRIER SDSC Serotype 23F (23) 2.1 >=1.0 mcg/mL 10/26/2024 2:55 PM SPOOL CARRIER SDSC Serotype 6B (26) 0.5 >=1.0 mcg/mL 10/26/2024 2:55 PM SPOOL CARRIER SDSC Serotype 10A (34) 0.2 >=1.0 mcg/mL 10/26/2024 2:55 PM SPOOL CARRIER SDSC Serotype 11A (43) 0.1 >=1.0 mcg/mL 10/26/2024 2:55 PM SPOOL CARRIER SDSC Serotype 7F (51) 0.2 >=1.0 mcg/mL 10/26/2024 2:55 PM SPOOL CARRIER SDSC Serotype 15B (54) 2.5 >=1.0 mcg/mL 10/26/2024 2:55 PM SPOOL CARRIER SDSC Serotype 18C (56) 0.2 >=1.0 mcg/mL 10/26/2024 2:55 PM SPOOL CARRIER SDSC Serotype 19A (57) see below >=1.0 mcg/mL 10/26/2024 2:55 PM SPOOL CARRIER SDSC Comment:Unable to perform te st due to a reagent issue. Serotype 9V (68) 0.1 >=1.0 mcg/mL 10/26/2024 2:55 PM SPOOL CARRIER SDSC Serotype 33F (70) 1.2 >=1.0 mcg/mL 10/26/2024 2:55 PM SPOOL CARRIER SDSC Interpretation Overall interpretation of pneumococcal antibody [...] provide protection against infection. 10/26/2024 2:55 PM SPOOL CARRIER [facility] Comment: ----ADDITIONAL INFORMATION---- This test was developed and its performance characteristics determined by [facility] in a manner consistent with CLIA requirements. This test has not been cleared or approved by the U.S. Food and Drug Administration. Blood (Blood, Venous) 10/23/2024 9:20 AM SPOOL CARRIER 10/23/2024 11:48 AM SPOOL CARRIER us Tamiko Huffman M.D. LAB BLOOD ADD-ON Final Res ult [facility] [address] [place] [address] [facility] [address] [place] [address] [place] [address] * MMRV Immune Status Profile (10/23/2024 9:20 AM SPOOL CARRIER) [facility] Measles (Rubeola) Ab, IgG, S Positive 10/23/2024 1:19 PM SPOOL CARRIER SDSC Comment: Results suggest response to immunization or prior exposure to the virus. ----REFERENCE VALUE---- Vaccinated: Positive (>=1.1 AI) Unvaccinated: Negative (<=0.8 AI) Measles IgG Antibody Index >8.0 10/23/2024 1:19 PM SPOOL CARRIER SDSC Mumps Ab, IgG, S Positive 10/23/19 1:19 PM SPOOL CARRIER SDSC Comment: Results suggest response to immunization or prior exposure to the virus. ----REFERENCE VALUE---- Vaccinated: Positive (>=1.1 AI) Unvaccinated: Negative (<=0.8 AI) Mumps IgG Antibody Index 4.6 10/23/2024 1:19 PM SPOOL CARRIER SDSC Rubella Ab, IgG, S Positive 10/23/2024 1:19 PM SPOOL CARRIER SDSC Comment: Results suggest response to immunization or prior exposure to the virus. ----REFERENCE VALUE---- Vaccinated: Positive (>=1.0 AI) Unvaccinated: Negative (<=0.7 AI) Rubella IgG Antibody Index 7.1 10/23/2024 1:19 PM SPOOL CARRIER SDSC Varicella-Zoster Ab, IgG, S Positive 10/23/2024 1:19 PM SPOOL CARRIER SDSC Comment: Results suggest response to immunization or prior exposure to the virus. ----REFERENCE VALUE---- Vaccinated: Positive (>=1.1 AI) Unvaccinated: Negative (<=0.8 AI) Varicella IgG Antibody Index 1.8 10/23/2024 1:19 PM SPOOL CARRIER SDSC Blood (Blood, Venous) 10/23/2024 9:20 AM SPOOL CARRIER 10/23/2024 11:38 AM SPOOL CARRIER us Tamiko Huffman M.D. LAB MICROBIOLOGY - BLOOD O RDERABLES Final Result [facility] [address] [place] [address] [facility] [address] [place] [address] * Tetanus Toxoid IgG Ab (10/23/2024 9:20 AM SPOOL CARRIER) [facility] Tetanus IgG Ab Positive 10/24/2024 11:24 AM SPOOL CARRIER [facility] Comment: ----REFERENCE VALUE---- Vaccinated: Positive (>= 0.01 IU/mL) Unvaccinated: Negative (< 0.01 IU/mL) Tetanus IgG Value 1.16 IU/mL 025 11:24 AM [facility] Comment: ----ADDITIONAL INFORMATION---- This test was developed and its performance characteristics determined by [facility] in a manner consistent with CLIA requirements. This test has not been cleared or approved by the U.S. Food and Drug Administration. Blood (Blood, Venous) 10/23/2024 9:20 AM SPOOL CARRIER 10/23/2024 11:49 AM SPOOL CARRIER Tamiko Huffman M.D. LAB MICROBIOLOGY - BLOOD O RDERABLES Final Result Performing Organization Address [facility] Co de Phone Number [facility] [address] [place] [address] [place] [address] * HBs Antibody, Serum (10/23/2024 9:20 AM SPOOL CARRIER) [facility] HBs Antibody, S Negative 12:26 PM [facility] Comment: Patient is NOT immune to HBV infection. Consumption of high-dose biotin supplement within 12 hours of blood collection for this test can cause false-negative results. ----REFERENCE VALUE---- Unvaccinated: Negative Vaccinated: Positive HBs Antibody, Quantitative, S <3.5 mIU/mL 10/23/2024 12:26 PM SPOOL CARRIER [facility] Comment: ----REFERENCE VALUE---- Unvaccinated: <8.5 mIU/mL Vaccinated: >=11.5 mIU/mL Blood (Blood, Venous) 10/23/2024 9:20 AM SPOOL CARRIER 10/23/2024 11:33 AM SPOOL CARRIER Tamiko Huffman M.D. LAB MICROBIOLOGY - BLOOD O RDERABLES Final Result Performing Organization Address [facility]/ZIP Co de Phone Number [facility] [address] [place] [address] [facility] [address] [place] [address] * CRP (C-Reactive Protein) (10/23/2024 9:20 AM SPOOL CARRIER) C-Reactive Protein (CRP), S 3.7 <5.0 mg/L 10/23/2024 10:10 AM SPOOL CARRIER DTL Blood (Blood, Venous) 10/23/2024 9:20 AM SPOOL CARRIER 10/23/2024 9:45 AM SPOOL CARRIER Tamiko Huffman M.D. LAB BLOOD ADD-ON Final Res ult [facility] 200 [place] [address], [facility] 200 [place] [address] * Uric Acid (10/23/2024 9:20 AM SPOOL CARRIER) Pathologist [facility] Uric Acid, S 5.4 3.7 - 8.0 mg/dL 10/23/2024 10:10 AM SPOOL CARRIER DTL Blood (Blood, Venous) 10/23/2024 9:20 AM SPOOL CARRIER 10/23/2024 9:45 AM SPOOL CARRIER Tamiko Huffman M.D. LAB BLOOD ADD-ON Final Res ult [facility] [address] [place] [address], [facility] 200 [place] [address] * ALT (Alanine Aminotransferase) (10/23/2024 9:20 AM SPOOL CARRIER) Alanine Aminotransferase (ALT), S 42 7 - 55 U/L 10/23/2024 10:10 AM SPOOL CARRIER DTL Blood (Blood, Venous) 10/23/2024 9:20 AM SPOOL CARRIER 10/23/2024 9:45 AM SPOOL CARRIER us Tamiko Huffman M.D. LAB BLOOD ADD-ON Final Res ult [facility] [address] [place] [address] * Sodium (10/23/2024 9:20 AM SPOOL CARRIER) Sodium, S 141 135 - 145 mmol/L 10/23/2024 10:10 AM SPOOL CARRIER DTL Blood (Blood, Venous) 10/23/2024 9:20 AM SPOOL CARRIER 10/23/2024 9:45 AM SPOOL CARRIER us Tamiko Huffman M.D. LAB BLOOD ADD-ON Final Res ult Performing Organization Address City/[facility]/ZIP Co de Phone Number [facility] [address] [place] [address] * Potassium (10/23/2024 9:20 AM SPOOL CARRIER) Potassium, S 4.6 3.6 - 5.2 mmol/L 10/23/2024 10:10 AM SPOOL CARRIER DT Blood (Blood, Venous) 10/23/2024 9:20 AM SPOOL CARRIER 10/23/2024 9:45 AM SPOOL CARRIER us Tamiko Huffman M.D. LAB BLOOD ADD-ON Final Res ult Performing Organization Address City/[facility]/ZIP Co de Phone Number [facility] [address] [place] [address] * Alkaline Phosphatase (10/23/2024 9:20 AM SPOOL CARRIER) Alkaline Phosphatase, S 58 40 - 129 U/L 10/23/2024 10:10 AM SPOOL CARRIER DTL Blood (Blood, Venous) 10/23/2024 9:20 AM SPOOL CARRIER 10/23/2024 9:45 AM SPOOL CARRIER us Tamiko Huffman M.D. LAB BLOOD ADD-ON Final Res ult Performing Organization Address City/[facility]/ZIP Co de Phone Number [facility] [address] [place] [address] * Ferritin (10/23/2024 9:20 AM SPOOL CARRIER) Ferritin, S 121 31 - 409 mcg/L 10/23/2024 10:10 AM SPOOL CARRIER DTL Blood (Blood, Venous) 10/23/2024 9:20 AM SPOOL CARRIER 10/23/2024 9:45 AM SPOOL CARRIER us Tamiko Huffman M.D. LAB BLOOD ADD-ON Final Res ult Performing Organization Address [facility]/ZIP Co de Phone Number [facility] [address] [place] [address] * Calcium, Total (10/23/2024 9:20 AM SPOOL CARRIER) Calcium, Total, S 9.5 8.8 - 10.2 mg/dL 10/23/2024 10:10 AM SPOOL CARRIER DTL Blood (Blood, Venous) 10/23/2024 9:20 AM SPOOL CARRIER 10/23/2024 9:45 AM SPOOL CARRIER us Tamiko Huffman M.D. LAB BLOOD ADD-ON Final Res ult Performing Organization Address City/[facility]/ZIP Co de Phone Number [facility] [address] [place] [address] * MBC Tissue Donor Screen Test (03/05/2024 [...] 8:36 AM CDT 03/05/2024 8:45 AM CDT [facility] DONOR TESTING [facility] - 03/06/2024 1:12 PM CDT Specimen Information: Specimen ID: [id number] Specimen Type: Blood Specimen Collection Start Date: 03/05/2024 8:36 AM Specimen Received Date: 03/05/2024 8:45 AM Specimen ID: [id number] Specimen Type: Blood Specimen Collection Start Date: 03/05/2024 8:36 AM Specimen Received Date: 03/05/2024 8:45 AM Specimen ID: [id number] Specimen Type: Blood Specimen Collection Start Date: 03/05/2024 8:36 AM Specimen Received Date: 03/05/2024 8:45 AM Specimen ID: [id number] Specimen Type: Blood Specimen Collection Start Date: 03/05/2024 8:36 AM Specimen Received Date: 03/05/2024 8:45 AM us Marcelina Hansen M.D., Ph.D. LAB BLOOD NON ADD-ON Final Re sult [facility] DON[facility] TEST[facility] [address] [place] [address] Blood [facility], Donor Testing [facility] [address] [place] [address] * Hepatitis B Surface Antigen (04/28/2018 9:42 AM CDT) HBs Antigen, S Negative Negative 04/28/2018 1:25 PM CDT [facility] Blood (Blood, Venous) 04/28/2018 9:42 AM CDT 04/28/2018 12:28 PM CDT us Tamiko Huffman M.D. LAB MICROBIOLOGY - BLOOD O RDERABLES Final Result [facility] [address] [place] [address] from Last 3 Months or Most Recently Relevant to Health Maintenance Insurance [id number] Advance Directives For more information, please contact: [phone] * Full Code (Latest Code Status on [...] Answer Comments Full Code: Discussed Care Teams Rail Car Repairer Relationship Specialty Start Date End Date Elsewhere, Pcp PCP - General Internal Medicine 08/09/24
--- OUTSIDE RECORDS SUMMARY | 2025-01-01 17:03 | XMS_ITS | Encounter Summary ---
Author Organization [facility] Address [address] [place] [address] Care Team Providers Care Operator Command Support Systems Name Role Phone Elsewhere, Pcp Primary Care Provider Unavailabl e Encounter Details Date Type Department Care Team (Late st Contact Info) Description 04/11/2018 [facility] ONCOLOGY [place] [address] [facility] 210 [place] [phone] Gilberto Baker M.D. 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 [address] [place] [phone] 01/21/2025 9:45 AM CDT Appointment Department of Radiology, [facility] in [place], [place] [address] [place] [address] Helga Raymundo APRN, C.N.P., D.N.P., M.S.N. [address] [place] [phone] 01/21/2025 2:30 PM CDT Office Visit Department of Neurologic Surgery in [place], [place] [address] [place] [phone] Gwendolyn Lombardo APRN, FOUNDATION STAGE TEACHER, D.N.P., M.S.N. [address] [place] [phone] 01/29/2025 8:20 AM CDT Appointment Department of Laboratory Medicine and Pathology, [facility] in [place], [place] [address] [place] [address] Tamiko Huffman M.D. [address] [place] [phone] 01/29/2025 10:45 AM CDT Office Visit Division of Hematology in [place], [place] [address] [place] [phone] Tamiko Huffman M.D. [address] [place] [phone] documented as of this encounter Visit Diagnoses Diagnosis 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)- Primary documented in this encounter Additional Health Concerns Infection Onset Date Last Indicated Resolved Time Protective Environment 08/04/2023 08/04/202310/26 8:35 PM CRIMINAL ATTORNEY documented as of this encounter Care Teams Operator Command Support Systems Relationship Specialty Start Date End Date Elsewhere, Pcp PCP - General Internal Medicine 08/09/24 documented as of this encounter
--- OUTSIDE RECORDS SUMMARY | 2025-01-01 17:03 | XMS_ITS | Encounter Summary ---
Author Organization [facility] Address [address] [place] [address] Care Team Providers Care Family And Divorce Legal Assistant Name Role Phone Maynor Barragan MD Primary Care Provider Unavailable [facility] Primary Care Provider Gilberto Baker MD Primary Care Provider [phone] Gamal Vásquez MD Primary Care Provider Isabelle Gleason MD Unavailable Unavailable Gamal Vásquez MD Unavailable [phone] Gamal Vásquez MD Unavailable [phone] Richa Carmona MD Unavailable + Juve Portillo MD Unavailable Gamal Vásquez MD Unavailable [phone] Guilherme Sprague MD Unavailable [phone] Parish Hammer MD Unavailable Un available Shay Dunlap PA-C Unavailable [phone] Guilherme Sprague MD Unavailable [phone] Shay Dunlap PA-C Unavailable [phone] Soco Magana PA-C Unavailable [phone] Gamal Vásquez MD Unavailable [phone] [facility] Unavailable Reason for Visit * Reason Onset Date Comments Pt. Information/instruction 02/28/2008 Encounter Details Date Type Department Care Team (Late st Contact Info) Description 02/28/2008 [facility] Medical Advice [address] [phone] Maynor Barragan MD XXX HOSPITALIST/ED DOCTOR XXX Pt. 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 Not on file Not on file Not on fi le documented as of this encounter Plan of Treatment Not on file documented as of this encounter Visit Diagnoses Not on filedocumented in this encounter Care Teams Family And Divorce Legal Assistant Relationship Specialty Start Date End Date Maynor Barragan MD XXX HOSPITALIST/ED DOCTOR XXX PCP - General 04/07/02 07/26/10 [facility] XXX HOSPITALIST/ED DOCTOR XXX PCP - General 02/16/12 01/15/14 Gilberto Baker MD PA ONCOLOGY HEMATOLOGY [address] [facility] 210 [place] [address] PCP - General Oncology 01/16/14 04/13/15 Gamal Vásquez MD [address] [place] [address] PCP - General Internal Medicine 04/14/15 Gamal Vásquez MD [address] [place] [address] PCP - Assigned PCP 04/06/15 11/28/18 Isabelle Gleason MD [address] [place] [address] BMT Physician Hematology 03/21/18 Gamal Vásquez MD [address] 160 [place] [address] Assigned PCP 04/06/15 08/23/20 Richa Carmona MD [address] [place] [address] Assigned Heart and Vascular Provider 07/18/20 09/27/20 Juve Portillo MD [address] [place] [address] Assigned PCP 08/24/20 09/20/20 Gamal Vásquez MD [address] [place] [address] Assigned PCP 09/21/20 09/10/22 Guilherme Sprague MD [address] [place] [address] Urology 09/22/20 Parish Hammer MD Assigned Heart and Vascular Provider 10/05/20 11/14/21 Shay Dunlap PA-C [address] [place] [address] Assigned Surgical Provider 12/10/20 12/27/20 Guilherme Sprague MD [address] [place] [address] Assigned Surgical Provider 12/28/20 12/15/24 Shay Dunlap PA-C [address] [address] Assigned Musculoskeletal Provider 03/15/21 04/16/22 Soco Magana PA-C [address] [place] [address] Assigned Heart and Vascular Provider 11/15/21 06/17/24 Gamal Vásquez MD 303 [facility] 160 [place] [address] Assigned PCP 11/20/22 09/16/23 [facility] 303 [place] [address] Assigned PCP 10/20/23 documented as of this encounter
--- OUTSIDE RECORDS SUMMARY | 2025-01-01 17:03 | XMS_ITS | Encounter Summary ---
Author Organization [facility] Address [address] [place] [address]. [place] [address] Care Team Providers Care Sewer Inspector Name Role Phone Gamal Vásquez MD Primary Care Provider Isabelle Gleason MD Unavailable Unavailable Gamal Vásquez MD Unavailable [phone] Guilherme Sprague MD Unavailable [phone] Guilherme Sprague MD Unavailable Soco Magana PA-C Unavailable [phone] Gamal Vásquez MD Unavailable [phone] [facility] Unavailable Encounter Details Date Type Department Care Team (Late st Contact Info) Description 05/07/2022 [facility] Medical Advice [facility] [address] [place] [address] Guilherme Sprague MD [address] [id number] Social History Tobacco Use Types Packs/Day Years [...] asked 09/10/2020 How often do you attend jew or bahai serv ices? 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 Not on file Not on file Not [...] on filedocumented in this encounter Care Teams Sewer Inspector Relationship Specialty Start Date End Date Gamal Vásquez MD [address] [place] [address] PCP - General Internal Medicine 04/14/15 Isabelle Gleason MD [address] [place] [address] BMT Physician Hematology 03/21/18 Gamal Vásquez MD [address] [place] [address] Assigned PCP 09/21/20 09/10/22 Guilherme Sprague MD [address] [place] [address] Urology 09/22/20 Guilherme Sprague MD [address] [place] [address] Assigned Surgical Provider 12/28/20 12/15/24 Soco Magana PA-C [address] [place] [address] Assigned Heart and Vascular Provider 11/15/21 06/17/24 Gamal Vásquez MD [address] [facility] 160 [place] [address] Assigned PCP 11/20/22 09/16/23 [facility] 303 [place] [address] Assigned PCP 10/20/23 documented as of this encounter
--- OUTSIDE RECORDS SUMMARY | 2025-01-01 17:03 | XMS_ITS | Encounter Summary ---
Author Organization [facility] Address [address] [place] [address]. [place] [address] Care Team Providers Care Case Management Associate Name Role Phone Gamal Vásquez MD Primary Care Provider [phone] Isabelle Gleason MD Unavailable Unavailable Gamal Vásquez MD Unavailable [phone] Guilherme Sprague MD Unavailable [phone] Guilherme Sprague MD Unavailable [phone] Shay Dunlap PA-C Unavailable + [phone] Soco Magana PA-C Unavailable [phone] Gamal Vásquez MD Unavailable [phone] [facility] Unavailable Encounter Details Date Type Department Care Team (Late st Contact Info) Description 02/05/2022 [facility] Clinic [address] [place] [address] Tere Page Social History Tobacco [...] asked 09/10/2020 How often do you attend methodist or uatsdin serv ices? 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 on file Not on file Not [...] on filedocumented in this encounter Care Teams Case Management Associate Relationship Specialty Start Date End Date Gamal Vásquez MD [address] [place] [address] PCP - General Internal Medicine 04/14/15 Isabelle Gleason MD [address] [place] [address] BMT Physician Hematology 03/21/18 Gamal Vásquez MD [address] [place] [address] Assigned PCP 09/21/20 09/10/22 Guilherme Sprague MD [address] [place] [address] Urology 09/22/20 Guilherme Sprague MD [address] [place] [address] Assigned Surgical Provider 12/28/20 Shay Dunlap PA-C [address] [place] [address] Assigned Musculoskeletal Provider 03/15/21 04/16/22 Soco Magana PA-C [address] [facility] [place] [address] Assigned Heart and Vascular Provider 11/15/21 06/17/24 Gamal Vásquez MD [address] [facility] 160 [place] [address] Assigned PCP 11/20/22 09/16/23 [facility] 303 [place] [address] Assigned PCP 10/20/23 documented as of this encounter
--- OUTSIDE RECORDS SUMMARY | 2025-01-01 17:03 | XMS_ITS | Encounter Summary ---
Author Organization [facility] Address [address] [place] [address]. [place] [address] Care Team Providers Care Operater Name Role Phone Gamal Vásquez MD Primary Care Provider Isabelle Gleason MD Unavailable Unavailable Gamal Vásquez MD Unavailable [phone] Guilherme Sprague MD Unavailable [phone] Guilherme Sprague MD Unavailable [phone] Soco Magana PA-C Unavailable [phone] Gamal Vásquez MD Unavailable [phone] [facility] Unavailable Reason for Visit * Reason Comments Medication Refill Encounter Details Date Type Department Care Team (Late st Contact Info) Description 08/04/2022 [facility] [address] [facility] [address] [place] [address] Gamal Vásquez MD [address] [place] [address] Medication Refill Social History Tobacco [...] asked 09/10/2020 How often do you attend synagogue or anglican serv ices? 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 No / Unsure 07/05/2022 9:33 AM CDT documented as of this encounter Miscellaneous Notes * Telephone Encounter - Samia Webber RN - 08/05/2022 5:26 PM CONCRETE CRUSHER LOADER OPERATOR Sildenafil 100 mg Routing refill request to provider for review/approval because: A break in medication Patient needs to be seen because it has been more than 1 year since last office visit. Patient seen by Dr. Eller for Pre-op 01/2022 ASHLEY with PCP- 08/2020 RETE CRUSHER LOADER OPERATOR documented in this encounter Plan of Treatment Not on file documented as of this encounter Visit Diagnoses Diagnosis Other male erectile dysfunction documented in this encounter Care Teams Operater Relationship Specialty Start Date End Date Gamal Vásquez MD [address] [address] PCP - General Internal Medicine 04/14/15 Isabelle Gleason MD [address] [place] [address] BMT Physician Hematology 03/21/18 Gamal Vásquez MD [address] [address] Assigned PCP 09/21/20 09/10/22 Guilherme Sprague MD [address] [place] [address] Urology 09/22/20 Guilherme Sprague MD [address] [place] [address] Assigned Surgical Provider 12/28/20 12/15/24 Soco Magana PA-C [address] [place] [address] Assigned Heart and Vascular Provider 11/15/21 06/17/24 Gamal Vásquez MD [address] [address] Assigned PCP 11/20/22 09/16/23 [facility] [address] [place] [address] Assigned PCP 10/20/23 documented as of this encounter
--- OUTSIDE RECORDS SUMMARY | 2025-01-01 17:03 | XMS_ITS | Encounter Summary ---
Author Organization [facility] Address [address] [place] [address]. [place] [address] Care Team Providers Care Immunochemist Name Role Phone Gamal Vásquez MD Primary Care Provider [phone] Isabelle Gleason MD Unavailable Unavailable Gamal Vásquez MD Unavailable [phone] Gamal Vásquez MD Unavailable [phone] Richa Carmona MD Unavailable + Juve Portillo MD Unavailable [phone] Gamal Vásquez MD Unavailable [phone] Guilherme Sprague MD Unavailable [phone] Parish Hammer MD Unavailable Un available Shay Dunlap PA-C Unavailable [phone] Guilherme Sprague MD Unavailable [phone] Shay Dunlap PA-C Unavailable [phone] Soco Magana PA-C Unavailable [phone] Gamal Vásquez MD Unavailable [phone] [facility] Unavailable Encounter Details Date Type Department Care Team (Late st Contact Info) Description 11/19/2018 [facility] [address] [place] [address] Gamal Vásquez MD [address] [place] [address] Social History Tobacco Use Types Packs/Day Years Used Date Smoking Tobacco: Never Smokeless Tobacco: Never Alcohol Use Standard Drinks/Week Comments Yes 0 (1 standard drink = 0.6 oz pur e alcohol) 2 drinks week PHQ-2 Answer Date Recorded PHQ-2 Score 0 10/04/2018 Sex and Gender Information Value Date Recorded Sex Assigned at Not on file 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 Male 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 Gender Identity Not on file Sexual Orientation Not on file 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 file Not on file Not on fi le documented as of this encounter Plan of Treatment Not on file documented as of this encounter Visit Diagnoses Not on filedocumented in this encounter Care Teams Immunochemist Relationship Specialty Start Date End Date Gamal Vásquez MD [address] [place] [address] PCP - General Internal Medicine 04/14/15 Gamal Vásquez MD [address] [place] [address] PCP - Assigned PCP 04/06/15 11/28/18 Isabelle Gleason MD [address] [place] [address] BMT Physician Hematology 03/21/18 Gamal Vásquez MD [address] [place] [address] Assigned PCP 04/06/15 08/23/20 Richa Carmona MD [address] [facility] [address] [place] [address] Assigned Heart and Vascular Provider 07/18/20 09/27/20 Juve Portillo MD [address] [place] [address] Assigned PCP 08/24/20 09/20/20 Gamal Vásquez MD [address] [place] [address] Assigned PCP 09/21/20 09/10/22 Guilherme Sprague MD [address] [place], [place] [address] Urology 09/22/20 Parsih Hammer MD Assigned Heart and Vascular Provider 10/05/20 11/14/21 Shay Dunlap PA-C [address] [place] [address] Assigned Surgical Provider 12/10/20 12/27/20 Guilherme Sprague MD [address] [place] [address] Assigned Surgical Provider 12/28/20 12/15/24 Shay Dunlap PA-C [address] [place] [address] Assigned Musculoskeletal Provider 03/15/21 04/16/22 Soco Magana PA-C [address] [place] [address] Assigned Heart and Vascular Provider 11/15/21 06/17/24 Gamal Vásquez MD [address] [place] [address] Assigned PCP 11/20/22 09/16/23 [facility] 303 [place] [address] Assigned PCP 10/20/23 documented as of this encounter
--- OUTSIDE RECORDS SUMMARY | 2025-01-01 17:03 | XMS_ITS | Encounter Summary ---
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 Phone: tel: fax: [facility] Referral ID Status Reason Start Date Expiration Date Visits Re quested Visits Authorized [id number] Closed 04/13/2018 04/13/2019 2 1 Encounter Details Date Type Department Care Team (Late st Contact Info) Description 04/13/2018 [facility] ONCOLOGY [place] 6545 [facility] 210 [place] [phone] Gilberto Baker M.D. 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) (Primary Dx) Social History Tobacco Use Types Packs/Day Years Used Date Smoking Tobacco: Never Assessed Sex and Gender Information Value Date Recorded Sex Assigned at Male 04/20/2018 9:42 AM CDT Legal Sex Male 6:56 AM DIRECTOR OF COMMUNICATIONS Gender Identity Male 04/20/2018 9:42 AM CDT Sexual Orientation Straight 04/20/2018 9: 42 AM CDT documented as of this encounter Plan of Treatment Upcoming Encounters Date Type Department Care Team (Late st Contact Info) Description 01/21/2025 8:00 AM CDT Nurse Only Section of Infectious Diseases in [place], [place] [address] [place] [phone] Ha Nolasco M.D. [address] [place] [phone] 01/21/2025 9:45 AM CDT Appointment Department of Radiology, [facility] in [place], [place] [address] [place] [phone] Helga Raymundo APRN, C.N.P., D.N.P., M.S.N. [address] [place] [phone] 01/21/2025 2:30 PM CDT Office Visit Department of Neurologic Surgery in [place], [place] [address] [place] [phone] Gwendolyn Lombardo APRN, SWITCHBOARD CLERK, D.N.P., M.S.N. [address] [place] [phone] 01/29/2025 8:20 AM CDT Appointment Department of Laboratory Medicine and Pathology, [facility] in [place], [place] [address] [place] [phone] Tamiko Huffman M.D. [address] [place] [phone] 01/29/2025 10:45 AM CDT Office Visit Division of Hematology in [place], [place] [address] [place] [phone] Tamiko Huffman M.D. [address] [place] [phone] Scheduled Referrals Name Type Priority Associated Diagnoses [...] Time Protective Environment 08/04/2023 08/04/202310/26 8:35 PM DIRECTOR OF COMMUNICATIONS documented as of this encounter Care Teams Manager Meat Relationship Specialty Start Date End Date Elsewhere, Pcp PCP - General Internal Medicine 08/09/24 documented as of this encounter
--- OUTSIDE RECORDS SUMMARY | 2025-01-01 17:03 | XMS_ITS | Encounter Summary ---
Author Organization [facility] Address [address] [place] [address]. [place] [address] Care Team Providers Care Ladle Filler Name Role Phone Gamal Vásquez MD Primary Care Provider Isabelle Gleason MD Unavailable Unavailable Gamal Vásquez MD Unavailable [phone] Richa Carmona MD Unavailable + Juve Portillo MD Unavailable Gamal Vásquez MD Unavailable [phone] Guilherme Sprague MD Unavailable Parish Hammer MD Unavailable Un available Shay Dunlap PA-C Unavailable [phone] Guilherme Sprague MD Unavailable Shay Dunlap PA-C Unavailable [phone] Soco Magana PA-C Unavailable [phone] Gamal Vásquez MD Unavailable [phone] [facility] Unavailable Encounter Details Date Type Department Care Team (Late st Contact Info) Description 01/21/2019 [facility] [address] [place] [address] Gamal Vásquez MD [address] [place], [place] [address] Social History Tobacco Use Types Packs/Day Years Used Date Smoking Tobacco: Never Smokeless Tobacco: Never Alcohol Use Standard Drinks/Week Comments Yes 0 (1 standard drink = 0.6 oz pur e alcohol) 2 drinks week PHQ-2 Answer Date Recorded PHQ-2 Score 0 10/04/2018 Sex and Gender Information Value Date Recorded Sex Assigned at Not on file Legal 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 Gender Identity Not on file Sexual Orientation Not on file 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 file Not on file Not on fi le documented as of this encounter Plan of Treatment Not on file documented as of this encounter Visit Diagnoses Not on filedocumented in this encounter Care Teams Ladle Filler Relationship Specialty Start Date End Date Gamal Vásquez MD [address] [place] [address] PCP - General Internal Medicine 04/14/15 Isabelle Gleason MD [address] [place] [address] BMT Physician Hematology 03/21/18 Gamal Vásquez MD [address] [place] [address] Assigned PCP 04/06/15 08/23/20 Richa Carmona MD [address] [facility] [address] [place] [address] Assigned Heart and Vascular Provider 07/18/20 09/27/20 Juve Portillo MD [address] [place] [address] Assigned PCP 08/24/20 09/20/20 Gamal Vásquez MD [address] [place] [address] Assigned PCP 09/21/20 09/10/22 Guilherme Sprague MD [address] [place] [address] Urology 09/22/20 Parish Hammer MD Assigned Heart and Vascular Provider 10/05/20 11/14/21 Shay Dunlap PA-C [address] [place] [address] Assigned Surgical Provider 12/10/20 12/27/20 Guilherme Sprague MD [address] [place] [address] Assigned Surgical Provider 12/28/20 12/15/24 Shay Dunlap PA-C [address] [place] [address] Assigned Musculoskeletal Provider 03/15/21 04/16/22 Soco Magana PA-C [address] [place] [address] Assigned Heart and Vascular Provider 11/15/21 06/17/24 Gamal Vásquez MD [address] [address] Assigned PCP 11/20/22 09/16/23 [facility] 303 [place] [address] Assigned PCP 10/20/23 documented as of this encounter
--- OUTSIDE RECORDS SUMMARY | 2025-01-01 17:03 | XMS_ITS | Encounter Summary ---
Author Organization [facility] Address [address] [place] [address]. [place] [address] Care Team Providers Care Geek Squad Autotech Name Role Phone Gamal Vásquez MD Primary Care Provider Isabelle Gleason MD Unavailable Unavailable Gamal Vásquez MD Unavailable [phone] Guilherme Sprague MD Unavailable [phone] Parish Hammer MD Unavailable Un available Guilherme Sprague MD Unavailable [phone] Shay Dunlap PA-C Unavailable [phone] Soco Magana-Kavin Unavailable [phone] Gamal Vásquez MD Unavailable [phone] [facility] Unavailable Encounter Details Date Type Department Care Team (Late st Contact Info) Description 06/30/2021 [facility] [address] [place] [id number] Myranda Castillo, CASINO FLOOR SUPERVISOR Social History Tobacco Use Types Packs/Day Years [...] asked 09/10/2020 How often do you attend cheondoism or uatsdin serv ices? 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 on file Not on file Not on fi le documented as of this encounter Plan of Treatment Not on file documented as of this encounter Visit Diagnoses Not on filedocumented in this encounter Care Teams Geek Squad Autotech Relationship Specialty Start Date End Date Gamal Vásquez MD [address] [place] [address] PCP - General Internal Medicine 04/14/15 Isabelle Gleason MD [address] [place] [address] BMT Physician Hematology 03/21/18 Gamal Vásquez MD [address] [place] [address] Assigned PCP 09/21/20 09/10/22 Guilherme Sprague MD [address] [address] Urology 09/22/20 Parish Hammer MD Assigned Heart and Vascular Provider 10/05/20 11/14/21 Guilherme Sprague MD [address] [place] [address] Assigned Surgical Provider 12/28/20 Shay Dunlap PA-C [address] [place] [address] Assigned Musculoskeletal Provider 03/15/21 04/16/22 Soco Magana PA-C [address] [place] [address] Assigned Heart and Vascular Provider 11/15/21 06/17/24 Gamal Vásquez MD 303 [facility] 160 [place] [address] Assigned PCP 11/20/22 09/16/23 [facility] 303 [place], [place] [address] Assigned PCP 10/20/23 documented as of this encounter
--- OUTSIDE RECORDS SUMMARY | 2025-01-01 17:03 | XMS_ITS | Encounter Summary ---
Author Organization [facility] Address [address] [place] [address]. [place] [address] Care Team Providers Care Television Receiver Analyzer Name Role Phone Gamal Vásquez MD Primary Care Provider Isabelle Gleason MD Unavailable Unavailable Gamal Vásquez MD Unavailable [phone] Richa Carmona MD Unavailable + Juve Portillo MD Unavailable Gamal Vásquez MD Unavailable [phone] Guilherme Sprague MD Unavailable [phone] Parish Hammer MD Unavailable Un available Shay Dunlap PA-C Unavailable [phone] Guilherme Sprague MD Unavailable Shay Dunlap PA-C Unavailable [phone] Soco Magana PA-C Unavailable [phone] Gamal Vásquez MD Unavailable [facility] Unavailable Reason for Visit * Reason Comments Medication Refill Encounter Details Date Type Department Care Team (Late st Contact Info) Description 03/10/2020 [facility] [address] [place] [address] Liya Ruiz MD [address] [place] [address] Medication Refill Social History Tobacco Use Types Packs/Day Years Used Date Smoking Tobacco: Never Smokeless Tobacco: Never Alcohol Use Standard Drinks/Week Comments Yes 0 (1 standard drink = 0.6 oz pur e alcohol) 2 drinks week PHQ-2 Answer Date Recorded PHQ-2 Score 0 10/04/2018 Sex and Gender Information Value Date Recorded Sex Assigned at Not on file Legal Sex Male 4:23 AM MECHANICAL INSPECTOR Gender Identity Not on file Sexual Orientation Not on file 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 Not on file Not on file [...] dysfunction documented in this encounter Care Teams Television Receiver Analyzer Relationship Specialty Start Date End Date Gamal Vásquez MD [address] [place] [address] PCP - General Internal Medicine 04/14/15 Isabelle Gleason MD [address] [place] [address] BMT Physician Hematology 03/21/18 Gamal Vásquez MD [address] [place] [address] Assigned PCP 04/06/15 08/23/20 Richa Carmona MD [address] [place] [address] Assigned Heart and Vascular Provider 07/18/20 09/27/20 Juve Portillo MD [address] [place] [address] Assigned PCP 08/24/20 09/20/20 Gamal Vásquez MD [address] [place], [place] [address] Assigned PCP 09/21/20 09/10/22 Guilherme Sprague MD [address] [place], [place] [address] Urology 09/22/20 Parish Hammer MD Assigned Heart and Vascular Provider 10/05/20 11/14/21 Shay Dunlap PA-C [address] [place] [address] Assigned Surgical Provider 12/10/20 12/27/20 Guilherme Sprague MD [address] [place] [address] Assigned Surgical Provider 12/28/20 12/15/24 Shay Dunlap PA-C [address] [place] [address] Assigned Musculoskeletal Provider 03/15/21 04/16/22 Soco Magana PA-C [address] [place] [address] Assigned Heart and Vascular Provider 11/15/21 06/17/24 Gamal Vásquez MD 303 [facility] 160 [place] [address] Assigned PCP 11/20/22 09/16/23 [facility] 303 [place] [address] Assigned PCP 10/20/23 documented as of this encounter
[2025-01-01 17:11] VITALS: BP 168/86; PULSE 89; RESP 18; TEMP 36.8; O2SAT 96; BMI 31.8
[2025-01-01 18:00] LABS: PCR FLU A Negative PCR FLU A (Negative); PCR FLU B Negative PCR FLU B (Negative); PCR RSV Negative PCR RSV (Negative); SARS PCR* Negative SARS-CoV-2 (Negative)
--- OUTSIDE RECORDS SUMMARY | 2025-01-01 19:07 | XMS_ITS | Clinical Summary ---
Author Organization [facility] Address [address] [place] [address] Care Team Providers Care Senior Private Client Advisor Name Role Phone Gamal Vásquez MD Primary Care Provider [phone] Allergies No known active allergies Medications acetaminophen [...] tablet Take 440 mg by mouth. Active Blythe Disp Lopeno 18Gx1 18 gauge x 1 ndle USE [...] ben Non-React ben 07/18/2018 9:42 PM CDT [facility] Comment:Antibodies to HCV no t detected; does not exclude the possibility of exposure to HCV. Blood BLOOD SPECIMEN / Unknown 07/18/2018 2:13 PM CDT 07/18/2018 6:58 PM CDT us Gilberto Baker MD SEND OUTS Final Res ult [facility] [address] [place] [address], from Last 3 Months or Most Recently Relevant to Health Maintenance Insurance [facility] NON-IN-ITS Care Teams Senior Private Client Advisor Relationship Specialty Start Date End Date Gamal Vásquez MD [address] [facility] [address] [place] [address] PCP - General Internal Medicine 04/02/24
--- OUTSIDE RECORDS SUMMARY | 2025-01-01 19:07 | XMS_ITS | Encounter Summary ---
Author Organization [facility] Address [address] [place] [address] Care Team Providers Care Labor Economics Professor Name Role Phone Elsewhere, Pcp Primary Care Provider Unavailabl e Encounter Details Date Type Department Care Team (Late st Contact Info) Description 12/14/2024 Orders Only [facility], Ninth Floor [address] [place] [address] Tamiko Huffman M.D. [address] [place] [phone] Social History Tobacco Use Types Packs/Day Years Used Date Smoking Tobacco: Former Cigarettes Passive Smoke Exposure: Past Smokeless Tobacco: Never Comments:High School Quit 18 Alcohol Use Standard Drinks/Week Comments Not Currently 0 (1 standard drink = 0.6 oz pur e alcohol) [facility] Utilities Answer Date Recorded In the past 12 months has [facility] [employer], oil, or water [employer] threatened to shut off services in your [...] and Family Once a week 05/04/2019 Attends [employer] 1 to 4 times per year [...] Answer Date Recorded PHQ-2 Score 0 04/12/2024 [facility] Questionnaire Answer Date [...] your living situation today? I have a [facility] place to live 10/26/2024 Education Answer Date Recorded What is the highest level of school you have completed or the highest degree you have received? 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 [address] [place] [phone] 01/21/2025 9:45 AM CDT Appointment Department of Radiology, [facility] in [place], [place] [address] [place] [address] Helga Raymundo APRN, C.N.P., D.N.P., M.S.N. [address] [place] [phone] 01/21/2025 2:30 PM CDT Office Visit Department of Neurologic Surgery in [place], [place] [address] [place] [phone] Gwendolyn Lombardo APRN, LOOM OPERATOR APPRENTICE, D.N.P., M.S.N. [address] [place] [phone] 01/29/2025 8:20 AM CDT Appointment Department of Laboratory Medicine and Pathology, [facility] in [place], [place] [address] [place] [address] Tamiko Huffman M.D. [address] [place] [phone] 01/29/2025 10:45 AM CDT Office Visit Division of Hematology in [place], [place] [address] [place] [phone] Tamiko Huffman M.D. [address] [place] [phone] documented as of this encounter Visit Diagnoses Not on filedocumented in this encounter Additional Health Concerns Assessment Noted Time PHQ-9 Depression Total Score: 1 04/12/20 24 6:50 AM CDT documented as of this encounter Care Teams Labor Economics Professor Relationship Specialty Start Date End Date Elsewhere, Pcp PCP - General Internal Medicine 08/09/24 documented as of this encounter
--- OUTSIDE RECORDS SUMMARY | 2025-01-01 19:07 | XMS_ITS | Encounter Summary ---
Author Organization [facility] Address [address] [place] [address]. [place] [address] Care Team Providers Care Machine Cloth Measurer Name Role Phone Gamal Vásquez MD Primary Care Provider Isabelle Gleason MD Unavailable Unavailable Guilherme Sprague MD Unavailable [phone] Guilherme Sprague MD Unavailable [phone] Soco Magana PA-C Unavailable [phone] Gamal Vásquez MD Unavailable [phone] [facility] Unavailable Reason for Visit * Reason Comments Medication Refill Encounter Details Date Type Department Care Team (Late st Contact Info) Description 08/28/2023 [facility] [address] [place] [address] Gamal Vásquez MD [address] [place] [address] Medication Refill Social History Tobacco Use Types [...] asked 09/10/2020 How often do you attend amish or zoroastrianism serv ices? 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 Gender Identity Not on file Sexual [...] dysfunction documented in this encounter Care Teams Machine Cloth Measurer Relationship Specialty Start Date End Date Gamal Vásquez MD [address] [place] [address] PCP - General Internal Medicine 04/14/15 Isabelle Gleason MD [address] [place] [address] BMT Physician Hematology 03/21/18 Guilherme Sprague MD [address] [place] [address] Urology 09/22/20 Guilherme Sprague MD [address] [place] [address] Assigned Surgical Provider 12/28/20 12/15/24 Soco Magana PA-C [address] [place] [address] Assigned Heart and Vascular Provider 11/15/21 06/17/24 Gamal Vásquez MD 303 [facility] 160 [place] [address] Assigned PCP 11/20/22 09/16/23 [facility] [address] [place], [place] [address] Assigned PCP 10/20/23 documented as of this encounter
--- OUTSIDE RECORDS SUMMARY | 2025-01-01 19:07 | XMS_ITS | Encounter Summary ---
Author Organization [facility] Address [address] [place] [address] Care Team Providers Care Tablet Coater Name Role Phone Gilberto Baker MD Primary Care Provider [phone] Gamal Vásquez MD Primary Care Provider [phone] Isabelle Gleason MD Unavailable Unavailable Gamal Vásquez MD Unavailable [phone] Gamal Vásquez MD Unavailable [phone] Richa Carmona MD Unavailable + Juve Portillo MD Unavailable [phone] Gamal Vásquez MD Unavailable [phone] Guilherme Sprague MD Unavailable [phone] Parish Hammer MD Unavailable Un available Sahy Dunlap PA-C Unavailable [phone] Guilherme Sprague MD Unavailable [phone] Shay Dunlap PA-C Unavailable [phone] Soco Magana PA-C Unavailable [phone] Gamal Vásquez MD Unavailable [phone] [facility] Unavailable Encounter Details Date Type Department Care Team (Late st Contact Info) Description 04/11/2015 [facility] [place] [address] [place] [phone] Gamal Vásquez MD [address] [place], [place] [address] Social History Tobacco Use Types Packs/Day Years Used Date Smoking Tobacco: Never Smokeless Tobacco: Never Alcohol Use Standard Drinks/Week Comments Yes 0 (1 standard drink = 0.6 oz pure alcohol) About one beer daily on average Sex and Gender Information Value Date Recorded Sex Assigned at Not on file 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 Gender Identity Not on file Sexual Orientation Not on file 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 on file Not on file Not on fi le documented as of this encounter Plan of Treatment Not on file documented as of this encounter Visit Diagnoses Not on filedocumented in this encounter Care Teams Tablet Coater Relationship Specialty Start Date End Date Gilberto Baker MD [facility] [address] [facility] 210 [place], [place] [address] PCP - General Oncology 01/16/14 04/13/15 Gamal Vásquez MD [address] [place] [address] PCP - General Internal Medicine 04/14/15 Gamal Vásquez MD [address] [place] [address] PCP - Assigned PCP 04/06/15 11/28/18 Isabelle Gleason MD [address] [place] [address] BMT Physician Hematology 03/21/18 Gamal Vásquez MD [address] [place] [address] Assigned PCP 04/06/15 08/23/20 IsRicha ku MD [address] [place] [address] Assigned Heart and Vascular Provider 07/18/20 09/27/20 Juve Portillo MD [address] [place] [address] Assigned PCP 08/24/20 09/20/20 Gamal Vásquez MD [address] [place] [address] Assigned PCP 09/21/20 09/10/22 Guilherme Sprague MD [address] [place] [address] Urology 09/22/20 Parish Hammer MD Assigned Heart and Vascular Provider 10/05/20 11/14/21 Shay Dunlap PA-C [address] [place] [address] Assigned Surgical Provider 12/10/20 12/27/20 Guilherme Sprague MD [address] [place] [address] Assigned Surgical Provider 12/28/20 12/15/24 Shay Dunlap PA-C [address] [place] [address] Assigned Musculoskeletal Provider 03/15/21 04/16/22 Soco Magana PA-C [address] [place] [address] Assigned Heart and Vascular Provider 11/15/21 06/17/24 Gamal Vásquez MD 303 [facility] 160 [place] [address] Assigned PCP 11/20/22 09/16/23 [facility] 303 [place] [address] Assigned PCP 10/20/23 documented as of this encounter
--- OUTSIDE RECORDS SUMMARY | 2025-01-01 19:07 | XMS_ITS | Encounter Summary ---
Author Organization [facility] Address [address] [place] [address] Care Team Providers Care Semiconductor Packages Leak Tester Name Role Phone Elsewhere, Pcp Primary Care Provider Unavailabl e Encounter Details Date Type Department Care Team (Latest Contact Info) Description 12/10/2024 2:14 PM CDT - 12/10/2024 11:59 PM CDT Hospital Encounter Department of Laboratory Medicine in [address] [phone] Ha Nolasco M.D. [address] [place] [address] CAR-T Recipient Encounter For Antineoplastic Immunotherapy; Follicular [...] Answer Date Recorded PHQ-2 Score 0 04/12/2024 [facility] - Occupational [...] your living situation today? [facility] live 10/26/2024 Education Answer Date Recorded What is the highest level of school you have completed or the highest degree you have received? 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 [address] [place] [phone] 01/21/2025 9:45 AM CDT Appointment Department of Radiology, [facility] in [place], [place] [address] [place] [phone] Helga Raymundo APRN, C.N.P., D.N.P., M.S.N. [address] [place] [phone] 01/21/2025 2:30 PM CDT Office Visit Department of Neurologic Surgery in [place], [place] [address] [place] [phone] Gwendolyn Lombardo APRN, CLEANING ATTENDANT, D.N.P., M.S.N. [address] [place] [phone] 01/29/2025 8:20 AM CDT Appointment Department of Laboratory Medicine and Pathology, [facility] in [place], [place] [address] [place] [phone] Tamiko Huffman M.D. [address] [place] [phone] 01/29/2025 10:45 AM CDT Office Visit Division of Hematology in [place], [place] [address] [place] [phone] Tamiko Huffman M.D. [address] [place] [phone] documented as of this encounter Procedures Procedure [...] Ratio 1.0 >=0.9 12/11/2024 3:22 PM CDT [facility] Comment: ----ADDITIONAL INFORMATION---- This test was developed using an analyte specific reagent. Its performance characteristics were determined by [facility] in a manner consistent with CLIA requirements. This test has not been cleared or approved by the U.S. Food and Drug Administration. Blood (Blood, Venous) 12/10/2024 2:20 PM CDT 12/11/2024 8:05 AM CDT Ha Mars M.D. LAB BLOOD ADD-ON Final Result Performing Organization Address City/[facility]/ZIP Co de Phone Number [facility] [address] [place] [address] [facility] [address] [place] [address] [place] Blood [id number] * CMV DNA Detect / Quant, Plasma (12/10/2024 2:20 PM CDT) [facility] CMV DNA Detect/Quant, P Undetected Undetected IU/mL 12/11/2024 11:16 AM CDT [facility] Comment: Result in log IU/mL is Undetected. ----ADDITIONAL INFORMATION---- The quantification range of this assay is 35 to 10,000,000 IU/mL (1.54 log to 7.00 log IU/mL). Testing was performed using the dirk CMV test ([employer] Blood (Blood, Venous) 12/10/2024 2:20 PM CDT 12/11/2024 7:10 AM CDT Ha Mars M.D. LAB MICROBIOLOGY - BLOOD ORDERABLES Final Result Performing Organization Address City/[facility]/ZIP Co de Phone Number [facility] [address] [place] [address] [facility] [address] [place] [address] [place] [address] * (ABNORMAL) Immunoglobulin G (IgG) (12/10/2024 2:20 PM CDT) [facility] Immunoglobulin G (IgG), S 421(L) 767 - 1590 mg/dL 12/11/2024 8:21 AM CDT ECLR Blood (Blood, Venous) 12/10/2024 2:20 PM CDT 12/10/2024 9:02 PM CDT us Ha Mars M.D. 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
--- OUTSIDE RECORDS SUMMARY | 2025-01-01 19:07 | XMS_ITS | Encounter Summary ---
Author Organization [facility] Address [address] [place] [address]. [place] [address] Care Team Providers Care Supervisor Show Operations Name Role Phone Gamal Vásquez MD Primary Care Provider Isabelle Gleason MD Unavailable Unavailable Gamal Vásquez MD Unavailable [phone] Gamal Vásquez MD Unavailable [phone] Richa Carmona MD Unavailable + Juve Portillo MD Unavailable [phone] Gamal Vásquez MD Unavailable [phone] Guilherme Sprague MD Unavailable [phone] Parish Hammer MD Unavailable Un available Shay Dunlap PA-C Unavailable [phone] Guilherme Sprague MD Unavailable [phone] Shay Dunlap PA-C Unavailable [phone] Soco Magana PA-C Unavailable [phone] Gamal Vásquez MD Unavailable [phone] [facility] Unavailable Encounter Details Date Type Department Care Team (Late st Contact Info) Description 04/18/2017 [facility] [address] [place] [address] Gamal Vásquez MD [address] [place] [address] Social History Tobacco Use Types Packs/Day Years Used Date Smoking Tobacco: Never Smokeless Tobacco: Never Alcohol Use Standard Drinks/Week Comments Yes 0 (1 standard drink = 0.6 oz pur e alcohol) 2 drinks week Sex and Gender Information Value Date Recorded Sex Assigned at Not on file 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 Gender Identity Not on file Sexual Orientation Not on file 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 Not on file Not on fi le documented as of this encounter Plan of Treatment Not on file documented as of this encounter Visit Diagnoses Not on filedocumented in this encounter Care Teams Supervisor Show Operations Relationship Specialty Start Date End Date Gamal Vásquez MD [address] [place] [address] PCP - General Internal Medicine 04/14/15 Gamal Vásquez MD [address] [place] [address] PCP - Assigned PCP 04/06/15 11/28/18 Isabelle Gleason MD [address] [place] [address] BMT Physician Hematology 03/21/18 Gamal Vásquez MD [address] [place] [address] Assigned PCP 04/06/15 08/23/20 Richa Carmona MD [address] [place] [address] Assigned Heart and Vascular Provider 07/18/20 09/27/20 Juve Portillo MD [address] [place] [address] Assigned PCP 08/24/20 09/20/20 Gamal Vásquez MD [address] [address] Assigned PCP 09/21/20 09/10/22 Guilherme Sprague MD [address] [place] [address] Urology 09/22/20 Parish Hammer MD Assigned Heart and Vascular Provider 10/05/20 11/14/21 Shay Dunlap PA-C [address] [place] [address] Assigned Surgical Provider 12/10/20 12/27/20 Guilherme Sprague MD [address] [place], [place] [address] Assigned Surgical Provider 12/28/20 12/15/24 Shay Dunlap PA-C [address] [place] [address] Assigned Musculoskeletal Provider 03/15/21 04/16/22 Soco Magana PA-C [address] [place], [place] [address] Assigned Heart and Vascular Provider 11/15/21 06/17/24 Gamal Vásquez MD [address] [address] Assigned PCP 11/20/22 09/16/[address] [address] Assigned PCP 10/20/23 documented as of this encounter
--- OUTSIDE RECORDS SUMMARY | 2025-01-01 19:07 | XMS_ITS | Clinical Summary ---
Author Organization [facility] Address [address] [place] [address] Care Team Providers Care Recruiting Operations Consultant Name Role Phone No Primary/Referring, Phy Primary Care Provider Unavailable Source Comments You are receiving this document as you are listed as the primary care provider,follow-up provider, or the patient has been referred to you for consultation.This is in compliance with the Medicare and[facility] EHR Incentive Program,which states Providers who transition their patient to another setting of careor provider of care or refers their patient to another provider of care shouldprovide summary care record for each transition of care or referral. [facility] Allergies No known active allergies Medications atorvastatin [...] patient's age to complete this topic Insurance [facility] Care Teams Recruiting Operations Consultant Relationship Specialty Start Date End Date No Primary/Referring, y PCP - General 01/12/20
--- OUTSIDE RECORDS SUMMARY | 2025-01-01 19:07 | XMS_ITS | Clinical Summary ---
Author Organization [facility] Address [address] [place] [address]. 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 on file Not on file Not [...] this topic Medical Devices Explanted Type Area Plumber'S Helper Device Identifier Shelf Expiration Date Model / Serial / Lot Port Explanted:2016 by Lorenzo Brooks MD (Quantity not on file) Port Procedures Procedure Name Priority Date/Time Associated Diagnosis Comments CT CHEST/ABDOMEN/PELVIS W CONTRAST Routine 08/24/2023 10:25 AM DELIVERY LEAD 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 [...] LAB - BLOOD ORDERABLES Final Result LABORATORY [facility] [place] [facility] Lab [address] [facility], [address] [place] [address], [facility] [phone] * (ABNORMAL) Basic metabolic panel (Ca, Cl, CO2, Creat, Gluc, K, Na, BUN) (02/02/2022 10:32 AM CDT) [facility] Sodium 137 133 - 144 mmol/L 02/02/2022 [...] and gender (Manuela et al., NEJM, DOI: 10.1056/VZBHfv0206874) Blood STRUCTURE OF LEFT HAND / Unknown Venipuncture / Unknown 02/02/2022 10:32 AM CDT 02/02/2022 10:32 AM CDT us Bong Eller MD LAB - BLOOD ORDERABLES Final Result LABORATORY [facility] Acute Care Lab [address] [facility] Lab (1st floor, no room number) [place] [address], [facility] [phone] from Last 3 Months or Most Recently Relevant to Health Maintenance Insurance [place] [address] Care Teams Applications Specialist Relationship Specialty Start Date End Date Gamal Vásquez MD [address] [address] PCP - General Internal Medicine 04/14/15 Isabelle Gleason MD [address] [address] BMT Physician Hematology 03/21/18 Guilherme Sprague MD [address] [address] Urology 09/22/20 [facility] [address] [place] [address] Assigned PCP 10/20/23
--- OUTSIDE RECORDS SUMMARY | 2025-01-01 19:07 | XMS_ITS | Encounter Summary ---
Author Organization [facility] Address [address] [place] [address] Care Team Providers Care Cloth Bale Header Name Role Phone Elsewhere, Pcp Primary Care Provider Unavailabl e Reason for Visit * Reason Onset Date Comments Rx Prior Authorization 12/12/2024 BS does not have prior auth rqst for IVIG Encounter Details Date Type Department Care Team (Latest Contact Info) Description 12/12/2024 Clinical Communication Division of Hematology in [place], [place] [address] [place] [address] Tamiko Huffman M.D. [address] [place] [phone] Rx Prior Authorization ([facility] does not have prior auth rqst for IVIG) Social History Tobacco Use Types Packs/Day Years Used Date Smoking Tobacco: Former Cigarettes Passive Smoke Exposure: Past Smokeless Tobacco: Never Comments:High School Quit 18 Alcohol Use Standard Drinks/Week Comments Not Currently 0 (1 standard drink = 0.6 oz pur e alcohol) 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 [address] [place] [phone] 01/21/2025 9:45 AM CDT Appointment Department of Radiology, [facility] in [place], [place] [address] [place] [address] Helga Raymundo, GERSON, C.N.P., D.N.P., M.S.N. [address] [place] [phone] 01/21/2025 2:30 PM CDT Office Visit Department of Neurologic Surgery in [place], [place] [address] [place] [phone] Gwendolyn Lombardo APRN, PROPERTY SITE MANAGER, D.N.P., M.S.N. [address] [place] [phone] 01/29/2025 8:20 AM CDT Appointment Department of Laboratory Medicine and Pathology, [facility] in [place], [place] [address] [place] [phone] Tamiko Huffman M.D. [address] [place] [phone] 01/29/2025 10:45 AM CDT Office Visit Division of Hematology in [place], [place] [address] [place] [phone] Tamiko Huffman M.D. [address] [place] [phone] documented as of this encounter Visit Diagnoses Not on filedocumented in this encounter Additional Health Concerns Assessment Noted Time PHQ-9 Depression Total Score: 1 04/12/20 24 6:50 AM CDT documented as of this encounter Care Teams Cloth Bale Header Relationship Specialty Start Date End Date Elsewhere, Pcp PCP - General Internal Medicine 08/09/24 documented as of this encounter
--- OUTSIDE RECORDS SUMMARY | 2025-01-01 19:07 | XMS_ITS | Clinical Summary ---
Author Organization [facility] Address [address] [place] [address] Phone Care Team Providers Care Conveyor Mechanic Name Role Phone Gamal Vásquez MD Primary Care Provider [phone] Medications Medication Sig Dispensed Refills Start Date [...] of Treatment Not on file Care Teams Conveyor Mechanic Relationship Specialty Start Date End Date Gamal Vásquez MD [address] [facility] [address] [place] [address] PCP - General 08/06/19
--- OUTSIDE RECORDS SUMMARY | 2025-01-01 19:08 | XMS_ITS | Encounter Summary ---
Author Organization [facility] Address [address] [place] [address] Care Team Providers Care Heavy Equipment Rental Manager Name Role Phone Elsewhere, Pcp Primary Care Provider Unavailabl e Encounter Details Date Type Department Care Team (Late st Contact Info) Description 12/18/2024 Clinical Communication Division of Hematology in [place], [place] [address] [place] [phone] Tamiko Huffman M.D. [address] [place] [address] Social History Tobacco Use Types Packs/Day Years Used Date Smoking Tobacco: Former Cigarettes Passive Smoke Exposure: Past Smokeless Tobacco: Never Comments:High School Quit 18 Alcohol Use Standard Drinks/Week Comments Not Currently 0 (1 standard drink = 0.6 oz pur e alcohol) [facility] Utilities Answer Date Recorded In the past 12 months has [facility] [employer], [employer], oil, or water [employer] threatened to shut off services in your [...] and Family Once a week 05/04/2019 Attends Yazidism Services 1 to 4 times per year [...] Answer Date Recorded PHQ-2 Score 0 04/12/2024 [facility] Questionnaire Answer Date [...] your living situation today? I have a [facility] place to live 10/26/2024 Education Answer Date Recorded What is the highest level of school you have completed or the highest degree you have received? 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 [address] [place] [phone] 01/21/2025 9:45 AM CDT Appointment Department of Radiology, [facility] in [place], [place] [address] [place] [address] Helga Raymundo APRN, C.N.P., D.N.P., M.S.N. [address] [place] [phone] 01/21/2025 2:30 PM CDT Office Visit Department of Neurologic Surgery in [place], [place] [address] [place] [address] Gwendolyn Lombardo APRN, POLICE CAPTAIN SENIOR, D.N.P., M.S.N. [address] [place] [phone] 01/29/2025 8:20 AM CDT Appointment Department of Laboratory Medicine and Pathology, [facility] in [place], [place] [address] [place] [address] Tamiko Huffman M.D. [address] [place] [phone] 01/29/2025 10:45 AM CDT Office Visit Division of Hematology in [place], [place] [address] [place] [phone] Tamiko Huffman M.D. [address] [place] [phone] documented as of this encounter Results * BUN (Blood Urea Nitrogen) (12/19/2024 3:02 PM CDT) BUN (Blood Urea Nitrogen), P 19 8 - 24 mg/dL 12/19/2024 3:16 PM CDT CNFL Blood (Blood, Venous) 12/19/2024 3:02 PM CDT 12/19/2024 3:03 PM CDT us Tamiko Huffman M.D. LAB BLOOD ADD-ON Final Res ult [facility] [address] [place] [address], [facility] CNFL 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
--- OUTSIDE RECORDS SUMMARY | 2025-01-01 19:08 | XMS_ITS | Encounter Summary ---
Author Organization [facility] Address [address] [place] [address]. [place] [address] Care Team Providers Care Telephone Plant Power Operator Name Role Phone Gamal Vásquez MD Primary Care Provider [phone] Isabelle Gleason MD Unavailable Unavailable Gamal Vásquez MD Unavailable [phone] Guilherme Sprague MD Unavailable [phone] Guilherme Sprague MD Unavailable [phone] Soco Magana PA-C Unavailable [phone] Gamal Vásquez MD Unavailable [phone] [facility] Unavailable Encounter Details Date Type Department Care Team (Late st Contact Info) Description 08/09/2022 [facility] Medical Advice [facility] Insurance Verification [place] Social [...] asked 09/10/2020 How often do you attend spiritism or taoist serv ices? 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 Not on file Not on file Not on fi le documented as of this encounter Plan of Treatment Not on file documented as of this encounter Visit Diagnoses Not on filedocumented in this encounter Care Teams Telephone Plant Power Operator Relationship Specialty Start Date End Date Gamal Vásquez MD [address] [place] [address] PCP - General Internal Medicine 04/14/15 Isabelle Gleason MD [address] [place] [address] BMT Physician Hematology 03/21/18 Gamal Vásquez MD [address] [place] [address] Assigned PCP 09/21/20 09/10/22 Guilherme Sprague MD [address] [place] [address] Urology 09/22/20 Guilherme Sprague MD [address] [place] [address] Assigned Surgical Provider 12/28/20 12/15/24 Soco Magana PA-C [address] [place] [address] Assigned Heart and Vascular Provider 11/15/21 06/17/24 Gamal Vásquez MD [address] [facility] [address] [place] [address] Assigned PCP 11/20/22 09/16/23 [facility] [address] [place], [place] [address] Assigned PCP 10/20/23 documented as of this encounter
--- OUTSIDE RECORDS SUMMARY | 2025-01-01 19:08 | XMS_ITS | Encounter Summary ---
Author Organization [facility] Address [address] [place] [address] Care Team Providers Care Global Logistics Manager Name Role Phone Elsewhere, Pcp Primary Care Provider Unavailabl e Encounter Details Date Type Department Care Team (Latest Contact Info) Description 12/19/2024 8:50 AM CDT - 12/19/2024 11:59 PM CDT Hospital Encounter Department of Laboratory Medicine in [address] [phone] Tamiko Huffman M.D. 200 [place] [address] Sal Parkinson White Syndrome; Follicular Lymphoma Grade [...] drink = 0.6 oz pur e alcohol) [facility] Utilities Answer Date Recorded In the past 12 months has e [employer], gas, oil, or water company threatened to [...] and Family Once a week 05/04/2019 Attends Latter-Day Services 1 to 4 times per year [...] Answer Date Recorded PHQ-2 Score 0 04/12/2024 [facility] - Occupational Stress Questionnaire Answer Date [...] your living situation today? I have a [facility] place to live 10/26/2024 Education Answer Date Recorded What is the highest level of school you have completed or the highest degree you have received? 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 [address] [place] [phone] 01/21/2025 9:45 AM CDT [facility] [place] [place] [address] [place] [address] Helga Raymundo APRN, C.N.P., D.N.P., M.S.N. [address] [place] [phone] 01/21/2025 2:30 PM CDT Office Visit Department of Neurologic Surgery in [place], [place] [address] [place] [phone] Gwendolyn Lombardo APRN, MONITORING TECH, D.N.P., M.S.N. [address] [place] [phone] 01/29/2025 8:20 AM CDT Appointment Department of Laboratory Medicine and Pathology, [facility] in [place], [place] [address] [place] [phone] Tamiko Huffman M.D. [address] [place] [phone] 01/29/2025 10:45 AM CDT Office Visit Division of Hematology in [place], [place] [address] [place] [phone] Tamiko Huffman M.D. [address] [place] [phone] documented as of this encounter Procedures Procedure [...] ADD-ON Final Res ult Performing Organization Address City/State/[facility] Co de Phone Number [facility] [address] [place] [id number], [facility] CNFL [facility] in [address] [address] documented in this encounter Visit Diagnoses Diagnosis Sal Parkinson White Syndrome 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) Hypogammaglobulinemia (HCC) CAR-T Recipient Encounter For Antineoplastic Immunotherapy documented in this encounter Additional Health Concerns Assessment Noted Time PHQ-9 Depression Total Score: 1 04/12/20 24 6:50 AM CDT documented as of this encounter Care Teams Global Logistics Manager Relationship Specialty Start Date End Date Elsewhere, Pcp PCP - General Internal Medicine 08/09/24 documented as of this encounter
--- OUTSIDE RECORDS SUMMARY | 2025-01-01 19:08 | XMS_ITS | Encounter Summary ---
Author Organization [facility] Address [address] [place] [address] Care Team Providers Care Brass Cleaner Name Role Phone Elsewhere, Pcp Primary Care Provider Unavailabl e Reason for Referral * MRI/CAT/PET Scan (Routine) - Closed Specialty Diagnoses / Procedures Referred By Contac t Referred To Contact Diagnoses CAR-T Recipient Encounter For Antineoplastic Immunotherapy 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) Procedures PET CT Skull to Thigh FDG Tamiko Huffman M.D. 200 [place] [address] Phone: tel: fax: [facility] Referral ID Status Reason Start Date Expiration Date Visits Re quested Visits Authorized [id number] Closed 10/30/2024 01/30/2026 1 1 Reason for Visit * MRI/CAT/PET Scan (Routine) - Closed Specialty Diagnoses / Procedures Referred By Contac nicky Referred To Contact Diagnoses CAR-T Recipient Encounter For Antineoplastic Immunotherapy 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) Procedures PET CT Skull to Thigh FDG Tamiko Huffman M.D. 200 [place] [address] Phone: tel: fax: [facility] Referral ID Status Reason Start Date Expiration Date Visits Re quested Visits Authorized [id number] Closed 10/30/2024 01/30/2026 1 1 Encounter Details Date Type Department Care Team (Latest Contact Info) Description 12/17/2024 3:55 PM CDT - 12/17/2024 11:59 PM CDT Hospital Encounter Department of Radiology, [facility], in [place], [place] [address] [place] [address] Tamiko Huffman M.D. [address] [place] [address] CAR-T Recipient Encounter For Antineoplastic Immunotherapy; 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) Discharge Disposition: Home or Self Care Social History Tobacco Use Types Packs/Day Years Used Date Smoking Tobacco: Former Cigarettes Passive Smoke Exposure: Past Smokeless Tobacco: Never Comments:High School Quit 18 Alcohol Use Standard Drinks/Week Comments Not Currently 0 (1 standard drink = 0.6 oz pur e alcohol) [facility] Utilities Answer Date Recorded In the past 12 months has e [employer], gas, oil, or water [employer] threatened to shut off services in your [...] and Family Once a week 05/04/2019 Attends Congregational Services 1 to 4 times per year [...] Answer Date Recorded PHQ-2 Score 0 04/12/2024 [facility] - Occupational [...] AM CDT 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 [address] [place] [phone] 01/21/2025 9:45 AM CDT Appointment Department of Radiology, [facility] in [place], [place] [address] [place] [address] Helga Raymundo, AVIATION ELECTRICIAN, C.N.P., D.N.P., M.S.N. [address] [place] [phone] 01/21/2025 2:30 PM CDT Office Visit Department of Neurologic Surgery in [place], [place] [address] [place] [phone] Gwendolyn Lombardo APRN, ELECTROPLATER APPRENTICE, D.N.P., M.S.N. [address] [place] [phone] 01/29/2025 8:20 AM CDT Appointment Department of Laboratory Medicine and Pathology, [facility] in [place], [place] [address] [place] [address] Tamiko Huffman M.D. [address] [place] [phone] 01/29/2025 10:45 AM CDT Office Visit Division of Hematology in [place], [place] [address] [place] [phone] Tamiko Huffman M.D. [address] [place] [phone] documented as of this encounter Procedures Procedure [...] RADIOPHARMACEUTICAL/MEDS: Route: intravenous fludeoxyglucose F 18 injection [facility] (FDG F-18),10.02 millicurie TECHNIQUE: F-18 FDG PET/CT [...] RADIOPHARMACEUTICAL/MEDS: Route: intravenous fludeoxyglucose F 18 injection [facility] (FDG F-18),10.02 millicurie TECHNIQUE: F-18 FDG PET/CT [...] 1.9 cm fluid collection at the right S8yrjszixjvwnolpp/L4-5 facetectomy resection site. Significant incidental findings on [...] FDG avid fluid collection at the right N9vrqycowufdyaqvk/L4-5 facetectomy resection site could represent anabscess. Can [...] Dose Rate Site fludeoxyglucose F 18 injection [facility] (FDG F-18) 4.5-16.5 millicurie, intravenous, Once, On 12/17/24 at 1715, For 1 dose, Imaging Protocol Orders Given 12/17/2024 4:50 PM CDT 10.02 millicuries documented in this encounter Additional Health Concerns Assessment Noted Time PHQ-9 Depression Total Score: 1 04/12/20 6:50 AM CDT documented as of this encounter Care Teams Brass Cleaner Relationship Specialty Start Date End Date Elsewhere, Pcp PCP - General Internal Medicine 08/09/24 documented as of this encounter
--- OUTSIDE RECORDS SUMMARY | 2025-01-01 19:08 | XMS_ITS | Encounter Summary ---
Author Organization [facility] Address [address] [place] [address] Care Team Providers Care Information Systems Security Manager Name Role Phone Elsewhere, Pcp Primary Care Provider Unavailabl e Reason for Referral * Outpatient (Routine) - Authorized Specialty Diagnoses / Procedures Referred By Contac t Referred To Contact Neurological Surgery Diagnoses Lesion Spine Lumbar Radiculopathy Lumbar Helga Raymundo APRN, C.N.P., D.N.P., M.S.N. [address] [place] [phone] Phone: tel: fax: Ruthy Mckinnon P.A.-C. [address] [place] [phone] Phone: tel: fax: Referral ID Status Reason Start Date Expiration Date V isits Requested Visits Authorized [id number] Authorized 10/26/2024 04/27/2026 1 1 TAL CARTOGRAPHER * MRI/CAT/PET Scan (Routine) - Authorized Specialty Diagnoses / Procedures Referred By Contac t Referred To Contact Radiology Diagnoses Lesion Spine Lumbar Radiculopathy Lumbar Procedures MR Lumbar Spine without IV Contrast Helga Raymundo APRN, C.N.P., D.N.P., M.S.N. [address] [place] [phone] Phone: tel: fax: [facility] Referral ID Status Reason Start Date Expiration Date V isits Requested Visits Authorized [id number] Authorized 10/26/2024 01/26/2026 1 1 TAL CARTOGRAPHER Reason for Visit * Reason Onset Date Comments Post Hospital Follow-up 10/26/2024 Encounter Details Date Type Department Care Team (Latest Contact Info) Description 10/26/2024 Clinical Communication Department of Neurologic Surgery in [place], [place] [address] [place] [phone] Brittany Mcdowell M.D. [address] [place] [phone] Post Hospital Follow-up Social History Tobacco Use Types Packs/Day Years Used Date Smoking Tobacco: Former Cigarettes Passive Smoke Exposure: Past Smokeless Tobacco: Never Comments:High School Quit 18 Alcohol Use Standard Drinks/Week Comments Not Currently 0 (1 standard drink = 0.6 oz pur e alcohol) [facility] Utilities Answer Date Recorded In the past [address] [facility] [employer], gas, oil, or water [employer] threatened to shut off services in your [...] and Family Once a week 05/04/2019 Attends Yarsani Services 1 to 4 times per year [...] Date Recorded PHQ-2 Score 0 04/12/2024 [facility] - Occupational Stress Questionnaire Answer Date [...] your living situation today? I have a [facility] to live 10/26/2024 Education Answer Date Recorded What is the highest level of school you have completed or the highest degree you have received? 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 200 [place] [address] 01/21/2025 9:45 AM CDT Appointment Department of Radiology, [facility] in [place], [place] [address] [place] [address] Helga Raymundo APRN, C.N.P., D.N.P., M.S.N. [address] [place] [phone] 01/21/2025 2:30 PM CDT Office Visit Department of Neurologic Surgery in [place], [place] [address] [place] [phone] Gwendolyn Lombardo APRN, VISCOSITY WORKER, D.N.P., M.S.N. [address] [place] [phone] 01/29/2025 8:20 AM CDT Appointment Department of Laboratory Medicine and Pathology, [facility] in [place], [place] [address] [place] [phone] Tamiko Huffman M.D. [address] [place] [phone] 01/29/2025 10:45 AM CDT Office Visit Division of Hematology in [place], [place] [address] [place] [phone] Tamiko Huffman M.D. [address] [place] [phone] Scheduled Orders Name Type Priority Associated Diagnoses [...] Time Protective Environment 08/04/2023 08/04/202310/26 8:35 PM DIGITAL CARTOGRAPHER Assessment Noted Time PHQ-9 Depression Total Score: 1 04/12/20 24 6:50 AM CDT documented as of this encounter Care Teams Information Systems Security Manager Relationship Specialty Start Date End Date Elsewhere, Pcp PCP - General Internal Medicine 08/09/24 documented as of this encounter
--- OUTSIDE RECORDS SUMMARY | 2025-01-01 19:08 | XMS_ITS | Encounter Summary ---
Author Organization [facility] Address [address] [place] [address] Care Team Providers Care Solid Waste Landfill Technician Name Role Phone Elsewhere, Pcp Primary Care Provider Unavailabl e Encounter Details Date Type Department Care Team (Late st Contact Info) Description 12/19/2024 Orders Only Division of Hematology in [place], [place] [address] [place] [phone] Tamiko Huffman M.D. [address] [place] [address] Sal Parkinson White Syndrome (Primary Dx); Follicular [...] drink = 0.6 oz pur e alcohol) [facility] Utilities Answer Date Recorded In the past 12 months has e [employer], gas, oil, or water [employer] threatened to shut off services in your [...] 0 04/12/2024 [facility]at ionde Health - Occupational Stress Questionnaire Answer Date [...] your living situation today? I have a [facility] place to live 10/26/2024 Education Answer Date Recorded What is the highest level of school you have completed or the highest degree you have received? 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 [address] [place] [phone] 01/21/2025 9:45 AM CDT Appointment Department of Radiology, [facility] in [place], [place] [address] [place] [address] Helga Raymundo, SENIOR ACCOUNTING MANAGER, C.N.P., D.N.P., M.S.N. [address] [place] [phone] 01/21/2025 2:30 PM CDT Office Visit Department of Neurologic Surgery in [place], [place] [address] [place] [phone] Gwendolyn Lombardo APRN, ENERGY RISK MANAGEMENT ANALYST, D.N.P., M.S.N. [address] [place] [phone] 01/29/2025 8:20 AM CDT Appointment Department of Laboratory Medicine and Pathology, [facility] in [place], [place] [address] [place] [phone] Tamiko Huffman M.D. [address] [place] [phone] 01/29/2025 10:45 AM CDT Office Visit Division of Hematology in [place], [place] [address] [place] [phone] Tamiko Huffman M.D. [address] [place] [phone] documented as of this encounter Results * [...] M.D. LAB BLOOD ADD-ON Final Res ult [facility] [address] [place] [address], [place] CNFL [facility] in [address] [address] documented in this encounter Visit Diagnoses Diagnosis Sal Parkinson White Syndrome- Primary 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) Hypogammaglobulinemia (HCC) CAR-T Recipient Encounter For Antineoplastic Immunotherapy documented in this encounter Additional Health Concerns Assessment Noted Time PHQ-9 Depression Total Score: 1 04/12/20 24 6:50 AM CDT documented as of this encounter Care Teams Solid Waste Landfill Technician Relationship Specialty Start Date End Date Elsewhere, Pcp PCP - General Internal Medicine 08/09/24 documented as of this encounter
--- OUTSIDE RECORDS SUMMARY | 2025-01-01 19:08 | XMS_ITS | Encounter Summary ---
Author Organization [facility] Address [address] [place] [address] Care Team Providers Care Bank Sales And Service Manager Name Role Phone Elsewhere, Pcp Primary Care Provider Unavailabl e Reason for Visit * Reason Comments Med Refill Encounter Details Date Type Department Care Team (Late st Contact Info) Description 12/24/2024 Refill Division of Hematology in [place], [place] [address] [place] [phone] Que Olivares M.D. [address] [place] [phone] Med Refill Social History Tobacco Use Types Packs/Day Years Used Date Smoking Tobacco: Former Cigarettes Passive Smoke Exposure: Past Smokeless Tobacco: Never Comments:High School Quit 18 Alcohol Use Standard Drinks/Week Comments Not Currently 0 (1 standard drink = 0.6 oz pur e alcohol) [facility] Utilities Answer Date Recorded In the past 12 months has [facility] [employer], oil, or water [employer] threatened to shut off services in your [...] and Family Once a week 05/04/2019 Attends Bahai Services 1 to 4 times per year [...] Answer Date Recorded PHQ-2 Score 0 04/12/2024 [facility] of Occupat ional Health - Occupational Stress [...] your living situation today? I have a [facility] place to live 10/26/2024 Education Answer Date Recorded What is the highest level of school you have completed or the highest degree you have received? 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 [address] [place] [phone] 01/21/2025 9:45 AM CDT Appointment Department of Radiology, [facility] in [place], [place] [address] [place] [phone] Helga Raymundo APRN, C.N.P., D.N.P., M.S.N. [address] [place] [phone] 01/21/2025 2:30 PM CDT Office Visit Department of Neurologic Surgery in [place], [place] [address] [place] [phone] Gwendolyn Lombardo APRN, POPPED CORN OVEN ATTENDANT, D.N.P., M.S.N. [address] [place] [phone] 01/29/2025 8:20 AM CDT Appointment Department of Laboratory Medicine and Pathology, [facility] in [place], [place] [address] [place] [phone] Tamiko Huffman M.D. [address] [place] [phone] 01/29/2025 10:45 AM CDT Office Visit Division of Hematology in [place], [place] [address] [place] [phone] Tamiko Huffman M.D. [address] [place] [phone] documented as of this encounter Visit Diagnoses Diagnosis 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) CAR-T Recipient Encounter For Antineoplastic Immunotherapy documented in this encounter Additional Health Concerns Assessment Noted Time PHQ-9 Depression Total Score: 1 04/12/20 6:50 AM CDT documented as of this encounter Care Teams Bank Sales And Service Manager Relationship Specialty Start Date End Date Elsewhere, Pcp PCP - General Internal Medicine 08/09/24 documented as of this encounter
--- OUTSIDE RECORDS SUMMARY | 2025-01-01 19:08 | XMS_ITS | Clinical Summary ---
Author Organization [facility] Address [address] [place] [address] Care Team Providers Care Reinforcing Steel Erector Name Role Phone Elsewhere, Pcp Primary Care Provider Unavailabl e Source Comments Patient records contain information from all sites at [facility]. For routine questions regarding patient records, call [phone] during business hours, M-F 8:00 AM - 5:00 PM Central Time. Record requests for emergency care only can be directed to [phone] at any time.[facility] Allergies No known active allergies Medications [...] days. 4 mL 10/27/19 25 1:16 PM COMMERCIAL PEST CONTROL TECHNICIAN 025 Active oxyCODONE (Roxicodone) 5 mg immediate [...] CDT Infusion Department of Infusion Therapy in [place], [place] [address] [place] [address] Tamiko Huffman M.D. 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) (Primary Dx) Discharge Disposition: Home or Self Care 12/24/2024 Refill Division of Hematology in [place], [place] [address] [place] [address] Que Olivares M.D. Med Refill 12/19/2024 8:50 AM CDT - 12/19/2024 11:59 PM CDT Hospital Encounter Department of Laboratory Medicine in [address] [phone] Tamiko Huffman M.D. Sal Parkinson White Syndrome; 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); Hypogammaglobulinemia (HCC); CAR-T Recipient Encounter For Antineoplastic Immunotherapy Discharge Disposition: Home or Self Care 12/19/2024 Orders Only Division of Hematology in [place], [place] [address] [place] [address] Tamiko Huffman M.D. Sal Parkinson White Syndrome (Primary Dx); 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); Hypogammaglobulinemia (HCC); CAR-T Recipient Encounter For Antineoplastic Immunotherapy 12/18/2024 Clinical Communication Division of Hematology in [place], [place] [address] [place] [address] Tamiko Huffman M.D. 12/17/2024 3:55 PM CDT - 12/17/2024 11:59 PM CDT Hospital Encounter Department of Radiology, [facility], in [place], [place] [address] [place] [address] Tamiko Huffman M.D. CAR-T Recipient Encounter For Antineoplastic Immunotherapy; 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) Discharge Disposition: Home or Self Care 12/14/2024 Orders Only [facility], Ninth Floor [address] [place] [address] Tamiko Huffman M.D. 12/12/2024 Clinical Communication Division of Hematology in [place], [place] [address] [place] [phone] Tamiko Huffman M.D. Rx Prior Authorization ([facility] does not have prior auth rqst for IVIG) 12/10/2024 2:14 PM CDT - 12/10/2024 11:59 PM CDT Hospital Encounter Department of Laboratory Medicine in [address] [phone] Ha Nolasco M.D. CAR-T Recipient Encounter For Antineoplastic Immunotherapy; 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) Discharge Disposition: Home or Self Care 11/12/2024 12:20 PM COMMERCIAL PEST CONTROL TECHNICIAN - 11/12/2024 11:59 PM COMMERCIAL PEST CONTROL TECHNICIAN Hospital Encounter Department of Laboratory Medicine in [address] [phone] Ha Nolasco M.D. CAR-T Recipient Encounter For Antineoplastic Immunotherapy; 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) Discharge Disposition: Home or Self Care 10/30/2024 8:45 AM COMMERCIAL PEST CONTROL TECHNICIAN Telemedicine Division of Hematology in [place], [place] [address] [place] [phone] Tamiko Huffman M.D. CAR-T Recipient Encounter For Antineoplastic Immunotherapy; 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) 10/29/2024 Clinical Communication Department of Neurologic Surgery in [place], [place] [address] [place] [address] Brittany Mcdowell M.D. 10/26/2024 3:04 PM COMMERCIAL PEST CONTROL TECHNICIAN Anesthesia Event [facility] [address] [place] [address] Corrie Burgess M.D. Eskuri, Scott, M.D. 10/26/2024 12:54 PM COMMERCIAL PEST CONTROL TECHNICIAN - 10/26/2024 6:19 PM COMMERCIAL PEST CONTROL TECHNICIAN Surgery [facility] OR [address] [place] [phone] Brittany Mcdowell M.D. 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 10/26/2024 10:24 AM COMMERCIAL PEST CONTROL TECHNICIAN - 10/27/2024 12:12 PM COMMERCIAL PEST CONTROL TECHNICIAN Hospital Encounter [facility], Ninth Floor [address] [place] [phone] Brittany Mcdowell M.D. Mass Spine Lumbar (HCC) (Primary Dx); Lesion Spine Lumbar; Radiculopathy Lumbar Discharge Disposition: Home or Self Care 10/26/2024 Clinical Communication Department of Neurologic Surgery in [place], [place] [address] [place] [phone] Brittany Mcdowell M.D. Post Hospital Follow-up 10/23/2024 2:00 PM COMMERCIAL PEST CONTROL TECHNICIAN Comprehensive Visit Preoperative Evaluation Center in [place], [place] [address] [place] [phone] Brittany Mcdowell M.D. Katzka, Abigail A, APRN, C.N.P. Sal Parkinson White Syndrome (Primary Dx); Preoperative Exam; Radiculopathy Lumbar; Catheter Ablation For Conduction Pathway Status Post; 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); Hypogammaglobulinemia (HCC); CAR-T Recipient Encounter For Antineoplastic Immunotherapy; Loss Hearing Bilateral; Elevated Creatinine 10/23/2024 11:00 AM COMMERCIAL PEST CONTROL TECHNICIAN Nurse Only Section of Infectious Diseases in [place], [place] [address] [place] [phone] Ha Nolasco M.D. McIntyre, Sierra M, R.N. Immunizations 10/23/2024 6:44 AM COMMERCIAL PEST CONTROL TECHNICIAN - 10/23/2024 11:59 PM COMMERCIAL PEST CONTROL TECHNICIAN Hospital Encounter Department of Radiology, [facility], in [place], [place] [address] [place] [address] Tamiko Huffman M.D. CAR-T Recipient Encounter For Antineoplastic Immunotherapy; 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) Discharge Disposition: Home or Self Care 10/19/2024 3:15 PM COMMERCIAL PEST CONTROL TECHNICIAN Clinical Communication Virtual Review in [place], [place] [address] [place] [address] Pre-visit Intake 10/19/2024 Orders Only Division of Hematology in [place], [place] [address] [place] [phone] Tere Foote Clinical Research Exam (Primary Dx) 10/11/2024 Clinical Communication Department of Neurologic Surgery in [place], [place] [address] [place] [phone] Brittany Mcdowell M.D. 10/08/2024 1:00 PM COMMERCIAL PEST CONTROL TECHNICIAN - 10/08/2024 11:59 PM COMMERCIAL PEST CONTROL TECHNICIAN Hospital Encounter Department of Laboratory Medicine in [address] [phone] Ha Nolasco M.D. CAR-T Recipient Encounter For Antineoplastic Immunotherapy; 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) Discharge Disposition: Home or Self Care 10/05/2024 Refill Department of Neurology in [place], [place] [address] [place] [phone] Bro Pradhan M.D. Med Refill 10/03/2024 2:30 PM COMMERCIAL PEST CONTROL TECHNICIAN Comprehensive Visit Department of Neurologic Surgery in [address] [phone] Brittany Mcdowell M.D. Schwannoma Benign (Primary Dx); [...] 0.6 oz pur e alcohol) [facility] Utilities Answer Date Recorded In the past 12 months has [facility] electric, gas, oil, or water [employer] threatened to shut off services in your [...] and Family Once a week 05/04/2019 Attends [facility] 1 to 4 times per year [...] Answer Date Recorded PHQ-2 Score 0 04/12/2024 [facility] - Occupational Stress Questionnaire Answer Date Recorded [...] your living situation today? [facility] 10/26/2024 Education Answer Date Recorded What is the highest level of school you have completed or the highest degree you have received? Associate degree: occupational, technical, or vocational program 05/13/2020 Sex and Gender Information Value Date Recorded Sex Assigned at Male 04/20/2018 9:42 AM CDT Legal Sex Male 6:56 AM COMMERCIAL PEST CONTROL TECHNICIAN Gender Identity Male 04/20/2018 9:42 AM CDT Sexual Orientation Straight 04/20/2018 9 :42 AM CDT Last Filed Vital Signs Vital Sign Reading Time Taken Comments Blood Pressure 134/86 12/25/2024 1:00 PM CDT Pulse 84 12/25/2024 1:00 PM CDT Temperature 36.8 C (98.2 F) 12/25/2024 1:00 PM CDT Respiratory Rate 18 12/25/2024 1:00 PM CDT Oxygen Saturation 99% 10/27/2024 11:00 AM COMMERCIAL PEST CONTROL TECHNICIAN Inhaled Oxygen Concentration - - Weight 108 kg (237 lb 10.5 oz) 12/25/2024 11:26 AM CDT Height 180 cm (5' 10.87) 10/26/2024 10:44 AM CS T Body Mass Index 33.27 10/26/2024 10:44 AM COMMERCIAL PEST CONTROL TECHNICIAN Plan of Treatment Upcoming Encounters Date Type Department Care Team (Late st Contact Info) Description 01/21/2025 8:00 AM CDT Nurse Only Section of Infectious Diseases in [place], [place] [address] [place] [phone] Ha Nolasco M.D. [address] [place] [phone] 01/21/2025 9:45 AM CDT Appointment Department of Radiology, [facility] in [place], [place] [address] [place] [phone] Helga Raymundo APRN, C.N.P., D.N.P., M.S.N. [address] [place] [phone] 01/21/2025 2:30 PM CDT Office Visit Department of Neurologic Surgery in [place], [place] [address] [place] [phone] Gwendolyn Lombardo APRN, SPINNER HAND, D.N.P., M.S.N. [address] [place] [address] 01/29/2025 8:20 AM CDT Appointment Department of Laboratory Medicine and Pathology, [facility], in [place], [place] [address] [place] [phone] Tamiko Huffman M.D. [address] [place] [phone] 01/29/2025 10:45 AM CDT Office Visit Division of Hematology in [place], [place] [address] [place] [phone] Tamiko Huffman M.D. [address] [place] [phone] Health Maintenance Due Date Last Done Comments [...] this topic Medical Devices Implanted Type Area Angledozer Operator Device Identifier Shelf Expiration Date Model / [...] AND NK, B Routine 11/12/2024 1:07 PM COMMERCIAL PEST CONTROL TECHNICIAN CAR-T Recipient Encounter For Antineoplastic Immunotherapy 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) IMMUNOGLOBULIN G (IGG), S Routine 11/12/2024 1:07 PM COMMERCIAL PEST CONTROL TECHNICIAN CAR-T Recipient Encounter For Antineoplastic Immunotherapy 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) CMV DNA DETECT/QUANT, P Routine 11/12/2024 1:07 PM COMMERCIAL PEST CONTROL TECHNICIAN CAR-T Recipient Encounter For Antineoplastic Immunotherapy 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) BASIC METABOLIC PANEL, S/P Routine 10/27/2024 4:24 AM COMMERCIAL PEST CONTROL TECHNICIAN CBC WITH DIFFERENTIAL, B Routine 10/27/2024 4:24 AM COMMERCIAL PEST CONTROL TECHNICIAN SURGICAL PATHOLOGY, [facility] Routine 10/26/2024 5:45 PM COMMERCIAL PEST CONTROL TECHNICIAN Lesion Spine Lumbar Radiculopathy Lumbar DX SPINE 1 VIEW RAD - Routine (most inpatients and all outpatients) 10/26/2024 4:22 PM COMMERCIAL PEST CONTROL TECHNICIAN AIRWAY MANAGEMENT Routine 10/26/2024 3:12 PM COMMERCIAL PEST CONTROL TECHNICIAN LAMINECTOMY LUMBAR WITH TUMOR RESECTION 10/26/2024 2:44 PM COMMERCIAL PEST CONTROL TECHNICIAN Lesion Spine Lumbar Radiculopathy Lumbar Case Notes [employer] 1028 IONM - EMG Routine 10/26/2024 10:25 AM COMMERCIAL PEST CONTROL TECHNICIAN MISC RESEARCH ORDER, B Routine 9:21 AM COMMERCIAL PEST CONTROL TECHNICIAN Clinical Research Exam QN LYMPHOCYTE SUBSETS: T, B, AND NK, B Routine 10/23/2024 9:21 AM COMMERCIAL PEST CONTROL TECHNICIAN CAR-T Recipient Encounter For Antineoplastic Immunotherapy 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) LACTATE DEHYDROGENASE (LD), S Routine 10/23/2024 9:21 AM COMMERCIAL PEST CONTROL TECHNICIAN CAR-T Recipient Encounter For Antineoplastic Immunotherapy 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) CBC WITH DIFFERENTIAL, B Routine 10/23/2024 9:21 AM COMMERCIAL PEST CONTROL TECHNICIAN CAR-T Recipient Encounter For Antineoplastic Immunotherapy 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) BILIRUBIN, TOT, S/P Routine 10/23/2024 9:21 AM COMMERCIAL PEST CONTROL TECHNICIAN CAR-T Recipient Encounter For Antineoplastic Immunotherapy 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) ASPARTATE AMINOTRANSFERASE (AST), S/P Routine 10/23/2024 9:21 AM COMMERCIAL PEST CONTROL TECHNICIAN CAR-T Recipient Encounter For Antineoplastic Immunotherapy 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) CMV DNA DETECT/QUANT, P Routine 10/23/2024 9:21 AM COMMERCIAL PEST CONTROL TECHNICIAN CAR-T Recipient Encounter For Antineoplastic Immunotherapy 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) URIC ACID, S/P Routine 10/23/2024 9:20 AM COMMERCIAL PEST CONTROL TECHNICIAN CAR-T Recipient Encounter For Antineoplastic Immunotherapy 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) SODIUM, S/P Routine 10/23/2024 9:20 AM COMMERCIAL PEST CONTROL TECHNICIAN CAR-T Recipient Encounter For Antineoplastic Immunotherapy 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) STREPTOCOCCUS PNEUMONIAE, IGG, ABS, 23 SEROTYPES, S Routine 10/23/2024 9:20 AM COMMERCIAL PEST CONTROL TECHNICIAN CAR-T Recipient Encounter For Antineoplastic Immunotherapy 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) POTASSIUM, S/P Routine 10/23/2024 9:20 AM COMMERCIAL PEST CONTROL TECHNICIAN CAR-T Recipient Encounter For Antineoplastic Immunotherapy 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) IMMUNOGLOBULIN G (IGG), S Routine 10/23/2024 9:20 AM COMMERCIAL PEST CONTROL TECHNICIAN CAR-T Recipient Encounter For Antineoplastic Immunotherapy 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) FERRITIN, S Routine 10/23/2024 9:20 AM COMMERCIAL PEST CONTROL TECHNICIAN CAR-T Recipient Encounter For Antineoplastic Immunotherapy 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) CREATININE WITH EGFR, S/P Routine 10/23/2024 9:20 AM COMMERCIAL PEST CONTROL TECHNICIAN CAR-T Recipient Encounter For Antineoplastic Immunotherapy 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) C-REACTIVE PROTEIN (CRP), S/P Routine 10/23/2024 9:20 AM COMMERCIAL PEST CONTROL TECHNICIAN CAR-T Recipient Encounter For Antineoplastic Immunotherapy 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) CALCIUM, TOT, S/P Routine 10/23/2024 9:20 AM COMMERCIAL PEST CONTROL TECHNICIAN CAR-T Recipient Encounter For Antineoplastic Immunotherapy 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) ALANINE AMINOTRANSFERASE (ALT), S/P Routine 10/23/2024 9:20 AM COMMERCIAL PEST CONTROL TECHNICIAN CAR-T Recipient Encounter For Antineoplastic Immunotherapy 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) ALKALINE PHOSPHATASE, S/P Routine 10/23/2024 9:20 AM COMMERCIAL PEST CONTROL TECHNICIAN CAR-T Recipient Encounter For Antineoplastic Immunotherapy 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) TETANUS TOXOID IGG AB Routine 10/23/2024 9:20 AM COMMERCIAL PEST CONTROL TECHNICIAN CAR-T Recipient Encounter For Antineoplastic Immunotherapy 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) MMRV IMMUNE STATUS PROFILE Routine 10/23/2024 9:20 AM COMMERCIAL PEST CONTROL TECHNICIAN CAR-T Recipient Encounter For Antineoplastic Immunotherapy 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) HEPATITIS A VIRUS TOTAL AB, S Routine 10/23/2024 9:20 AM COMMERCIAL PEST CONTROL TECHNICIAN CAR-T Recipient Encounter For Antineoplastic Immunotherapy 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) HBS ANTIBODY, SERUM Routine 10/23/2024 9:20 AM COMMERCIAL PEST CONTROL TECHNICIAN CAR-T Recipient Encounter For Antineoplastic Immunotherapy 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) PET CT SKULL TO THIGH RAD - Routine (most inpatients and all outpatients) 10/23/2024 8:41 AM COMMERCIAL PEST CONTROL TECHNICIAN CAR-T Recipient Encounter For Antineoplastic Immunotherapy 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) QN LYMPHOCYTE SUBSETS: T, B, AND NK, B Routine 10/08/2024 1:24 PM COMMERCIAL PEST CONTROL TECHNICIAN CAR-T Recipient Encounter For Antineoplastic Immunotherapy 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) IMMUNOGLOBULIN G (IGG), S Routine 10/08/2024 1:24 PM COMMERCIAL PEST CONTROL TECHNICIAN CAR-T Recipient Encounter For Antineoplastic Immunotherapy 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) CMV DNA DETECT/QUANT, P Routine 10/08/2024 1:24 PM COMMERCIAL PEST CONTROL TECHNICIAN CAR-T Recipient Encounter For Antineoplastic Immunotherapy Follicular [...] LAB BLOOD ADD-ON Final Res ult [facility] [address] [place] [address], [facility] CNFL [facility] in [address] [address] * BUN (Blood Urea Nitrogen) (12/19/2024 3:02 PM CDT) BUN (Blood Urea Nitrogen), P 19 8 - 24 mg/dL 12/19/2024 3:16 PM CDT CNFL Blood (Blood, Venous) 12/19/2024 3:02 PM CDT 12/19/2024 3:03 PM CDT us Tamiko Huffman M.D. LAB BLOOD ADD-ON Final Res ult [facility] [address] [place] [address], [facility] CNFL [facility] in [address] [address] * PET CT Skull to Thigh FDG [...] RADIOPHARMACEUTICAL/MEDS: Route: intravenous fludeoxyglucose F 18 injection CORRECTION (FDG F-18),10.02 millicurie TECHNIQUE: F-18 FDG PET/CT [...] RADIOPHARMACEUTICAL/MEDS: Route: intravenous fludeoxyglucose F 18 injection CORRECTION (FDG F-18),10.02 millicurie TECHNIQUE: F-18 FDG PET/CT [...] 1.9 cm fluid collection at the right [id number]/L4-5 facetectomy resection site. Significant incidental findings on [...] FDG avid fluid collection at the right X4euyfctqbhvmixhy/L4-5 facetectomy resection site could represent anabscess. Can correlate clinically. Tamiko Huffman M.D. IMG NM PROCEDURES Final Re sult * CMV DNA Detect / Quant, Plasma (12/10/2024 2:20 PM CDT) Only the most recent of4 resultswithin the time period is included. CMV DNA Detect/Quant, P Undetected Undetected IU/mL 12/11/2024 11:16 AM CDT [facility] Comment: Result in log IU/mL is Undetected. ----ADDITIONAL INFORMATION---- The quantification range of this assay is 35 to 10,000,000 IU/mL (1.54 log to 7.00 log IU/mL). Testing was performed using the dirk CMV test ([employer] Blood (Blood, Venous) 12/10/2024 2:20 PM CDT 12/11/2024 7:10 AM CDT Ha Mars M.D. LAB MICROBIOLOGY - BLOOD ORDERABLES Final Result [facility] [address] [place] [address] [facility] [address] [place] [address] [place] [address] * (ABNORMAL) Quantitative Lymphocyte Subsets: T, B, [...] performance characteristics were determined by [facility] in a manner consistent with CLIA requirements. This test has not been cleared or approved by the U.S. Food and Drug Administration. Blood (Blood, Venous) 12/10/2024 2:20 PM CDT 12/11/2024 8:05 AM CDT Ha Mars M.D. LAB BLOOD ADD-ON Final Result [facility] [address] [place] [address] [facility] [address] [place] [address] [place] [id number] * (ABNORMAL) Immunoglobulin G (IgG) (12/10/2024 2:20 PM CDT) Only the most recent of4 resultswithin the time period is included. Pathologist [facility] Immunoglobulin G (IgG), S 421(L) 767 - 1590 mg/dL 12/11/2024 8:21 AM CDT ECLR Blood (Blood, Venous) 12/10/2024 2:20 PM CDT 12/10/2024 9:02 PM CDT Ha Mars M.D. LAB BLOOD ADD-ON Final Result [facility] [address] [place] [address], [facility] ECLR [facility] [place] [address] * (ABNORMAL) CBC with Differential, Blood (10/27/2024 4:24 AM COMMERCIAL PEST CONTROL TECHNICIAN) Only the most recent of2 resultswithin the time period is included. [facility] Hemoglobin 15.9 13.2 - 16.6 g/dL 10/27/2024 5:39 AM COMMERCIAL PEST CONTROL TECHNICIAN DTL Hematocrit 45.4 38.3 - 48.6 % 10/27/2024 5:39 AM COMMERCIAL PEST CONTROL TECHNICIAN DTL Erythrocytes 5.12 4.35 - 5.65 x10(12)/L 10/27/2024 5:39 AM COMMERCIAL PEST CONTROL TECHNICIAN DTL MCV 88.7 78.2 - 97.9 fL 10/27/2024 5:39 AM COMMERCIAL PEST CONTROL TECHNICIAN DTL RBC Distrib Width 11.2(L) 11.8 - 14.5 % 10/27/2024 5:39 AM COMMERCIAL PEST CONTROL TECHNICIAN DTL Platelet Count 307 135 - 317 x10(9)/L 10/27/2024 5:39 AM COMMERCIAL PEST CONTROL TECHNICIAN DTL Leukocytes 9.0 3.4 - 9.6 x10(9)/L 10/27/2024 5:39 AM COMMERCIAL PEST CONTROL TECHNICIAN DTL Neutrophils 8.51(H) 1.56 - 6.45 x10(9)/L 10/27/2024 5:39 AM COMMERCIAL PEST CONTROL TECHNICIAN PM Lymphocytes 0.24(L) 0.95 - 3.07 x10(9)/L 10/27/2024 5:39 AM COMMERCIAL PEST CONTROL TECHNICIAN DTL Monocytes 0.24(L) 0.26 - 0.81 x10(9)/L 10/27/2024 5:39 AM COMMERCIAL PEST CONTROL TECHNICIAN DTL Eosinophils <0.03 0.03 - 0.48 x10(9)/L 10/27/2024 5:39 AM COMMERCIAL PEST CONTROL TECHNICIAN DTL Basophils <0.03 0.01 - 0.08 x10(9)/L 10/27/2024 5:39 AM COMMERCIAL PEST CONTROL TECHNICIAN DTL Blood (Blood, Venous) 10/27/2024 4:24 AM COMMERCIAL PEST CONTROL TECHNICIAN 10/27/2024 5:28 AM COMMERCIAL PEST CONTROL TECHNICIAN Karlos Montana M.D., Ph.D. LAB BLOOD ADD-ON Final Result [facility] [address] [place] [address], [facility] DTL [facility] [address] [place] [address] * (ABNORMAL) Basic Metabolic Panel (10/27/2024 4:24 AM COMMERCIAL PEST CONTROL TECHNICIAN) [facility] Potassium, S 4.5 3.6 - 5.2 mmol/L 10/27/2024 6:13 AM COMMERCIAL PEST CONTROL TECHNICIAN DTL Sodium, S 140 135 - 145 mmol/L 10/27/2024 6:13 AM COMMERCIAL PEST CONTROL TECHNICIAN DTL Chloride, S 104 98 - 107 mmol/L 10/27/2024 6:13 AM COMMERCIAL PEST CONTROL TECHNICIAN DTL Bicarbonate, S 23 22 - 29 mmol/L 10/27/2024 6:13 AM COMMERCIAL PEST CONTROL TECHNICIAN DTL Anion Gap 13 7 - 15 10/27/2024 6:13 AM COMMERCIAL PEST CONTROL TECHNICIAN DTL BUN (Blood Urea Nitrogen), S 13 8 - 24 mg/dL 10/27/2024 6:13 AM COMMERCIAL PEST CONTROL TECHNICIAN DTL Creatinine 1.34 0.74 - 1.35 mg/dL 10/27/2024 6:13 AM COMMERCIAL PEST CONTROL TECHNICIAN DTL Estimated GFR (eGFR) 60 >=60 mL/min/BSA 10/27/2024 6:13 AM COMMERCIAL PEST CONTROL TECHNICIAN DTL Comment: Estimated GFR calculated using the 2020 CKD_EPI creatinine equation. Calcium, Total, S 8.7(L) 8.8 - 10.2 mg/dL 10/27/2024 6:13 AM COMMERCIAL PEST CONTROL TECHNICIAN DTL Glucose, S 136 70 - 140 mg/dL 10/27/2024 6:13 AM COMMERCIAL PEST CONTROL TECHNICIAN DTL Blood (Blood, Venous) 10/27/2024 4:24 AM COMMERCIAL PEST CONTROL TECHNICIAN 10/27/2024 5:45 AM COMMERCIAL PEST CONTROL TECHNICIAN Karlos Montana M.D., Ph.D. LAB BLOOD ADD-ON Final Result [facility] [address] [place] [address], [facility] [address] [place] [address] * Surgical Pathology, Frozen Lab (10/26/2024 5:45 PM COMMERCIAL PEST CONTROL TECHNICIAN) 10/29/2024 2:26 PM COMMERCIAL PEST CONTROL TECHNICIAN STMA Report electronically signed by Bong Pickard M.D. I verify that I have examined all relevant slides/material s for the specimen(s) and rendered or confirmed the diagnosis. 10/29/2024 2:26 PM COMMERCIAL PEST CONTROL TECHNICIAN STMA Frozen Intraoperative Report A. Soft tissue, nerve sheath mass right L4, resection: Schwannoma. Signed by Bong Pickard M.D. 10/29/2024 8:24 AM 10/29/2024 2:26 PM COMMERCIAL PEST CONTROL TECHNICIAN STMA Gross Description A. Received fresh labeled nerve sheath tumor right L4 is a 1.8 x 0.8 x 0.7 cm portion of gustafson thinly encapsulated mass with a gustafson, hemorrhagic cut surface. All submitted for frozen and permanent sections. Grossed by Jayashree Roque, PA([facility]). 10/29/2024 2:26 PM COMMERCIAL PEST CONTROL TECHNICIAN STMA Block Summary A Nerve sheath tumor right L4 A1 Nerve sheath tumor - frozen A2 Nerve sheath tumor 2 10/29/2024 2:26 PM COMMERCIAL PEST CONTROL TECHNICIAN STMA Interpretation FINAL DIAGNOSIS A. Soft tissue, nerve sheath mass right L4, resection: Schwannoma (1.8 x 0.8 x 0.7 cm). Digital imaging was used in the diagnostic assessment of this case. 10/29/2024 2:26 PM COMMERCIAL PEST CONTROL TECHNICIAN STMA Tissue (Spine, Lumbar) 10/26/2024 5:45 PM COMMERCIAL PEST CONTROL TECHNICIAN Brittany Mcdowell M.D. LAB SURG PATH ORDERABLES Luciana l Result [facility] [address] [place] [address], [facility] [address] [place] [address] * Dx Spine 1 View (10/26/2024 4:22 PM COMMERCIAL PEST CONTROL TECHNICIAN) Anatomical Region Laterality Modality Spine, Musculoskeletal RST L OS, Neuroradiology ARZ LOS, Muskuloskeletal FLA LOS N/A Digital Radiography Impressions 10/26/2024 5:17 PM COMMERCIAL PEST CONTROL TECHNICIAN Single lateral intraoperative radiograph of the spine obtained for surgical localization purposes. Narrative 10/26/2024 5:17 PM COMMERCIAL PEST CONTROL TECHNICIAN EXAM: DX SPINE 1 VIEW Procedure Note Florentino Parikh D.O. - 10/26/2024 EXAM: DX SPINE 1 VIEW IMPRESSION: Single lateral intraoperative radiograph of the spine obtained forsurgical localization purposes. Karlos Montana M.D., Ph.D. IMG DIAGNOSTIC IMAGING PROCEDURES Final Result * Airway (10/26/2024 3:12 PM COMMERCIAL PEST CONTROL TECHNICIAN) Narrative Nabeel Nix M.D. - 10/26/2024 3:12 PM COMMERCIAL PEST CONTROL TECHNICIAN Nabeel Nix M.D. 10/26/2024 3:29 PM Airway Date/Time: 10/26/2024 3:12 PM Performed by: Nabeel Nix M.D. Authorized by: Guy Rosario M.D. Patient location during procedure: OR / Procedure Area PROCEDURE DETAILS: Mask difficulty assessment: easy mask Final airway type: video laryngoscope Laryngeal Manipulation: no Final best view of glottic structures - Cormack/Lehane Score: grade 1 ETT location: oral VL device: glide scope [place] scope blade size: 4 Tube size: 7.5 [...] * IONM - EMG (10/26/2024 10:25 AM COMMERCIAL PEST CONTROL TECHNICIAN) 10/26/2024 1:00 PM COMMERCIAL PEST CONTROL TECHNICIAN Narrative [facility]G - 10/27/2024 5:35 AM COMMERCIAL PEST CONTROL TECHNICIAN Table formatting from the original result was not included. 26-Oct-2024 Intraoperative Monitoring Amended Report Study Number: 3 EMG Firer Locomotive Crane: Scott Chao [phone] or [phone] Referred by: BRITTANY MCDOWELL ([phone] or [phone]) Referred for: Referral Code: 1957 RX: 1957 [...] the surgical suite. B. Zhanna (127 or [phone])/[facility] Surgery Staff Minutes Start-DateTime End-DateTime Remote Simultaneous Supervision 133 10/26/2024 15:31 PM COMMERCIAL PEST CONTROL TECHNICIAN 10/26/2024 17:44 PM COMMERCIAL PEST CONTROL TECHNICIAN Total Monitoring Time: 133 This interpretation has been electronically signed: Scott Chao M.D. at 10/29/2024 8:04:26 AM COMMERCIAL PEST CONTROL TECHNICIAN Procedure Note Scott Chao M.D. - 10/29/2024 26-Oct-2024 Intraoperative Monitoring AmendedReport Study Number: 3 EMG Firer Locomotive Crane: Scott Chao [phone] or [phone] Referred by: BRITTANY MCDOWELL ([phone] or [phone]) Referred for: Referral Code: 1958 RX: 1957 [...] the surgical suite. Ivy Chao (127 or [phone])/[facility] Surgery Staff Minutes Start-DateTime End-DateTime Remote Simultaneous Supervision 133 10/26/2024 15:31 PM COMMERCIAL PEST CONTROL TECHNICIAN 7:44 PM COMMERCIAL PEST CONTROL TECHNICIAN Total Monitoring Time: 133 This interpretation has been electronically signed: Scott Chao M.D. at 10/29/2024 8:04:26 AM COMMERCIAL PEST CONTROL TECHNICIAN Brittany Mcdowell M.D. NEUROLOGY ORDERABLES Edited R esult - Final EMG * [facility] Research, Blood (10/23/2024 9:21 AM COMMERCIAL PEST CONTROL TECHNICIAN) Number of Specimens 10 10/23/2024 9:21 AM COMMERCIAL PEST CONTROL TECHNICIAN HSS Blood (Blood, Venous) 10/23/2024 9:21 AM COMMERCIAL PEST CONTROL TECHNICIAN 10/23/2024 9:21 AM COMMERCIAL PEST CONTROL TECHNICIAN us Marcelina Hansen M.D., Ph.D. LAB RESEARCH NO RESULT ROUTIN G Final Result Performing Organization Address [facility]/ZIP Co de Phone Number [facility] [address] HSS [facility] 200 [place] [address] * AST (Aspartate Aminotransferase) (10/23/2024 9:21 AM COMMERCIAL PEST CONTROL TECHNICIAN) [facility] Aspartate Aminotransferase (AST), P 27 8 - 48 U/L 10/23/2024 10:08 AM COMMERCIAL PEST CONTROL TECHNICIAN METH Blood (Blood, Venous) 10/23/2024 9:21 AM COMMERCIAL PEST CONTROL TECHNICIAN 10/23/2024 9:46 AM COMMERCIAL PEST CONTROL TECHNICIAN us Tamiko Huffman M.D. LAB BLOOD ADD-ON Final Res ult Performing Organization Address City/[facility]/ZIP Co de Phone Number [facility] [address] METH [facility] 200 [place] [address] * LD (Lactate Dehydrogenase) (10/23/2024 9:21 AM COMMERCIAL PEST CONTROL TECHNICIAN) [facility] LD 180 122 - 222 U/L 10/23/2024 10:59 AM COMMERCIAL PEST CONTROL TECHNICIAN DTL Blood (Blood, Venous) 10/23/2024 9:21 AM COMMERCIAL PEST CONTROL TECHNICIAN 10/23/2024 10:07 AM COMMERCIAL PEST CONTROL TECHNICIAN us Tamiko Huffman M.D. LAB BLOOD NON ADD-ON Final Result Performing Organization Address City/[facility] Co de Phone Number [facility] [address] DTL [facility] 200 [place] [address] * Bilirubin, Total (10/23/2024 9:21 AM COMMERCIAL PEST CONTROL TECHNICIAN) [facility] Bilirubin, Total, P 0.5 0.0 - 1.2 mg/dL 10/23/2024 10:08 AM COMMERCIAL PEST CONTROL TECHNICIAN METH Blood (Blood, Venous) 10/23/2024 9:21 AM COMMERCIAL PEST CONTROL TECHNICIAN 10/23/2024 9:46 AM COMMERCIAL PEST CONTROL TECHNICIAN Tamiko Huffman M.D. LAB BLOOD ADD-ON Final Res ult [facility] [address] [place] [address], [place] METH [facility] [address] [place] [address] * Hepatitis A Virus Total Antibodies (10/23/2024 9:20 AM COMMERCIAL PEST CONTROL TECHNICIAN) [facility] Hepatitis A Virus Total Ab, S Negative 10/23/2024 12:26 PM COMMERCIAL PEST CONTROL TECHNICIAN SDS Comment: Result indicates no past exposure or immunity to hepatitis A infection. ----REFERENCE VALUE---- Unvaccinated: Negative Vaccinated: Positive Blood (Blood, Venous) 10/23/2024 9:20 AM COMMERCIAL PEST CONTROL TECHNICIAN 10/23/2024 11:33 AM COMMERCIAL PEST CONTROL TECHNICIAN Tamiko Huffman M.D. LAB MICROBIOLOGY - BLOOD O RDERABLES Final Result Performing Organization Address City/[facility] [address] [facility]/ZIP Co de Phone Number [facility] [address] [place] [address] [facility] [address] [place] [address] * Streptococcus pneumoniae IgG Antibodies, 23 Serotypes (10/23/2024 9:20 AM COMMERCIAL PEST CONTROL TECHNICIAN) Pathologist [facility] Serotype 1 (1) <0.1 >=1.0 mcg/mL 10/26/2024 2:55 PM COMMERCIAL PEST CONTROL TECHNICIAN [facility] Serotype 2 (2) 0.3 >=1.0 mcg/mL 10/26/2024 2:55 PM COMMERCIAL PEST CONTROL TECHNICIAN [facility] Serotype 3 (3) <0.1 >=1.0 mcg/mL 10/26/2024 2:55 PM COMMERCIAL PEST CONTROL TECHNICIAN [facility] Serotype 4 (4) <0.1 >=1.0 mcg/mL 10/26/2024 2:55 PM COMMERCIAL PEST CONTROL TECHNICIAN [facility]SC Serotype 5 (5) <0.1 >=1.0 mcg/mL 10/26/2024 2:55 PM COMMERCIAL PEST CONTROL TECHNICIAN [facility] Serotype 8 (8) 0.2 >=1.0 mcg/mL 10/26/2024 2:55 PM COMMERCIAL PEST CONTROL TECHNICIAN [facility] Serotype 9N (9) 0.1 >=1.0 mcg/mL 10/26/2024 2:55 PM COMMERCIAL PEST CONTROL TECHNICIAN [facility] Serotype 12F (12) 0.1 >=1.0 mcg/mL 10/26/2024 2:55 PM COMMERCIAL PEST CONTROL TECHNICIAN [facility] Serotype 14 (14) 0.2 >=1.0 mcg/mL 10/26/2024 2:55 PM COMMERCIAL PEST CONTROL TECHNICIAN [facility] Serotype 17F (17) 0.1 >=1.0 mcg/mL 10/26/2024 2:55 PM COMMERCIAL PEST CONTROL TECHNICIAN [facility]SC Serotype 19F (19) 0.9 >=1.0 mcg/mL 10/26/2024 2:55 PM COMMERCIAL PEST CONTROL TECHNICIAN [facility] Serotype 20 (20) 0.3 >=1.0 mcg/mL 10/26/2024 2:55 PM COMMERCIAL PEST CONTROL TECHNICIAN SDSC Serotype 22F (22) 0.2 >=1.0 mcg/mL 10/26/2024 2:55 PM COMMERCIAL PEST CONTROL TECHNICIAN SDSC Serotype 23F (23) 2.1 >=1.0 mcg/mL 10/26/2024 2:55 PM COMMERCIAL PEST CONTROL TECHNICIAN [facility] Serotype 6B (26) 0.5 >=1.0 mcg/mL 10/26/2024 2:55 PM COMMERCIAL PEST CONTROL TECHNICIAN [facility] Serotype 10A (34) 0.2 >=1.0 mcg/mL 10/26/2024 2:55 PM COMMERCIAL PEST CONTROL TECHNICIAN [facility] Serotype 11A (43) 0.1 >=1.0 mcg/mL 10/26/2024 2:55 PM COMMERCIAL PEST CONTROL TECHNICIAN [facility] Serotype 7F (51) 0.2 >=1.0 mcg/mL 10/26/2024 2:55 PM COMMERCIAL PEST CONTROL TECHNICIAN [facility] Serotype 15B (54) 2.5 >=1.0 mcg/mL 10/26/2024 2:55 PM COMMERCIAL PEST CONTROL TECHNICIAN [facility] Serotype 18C (56) 0.2 >=1.0 mcg/mL 10/26/2024 2:55 PM COMMERCIAL PEST CONTROL TECHNICIAN [facility] Serotype 19A (57) see below >=1.0 mcg/mL 10/26/2024 2:55 PM COMMERCIAL PEST CONTROL TECHNICIAN [facility] Comment:Unable to perform te st due to a reagent issue. Serotype 9V (68) 0.1 >=1.0 mcg/mL 10/26/2024 2:55 PM COMMERCIAL PEST CONTROL TECHNICIAN [facility] Serotype 33F (70) 1.2 >=1.0 mcg/mL 10/26/2024 2:55 PM COMMERCIAL PEST CONTROL TECHNICIAN SDSC Interpretation Overall interpretation of pneumococcal antibody [...] provide protection against infection. 10/26/2024 2:55 PM COMMERCIAL PEST CONTROL TECHNICIAN [facility] Comment: ----ADDITIONAL INFORMATION---- This test was developed and its performance characteristics determined by [facility] in a manner consistent with CLIA requirements. This test has not been cleared or approved by the U.S. Food and Drug Administration. Blood (Blood, Venous) 10/23/2024 9:20 AM COMMERCIAL PEST CONTROL TECHNICIAN 10/23/2024 11:48 AM COMMERCIAL PEST CONTROL TECHNICIAN us Tamiko Huffman M.D. LAB BLOOD ADD-ON Final Res ult [facility] [address] [place] [address] [facility] [address] [place] [address] [place] Blood [address] * MMRV Immune Status Profile (10/23/2024 9:20 AM COMMERCIAL PEST CONTROL TECHNICIAN) [facility] Measles (Rubeola) Ab, IgG, S Positive 10/23/2024 1:19 PM COMMERCIAL PEST CONTROL TECHNICIAN [facility] Comment: Results suggest response to immunization or prior exposure to the virus. ----REFERENCE VALUE---- Vaccinated: Positive (>=1.1 AI) Unvaccinated: Negative (<=0.8 AI) Measles IgG Antibody Index >8.0 10/23/2024 1:19 PM COMMERCIAL PEST CONTROL TECHNICIAN [facility] Mumps Ab, IgG, S Positive 10/23/19 1:19 PM COMMERCIAL PEST CONTROL TECHNICIAN [facility] Comment: Results suggest response to immunization or prior exposure to the virus. ----REFERENCE VALUE---- Vaccinated: Positive (>=1.1 AI) Unvaccinated: Negative (<=0.8 AI) Mumps IgG Antibody Index 4.6 10/23/2024 1:19 PM COMMERCIAL PEST CONTROL TECHNICIAN [facility] Rubella Ab, IgG, S Positive 10/23/2024 1:19 PM COMMERCIAL PEST CONTROL TECHNICIAN [facility] Comment: Results suggest response to immunization or prior exposure to the virus. ----REFERENCE VALUE---- Vaccinated: Positive (>=1.0 AI) Unvaccinated: Negative (<=0.7 AI) Rubella IgG Antibody Index 7.1 10/23/2024 1:19 PM COMMERCIAL PEST CONTROL TECHNICIAN [facility]SC Varicella-Zoster Ab, IgG, S Positive 10/23/2024 1:19 PM COMMERCIAL PEST CONTROL TECHNICIAN [facility] Comment: Results suggest response to immunization or prior exposure to the virus. ----REFERENCE VALUE---- Vaccinated: Positive (>=1.1 AI) Unvaccinated: Negative (<=0.8 AI) Varicella IgG Antibody Index 1.8 10/23/2024 1:19 PM COMMERCIAL PEST CONTROL TECHNICIAN [facility]SC Blood (Blood, Venous) 10/23/2024 9:20 AM COMMERCIAL PEST CONTROL TECHNICIAN 10/23/2024 11:38 AM COMMERCIAL PEST CONTROL TECHNICIAN us Tamiko Huffman M.D. LAB MICROBIOLOGY - BLOOD O RDERABLES Final Result [facility] [address] [place] [address] [facility] [address] [place] [address] * Tetanus Toxoid IgG Ab (10/23/2024 9:20 AM COMMERCIAL PEST CONTROL TECHNICIAN) [facility] Tetanus IgG Ab Positive 10/24/2024 11:24 AM COMMERCIAL PEST CONTROL TECHNICIAN [facility] Comment: ----REFERENCE VALUE---- Vaccinated: Positive (>= 0.01 IU/mL) Unvaccinated: Negative (< 0.01 IU/mL) Tetanus IgG Value 1.16 IU/mL 025 11:24 AM [facility] Comment: ----ADDITIONAL INFORMATION---- This test was developed and its performance characteristics determined by [facility] in a manner consistent with CLIA requirements. This test has not been cleared or approved by the U.S. Food and Drug Administration. Blood (Blood, Venous) 10/23/2024 9:20 AM COMMERCIAL PEST CONTROL TECHNICIAN 10/23/2024 11:49 AM COMMERCIAL PEST CONTROL TECHNICIAN Tamiko Huffman M.D. LAB MICROBIOLOGY - BLOOD O RDERABLES Final Result Performing Organization Address [facility] Co de Phone Number [facility] [address] [place] [address] [place] [address] * HBs Antibody, Serum (10/23/2024 9:20 AM COMMERCIAL PEST CONTROL TECHNICIAN) [facility] HBs Antibody, S Negative 12:26 PM [facility] Comment: Patient is NOT immune to HBV infection. Consumption of high-dose biotin supplement within 12 hours of blood collection for this test can cause false-negative results. ----REFERENCE VALUE---- Unvaccinated: Negative Vaccinated: Positive HBs Antibody, Quantitative, S <3.5 mIU/mL 10/23/2024 12:26 PM COMMERCIAL PEST CONTROL TECHNICIAN [facility] Comment: ----REFERENCE VALUE---- Unvaccinated: <8.5 mIU/mL Vaccinated: >=11.5 mIU/mL Blood (Blood, Venous) 10/23/2024 9:20 AM COMMERCIAL PEST CONTROL TECHNICIAN 10/23/2024 11:33 AM COMMERCIAL PEST CONTROL TECHNICIAN Tamiko Huffman M.D. LAB MICROBIOLOGY - BLOOD O RDERABLES Final Result Performing Organization Address [facility]/ZIP Co de Phone Number [facility] [address] [place] [address] [facility] [address] [place] [address] * CRP (C-Reactive Protein) (10/23/2024 9:20 AM COMMERCIAL PEST CONTROL TECHNICIAN) C-Reactive Protein (CRP), S 3.7 <5.0 mg/L 10/23/2024 10:10 AM COMMERCIAL PEST CONTROL TECHNICIAN DTL Blood (Blood, Venous) 10/23/2024 9:20 AM COMMERCIAL PEST CONTROL TECHNICIAN 10/23/2024 9:45 AM COMMERCIAL PEST CONTROL TECHNICIAN Tamiko Huffman M.D. LAB BLOOD ADD-ON Final Res ult [facility] 200 [place] [address], [facility] 200 [place] [address] * Uric Acid (10/23/2024 9:20 AM COMMERCIAL PEST CONTROL TECHNICIAN) Pathologist [facility] Uric Acid, S 5.4 3.7 - 8.0 mg/dL 10/23/2024 10:10 AM COMMERCIAL PEST CONTROL TECHNICIAN DTL Blood (Blood, Venous) 10/23/2024 9:20 AM COMMERCIAL PEST CONTROL TECHNICIAN 10/23/2024 9:45 AM COMMERCIAL PEST CONTROL TECHNICIAN Tamiko Huffman M.D. LAB BLOOD ADD-ON Final Res ult [facility] [address] [place] [address], [facility] 200 [place] [address] * ALT (Alanine Aminotransferase) (10/23/2024 9:20 AM COMMERCIAL PEST CONTROL TECHNICIAN) Alanine Aminotransferase (ALT), S 42 7 - 55 U/L 10/23/2024 10:10 AM COMMERCIAL PEST CONTROL TECHNICIAN DTL Blood (Blood, Venous) 10/23/2024 9:20 AM COMMERCIAL PEST CONTROL TECHNICIAN 10/23/2024 9:45 AM COMMERCIAL PEST CONTROL TECHNICIAN us Tamiko Huffman M.D. LAB BLOOD ADD-ON Final Res ult [facility] [address] [place] [address] * Sodium (10/23/2024 9:20 AM COMMERCIAL PEST CONTROL TECHNICIAN) Sodium, S 141 135 - 145 mmol/L 10/23/2024 10:10 AM COMMERCIAL PEST CONTROL TECHNICIAN DTL Blood (Blood, Venous) 10/23/2024 9:20 AM COMMERCIAL PEST CONTROL TECHNICIAN 10/23/2024 9:45 AM COMMERCIAL PEST CONTROL TECHNICIAN us Tamiko Huffman M.D. LAB BLOOD ADD-ON Final Res ult Performing Organization Address City/[facility]/ZIP Co de Phone Number [facility] [address] 200 [place] [address] * Potassium (10/23/2024 9:20 AM COMMERCIAL PEST CONTROL TECHNICIAN) Potassium, S 4.6 3.6 - 5.2 mmol/L 10/23/2024 10:10 AM COMMERCIAL PEST CONTROL TECHNICIAN DT Blood (Blood, Venous) 10/23/2024 9:20 AM COMMERCIAL PEST CONTROL TECHNICIAN 10/23/2024 9:45 AM COMMERCIAL PEST CONTROL TECHNICIAN us Tamiko Huffman M.D. LAB BLOOD ADD-ON Final Res ult Performing Organization Address City/[facility]/ZIP Co de Phone Number [facility] [address] 200 [place] [address] * Alkaline Phosphatase (10/23/2024 9:20 AM COMMERCIAL PEST CONTROL TECHNICIAN) Alkaline Phosphatase, S 58 40 - 129 U/L 10/23/2024 10:10 AM COMMERCIAL PEST CONTROL TECHNICIAN DTL Blood (Blood, Venous) 10/23/2024 9:20 AM COMMERCIAL PEST CONTROL TECHNICIAN 10/23/2024 9:45 AM COMMERCIAL PEST CONTROL TECHNICIAN us Tamiko Huffman M.D. LAB BLOOD ADD-ON Final Res ult Performing Organization Address City/[facility]/ZIP Co de Phone Number [facility] [address] [place] [address] * Ferritin (10/23/2024 9:20 AM COMMERCIAL PEST CONTROL TECHNICIAN) Ferritin, S 121 31 - 409 mcg/L 10/23/2024 10:10 AM COMMERCIAL PEST CONTROL TECHNICIAN DTL Blood (Blood, Venous) 10/23/2024 9:20 AM COMMERCIAL PEST CONTROL TECHNICIAN 10/23/2024 9:45 AM COMMERCIAL PEST CONTROL TECHNICIAN us Tamiko Huffman M.D. LAB BLOOD ADD-ON Final Res ult Performing Organization Address [facility]/ZIP Co de Phone Number [facility] [address] [place] [address] * Calcium, Total (10/23/2024 9:20 AM COMMERCIAL PEST CONTROL TECHNICIAN) Calcium, Total, S 9.5 8.8 - 10.2 mg/dL 10/23/2024 10:10 AM COMMERCIAL PEST CONTROL TECHNICIAN DTL Blood (Blood, Venous) 10/23/2024 9:20 AM COMMERCIAL PEST CONTROL TECHNICIAN 10/23/2024 9:45 AM COMMERCIAL PEST CONTROL TECHNICIAN us Tamiko Huffman M.D. LAB BLOOD ADD-ON Final Res ult Performing Organization Address City/[facility]/ZIP Co de Phone Number [facility] [address] [place] [address] * MBC Tissue Donor Screen Test (03/05/2024 [...] AM CDT 03/05/2024 8:45 AM CDT [facility] DONOR TESTING AND [facility] - 03/06/2024 1:12 PM CDT Specimen Information: Specimen ID: [id number] Specimen Type: Blood Specimen Collection Start Date: 03/05/2024 8:36 AM Specimen Received Date: 03/05/2024 8:45 AM Specimen ID: [id number] Specimen Type: Blood Specimen Collection Start Date: 03/05/2024 8:36 AM Specimen Received Date: 03/05/2024 8:45 AM Specimen ID: [id number] Specimen Type: Blood Specimen Collection Start Date: 03/05/2024 8:36 AM Specimen Received Date: 03/05/2024 8:45 AM Specimen ID: [id number] Specimen Type: Blood Specimen Collection Start Date: 03/05/2024 8:36 AM Specimen Received Date: 03/05/2024 8:45 AM us Marcelina Hansen M.D., Ph.D. LAB BLOOD NON ADD-ON Final Re sult [facility] DONOR TESTING AND [facility] [address] [place] [address] Blood [facility], Donor Testing and [facility] [address] [place] [address] * Hepatitis B Surface Antigen (04/28/2018 9:42 AM CDT) HBs Antigen, S Negative Negative 04/28/2018 1:25 PM CDT [facility] Blood (Blood, Venous) 04/28/2018 9:42 AM CDT 04/28/2018 12:28 PM CDT us Tamiko Huffman M.D. LAB MICROBIOLOGY - BLOOD O RDERABLES Final Result [facility] [address] [place] [address] from Last 3 Months or Most Recently Relevant to Health Maintenance Insurance [facility] Advance Directives For more information, please contact: [phone] * Full Code (Latest Code Status on [...] Answer Comments Full Code: Discussed Care Teams Reinforcing Steel Erector Relationship Specialty Start Date End Date Elsewhere, Pcp PCP - General Internal Medicine 08/09/24
--- OUTSIDE RECORDS SUMMARY | 2025-01-01 19:08 | XMS_ITS ---
Author Organization [facility] Address [address] [place] [address] Care Team Providers Care Kinesiology Professor Name Role Phone Elsewhere, Pcp Primary [...] Treatment Medications Discontinue Reason Plan Provider Cycles [facility] [id number] Arm A ( riTUXimab / Lenalidomide ) 9 09/03/2020 Research IRB [id number] lenalidomide ([id number])riTUXi mab (Rituxan)riTUX imab (Rituxan) IVPB (RESTRICTED) (Rituxan) Patient Preference Tamiko Huffman M.D. 28 (16 of 18 cycles) started [facility] [id number] Induction ( riTUXimab / Lenalidomide ) 05/02/2018 04/09/2019 Research IRB [id number] lenalidomide ([id number])riTUXi mab (Rituxan) IVPB (RESTRICTED) (Rituxan) Therapy Complete [...] T [place] Infused Resolved Day 256 (04/20/24) [facility] N/A N/A N/A No contact on [...]
--- OUTSIDE RECORDS SUMMARY | 2025-01-01 19:08 | XMS_ITS | Encounter Summary ---
Author Organization [facility] Address [address] [place] [address] Care Team Providers Care World Renowned Chef And Restaurant Owner Name Role Phone Elsewhere, Pcp Primary Care Provider Unavailabl e Encounter Details Date Type Department Care Team (Late st Contact Info) Description 10/29/2024 Clinical Communication Department of Neurologic Surgery in [place], [place] [address] [place] [phone] Brittany Mcdowell M.D. [address] [place] [phone] Social History Tobacco Use Types Packs/Day Years Used Date Smoking Tobacco: Former Cigarettes Passive Smoke Exposure: Past Smokeless Tobacco: Never Comments:High School Quit 18 Alcohol Use Standard Drinks/Week Comments Not Currently 0 (1 standard drink = 0.6 oz pur e alcohol) [facility] Utilities Answer Date Recorded In the past 12 months has [facility] [employer], [employer], oil, or water [employer] threatened to shut off services in your [...] and Family Once a week 05/04/2019 Attends Roman Catholic Services 1 to 4 times per year [...] Answer Date Recorded PHQ-2 Score 0 04/[facility]20[facility] Answer Date [...] your living situation today? [facility] have [facility] place to live 10/26/2024 Education Answer Date Recorded What is the highest level of school you have completed or the highest degree you have received? Associate degree: occupational, technical, or vocational program 05/13/2020 Sex and Gender Information Value Date Recorded Sex Assigned at Male 04/20/2018 9:42 AM CDT Legal Sex Male 6:56 AM MEDICINE AND HEALTH SERVICE MANAGER Gender Identity Male 04/20/2018 9:42 AM CDT Sexual Orientation Straight 04/20/2018 9: 42 AM CDT documented as of this encounter Plan of Treatment Upcoming Encounters Date Type Department Care Team (Late st Contact Info) Description 01/21/2025 8:00 AM CDT Nurse Only Section of Infectious Diseases in [place], [place] [address] [place] [phone] Ha Nolasco M.D. [address] [place] [phone] 01/21/2025 9:45 AM CDT Appointment Department of Radiology, [facility] in [place], [place] [address] [place] [phone] Helga Raymundo APRN, C.N.P., D.N.P., M.S.N. [address] [place] [phone] 01/21/2025 2:30 PM CDT Office Visit Department of Neurologic Surgery in [place], [place] [address] [place] [phone] Gwendolyn Lombardo APRN, CERTIFIED SURGICAL TECHNICIAN, D.N.P., M.S.N. [address] [place] [phone] 01/29/2025 8:20 AM CDT Appointment Department of Laboratory Medicine and Pathology, [facility] in [place], [place] [address] [place] [address] Tamiko Huffman M.D. [address] [place] [phone] 01/29/2025 10:45 AM CDT Office Visit Division of Hematology in [place], [place] [address] [place] [address] Tamiko Huffman M.D. [address] [place] [phone] documented as of this encounter Visit Diagnoses Not on filedocumented in this encounter Additional Health Concerns Assessment Noted Time PHQ-9 Depression Total Score: 1 04/12/20 24 6:50 AM CDT documented as of this encounter Care Teams World Renowned Chef And Restaurant Owner Relationship Specialty Start Date End Date Elsewhere, Pcp PCP - General Internal Medicine 08/09/24 documented as of this encounter
--- OUTSIDE RECORDS SUMMARY | 2025-01-01 19:08 | XMS_ITS | Encounter Summary ---
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 [address] [place] [phone] Phone: tel: fax: Division of Hematology in [place], [place] [address] [place] [phone] Phone: tel: Referral ID Status Reason Start Date Expiration Date V isits Requested Visits Authorized [id number] Authorized 12/14/2024 06/11/2025 12 7 Encounter Details Date Type Department Care Team (Late st Contact Info) Description 12/25/2024 11:00 AM CDT Infusion Department of Infusion Therapy in [place], [place] [address] [facility] [address] [place] [address] Tamiko Huffman M.D. 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) (Primary Dx) Discharge Disposition: Home or Self Care Social History Tobacco Use Types Packs/Day Years Used Date Smoking Tobacco: Former Cigarettes Passive Smoke Exposure: Past Smokeless Tobacco: Never Comments:High School Quit 18 Alcohol Use Standard Drinks/Week Comments Not Currently 0 (1 standard drink = 0.6 oz pur e alcohol) [facility] Utilities Answer Date Recorded In [...] and Family Once a week 05/04/2019 Attends [employer] Services 1 to 4 times per year [...] Answer Date Recorded PHQ-2 Score 0 04/12/2024 [facility] Occupat ional Health - Occupational Stress [...] your living situation today? I have a [facility] place to live 10/26/2024 Education Answer Date Recorded What is the highest level of school you have completed or the highest degree you have received? Associate degree: occupational, technical, or vocational program 05/13/2020 Sex and Gender Information Value Date Recorded Sex Assigned at Male 04/20/2018 9:42 AM CDT Legal Sex Male 6:56 AM RADIO MECHANIC APPRENTICE Gender Identity Male 04/20/2018 9:42 AM CDT [...] Body Mass Index 33.27 10/26/2024 10:44 AM RADIO MECHANIC APPRENTICE documented in this encounter Plan of Treatment Upcoming Encounters Date Type Department Care Team (Late st Contact Info) Description 01/21/2025 8:00 AM CDT Nurse Only Section of Infectious Diseases in [place], [place] [address] [place] [phone] Ha Nolasco M.D. [address] [place] [phone] 01/21/2025 9:45 AM CDT [facility] [place] [place] [address] [place] [phone] Helga Raymundo APRN, C.N.P., D.N.P., M.S.N. [address] [place] [phone] 01/21/2025 2:30 PM CDT Office Visit Department of Neurologic Surgery in [place], [place] [address] [place] [phone] Gwendolyn Lombardo APRN, DEVELOPMENT CHEMIST, D.N.P., M.S.N. [address] [place] [phone] 01/29/2025 8:20 AM CDT Appointment Department of Laboratory Medicine and Pathology, [facility] in [place], [place] [address] [place] [phone] Tamiko Huffman M.D. [address] [place] [phone] 01/29/2025 10:45 AM CDT Office Visit Division of Hematology in [place], [place] [address] [place] [phone] Tamiko Huffman M.D. 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 If no weight indicated: Calculate dose based on [place] Body Weight (IBW). If Actual Body Weight [...] documented as of this encounter Care Teams Commercial Property Administrator Relationship Specialty Start Date End Date Elsewhere, Pcp PCP - General Internal Medicine 08/09/24 documented as of this encounter
--- OUTSIDE RECORDS SUMMARY | 2025-01-01 19:08 | XMS_ITS | Encounter Summary ---
Author Organization [facility] Address [address] [place] [address]. [place] [address] Care Team Providers Care Information Architect Name Role Phone Gamal Vásquez MD Primary Care Provider Isabelle Gleason MD Unavailable Unavailable Gamal Vásquez MD Unavailable [phone] Guilherme Sprague MD Unavailable [phone] Guilherme Sprague MD Unavailable [phone] Shay Dunlap PA-C Unavailable [phone] Soco Magana PA-C Unavailable [phone] Gamal Vásquez MD Unavailable [phone] [facility] Unavailable Encounter Details Date Type Department Care Team (Late st Contact Info) Description 01/22/2022 [facility] Medical Adv[facility] Centralized Scheduling [facility] [place] [address] Nikia Dasview Social History Tobacco [...] asked 09/10/2020 How often do you attend restorationist or rastafarian serv ices? 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 Not on file Not on file Not [...] on filedocumented in this encounter Care Teams Information Architect Relationship Specialty Start Date End Date Gamal Vásquez MD [address] [place] [address] PCP - General Internal Medicine 04/14/15 Isabelle Gleason MD [address] [place] [address] BMT Physician Hematology 03/21/18 Gamal Vásquez MD [address] [place] [address] Assigned PCP 09/21/20 09/10/22 Guilherme Sprague MD [address] [place] [address] Urology 09/22/20 Guilherme Sprague MD [address] [place] [address] Assigned Surgical Provider 12/28/20 Shay Dunlap PA-C [address] [place] [address] Assigned Musculoskeletal Provider 03/15/21 04/16/22 Soco Magana PA-C [address] [place] [address] Assigned Heart and Vascular Provider 11/15/21 06/17/24 Gamal Vásquez MD [address] [address] Assigned PCP 11/20/22 09/16/23 [facility] 303 [place] [address] Assigned PCP 10/20/23 documented as of this encounter
--- OUTSIDE RECORDS SUMMARY | 2025-01-01 19:09 | XMS_ITS | Encounter Summary ---
Author Organization [facility] Address [address] [place] [address] Care Team Providers Care Sports Reporter Name Role Phone Elsewhere, Pcp Primary Care Provider Unavailabl e Encounter Details Date Type Department Care Team (Late st Contact Info) Description 04/11/2018 [facility] ONCOLOGY P[facility] [address] [facility] 210 [place] [phone] Gilberto Baker M.D. 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) (Primary Dx) Social History Tobacco Use Types Packs/Day Years Used Date Smoking Tobacco: Never Assessed Sex and Gender Information Value Date Recorded Sex Assigned at Male 04/20/2018 9:42 AM CDT Legal Sex Male 6:56 AM ALTERATIONS WORKROOM CLERK Gender Identity Male 04/20/2018 9:42 AM CDT Sexual Orientation Straight 04/20/2018 9: 42 AM CDT documented as of this encounter Plan of Treatment Upcoming Encounters Date Type Department Care Team (Late st Contact Info) Description 01/21/2025 8:00 AM CDT Nurse Only Section of Infectious Diseases in [place], [place] [address] [place] [phone] Ha Nolasco M.D. [address] [place] [phone] 01/21/2025 9:45 AM CDT Appointment Department of Radiology, [facility] in [place], [place] [address] [place] [address] Helga Raymundo APRN, C.N.P., D.N.P., M.S.N. [address] [place] [phone] 01/21/2025 2:30 PM CDT Office Visit Department of Neurologic Surgery in [place], [place] [address] [place] [phone] Gwendolyn Lombardo APRN, PEST CONTROL SERVICE REPRESENTATIVE, D.N.P., M.S.N. [address] [place] [phone] 01/29/2025 8:20 AM CDT Appointment Department of Laboratory Medicine and Pathology, [facility] in [place], [place] [address] [place] [address] Tamiko Huffman M.D. [address] [place] [phone] 01/29/2025 10:45 AM CDT Office Visit Division of Hematology in [place], [place] [address] [place] [phone] Tamiko Huffman M.D. 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
--- OUTSIDE RECORDS SUMMARY | 2025-01-01 19:09 | XMS_ITS | Encounter Summary ---
Author Organization [facility] Address [address] [place] [address]. [place] [address] Care Team Providers Care Psychiatry Instructor Name Role Phone Gamal Vásquez MD Primary Care Provider [phone] Isabelle Gleason MD Unavailable Unavailable Gamal Vásquez MD Unavailable [phone] Guilherme Sprague MD Unavailable [phone] Parish Hammer MD Unavailable Un available Guilherme Sprague MD Unavailable [phone] Shay Dunlap PA-C Unavailable [phone] Soco Magana-Kavin Unavailable [phone] Gamal Vásquez MD Unavailable [phone] [facility] Unavailable Encounter Details Date Type Department Care Team (Late st Contact Info) Description 06/30/2021 [facility] Medical Advice [facility] [address] [place] [phone] Myranda Castillo, TITLE CLOSER Social History Tobacco Use Types Packs/Day Years [...] asked 09/10/2020 How often do you attend pentecostal or church serv ices? 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 file Not on file Not on fi le documented as of this encounter Plan of Treatment Not on file documented as of this encounter Visit Diagnoses Not on filedocumented in this encounter Care Teams Psychiatry Instructor Relationship Specialty Start Date End Date Gamal Vásquez MD [address] [place] [address] PCP - General Internal Medicine 04/14/15 Isabelle Gleason MD [address] [place] [address] BMT Physician Hematology 03/21/18 Gamal Vásquez MD [address] [place] [address] Assigned PCP 09/21/20 09/10/22 Guilherme Sprague MD [address] [address] Urology 09/22/20 Parish Hammer MD Assigned Heart and Vascular Provider 10/05/20 11/14/21 Guilherme Sprague MD [address] [place] [address] Assigned Surgical Provider 12/28/20 Shay Dunlap PA-C [address] [place] [address] Assigned Musculoskeletal Provider 03/15/21 04/16/22 Soco Magana PA-C [address] [place] [address] Assigned Heart and Vascular Provider 11/15/21 06/17/24 Gamal Vásquez MD [address] [facility] 160 [place] [address] Assigned PCP 11/20/22 09/16/23 [facility] 303 [place], [place] [address] Assigned PCP 10/20/23 documented as of this encounter
--- OUTSIDE RECORDS SUMMARY | 2025-01-01 19:09 | XMS_ITS | Encounter Summary ---
Author Organization [facility] Address [address] [place] [address]. [place] [address] Care Team Providers Care Negative Notcher Name Role Phone Gamal Vásquez MD Primary Care Provider Isabelle Gleason MD Unavailable Unavailable Gamal Vásquez MD Unavailable [phone] Richa Carmona MD Unavailable + Juve Portillo MD Unavailable Gamal Vásquez MD Unavailable [phone] Guilherme Sprague MD Unavailable Parish Hammer MD Unavailable Un available Shay Dunlap PA-C Unavailable [phone] Guilherme Sprague MD Unavailable Shay Dunlap PA-C Unavailable [phone] Soco Magana PA-C Unavailable [phone] Gamal Vásquez MD Unavailable [phone] [facility][Note 3] Unavailable Encounter Details Date Type Department Care Team (Late st Contact Info) Description 01/21/[address] 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 Not on file Not on fi le documented as of this encounter Plan of Treatment Not on file documented as of this encounter Visit Diagnoses Not on filedocumented in this encounter Care Teams Negative Notcher Relationship Specialty Start Date End Date Gamal Vásquez MD [address] [place] [address] PCP - General Internal Medicine 04/14/15 Isabelle Gleason MD [address] [place] [address] BMT Physician Hematology 03/21/18 Gamal Vásquez MD [address] [place] [address] Assigned PCP 04/06/15 08/23/20 Richa Carmona MD [address] [facility] [address] [place] [address] Assigned Heart and Vascular Provider 07/18/20 09/27/20 Juve Portillo MD [address] [place] [address] Assigned PCP 08/24/20 09/20/20 Gamal Vásquez MD [address] [place] [address] Assigned PCP 09/21/20 09/10/22 Guilherme Sprague MD [address] [place] [address] Urology 09/22/20 Parish Hammer MD Assigned Heart and Vascular Provider 10/05/20 11/14/21 Shay Dunlap PA-C [address] [place] [address] Assigned Surgical Provider 12/10/20 12/27/20 Guilherme Sprague MD [address] [place] [address] Assigned Surgical Provider 12/28/20 12/15/24 Shay Dunlap PA-C [address] [place] [address] Assigned Musculoskeletal Provider 03/15/21 04/16/22 Soco Magana PA-C [address] [place] [address] Assigned Heart and Vascular Provider 11/15/21 06/17/24 Gamal Vásquez MD [address] [address] Assigned PCP 11/20/22 09/16/23 [facility][Note 3] 303 [place] [address] Assigned PCP 10/20/23 documented as of this encounter
--- OUTSIDE RECORDS SUMMARY | 2025-01-01 19:09 | XMS_ITS | Encounter Summary ---
Author Organization [facility] Address [address] [place] [address]. [place] [address] Care Team Providers Care Blemish Remover Name Role Phone Gamal Vásquez MD Primary Care Provider Isabelle Gleason MD Unavailable Unavailable Gamal Vásquez MD Unavailable [phone] Gamal Vásquez MD Unavailable [phone] Richa Carmona MD Unavailable + Juve Portillo MD Unavailable [phone] Gamal Vásquez MD Unavailable [phone] Guilherme Sprague MD Unavailable [phone] Parish Hammer MD Unavailable Un available Shay Dunlap PA-C Unavailable [phone] Guilherme Sprague MD Unavailable [phone] Shay Dunlap PA-C Unavailable [phone] Soco Magana PA-C Unavailable [phone] Gamal Vásquez MD Unavailable [phone] [facility] Unavailable Encounter Details Date Type Department Care Team (Late st Contact Info) Description 11/19/[address] 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 Not on file Not on fi le documented as of this encounter Plan of Treatment Not on file documented as of this encounter Visit Diagnoses Not on filedocumented in this encounter Care Teams Blemish Remover Relationship Specialty Start Date End Date Gamal Vásquez MD [address] [place] [address] PCP - General Internal Medicine 04/14/15 Gamal Vásquez MD [address] [place] [address] PCP - Assigned PCP 04/06/15 11/28/18 Isabelle Gleason MD [address] [place] [address] BMT Physician Hematology 03/21/18 Gamal Vásquez MD [address] [place] [address] Assigned PCP 04/06/15 08/23/20 Richa Carmona MD [address] [facility] [address] [place] [address] Assigned Heart and Vascular Provider 07/18/20 09/27/20 Juve Portillo MD [address] [place] [address] Assigned PCP 08/24/20 09/20/20 Gamal Vásquez MD [address] [place] [address] Assigned PCP 09/21/20 09/10/22 Guilherme Sprague MD [address] [place], [place] [address] Urology 09/22/20 Parish Hammer MD Assigned Heart and Vascular Provider 10/05/20 11/14/21 Shay Dunlap PA-C [address] [place] [address] Assigned Surgical Provider 12/10/20 12/27/20 Guilherme Sprague MD [address] [place] [address] Assigned Surgical Provider 12/28/20 12/15/24 Shay Dunlap PA-C [address] [place] [address] Assigned Musculoskeletal Provider 03/15/21 04/16/22 Soco Magana PA-C [address] [place] [address] Assigned Heart and Vascular Provider 11/15/21 06/17/24 Gamal Vásquez MD [address] [place] [address] Assigned PCP 11/20/22 09/16/23 [facility] 303 [place] [address] Assigned PCP 10/20/23 documented as of this encounter
--- OUTSIDE RECORDS SUMMARY | 2025-01-01 19:09 | XMS_ITS | Encounter Summary ---
Author Organization [place] Address [address] [place] [address]. [place] [address] Care Team Providers Care Yield Loss Inspector Name Role Phone Gamal Vásquez MD Primary Care Provider [phone] Isabelle Gleason MD Unavailable Unavailable Gamal Vásquez MD Unavailable [phone] Guilherme Sprague MD Unavailable [phone] Guilherme Sprague MD Unavailable [phone] Shay Dunlap PA-C Unavailable + [phone] Soco Magana PA-C Unavailable [phone] Gamal Vásquez MD Unavailable [phone] [facility] Unavailable Encounter Details Date Type Department Care Team (Late st Contact Info) Description 02/05/2022 [facility] Medical Advice [facility] [address] [place] [address] Tere Page Social History Tobacco [...] How often do you attend mandaeism or rastafarian serv ices? 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 Not on file Not [...] on filedocumented in this encounter Care Teams Yield Loss Inspector Relationship Specialty Start Date End Date Gamal Vásquez MD [address] [place] [address] PCP - General Internal Medicine 04/14/15 Isabelle Gleason MD [address] [place] [address] BMT Physician Hematology 03/21/18 Gamal Vásquez MD [address] [place] [address] Assigned PCP 09/21/20 09/10/22 Guilherme Sprague MD [address] [place] [address] Urology 09/22/20 Guilherme Sprague MD [address] [place] [address] Assigned Surgical Provider 12/28/20 Shay Dunlap PA-C [address] [place] [address] Assigned Musculoskeletal Provider 03/15/21 04/16/22 Soco Magana PA-C [address] [facility] [place] [address] Assigned Heart and Vascular Provider 11/15/21 06/17/24 Gamal Vásquez MD [address] [facility] 160 [place] [address] Assigned PCP 11/20/22 09/16/23 [facility] 303 [place] [address] Assigned PCP 10/20/23 documented as of this encounter
--- OUTSIDE RECORDS SUMMARY | 2025-01-01 19:09 | XMS_ITS | Encounter Summary ---
Author Organization [facility] Address [address] [place] [address]. [place] [address] Care Team Providers Care Reptile Keeper Name Role Phone Gamal Vásquez MD Primary Care Provider Isabelle Gleason MD Unavailable Unavailable Gamal Vásquez MD Unavailable [phone] Guilherme Sprague MD Unavailable [phone] Guilherme Sprague MD Unavailable [phone] Soco Magana PA-C Unavailable [phone] Gamal Vásquez MD Unavailable [phone] [facility] Unavailable Reason for Visit * Reason Comments Medication Refill Encounter Details Date Type Department Care Team (Late st Contact Info) Description 08/04/2022 [facility] [address] [place] [address] Gamal Vásquez MD [address] [place] [address] Medication Refill Social History Tobacco [...] asked 09/10/2020 How often do you attend catholic or zoroastrianism serv ices? 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 No / Unsure 07/05/2022 9:33 AM CDT documented as of this encounter Miscellaneous Notes * Telephone Encounter - Samia Webber RN - 08/05/2022 5:26 PM BOOKBINDER APPRENTICE Sildenafil 100 mg Routing refill request to provider for review/approval because: A break in medication Patient needs to be seen because it has been more than 1 year since last office visit. Patient seen by Dr. Eller for Pre-op 01/2022 ASHLEY with PCP- 08/2020 BINDER APPRENTICE documented in this encounter Plan of Treatment Not on file documented as of this encounter Visit Diagnoses Diagnosis Other male erectile dysfunction documented in this encounter Care Teams Reptile Keeper Relationship Specialty Start Date End Date Gamal Vásquez MD [address] [address] PCP - General Internal Medicine 04/14/15 Isabelle Gleason MD [address] [place] [address] BMT Physician Hematology 03/21/18 Gamal Vásquez MD [address] [address] Assigned PCP 09/21/20 09/10/22 Guilherme Sprague MD [address] [place] [address] Urology 09/22/20 Guilherme Sprague MD [address] [place] [address] Assigned Surgical Provider 12/28/20 12/15/24 Soco Magana PA-C [address] [place] [address] Assigned Heart and Vascular Provider 11/15/21 06/17/24 Gamal Vásquez MD [address] [address] Assigned PCP 11/20/22 09/16/23 [facility] [address] [place] [address] Assigned PCP 10/20/23 documented as of this encounter
--- OUTSIDE RECORDS SUMMARY | 2025-01-01 19:09 | XMS_ITS | Encounter Summary ---
Author Organization [facility] Address [address] [place] [address]. [place] [address] Care Team Providers Care Piano Mover Name Role Phone Gamal Vásquez MD Primary Care Provider Isabelle Gleason MD Unavailable Unavailable Gamal Vásquez MD Unavailable [phone] Guilherme Sprague MD Unavailable [phone] Guilherme Sprague MD Unavailable Soco Magana PA-C Unavailable [phone] Gamal Vásquez MD Unavailable [phone] [facility] Unavailable Encounter Details Date Type Department Care Team (Late st Contact Info) Description 05/07/2022 [facility] Medical Advice [facility] [address] [place] [address] Guilherme Sprague MD [address] [id number] Social History Tobacco Use Types Packs/Day Years [...] asked 09/10/2020 How often do you attend pentecostalism or lutheran serv ices? 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 Not on file Not on [...] on filedocumented in this encounter Care Teams Piano Mover Relationship Specialty Start Date End Date Gamal Vásquez MD [address] [place] [address] PCP - General Internal Medicine 04/14/15 Isabelle Gleason MD [address] [place] [address] BMT Physician Hematology 03/21/18 Gamal Vásquez MD [address] [place] [address] Assigned PCP 09/21/20 09/10/22 Guilherme Sprague MD [address] [place] [address] Urology 09/22/20 Guilherme Sprague MD [address] [place] [address] Assigned Surgical Provider 12/28/20 12/15/24 Soco Magana PA-C [address] [place] [address] Assigned Heart and Vascular Provider 11/15/21 06/17/24 Gamal Vásquez MD [address] [facility] 160 [place] [address] Assigned PCP 11/20/22 09/16/23 [facility] [address] [place] [address] Assigned PCP 10/20/23 documented as of this encounter
--- OUTSIDE RECORDS SUMMARY | 2025-01-01 19:09 | XMS_ITS | Encounter Summary ---
Author Organization [place] Address [address] [place] [address] Care Team Providers Care Administrative Operations Coordinator Name Role Phone Maynor Barragan MD Primary Care Provider Unavailable [facility] Primary Care Provider Gilberto Baker MD Primary Care Provider [phone] Gamal Vásquez MD Primary Care Provider Isabelle Gleason MD Unavailable Unavailable Gamal Vásquez MD Unavailable [phone] Gamal Vásquez MD Unavailable Richa Carmona MD Unavailable + Juve Portillo MD Unavailable Gamal Vásquez MD Unavailable [phone] Guilherme Sprague MD Unavailable [phone] Parish Hammer MD Unavailable Un available Shay Dunlap PA-C Unavailable [phone] Guilherme Sprague MD Unavailable [phone] Shay Dunlap PA-C Unavailable [phone] Soco Magana PA-C Unavailable [phone] Gamal Vásquez MD Unavailable [phone] [facility] Unavailable Reason for Visit * Reason Onset Date Comments Pt. Information/instruction 02/28/2008 Encounter Details Date Type Department Care Team (Late st Contact Info) Description 02/28/2008 [facility] Advice [address] [phone] Maynor Barragan MD XXX HOSPITALIST/ED DOCTOR XXX Pt. 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 on file Not on file Not on fi le documented as of this encounter Plan of Treatment Not on file documented as of this encounter Visit Diagnoses Not on filedocumented in this encounter Care Teams Administrative Operations Coordinator Relationship Specialty Start Date End Date Maynor Barragan MD XXX HOSPITALIST/ED DOCTOR XXX PCP - General 04/07/02 07/26/10 [facility] XXX HOSPITALIST/ED DOCTOR XXX PCP - General 02/16/12 01/15/14 Gilberto Baker MD [facility] [address] [facility] [address] [place] [address] PCP - General Oncology 01/16/14 04/13/15 Gamal Vásquez MD [address] [place] [address] PCP - General Internal Medicine 04/14/15 Gamal Vásquez MD [address] [place] [address] PCP - Assigned PCP 04/06/15 11/28/18 Isabelle Gleason MD [address] [place] [address] BMT Physician Hematology 03/21/18 Gamal Vásquez MD [address] [place] [address] Assigned PCP 04/06/15 08/23/20 Richa Carmona MD [address] [place] [address] Assigned Heart and Vascular Provider 07/18/20 09/27/20 Juve Portillo MD [address] [place] [address] Assigned PCP 08/24/20 09/20/20 Gamal Vásquez MD [address] [place] [address] Assigned PCP 09/21/20 09/10/22 Guilherme Sprague MD [address] [place] [address] Urology 09/22/20 Parish Hammer MD Assigned Heart and Vascular Provider 10/05/20 11/14/21 Shay Dunlap PA-C [address] [place] [address] Assigned Surgical Provider 12/10/20 12/27/20 Guilherme Sprague MD [address] [place] [address] Assigned Surgical Provider 12/28/20 12/15/24 Shay Dunlap PA-C [address] [address] Assigned Musculoskeletal Provider 03/15/21 04/16/22 Soco Magana PA-C [address] [place] [address] Assigned Heart and Vascular Provider 11/15/21 06/17/24 Gamal Vásquez MD 303 [facility] 160 [place] [address] Assigned PCP 11/20/22 09/16/23 [facility] 303 [place] [address] Assigned PCP 10/20/23 documented as of this encounter
--- OUTSIDE RECORDS SUMMARY | 2025-01-01 19:09 | XMS_ITS | Encounter Summary ---
Author Organization [facility] Address [address] [place] [address]. [place] [address] Care Team Providers Care Healthcare Market Consultant Name Role Phone Gamal Vásquez MD Primary Care Provider Isabelle Gleason MD Unavailable Unavailable Gamal Vásquez MD Unavailable [phone] Richa Carmona MD Unavailable + Juve Portillo MD Unavailable Gamal Vásquez MD Unavailable [phone] Guilherme Sprague MD Unavailable [phone] Parish Hammer MD Unavailable Un available Shay Dunlap PA-C Unavailable [phone] Guilherme Sprague MD Unavailable [phone] Shay Dunlap PA-C Unavailable [phone] Soco Magana PA-C Unavailable [phone] Gamal Vásquez MD Unavailable [phone] [facility] Unavailable Reason for Visit * Reason Comments Medication Refill Encounter Details Date Type Department Care Team (Late st Contact Info) Description 03/10/2020 [facility] [address] [place] [address] Liya Ruiz MD [address] [place] [address] Medication Refill Social History Tobacco Use Types Packs/Day Years Used Date Smoking Tobacco: Never Smokeless Tobacco: Never Alcohol Use Standard Drinks/Week Comments Yes 0 (1 standard drink = 0.6 oz pur e alcohol) 2 drinks week PHQ-2 Answer Date Recorded PHQ-2 Score 0 10/04/2018 Sex and Gender Information Value Date Recorded Sex Assigned at Not on file 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 Gender Identity Not on file Sexual Orientation Not on file 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 Not on file Not on file Not [...] dysfunction documented in this encounter Care Teams Healthcare Market Consultant Relationship Specialty Start Date End Date Gamal Vásquez MD [address] [place] [address] PCP - General Internal Medicine 04/14/15 Isabelle Gleason MD [address] [place] [address] BMT Physician Hematology 03/21/18 Gamal Vásquez MD [address] [place] [address] Assigned PCP 04/06/15 08/23/20 Richa Carmona MD [address] [place] [address] Assigned Heart and Vascular Provider 07/18/20 09/27/20 Juve Portillo MD [address] [place] [address] Assigned PCP 08/24/20 09/20/20 Gamal Vásquez MD [address] [place], [place] [address] Assigned PCP 09/21/20 09/10/22 Guilherme Sprague MD [address] [place], [place] [address] Urology 09/22/20 Parish Hammer MD Assigned Heart and Vascular Provider 10/05/20 11/14/21 Shay Dunlap PA-C [address] [place] [address] Assigned Surgical Provider 12/10/20 12/27/20 Guilherme Sprague MD [address] [place] [address] Assigned Surgical Provider 12/28/20 12/15/24 Shay Dunlap PA-C [address] [place] [address] Assigned Musculoskeletal Provider 03/15/21 04/16/22 Soco Magana PA-C [address] [place] [address] Assigned Heart and Vascular Provider 11/15/21 06/17/24 Gamal Vásquez MD 303 [facility] 160 [place] [address] Assigned PCP 11/20/22 09/16/23 [facility] 303 [place] [address] Assigned PCP 10/20/23 documented as of this encounter
--- OUTSIDE RECORDS SUMMARY | 2025-01-01 19:09 | XMS_ITS | Encounter Summary ---
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 Phone: tel: fax: [facility] Referral ID Status Reason Start Date Expiration Date Visits Re quested Visits Authorized [id number] Closed 04/13/2018 04/13/2019 2 1 Encounter Details Date Type Department Care Team (Late st Contact Info) Description 04/13/2018 [facility] ONCOL[facility]Y [place] [address] [facility] 210 [place] [phone] Gilberto Baker M.D. 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 [address] [place] [phone] 01/21/2025 9:45 AM CDT Appointment Department of Radiology, [facility] in [place], [place] [address] [place] [phone] Helga Raymundo APRN, C.N.P., D.N.P., M.S.N. [address] [place] [phone] 01/21/2025 2:30 PM CDT Office Visit Department of Neurologic Surgery in [place], [place] [address] [place] [phone] Gwendolyn Lombardo APRN, SIGNALS INTELLIGENCE SUPERINTENDENT, D.N.P., M.S.N. [address] [place] [phone] 01/29/2025 8:20 AM CDT Appointment Department of Laboratory Medicine and Pathology, [facility] in [place], [place] [address] [place] [phone] Tamiko Huffman M.D. [address] [place] [phone] 01/29/2025 10:45 AM CDT Office Visit Division of Hematology in [place], [place] [address] [place] [phone] Tamiko Huffman M.D. [address] [place] [phone] Scheduled Referrals Name Type Priority Associated Diagnoses [...] Time Protective Environment 08/04/2023 08/04/202310/26 8:35 PM ROUGE SIFTER AND MILLER documented as of this encounter Care Teams Butter Melter Relationship Specialty Start Date End Date Elsewhere, Pcp PCP - General Internal Medicine 08/09/24 documented as of this encounter
== END 2025-01-01 19:18 | disposition left against medical advice (07) ==
LOC: ED 19:04
PROVIDERS: Emergency Provider Emergency Medicine; PCP Internal Medicine
DX: R05.9 Cough, unspecified (principal); Z53.21 Procedure and treatment not carried out due to patient leaving prior to being seen by health care provider
CPT/HCPCS: 87631; 99281

== ENCOUNTER 2025-01-25 06:54 | Emergency (ER) | payer BC, SELFPAY ==
[2025-01-25 07:07] VITALS: BP 136/94; PULSE 110; RESP 18; TEMP 38.5; O2SAT 93; BMI 32.1
--- NOTE | 2025-01-25 07:27 | ED_ITS ---
HPI - General Adult General Date Seen: 01/25/25 Chief complaint: Cough Stated complaint: respiratory issues Time Seen by Provider: 01/25/25 07:12 Source: patient Mode of arrival: ambulatory Limitations: no limitations History of Present Illness HPI narrative: Patient is a 64-year-old male with chronic immunodeficiency and recurrent respiratory infections. He is on prophylactic acyclovir and Septra. He was seen twice in November for preseptal cellulitis and treated with eye drops and oral antibiotics in the form of Keflex and later Augmentin. He was seen in urgent care a few weeks ago and given no antibiotics and only albuterol. This did not help his chronic cough. He then saw his PCP who put him on two weeks of doxycycline. This did seem to resolve his symptoms and he was well for about a week before his symptoms recurred three days ago. He is now running fevers and has cough and body aches. He has been swabbed for COVID on at least three occasions. A recent PET scan did not show evidence of lung infection. He has low IgG count and has had an infusion within the last couple of months. He is eating and drinking okay. He was not aware of a fever until he arrived here. Related Data Home Medications ?Medication ?Instructions ?Recorded ?Confirmed multivitamin 1 tab PO QAM 12/05/24 01/03/25 acyclovir 400 mg tablet 400 mg PO BID 12/17/24 01/03/25 sulfamethoxazole 400 1 tab PO DAILY 12/17/24 01/03/25 mg-trimethoprim 80 mg tablet anastrozole 1 mg tablet 0.5 mg PO 2XW 01/01/25 01/03/25 testosterone cypionate 200 mg/mL 200 mg IM DIRECTED 01/01/25 01/03/25 intramuscular oil Previous Rx's ?Medication ?Instructions ?Recorded ofloxacin 0.3 % eye drops 1 drp ophthalmic (eye-left) Q6H 5 12/17/24 days #5 mL albuterol sulfate 90 mcg/actuation 2 puff inhalation Q4-6H PRN 01/03/25 aerosol inhaler shortness of breath or wheezing #8.5 grams levofloxacin 750 mg tablet 750 mg PO DAILY 10 days #10 tabs 01/25/25 prednisone 50 mg tablet 50 mg PO DAILY #5 tabs 01/25/25 Allergies Allergy/AdvReac Type Severity Reaction Status Date / Time No Known Drug Allergies Allergy Verified 01/03/25 08:40 Review of Systems Narrative: Significant for chronic immunodeficiency, low testosterone, history of cancer. Review of systems is otherwise noted to be negative. [facility] Social History Smoking Status: Never smoker Do you use any of these nicotine containing products: None Second hand tobacco smoke exposure: No How often do you have a drink containing alcohol: monthly or less How many standard drinks containing alcohol do you have on a typical day: 1 or 2 How often do you have six or more drinks on one occasion: Never AUDIT-C Alcohol total score: 1 Non-prescribed substance use: denies use service: No Exam Narrative: Exam Narrative: Vitals noted. He is febrile. HEENT: Conjunctiva clear. Tympanic membranes are pearly white bilaterally. Posterior pharynx is clear without erythema or exudate. Neck is supple without a denopathy. Lungs: He has inspiratory and expiratory wheezes. He is not hypoxic. No localizing rales or rhonchi. Heart: Regular rate and rhythm without murmur. Extremities: No cyanosis or edema. Good distal pulses. Skin: No abnormalities noted of the exposed skin. Neurologic: Awake, alert, fully oriented. Neurologic exam is nonfocal. Const: Vital Signs, click to edit/add: Vital Signs - 24 hr 01/25/25 07:07 Temperature 101.3 F H Pulse Rate [Pulse Oximeter] 110 H Respiratory Rate 18 Blood Pressure [Ri ght Upper Arm] 136/94 H Pulse Oximetry 93 Oxygen Delivery Me thod Room Air Course Course ED Course: Patient was seen and examined. We discussed options of treating with a stronger antibiotic and a course of steroid verses running labs and doing some imaging. A recent PET scan did not show any sign of lung infection. He has regular follow-up both at [place] and with his PCP. We opted just to treat and have him follow-up upon completion. He has never been on Levaquin or prednisone and I think he would benefit from both. Vital Signs Vital signs: Initial Vital Signs Temperature 101.3 F H 01/25/25 07:07 Temperature Source Temporal Artery Scan 01/25/25 07:07 Pulse Rate 110 H 01/25/25 07:07 Respiratory Rate 18 01/25/25 07:07 Blood Pressure 136/94 H 01/25/25 07:07 Blood Pressure Mean 108 H 01/25/25 07:07 Pulse Oximetry 93 01/25/25 07:07 Oxygen Delivery Method Room Air 01/25/25 07:07 Vital Signs Temperature 101.3 F H 01/25/25 07:07 Pulse Rate 110 H 01/25/25 07:07 Respiratory Rate 18 01/25/25 07:07 Blood Pressure 136/94 H 01/25/25 07:07 Pulse Oximetry 93 01/25/25 07:07 Oxygen Delivery Method Room Air 01/25/25 07:07 Temperature 101.3 F H 01/25/25 07:07 Pulse Rate 110 H 01/25/25 07:07 Respiratory Rate 18 01/25/25 07:07 Blood Pressure 136/94 H 01/25/25 07:07 Pulse Oximetry 93 01/25/25 07:07 Oxygen Delivery Method Room Air 01/25/25 07:07 Discharge Plan Discharge Clinical Impression: Acute exacerbation of chronic bronchitis Patient Disposition: Home, Self-Care Condition: Stable Additional Instructions: Rest, fluids, Tylenol or ibuprofen for fever. Levaquin 750 mg daily for 10 days. Prednisone 50 mg daily for five days. Return to the emergency department for shortness of breath or failure to improve over the next 3-5 days. Follow-up with your PCP upon completion of the antibiotics. Prescriptions: New prednisone 50 mg tablet 50 mg PO DAILY Qty: 5 0RF levofloxacin 750 mg tablet 750 mg PO DAILY 10 Days Qty: 10 0RF No Action multivitamin Tablet 1 tab PO QAM albuterol sulfate 90 mcg/actuation HFA aerosol inhaler 2 puff inhalation Q4-6H PRN (Reason: shortness of breath or wheezing) Qty: 8.5 0RF anastrozole 1 mg tablet 0.5 mg PO 2XW testosterone cypionate 200 mg/mL oil 200 mg IM DIRECTED sulfamethoxazole-trimethoprim 400-80 mg tablet 1 tab PO DAILY acyclovir 400 mg tablet 400 mg PO BID ofloxacin 0.3 % drops 1 drp ophthalmic (eye-left) Q6H 5 Days Qty: 5 0RF Rx Instructions: start on day 3 of therapy Follow Up/Referrals: Gamal Vásquez JR, MD [Primary Care Provider] - Stand Alone Forms: [facility] Info Instructions
== END 2025-01-25 07:54 | disposition home or self-care (01) ==
LOC: ED 07:31
PROVIDERS: Emergency Provider Family Medicine; PCP Internal Medicine
DX: J42 Unspecified chronic bronchitis (principal)
CPT/HCPCS: 99281; 99283; 99284